=== PATIENT | female | born 1950 | race Caucasian/White ===

== ENCOUNTER → 2016-09-28 | Outpatient (REF) | payer MEDICARE, OTHER ==
[2016-09-28 12:07] LABS: ALBUMIN 3.5 GM/DL (3.2-5.2); ALBUMIN/GLOBULIN RATIO 1.03 (1.00-1.93); BILIRUBIN,TOTAL 0.2 MG/DL (0.2-1.0); CALCIUM LEVEL 9.5 MG/DL (8.8-10.2); CREATININE FOR GFR 1.04 MG/DL (0.55-1.02); GLOMERULAR FILTRATION RATE 56.4 (>45); POTASSIUM SERUM 4.4 MEQ/L (3.5-5.1); TOTAL PROTEIN 6.9 GM/DL (6.4-8.2)
== END ==
LOC: M SFHCPLAZ 08:22
PROVIDERS: ATTEND Nurse Practitioner Family
DX: I10 Essential (primary) hypertension (principal); E13.9 Other specified diabetes mellitus without complications

== ENCOUNTER → 2017-03-28 | Outpatient (REF) | payer MEDICARE, OTHER ==
[2017-03-28 12:29] LABS: ALBUMIN 3.6 GM/DL (3.2-5.2); ALBUMIN/GLOBULIN RATIO 1.09 (1.00-1.93); BILIRUBIN,TOTAL 0.3 MG/DL (0.2-1.0); CALCIUM LEVEL 10.1 MG/DL (8.8-10.2); CREATININE FOR GFR 1.12 MG/DL (0.55-1.02); FREE T4 1.2 NG/DL (0.76-1.46); GLOMERULAR FILTRATION RATE 51.8 (>45); POTASSIUM SERUM 4.3 MEQ/L (3.5-5.1); TOTAL PROTEIN 6.9 GM/DL (6.4-8.2)
== END ==
LOC: M SFHCPLAZ 08:32
PROVIDERS: ATTEND Nurse Practitioner Family
DX: E78.2 Mixed hyperlipidemia (principal); E11.9 Type 2 diabetes mellitus without complications

== ENCOUNTER → 2017-04-01 | Outpatient (CLI) | payer MEDICARE, OTHER ==
--- NOTE | 2017-04-01 10:56 | REPMRS ---
Patient History The patient states she has not had a clinical breast exam in over a year. Patient is postmenopausal and is nulliparous. No known family history of cancer. Benign stereotatic loc for ea lesion of the right breast, May 01, 2012. Taking unspecified hormones for 26 years. Digital Woman Screen Mammo: April 01, 2017 - Exam #: [id number] Bilateral CC and MLO view(s) were taken. Technologist: yJoti Lerma Technologist Prior study comparison: March 31, 2016, digital woman screen mammo performed at [facility]. March 25, 2015, digital woman screen mammo performed at [facility]. March 08, 2014, digital woman screen mammo performed at [facility]. March 14, 2012, right breast digital mammo diagnostic unilateral, performed at [facility]. FINDINGS: The breast tissue is heterogeneously dense. This may lower the sensitivity of mammography. There are stable nodular densities again noted in the right breast unchanged from multiple prior studies. There has been no change in the appearance of the mammogram from the prior studies. There is a mild amount of scattered fibroglandular density which is fairly symmetric. There is no interval development of dominant mass, architectural distortion, or clustered microcalcification suggestive of malignancy. ASSESSMENT: BI-RADS/ACR category 2 mammogram. Benign finding(s). Recommendation Routine screening mammogram in 1 year (for women over age 40). This mammogram was interpreted with the aid of an FDA-approved computer-aided dectection system. Electronically Signed By: Antonio Corbett MD 04/01/17 [id number]
== END ==
LOC: M WHC 09:52
PROVIDERS: ATTEND Nurse Practitioner Family
DX: Z12.31 Encounter for screening mammogram for malignant neoplasm of breast (principal)

== ENCOUNTER → 2017-09-26 | Outpatient (REF) | payer MEDICARE, OTHER ==
[2017-09-26 12:21] LABS: ALBUMIN 3.7 GM/DL (3.2-5.2); ALBUMIN/GLOBULIN RATIO 1.16 (1.00-1.93); ALKALINE PHOSPHATASE 83 U/L (45-117); ALT/SGPT 25 U/L (12-78); ANION GAP 7 MEQ/L (8-16); AST/SGOT 14 U/L (7-37); BILIRUBIN,TOTAL 0.2 MG/DL (0.2-1.0); BLOOD UREA NITROGEN 23 MG/DL (7-18); CALCIUM LEVEL 10.1 MG/DL (8.8-10.2); CARBON DIOXIDE LEVEL 30 MEQ/L (21-32); CHLORIDE LEVEL 100 MEQ/L (98-107); GLOMERULAR FILTRATION RATE 52.7 (>45); GLUCOSE, FASTING 132 MG/DL (80-110); POTASSIUM SERUM 4.6 MEQ/L (3.5-5.1); SODIUM LEVEL 137 MEQ/L (136-145); TOTAL PROTEIN 6.9 GM/DL (6.4-8.2)
[2017-09-26 12:31] LABS: ESTIMATED AVERAGE GLUCOSE 137 MG/DL (60-110); HEMOGLOBIN A1c 6.4 %
[2017-09-26 14:44] LABS: HEP C VIRUS AB SCREEN MEDICARE 0.1 INDEX (<0.8)
== END ==
LOC: M SFHCPLAZ 09:08
DX: E11.9 Type 2 diabetes mellitus without complications (principal); E78.2 Mixed hyperlipidemia; Z11.59 Encounter for screening for other viral diseases
CPT/HCPCS: 80053

== ENCOUNTER → 2018-03-24 | Outpatient (REF) | payer MEDICARE, OTHER ==
[2018-03-24 12:09] LABS: BASO % 0.4 % (0.0-1.0); EOS # 0.4 10^3/uL (0.0-0.50); EOS % 4.4 % (0.0-3.0); HEMATOCRIT 33.9 % (36.0-47.0); HEMOGLOBIN 10.7 g/dl (12.0-15.5); IMMATURE GRANULOCYTE % 0.8 % (0-3.0); LYMPH # 1.8 10^3/uL (1.5-4.5); MEAN CORPUSCULAR HEMOGLOBIN 29.2 pg (27.0-33.0); MEAN CORPUSCULAR HGB CONC 31.6 g/dl (32.0-36.5); MEAN CORPUSCULAR VOLUME 92.4 fl (80.0-96.0); MONO # 0.7 10^3/uL (0.0-0.8); MONO % 7.3 % (0.0-5.0); NEUTROPHILS # 6.6 10^3/uL (1.8-7.7); NEUTROPHILS % 68.1 % (36.0-66.0); PLATELET COUNT, AUTOMATED 397 10^3/uL (150-450); RED BLOOD COUNT 3.67 10^6/uL (4.00-5.40); RED CELL DISTRIBUTION WIDTH 12.9 % (11.5-14.5); WHITE BLOOD COUNT 9.7 10^3/uL (4.0-10.0)
[2018-03-24 12:21] LABS: ALBUMIN 3.2 GM/DL (3.2-5.2); ALBUMIN/GLOBULIN RATIO 0.91 (1.00-1.93); ALKALINE PHOSPHATASE 97 U/L (45-117); ALT/SGPT 24 U/L (12-78); ANION GAP 10 MEQ/L (8-16); AST/SGOT 12 U/L (7-37); BILIRUBIN,TOTAL 0.1 MG/DL (0.2-1.0); BLOOD UREA NITROGEN 24 MG/DL (7-18); CALCIUM LEVEL 9.9 MG/DL (8.8-10.2); CARBON DIOXIDE LEVEL 30 MEQ/L (21-32); CHLORIDE LEVEL 99 MEQ/L (98-107); CHOLESTEROL LEVEL 152 MG/DL (<200); CHOLESTEROL RISK RATIO 3.234 (<5); CREATININE FOR GFR 1.14 MG/DL (0.55-1.30); GLOMERULAR FILTRATION RATE 50.6 (>45); GLUCOSE, FASTING 133 MG/DL (70-100); HDL CHOLESTEROL 47 MG/DL (>40); LDL CHOLESTEROL 55.6 MG/DL (<100); NON-HDL-C 105 MG/DL; POTASSIUM SERUM 4.6 MEQ/L (3.5-5.1); SODIUM LEVEL 139 MEQ/L (136-145); TOTAL PROTEIN 6.7 GM/DL (6.4-8.2); TRIGLYCERIDES LEVEL 247 MG/DL (<150)
[2018-03-24 12:44] LABS: ESTIMATED AVERAGE GLUCOSE 143 MG/DL (60-110); HEMOGLOBIN A1c 6.6 %
[2018-03-24 15:23] LABS: CREATININE, URINE 58.9 MG/DL
== END ==
LOC: M SFHCPLAZ 08:00
DX: N18.3 Chronic kidney disease, stage 3 (moderate) (principal); E11.9 Type 2 diabetes mellitus without complications; E78.2 Mixed hyperlipidemia
CPT/HCPCS: 80053

== ENCOUNTER → 2018-03-24 | Outpatient (CLI) | payer MEDICARE, OTHER | LOC: M WHC 08:44 | DX: Z12.31 Encounter for screening mammogram for malignant neoplasm of breast (principal); E11.9 Type 2 diabetes mellitus without complications; N18.3 Chronic kidney disease, stage 3 (moderate); E78.2 Mixed hyperlipidemia; I10 Essential (primary) hypertension; D63.1 Anemia in chronic kidney disease; Z12.11 Encounter for screening for malignant neoplasm of colon | CPT/HCPCS: 77067; 80053 ==

== ENCOUNTER → 2018-05-19 | Outpatient (REF) | payer MEDICARE, OTHER ==
[2018-05-19 12:33] LABS: ANION GAP 9 MEQ/L (8-16); BLOOD UREA NITROGEN 23 MG/DL (7-18); CALCIUM LEVEL 10.1 MG/DL (8.8-10.2); CARBON DIOXIDE LEVEL 30 MEQ/L (21-32); CHLORIDE LEVEL 100 MEQ/L (98-107); CREATININE FOR GFR 1.29 MG/DL (0.55-1.30); GLOMERULAR FILTRATION RATE 43.8 (>45); GLUCOSE, FASTING 120 MG/DL (70-100); POTASSIUM SERUM 4.5 MEQ/L (3.5-5.1); SODIUM LEVEL 139 MEQ/L (136-145)
== END ==
LOC: M SFHCPLAZ 10:24
DX: N18.3 Chronic kidney disease, stage 3 (moderate) (principal)
CPT/HCPCS: 80048

== ENCOUNTER → 2018-06-26 | Outpatient (REF) | payer MEDICARE, OTHER ==
[2018-06-26 13:14] LABS: HEMATOCRIT 36.1 % (36.0-47.0); HEMOGLOBIN 11.2 g/dl (12.0-15.5); MEAN CORPUSCULAR HEMOGLOBIN 29.3 pg (27.0-33.0); MEAN CORPUSCULAR VOLUME 94.5 fl (80.0-96.0); PLATELET COUNT, AUTOMATED 353 10^3/uL (150-450); RED BLOOD COUNT 3.82 10^6/uL (4.00-5.40); RED CELL DISTRIBUTION WIDTH 13.7 % (11.5-14.5); WHITE BLOOD COUNT 9.9 10^3/uL (4.0-10.0)
[2018-06-26 13:16] LABS: ESTIMATED AVERAGE GLUCOSE 131 MG/DL (60-110); HEMOGLOBIN A1c 6.2 %
[2018-06-26 13:41] LABS: ALBUMIN 3.5 GM/DL (3.2-5.2); ALBUMIN/GLOBULIN RATIO 0.95 (1.00-1.93); ALKALINE PHOSPHATASE 80 U/L (45-117); ALT/SGPT 27 U/L (12-78); ANION GAP 12 MEQ/L (8-16); AST/SGOT 12 U/L (7-37); BILIRUBIN,TOTAL 0.2 MG/DL (0.2-1.0); BLOOD UREA NITROGEN 29 MG/DL (7-18); CALCIUM LEVEL 9.7 MG/DL (8.8-10.2); CARBON DIOXIDE LEVEL 25 MEQ/L (21-32); CHLORIDE LEVEL 102 MEQ/L (98-107); CREATININE FOR GFR 1.47 MG/DL (0.55-1.30); FERRITIN 21 NG/ML (8-252); GLOMERULAR FILTRATION RATE 37.6 (>45); GLUCOSE, FASTING 141 MG/DL (70-100); IRON (FE) 48 UG/DL (50-170); POTASSIUM SERUM 4.6 MEQ/L (3.5-5.1); SODIUM LEVEL 139 MEQ/L (136-145); TOTAL IRON BINDING CAPACITY 438 UG/DL (250-450); TOTAL PROTEIN 7.2 GM/DL (6.4-8.2)
== END ==
LOC: M SFHCPLAZ 08:03
DX: N18.3 Chronic kidney disease, stage 3 (moderate) (principal); D63.1 Anemia in chronic kidney disease; E78.2 Mixed hyperlipidemia; E11.9 Type 2 diabetes mellitus without complications
CPT/HCPCS: 83550

== ENCOUNTER → 2018-07-10 | Outpatient (REF) | payer MEDICARE, OTHER ==
[2018-07-10 18:17] LABS: URINE TOTAL PROTEIN 41.8 MG/DL (0-12)
[2018-07-10 18:37] LABS: COMPLEMENT C3 143 MG/DL (90-180); TOTAL PROTEIN 7.4 GM/DL (6.4-8.2)
[2018-07-11 13:53] LABS: ALBUMIN % 55.4 % (55.8-66.1); ALPHA-1-GLOBULIN % 4.9 % (2.9-4.9); ALPHA-1-GLOBULINS 0.36 GM/DL (0.17-0.41); ALPHA-2-GLOBULINS 0.84 GM/DL (0.42-0.99); ALPHA-2-GLOBULINS % 11.3 % (7.1-11.8); BETA-1-GLOBULINS 0.59 GM/DL (0.28-0.60); BETA-2-GLOBULINS 0.44 GM/DL (0.19-0.55); BETA-2-GLOBULINS % 5.9 % (3.2-6.5); GAMMA GLOBULIN % 14.5 % (11.1-18.8); GAMMA GLOBULINS 1.07 GM/DL (0.65-1.58)
[2018-07-12 10:28] LABS: HEPATITIS B SURFACE ANTIBODY NEGATIVE (POSITIVE)
[2018-07-12 10:39] LABS: HEPATITIS B SURFACE ANTIGEN NEGATIVE (NEGATIVE)
[2018-07-12 11:07] LABS: HEPATITIS B CORE ANTIBODY IGM NEGATIVE (NEGATIVE); HEPATITIS C VIRUS ABY INDEX < 0.0 INDEX (<0.8)
== END ==
LOC: M LAB REF 17:00
DX: R31.9 Hematuria, unspecified (principal); R80.9 Proteinuria, unspecified
CPT/HCPCS: 84165

== ENCOUNTER → 2018-07-12 | Outpatient (REF) | payer MEDICARE, OTHER ==
[2018-07-12 14:04] LABS: CREATININE, URINE 43.9 MG/DL; URINE TOTAL PROTEIN 43.2 MG/DL (0-12)
[2018-07-12 14:23] LABS: CREATININE 24 HOUR, URINE 724.3 MG/24HR (600-1800); TOTAL PROTEIN 24 HOUR URINE 712.8 MG/24HR (50-150); TOTAL VOLUME, URINE 1650 ML
== END ==
LOC: M LAB REF 13:02
DX: R80.9 Proteinuria, unspecified (principal)
CPT/HCPCS: 81050

== ENCOUNTER → 2018-07-17 | Outpatient (CLI) | payer MEDICARE, OTHER | LOC: M RAD 07:30 | DX: N18.3 Chronic kidney disease, stage 3 (moderate) (principal); R31.9 Hematuria, unspecified; R80.9 Proteinuria, unspecified; I12.9 Hypertensive chronic kidney disease with stage 1 through stage 4 chronic kidney disease, or unspecified chronic kidney disease; E11.22 Type 2 diabetes mellitus with diabetic chronic kidney disease | CPT/HCPCS: 76775 ==

== ENCOUNTER 2018-08-18 06:42 | Day surgery (SDC) | payer MEDICARE, OTHER ==
[~2018-08-18] VITALS: Ht 152.4 cm; Wt 70.7 kg
[~2018-08-18 06:42] MED LIST: AMIT100TA PO; ASPI81TA85 PO; CALC600T60 PO; CARV3.12 PO; GLIP5TAB8 PO; HYDR25TAB PO; JANU100T PO; LISI-538 PO; SIMV10TA2 PO; SYST1SOL OU
[2018-08-18] MEDS ORDERED: LIDOCAINE 2% INJ 100 MG/5 ML SDV (FOR ANES.) As Ordered ONE (07:07)
[2018-08-18] MEDS ORDERED: PROPOFOL 200 MG/20 ML VIAL As Ordered ONE (07:07)
[2018-08-18] MEDS ORDERED: NS 1,000 ML IV ONE (07:30)
--- NOTE | 2018-08-18 09:10 | ROOR ---
Patient Name: Joslyn Scott Procedure Date: 08/18/2018 8:33 AM Date of : 1950 Age: 68 Room: [facility] Gender: Female Note Status: Finalized Procedure: Colonoscopy Indications: Screening for colorectal malignant neoplasm Providers: Biju Stock MD Referring MD: Yashira Giron NP Requesting Provider: Medicines: Monitored Anesthesia Care Complications: No immediate complications. Procedure: Pre-Anesthesia Assessment: - Prior to the procedure, a History and Physical was performed, and patient medications and allergies were reviewed. The patient is competent. The risks and benefits of the procedure and the sedation options and risks were discussed with the patient. All questions were answered and informed consent was obtained. Patient identification and proposed procedure were verified by the physician, the nurse and the anesthesiologist in the procedure room. Mental Status Examination: alert and oriented. Airway Examination: normal oropharyngeal airway and neck mobility. Respiratory Examination: clear to auscultation. CV Examination: normal. Prophylactic Antibiotics: The patient does not require prophylactic antibiotics. Prior Anticoagulants: The patient has taken no previous anticoagulant or antiplatelet agents. ASA Grade Assessment: III - A patient with severe systemic disease. After reviewing the risks and benefits, the patient was deemed in satisfactory condition to undergo the procedure. The anesthesia plan was to use monitored anesthesia care (MAC). Immediately prior to administration of medications, the patient was re-assessed for adequacy to receive sedatives. The heart rate, respiratory rate, oxygen saturations, blood pressure, adequacy of pulmonary ventilation, and response to care were monitored throughout the procedure. The physical status of the patient was re-assessed after the procedure. The Colonoscope was introduced through the anus and advanced to the terminal ileum, with identification of the appendiceal orifice and IC valve. The colonoscopy was performed without difficulty. The patient tolerated the procedure well. The quality of the bowel preparation was good. The ileocecal valve, appendiceal orifice, and rectum were photographed. Scope insertion time was 4 minutes. Scope withdrawal time was 8 minutes. The total duration of the procedure was 12 minutes. Findings: The perianal and digital rectal examinations were normal. The terminal ileum appeared normal. A 3 mm polyp was found in the cecum. The polyp was sessile. The polyp was removed with a jumbo cold forceps. Resection and retrieval were complete. Verification of patient identification for the specimen was done by the physician and nurse using the patient's name, date and medical record number. Non-bleeding external and internal hemorrhoids were found during retroflexion. The hemorrhoids were medium-sized. Impression: - The examined portion of the ileum was normal. - One 3 mm polyp in the cecum, removed with a jumbo cold forceps. Resected and retrieved. - Non-bleeding external and internal hemorrhoids. Recommendation: - Patient has a contact number available for emergencies. The signs and symptoms of potential delayed complications were discussed with the patient. Return to normal activities tomorrow. Written discharge instructions were provided to the patient. - Resume previous diet. - Continue present medications. - Await pathology results. - Repeat colonoscopy in 5-10 years for surveillance based on pathology results. - Based on the biopsy results you will receive a phone call from GI clinic in 2-3 weeks to review the pathology results AND/OR your results will be faxed to your Primary care physician. - Return to primary care physician. Biju Stock MD Biju Stock MD 08/18/2018 9:09:36 AM This report has been signed electronically. Number of Addenda: 0 Note Initiated On: 08/18/2018 8:33 AM Estimated Blood Loss: Estimated blood loss was minimal.
[2018-08-18 09:20] VITALS: BP 126/60
== END 2018-08-18 09:23 | disposition home or self-care (01) ==
LOC: M OPP 06:42
PROVIDERS: ATTEND Internal Medicine Gastroenterology
DX: Z12.11 Encounter for screening for malignant neoplasm of colon (principal); K64.8 Other hemorrhoids; D12.2 Benign neoplasm of ascending colon; E11.9 Type 2 diabetes mellitus without complications; E78.00 Pure hypercholesterolemia, unspecified; I10 Essential (primary) hypertension; Z79.82 Long term (current) use of aspirin; Z79.84 Long term (current) use of oral hypoglycemic drugs; Z79.899 Other long term (current) drug therapy; Z87.891 Personal history of nicotine dependence; Z90.710 Acquired absence of both cervix and uterus; Z80.7 Family history of other malignant neoplasms of lymphoid, hematopoietic and related tissues; Z83.3 Family history of diabetes mellitus

== ENCOUNTER → 2018-08-29 | Outpatient (REF) | payer MEDICARE, OTHER ==
[2018-08-29 13:59] LABS: BACTERIA, URINE AUTO 2+ (NEGATIVE); MUCUS, URINE SMALL (NEGATIVE); RBC, URINE AUTO 61 /HPF (0-3); RENAL EPITHELIAL CELLS 4 /HPF; SQUAMOUS EPITHELIAL CELL UR AU 16 /HPF (0-6); WBC, URINE AUTO TNTC /HPF (0-3)
== END ==
LOC: M SMT 12:57
PROVIDERS: ATTEND Specialist
DX: Z01.818 Encounter for other preprocedural examination (principal); N18.3 Chronic kidney disease, stage 3 (moderate); R31.29 Other microscopic hematuria; D49.4 Neoplasm of unspecified behavior of bladder
CPT/HCPCS: 52000; 81015; 87086; G0463

== ENCOUNTER → 2018-08-31 | Outpatient (REF) | payer MEDICARE, OTHER ==
[2018-08-31 17:59] LABS: APPEARANCE, URINE CLOUDY (CLEAR); BACTERIA, URINE AUTO 1+ (NEGATIVE); BILIRUBIN, URINE AUTO NEGATIVE (NEGATIVE); BLOOD, URINE BLOOD 1+ (NEGATIVE); COLOR, URINE YELLOW (YELLOW); GLUCOSE, URINE (UA) AUTO NEGATIVE (NEGATIVE); KETONE, URINE AUTO NEGATIVE (NEGATIVE); LEUKOCYTE ESTERASE, URINE AUTO 3+ (NEGATIVE); NITRITE, URINE AUTO NEGATIVE (NEGATIVE); PROTEIN, URINE AUTO NEGATIVE (NEGATIVE); RBC, URINE AUTO 19 /HPF (0-3); SPECIFIC GRAVITY URINE AUTO 1.014 (1.002-1.035); SQUAMOUS EPITHELIAL CELL UR AU 2 /HPF (0-6); UROBILINOGEN, URINE AUTO 0.2 mg/dL (0.0-2.0); WBC, URINE AUTO TNTC /HPF (0-3)
== END ==
LOC: M SMT 17:20
PROVIDERS: ATTEND Specialist
DX: N39.0 Urinary tract infection, site not specified (principal)

== ENCOUNTER → 2018-09-18 | Outpatient (CLI) | payer MEDICARE, OTHER ==
[~2018-09-18] MED LIST changes: +ISOVUE-370 76% 100ML VIAL (Q9967) As Ordered ONE
--- NOTE | 2018-09-18 11:25 | REP ---
CT UROGRAPHY WITHOUT AND WITH IV CONTRAST: HISTORY: Chronic kidney disease stage III. No comparison CT study. CT CONTRAST DOSE: 100 mL of intravenous Isovue [address] FINDINGS: Digital preliminary home builder radiographs are unremarkable. The lung bases are clear on axial CT images. There is granular calcific material in the dependent portion the gallbladder consistent with gallstones. No focal hepatic lesion is seen on pre- or post-contrast imaging. There is mild fatty infiltration of the liver. No adrenal lesion is seen on either side. Pancreas is unremarkable. There is an accessory splenule. Spleen is normal in size and otherwise homogeneous. The kidneys enhance symmetrically and are morphologically intact. No hydronephrosis is seen. There is heterogeneous enhancement and thickening in the anterior bladder wall particularly along its right anterior border. There is a linear streaky density in the perivesical fat anteriorly to the right of midline. There is some more diffuse perivesical fat edema as well. Infiltrate and bladder neoplastic disease cannot be excluded. No pelvic adenopathy is seen. Uterus is surgically absent. No free fluid is seen. Normal-sized inguinal lymph nodes are present bilaterally. The appendix is not identified but there is no CT evidence to suggest appendiceal disease or periappendiceal inflammation. Vascular calcification is noted in a normal caliber aorta. No abdominal wall defect is seen. No filling defect is seen in the upper tract collecting system on delayed scan images. IMPRESSION: Eccentric bladder wall enhancement thickening and nas-vesicle edema or infiltration suggestive of bladder neoplastic disease. This is most prominent on the right anteriorly. Cholelithiasis. Electronically Signed by Troy Corbett MD 09/18/2018 07:20 P
== END ==
LOC: M RAD 09:52
PROVIDERS: ATTEND Specialist
DX: K80.20 Calculus of gallbladder without cholecystitis without obstruction (principal); N18.3 Chronic kidney disease, stage 3 (moderate)
CPT/HCPCS: 74178; 93005; G0463; Q9967

== ENCOUNTER 2018-09-26 08:13 | Day surgery (SDC) | payer MEDICARE, OTHER ==
[~2018-09-26] VITALS: Ht 149.9 cm; Wt 72.1 kg
[~2018-09-26 08:13] MED LIST changes: -ISOVUE-370 76% 100ML VIAL (Q9967) As Ordered ONE; +LR 1,000 ML IV ONE
[2018-09-26] MEDS ORDERED: PROPOFOL 200 MG/20 ML VIAL As Ordered ONE (09:53)
[2018-09-26] MEDS ORDERED: fentaNYL 100 MCG/2 ML INJECTION (J3010) As Ordered ONE ×2 (09:53→10:35)
[2018-09-26] MEDS ORDERED: LIDOCAINE 2% INJ 100 MG/5 ML SDV (FOR ANES.) As Ordered ONE (09:53)
[2018-09-26] MEDS ORDERED: MIDAZOLAM INJ 2 MG/2 ML VIAL (J2250) As Ordered ONE (09:53)
[2018-09-26] MEDS ORDERED: ROCURONIUM BROMIDE 50 MG/5 ML VIAL As Ordered ONE (09:53)
[2018-09-26] MEDS ORDERED: mitoMYcin 40MG VIAL (J9280 PER 5MG) XX ONE (10:00)
[2018-09-26] MEDS ORDERED: PHENYLephrine HCL 500 MCG/5 ML (100MCG/ML) SYRINGE (J2370) As Ordered ONE (10:28)
[2018-09-26] MEDS ORDERED: LABETALOL HCL 100 MG/20 ML VIAL As Ordered ONE (10:42)
[2018-09-26] MEDS ORDERED: SUGAMMADEX SODIUM 500 MG/5 ML VIAL (BRIDION) As Ordered ONE (11:04)
[2018-09-26] MEDS ORDERED: ONDANSETRON 4MG/2ML VIAL (J2405) As Ordered ONE (11:08)
[2018-09-26] MEDS ORDERED: dexameTHASONE 4 MG/ML 1ML VIAL (J1100) As Ordered ONE (11:08)
--- NOTE | 2018-09-26 11:51 | RO ---
DATE OF PROCEDURE: 09/26/2018 PREOPERATIVE DIAGNOSIS: Bladder tumor. POSTOPERATIVE DIAGNOSIS: Bladder tumor. PROCEDURE PERFORMED: Cystoscopy, transurethral resection of a bladder tumor, random bladder biopsies, deep bladder biopsies of the tumor base, and intravesical mitomycin. SURGEON: Dr. Mena King. MOTION PICTURE PROJECTIONIST: ANESTHESIA: General. MEDICATIONS: Ancef 2 grams preoperatively. SPECIMENS: Bladder tumor, deep bladder biopsies of the tumor base, and random bladder biopsies. FINDINGS: Approximately 2-3 cm papillary tumor on the right side of the bladder but also some erythematous patches, areas of white patches and irritation. INDICATIONS FOR PROCEDURE: The patient is a 68-year-old female who was found to have microscopic hematuria and a bladder mass by renal ultrasound. A cystoscopy was done in the office on 08/29/2018, which showed a papillary bladder mass on the right side of the bladder with significant debris. A urine culture was negative but a urinalysis showed quite a lot of red and white blood cells. A CT scan of the abdomen and pelvis was done which showed the bladder mass, but no other significant abnormalities. After discussing all different options, alternatives, risks, and benefits it was decided to bring the patient to the operating room for more definitive management. We did discuss that if the tumor appears to be deep, the need for second look surgery. DESCRIPTION OF PROCEDURE: The patient was brought into the operating room. Sequential compression devices and thromboembolic deterrent stockings (TEDS) were in place. Preoperative antibiotics were given. General anesthesia was induced. The patient was then placed in the lithotomy position and careful attention was paid that her pressure points were well padded and protected. She was prepped and draped in the usual fashion. Next a 26-[place] continuous flow resectoscope was placed under direct vision. The papillary tumor was seen on the right lateral wall and there were some whitish patches at the base of the bladder and also other erythematous patches and debris throughout the bladder with multiple areas of irritation. Both ureteral orifices were seen. At this point a loop was placed and a resection was done of the papillary tumor. This was sent to pathology separately. Next, random bladder biopsies were done and the biopsies of the tumor base and fulguration was then utilized. The patient's bladder was emptied and there was no bleeding. At this point, a three-way 20-[place] Zee catheter was placed and 40 mg of mitomycin and 40 mL of sterile water was then placed and the patient was returned to the recovery room with this in place to be kept in place for 1 hour with the patient being turn side to side every 15 minutes. We will call her with the pathology results and decide followup from there.
[2018-09-26] MEDS ORDERED: ONDANSETRON 4MG/2ML VIAL (J2405) IV PRN (12:00)
[2018-09-26] MEDS ORDERED: PERCOCET 5MG/325MG TAB PO PRN (12:00)
[2018-09-26] MEDS ORDERED: LR 1,000 ML IV SCH (12:00)
[2018-09-26] MEDS ORDERED: HYDROMORPHONE HCL 0.5 MG/ 0.5 ML SYRINGE (J1170 PER 1) IV PRN (12:00)
[2018-09-26] MEDS ORDERED: fentaNYL 100 MCG/2 ML INJECTION (J3010) IV PRN (12:00)
[2018-09-26 15:07] VITALS: BP 138/68
== END 2018-09-26 15:45 | disposition home or self-care (01) ==
LOC: M SDC 08:13
PROVIDERS: ATTEND Specialist
DX: C67.9 Malignant neoplasm of bladder, unspecified (principal); I12.9 Hypertensive chronic kidney disease with stage 1 through stage 4 chronic kidney disease, or unspecified chronic kidney disease; E11.22 Type 2 diabetes mellitus with diabetic chronic kidney disease; E11.40 Type 2 diabetes mellitus with diabetic neuropathy, unspecified; N18.9 Chronic kidney disease, unspecified; E78.00 Pure hypercholesterolemia, unspecified; K21.9 Gastro-esophageal reflux disease without esophagitis; M54.9 Dorsalgia, unspecified; R07.9 Chest pain, unspecified; R06.83 Snoring; Z79.899 Other long term (current) drug therapy; Z87.891 Personal history of nicotine dependence; Z90.710 Acquired absence of both cervix and uterus; Z78.0 Asymptomatic menopausal state
CPT/HCPCS: 52235; 88305; 88307; J0690; J1100; J2250; J2370; J2405; J3010; J9280

== ENCOUNTER → 2018-10-05 | Outpatient (CLI) | payer MEDICARE, OTHER ==
[~2018-10-05] MED LIST changes: -LR 1,000 ML IV ONE
[2018-10-05 14:52] LABS: CALCIUM LEVEL 9.8 MG/DL (8.8-10.2); CREATININE FOR GFR 1.94 MG/DL (0.55-1.30); GLOMERULAR FILTRATION RATE 27.3 (>45); POTASSIUM SERUM 5.2 MEQ/L (3.5-5.1)
[2018-10-05 16:01] LABS: MAU/CREAT RATIO 1168.5 MCG/MG (0.0-30.0)
== END ==
LOC: M SMT 09:35
PROVIDERS: ATTEND Nurse Practitioner Family
DX: N18.3 Chronic kidney disease, stage 3 (moderate) (principal); D63.1 Anemia in chronic kidney disease

== ENCOUNTER → 2018-10-12 | Outpatient (REF) | payer MEDICARE, OTHER ==
[2018-10-12 16:23] LABS: HEMOGLOBIN A1c 8.4 %
[2018-10-12 16:32] LABS: ALBUMIN 3.5 GM/DL (3.2-5.2); BILIRUBIN,TOTAL 0.2 MG/DL (0.2-1.0); CALCIUM LEVEL 9.2 MG/DL (8.8-10.2); CREATININE FOR GFR 1.36 MG/DL (0.55-1.30); GLOMERULAR FILTRATION RATE 41.2 (>45); POTASSIUM SERUM 4.7 MEQ/L (3.5-5.1); TOTAL PROTEIN 7.2 GM/DL (6.4-8.2)
== END ==
LOC: M SFHCPLAZ 14:28
PROVIDERS: ATTEND Nurse Practitioner Family
DX: E11.9 Type 2 diabetes mellitus without complications (principal); N18.3 Chronic kidney disease, stage 3 (moderate); E78.2 Mixed hyperlipidemia
CPT/HCPCS: 36415; 80053; 83036; 90682; G0008; G0463

== ENCOUNTER → 2018-11-07 | Outpatient (CLI) | payer MEDICARE, OTHER ==
[~2018-11-07] MED LIST changes: +CALC1CHW PO
[2018-11-07 18:34] LABS: HEMATOCRIT 39.3 % (36.0-47.0); HEMOGLOBIN 12.6 g/dl (12.0-15.5); MEAN CORPUSCULAR HEMOGLOBIN 29.1 pg (27.0-33.0); MEAN CORPUSCULAR HGB CONC 32.1 g/dl (32.0-36.5); MEAN CORPUSCULAR VOLUME 90.8 fl (80.0-96.0); PLATELET COUNT, AUTOMATED 251 10^3/uL (150-450); RED BLOOD COUNT 4.33 10^6/uL (4.00-5.40); WHITE BLOOD COUNT 7.1 10^3/uL (4.0-10.0)
[2018-11-07 18:35] LABS: CALCIUM LEVEL 9.4 MG/DL (8.8-10.2); CREATININE FOR GFR 1.14 MG/DL (0.55-1.30); GLOMERULAR FILTRATION RATE 50.5 (>45)
[2018-11-07 18:37] LABS: AMORPHOUS SEDIMENT SMALL (NEGATIVE); APPEARANCE, URINE HAZY (CLEAR); BACTERIA, URINE AUTO 1+ (NEGATIVE); BILIRUBIN, URINE AUTO NEGATIVE (NEGATIVE); BLOOD, URINE BLOOD 1+ (NEGATIVE); COLOR, URINE STRAW (YELLOW); GLUCOSE, URINE (UA) AUTO NEGATIVE (NEGATIVE); KETONE, URINE AUTO NEGATIVE (NEGATIVE); LEUKOCYTE ESTERASE, URINE AUTO 3+ (NEGATIVE); NITRITE, URINE AUTO NEGATIVE (NEGATIVE); PROTEIN, URINE AUTO NEGATIVE (NEGATIVE); RBC, URINE AUTO 6 /HPF (0-3); SPECIFIC GRAVITY URINE AUTO 1.004 (1.002-1.035); SQUAMOUS EPITHELIAL CELL UR AU 3 /HPF (0-6); UROBILINOGEN, URINE AUTO 0.2 mg/dL (0.0-2.0); WBC, URINE AUTO 97 /HPF (0-3)
[2018-11-07 18:43] LABS: INR 1.05; PROTHROMBIN TIME 13.8 SECONDS (12.1-14.4)
[2018-11-07 18:44] LABS: PARTIAL THROMBOPLASTIN TIME 36.9 SECONDS (25.4-37.6)
== END ==
LOC: M SMT 13:37
PROVIDERS: ATTEND Nurse Practitioner Family
DX: Z01.818 Encounter for other preprocedural examination (principal); C67.9 Malignant neoplasm of bladder, unspecified

== ENCOUNTER → 2018-11-09 | Outpatient (REF) | payer MEDICARE, OTHER ==
[2018-11-09 19:05] LABS: APPEARANCE, URINE HAZY (CLEAR); BACTERIA, URINE AUTO 1+ (NEGATIVE); BILIRUBIN, URINE AUTO NEGATIVE (NEGATIVE); BLOOD, URINE BLOOD 1+ (NEGATIVE); COLOR, URINE YELLOW (YELLOW); GLUCOSE, URINE (UA) AUTO NEGATIVE (NEGATIVE); KETONE, URINE AUTO NEGATIVE (NEGATIVE); LEUKOCYTE ESTERASE, URINE AUTO 3+ (NEGATIVE); NITRITE, URINE AUTO NEGATIVE (NEGATIVE); PROTEIN, URINE AUTO NEGATIVE (NEGATIVE); RBC, URINE AUTO 12 /HPF (0-3); SPECIFIC GRAVITY URINE AUTO 1.015 (1.002-1.035); SQUAMOUS EPITHELIAL CELL UR AU 1 /HPF (0-6); UROBILINOGEN, URINE AUTO 0.2 mg/dL (0.0-2.0); WBC, URINE AUTO 124 /HPF (0-3)
== END ==
LOC: M SMT 17:15
PROVIDERS: ATTEND Specialist
DX: Z01.818 Encounter for other preprocedural examination (principal); D49.4 Neoplasm of unspecified behavior of bladder

== ENCOUNTER 2018-11-14 07:19 | Day surgery (SDC) | payer MEDICARE, OTHER ==
[~2018-11-14] VITALS: Ht 152.4 cm; Wt 74.3 kg
[~2018-11-14 07:19] MED LIST changes: +LR 1,000 ML IV ONE
[2018-11-14] MEDS ORDERED: ROCURONIUM BROMIDE 50 MG/5 ML VIAL As Ordered ONE (07:20)
[2018-11-14] MEDS ORDERED: ONDANSETRON 4MG/2ML VIAL (J2405) As Ordered ONE (07:20)
[2018-11-14] MEDS ORDERED: LIDOCAINE 2% INJ 100 MG/5 ML SDV (FOR ANES.) As Ordered ONE (07:20)
[2018-11-14] MEDS ORDERED: dexameTHASONE 4 MG/ML 1ML VIAL (J1100) As Ordered ONE (07:20)
[2018-11-14] MEDS ORDERED: PROPOFOL 200 MG/20 ML VIAL As Ordered ONE (07:20)
[2018-11-14] MEDS ORDERED: fentaNYL 100 MCG/2 ML INJECTION (J3010) As Ordered ONE ×2 (07:20→09:51)
[2018-11-14] MEDS ORDERED: MIDAZOLAM INJ 2 MG/2 ML VIAL (J2250) As Ordered ONE (07:20)
[2018-11-14] MEDS ORDERED: LIDOCAINE 2% 5ML JELLY UROJET As Ordered ONE (09:20)
[2018-11-14] MEDS ORDERED: HYDROmorphone HCL 2 MG/ML 1ML VIAL (J1170) As Ordered ONE (10:11)
[2018-11-14] MEDS ORDERED: ONDANSETRON 4MG/2ML VIAL (J2405) IV PRN (11:00)
[2018-11-14] MEDS ORDERED: LR 1,000 ML IV SCH (11:00)
[2018-11-14] MEDS ORDERED: HYDROMORPHONE HCL 0.5 MG/ 0.5 ML SYRINGE (J1170 PER 1) IV PRN (11:00)
[2018-11-14] MEDS ORDERED: PERCOCET 5MG/325MG TAB PO PRN (11:00)
[2018-11-14] MEDS ORDERED: fentaNYL 100 MCG/2 ML INJECTION (J3010) IV PRN (11:00)
[2018-11-14 11:08] VITALS: BP 186/88
[2018-11-14] MEDS ORDERED: LABETALOL HCL 100 MG/20 ML VIAL As Ordered ONE (11:08)
[2018-11-14] MEDS ORDERED: hydrALAZINE INJ 20 MG/ML VIAL IV SCH (11:30)
[2018-11-14] MEDS ORDERED: LABETALOL HCL 100 MG/20 ML VIAL IV SCH (11:30)
[2018-11-14] MEDS ORDERED: PERCOCET 5MG/325MG TAB As Ordered ONE (12:02)
[2018-11-14 13:40] VITALS: BP 160/82
--- NOTE | 2018-11-14 16:19 | RO ---
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 PROCEDURE: Cystoscopy, re-resection of tumor bed and deep bladder biopsies. SURGEON: Dr. Mena King SOLDERING MACHINE OPERATOR AUTOMATIC: ANESTHESIA: General. MEDICATIONS: Ancef 2 grams preoperatively. DRAINS: 20-Swiss Zee catheter. SPECIMEN: Bladder tissue. FINDINGS: Some papillary type tissue and inflammation of the previous resection site. INDICATIONS FOR PROCEDURE: The patient is a 68-year-old female, who underwent a transurethral resection of bladder (TURBT) for a papillary lesion seen on the right side of the bladder, but there was also significant erythema and white patches throughout the bladder. The pathology came back with high-grade transitional cell carcinoma and a CT scan of the bladder did show edema of the bladder wall and there was also some squamous changes in the pathology findings. Because of this it was decided to take a second look. Informed consent was obtained in both verbal and written form. PROCEDURE: The patient was brought into the operating room. Thromboembolic deterrent (JOSSIE) stockings and sequential compression devices were in place and preoperative antibiotics had been given. Anesthesia was induced and the patient was placed in the lithotomy position. At this point, a 26-Swiss continuous flow resectoscope was placed and the urethra was opened without any evidence of lesions or strictures. Upon entering the bladder, the previous resection site was seen with inflammatory tissue over it and there was some papillary looking areas a little bit further towards the right. At this point, using a biopsy forceps some deep tissue biopsies were done and also biopsies of the papillary looking material. Next, a loop was placed and the resection bed was re-resected down to areas of fat until there were no further abnormalities seen. Both ureteral orifices were intact at the end of the procedure and there was no active bleeding. The resection bed measured about 7 x 5 cm in total circumference. A 20-Swiss Zee catheter was placed and was draining clear yellow urine. She will have a followup for a fill and pull this coming week and to discuss the pathology findings.
== END 2018-11-14 13:40 | disposition home or self-care (01) ==
LOC: M SDC 07:19
PROVIDERS: ATTEND Specialist
DX: C67.8 Malignant neoplasm of overlapping sites of bladder (principal); E11.9 Type 2 diabetes mellitus without complications; I10 Essential (primary) hypertension; E78.5 Hyperlipidemia, unspecified; Z87.891 Personal history of nicotine dependence; Z79.82 Long term (current) use of aspirin; Z79.899 Other long term (current) drug therapy
CPT/HCPCS: 52204; 88305; 88309; J0690; J1100; J1170; J2250; J2405; J3010

== ENCOUNTER → 2018-11-17 | Outpatient (REF) | payer MEDICARE, OTHER ==
[~2018-11-17] MED LIST changes: -LR 1,000 ML IV ONE
[2018-11-17 13:11] LABS: HEMATOCRIT 39.1 % (36.0-47.0); HEMOGLOBIN 12.5 g/dl (12.0-15.5); MEAN CORPUSCULAR HEMOGLOBIN 29.2 pg (27.0-33.0); MEAN CORPUSCULAR VOLUME 91.4 fl (80.0-96.0); PLATELET COUNT, AUTOMATED 309 10^3/uL (150-450); RED BLOOD COUNT 4.28 10^6/uL (4.00-5.40); WHITE BLOOD COUNT 9.1 10^3/uL (4.0-10.0)
[2018-11-17 14:25] LABS: ALBUMIN 3.5 GM/DL (3.2-5.2); BILIRUBIN,TOTAL 0.3 MG/DL (0.2-1.0); CALCIUM LEVEL 9.3 MG/DL (8.8-10.2); CREATININE FOR GFR 1.39 MG/DL (0.55-1.30); GLOMERULAR FILTRATION RATE 40.1 (>45); POTASSIUM SERUM 4.2 MEQ/L (3.5-5.1); TOTAL PROTEIN 7.2 GM/DL (6.4-8.2)
== END ==
LOC: M LABDRAW1 12:12
PROVIDERS: ATTEND Specialist
DX: N18.3 Chronic kidney disease, stage 3 (moderate) (principal)
CPT/HCPCS: 36415; 80053; 85027; G0463

== ENCOUNTER → 2018-11-20 | Outpatient (REF) | payer MEDICARE, OTHER ==
[2018-11-20 14:15] LABS: AMORPHOUS SEDIMENT SMALL (NEGATIVE); APPEARANCE, URINE HAZY (CLEAR); BACTERIA, URINE AUTO NEGATIVE (NEGATIVE); BILIRUBIN, URINE AUTO NEGATIVE (NEGATIVE); BLOOD, URINE BLOOD 3+ (NEGATIVE); COLOR, URINE YELLOW (YELLOW); GLUCOSE, URINE (UA) AUTO 3+ mg/dL (NEGATIVE); KETONE, URINE AUTO NEGATIVE (NEGATIVE); LEUKOCYTE ESTERASE, URINE AUTO 3+ (NEGATIVE); MUCUS, URINE SMALL (NEGATIVE); NITRITE, URINE AUTO NEGATIVE (NEGATIVE); PROTEIN, URINE AUTO NEGATIVE (NEGATIVE); RBC, URINE AUTO TNTC /HPF (0-3); SPECIFIC GRAVITY URINE AUTO 1.009 (1.002-1.035); SQUAMOUS EPITHELIAL CELL UR AU 1 /HPF (0-6); UROBILINOGEN, URINE AUTO 0.2 mg/dL (0.0-2.0); WBC, URINE AUTO 81 /HPF (0-3)
== END ==
LOC: M SMT 12:56
PROVIDERS: ATTEND Specialist
DX: N18.3 Chronic kidney disease, stage 3 (moderate) (principal); C67.9 Malignant neoplasm of bladder, unspecified; Z79.899 Other long term (current) drug therapy

== ENCOUNTER → 2018-11-27 | Outpatient (REF) | payer MEDICARE, OTHER ==
[2018-11-27 14:09] LABS: APPEARANCE, URINE CLOUDY (CLEAR); BACTERIA, URINE AUTO 2+ (NEGATIVE); BILIRUBIN, URINE AUTO NEGATIVE (NEGATIVE); BLOOD, URINE BLOOD 2+ (NEGATIVE); COLOR, URINE YELLOW (YELLOW); GLUCOSE, URINE (UA) AUTO 3+ mg/dL (NEGATIVE); KETONE, URINE AUTO NEGATIVE (NEGATIVE); LEUKOCYTE ESTERASE, URINE AUTO 3+ (NEGATIVE); NITRITE, URINE AUTO NEGATIVE (NEGATIVE); PROTEIN, URINE AUTO 1+ mg/dL (NEGATIVE); RBC, URINE AUTO 90 /HPF (0-3); RENAL EPITHELIAL CELLS 1 /HPF; SPECIFIC GRAVITY URINE AUTO 1.021 (1.002-1.035); SQUAMOUS EPITHELIAL CELL UR AU 17 /HPF (0-6); TRANSITIONAL EPITHELIAL AUTO 1 /HPF; UROBILINOGEN, URINE AUTO 0.2 mg/dL (0.0-2.0); WBC, URINE AUTO TNTC /HPF (0-3)
== END ==
LOC: M SMT 13:43
PROVIDERS: ATTEND Nurse Practitioner Family
DX: C67.9 Malignant neoplasm of bladder, unspecified (principal)

== ENCOUNTER → 2018-12-05 | Outpatient (REF) | payer MEDICARE, OTHER ==
[2018-12-05 15:25] LABS: APPEARANCE, URINE TURBID (CLEAR); BACTERIA, URINE AUTO 2+ (NEGATIVE); BILIRUBIN, URINE AUTO NEGATIVE (NEGATIVE); BLOOD, URINE BLOOD 2+ (NEGATIVE); COLOR, URINE YELLOW (YELLOW); GLUCOSE, URINE (UA) AUTO NEGATIVE (NEGATIVE); KETONE, URINE AUTO NEGATIVE (NEGATIVE); LEUKOCYTE ESTERASE, URINE AUTO 3+ (NEGATIVE); NITRITE, URINE AUTO NEGATIVE (NEGATIVE); PROTEIN, URINE AUTO 2+ mg/dL (NEGATIVE); RBC, URINE AUTO 12 /HPF (0-3); SPECIFIC GRAVITY URINE AUTO 1.016 (1.002-1.035); SQUAMOUS EPITHELIAL CELL UR AU 12 /HPF (0-6); UROBILINOGEN, URINE AUTO 0.2 mg/dL (0.0-2.0); WBC, URINE AUTO TNTC /HPF (0-3)
== END ==
LOC: M SMT 13:25
PROVIDERS: ATTEND Nurse Practitioner Family
DX: C67.9 Malignant neoplasm of bladder, unspecified (principal)

== ENCOUNTER → 2018-12-11 | Outpatient (REF) | payer MEDICARE, OTHER ==
[2018-12-11 11:31] LABS: CALCIUM LEVEL 8.8 MG/DL (8.8-10.2); CREATININE FOR GFR 1.17 MG/DL (0.55-1.30)
[2018-12-11 12:06] LABS: HEMOGLOBIN A1c 8.1 %
== END ==
LOC: M SFHCPLAZ 08:23
PROVIDERS: ATTEND Nurse Practitioner Family
DX: E11.9 Type 2 diabetes mellitus without complications (principal)

== ENCOUNTER → 2019-01-25 | Outpatient (CLI) | payer MEDICARE, OTHER ==
--- NOTE | 2019-01-25 12:15 | REP ---
PARTIAL LUMBAR SPINE, THREE VIEWS: HISTORY: Lumbago. There is no acute fracture. The lumbar intervertebral discs are decreased in height consistent with disc degeneration. Osteophytes are present on L1 through L5. There are 3 mm of grade 1 spondylolisthesis of L4 on L5. IMPRESSION: Degenerative change as described above. Electronically Signed by Raffi Jones MD 01/25/2019 12:32 P
--- NOTE | 2019-01-25 12:16 | REP ---
RIGHT HIP, TWO VIEWS: HISTORY: Lumbago. There is no acute fracture or dislocation. There is minimal narrowing of the joint space with associated sclerosis. IMPRESSION: Degenerative change as described above. Electronically Signed by Raffi Jones MD 01/25/2019 12:32 P
--- NOTE | 2019-01-25 12:27 | REP ---
BILATERAL HANDS, EIGHT VIEWS: HISTORY: Lumbago. RIGHT HAND: There is no acute fracture or dislocation. The joint spaces are normal in appearance. Osteophytes are present at the interphalangeal joint of the first digit and distal interphalangeal joints of the second and fourth digits. IMPRESSION: Degenerative change as described above. LEFT HAND There is no acute fracture or dislocation. There is narrowing of the first carpometacarpal joint space with associated osteophyte formation. Osteophytes are present at the distal interphalangeal joints at the second through fourth digits. A cyst is present in the greater multangular. IMPRESSION: Degenerative change as described above. Electronically Signed by Raffi Jones MD 01/25/2019 12:33 P
--- NOTE | 2019-01-25 13:50 | REP ---
SI joint series: Four views. History: Low back pain. Findings: Four views of the SI joints demonstrate no evidence of ankylosis, erosive change or significant spurring. There is vascular calcification noted. Mild facet hypertrophy is noted in the lumbar spine at L4-5 and L5-S1. Impression: Negative SI joint series. Mild degenerative changes in the lower lumbar spine. Electronically Signed by Troy Corbett MD 01/25/2019 02:04 P
[2019-01-25 16:05] LABS: C REACTIVE PROTEIN QUANTITATIV 0.95 MG/DL (0.00-0.30); URIC ACID 5.5 MG/DL (2.6-6.0)
[2019-01-25 16:07] LABS: APPEARANCE, URINE CLOUDY (CLEAR); BACTERIA, URINE AUTO 2+ (NEGATIVE); BILIRUBIN, URINE AUTO NEGATIVE (NEGATIVE); BLOOD, URINE BLOOD NEGATIVE (NEGATIVE); COLOR, URINE YELLOW (YELLOW); GLUCOSE, URINE (UA) AUTO 3+ mg/dL (NEGATIVE); KETONE, URINE AUTO NEGATIVE (NEGATIVE); LEUKOCYTE ESTERASE, URINE AUTO 3+ (NEGATIVE); MUCUS, URINE SMALL (NEGATIVE); NITRITE, URINE AUTO NEGATIVE (NEGATIVE); PROTEIN, URINE AUTO NEGATIVE (NEGATIVE); RBC, URINE AUTO 5 /HPF (0-3); SQUAMOUS EPITHELIAL CELL UR AU 8 /HPF (0-6); UROBILINOGEN, URINE AUTO 0.2 mg/dL (0.0-2.0); WBC, URINE AUTO 116 /HPF (0-3)
[2019-01-25 16:25] LABS: CREATININE,RANDOM URINE 43.6 MG/DL; TOTAL PROTEIN,RANDOM URINE 15.4 MG/DL (0.0-12.0)
[2019-02-01 00:06] LABS: ANA (HEP2) Positive (.); ANTI-SINGLE STRAND DNA Ab IgG 37 EU (0-19); CYCLIC CITRULLINATED PEPTIDE 6 units (0-19); HLA-B27 Negative (.); RNP ANTIBODY 0.5 AI (0.0-0.9); SMITHS ANTIBODY < 0.2 AI (0.0-0.9); SSA SJOGRENS A <0.2 AI (0.0-0.9); SSB SJOGRENS B <0.2 AI (0.0-0.9)
== END ==
LOC: M WUC 11:19
PROVIDERS: ATTEND Internal Medicine Rheumatology
DX: M19.041 Primary osteoarthritis, right hand (principal); M19.042 Primary osteoarthritis, left hand; M25.741 Osteophyte, right hand; M25.742 Osteophyte, left hand; M16.11 Unilateral primary osteoarthritis, right hip; M51.36 Other intervertebral disc degeneration, lumbar region; M25.78 Osteophyte, vertebrae; M43.16 Spondylolisthesis, lumbar region; M54.41 Lumbago with sciatica, right side; M79.644 Pain in right finger(s); M79.645 Pain in left finger(s); M25.551 Pain in right hip; M54.42 Lumbago with sciatica, left side; R76.8 Other specified abnormal immunological findings in serum
CPT/HCPCS: 36415; 72100; 72202; 73130; 73502; 81001; 81374; 82570; 84156; 84550; 85652; 86038; 86140; 86160; 86200; 86226; 86235; 86255; 86431; G0463

== ENCOUNTER → 2019-03-12 | Outpatient (REF) | payer MEDICARE, OTHER ==
[2019-03-12 10:24] LABS: CALCIUM LEVEL 9.3 MG/DL (8.8-10.2); CHOLESTEROL RISK RATIO 3.631 (<5); CREATININE FOR GFR 1.17 MG/DL (0.55-1.30); POTASSIUM SERUM 3.9 MEQ/L (3.5-5.1)
[2019-03-12 11:40] LABS: HEMOGLOBIN A1c 8.9 %
== END ==
LOC: M SFHCPLAZ 08:10
PROVIDERS: ATTEND Nurse Practitioner Family
DX: E11.9 Type 2 diabetes mellitus without complications (principal); N18.3 Chronic kidney disease, stage 3 (moderate)

== ENCOUNTER → 2019-03-29 | Outpatient (CLI) | payer MEDICARE, OTHER ==
[~2019-03-29] MED LIST changes: +ISOVUE-370 76% 100ML VIAL (Q9967) As Ordered ONE
--- NOTE | 2019-03-29 17:44 | REP ---
CT urography: CT abdomen and pelvis without and with IV contrast: History: Chronic kidney disease. The patient gives a history of bladder carcinoma. Comparison study: September 18, 2018. CT contrast dose: 100 ml of intravenous Isovue [address] findings: Digital preliminary aircraft general repair mechanic radiograph is unremarkable. The lung bases are clear on axial CT images. The liver shows mild diffuse fatty infiltration. Spleen is normal in size and homogeneous in texture. There is a small accessory splenule. No pancreatic abnormality is seen. There are gravel like calculi in the dependent portion of the gallbladder. No pancreatic abnormality is appreciated. No adrenal lesion is seen. There is no evidence of hydronephrosis on either side. No intrarenal calculus is observed. The kidneys enhance symmetrically. No renal mass lesion is seen. Delayed scan images show no filling defect in the upper tract collecting systems. The ureters describe a normal course to the urinary bladder. There is asymmetric thickening of the right side of the urinary bladder wall with some perivesical fibrosis or edema again noted. This is improved compared to the September 18, 2018 prior study. No filling defect is seen within the bladder on delayed scan images. No pelvic mass or adenopathy is seen. No abdominal wall defect is noted. Bone window settings show no bony destructive lesion. No retroperitoneal mass or adenopathy is seen. Impression: Some asymmetric right-sided urinary bladder wall thickening and perivesical stranding persists, improved somewhat from the September 18, 2018 study. No hydronephrosis seen. No other significant urinary tract abnormality noted. Fatty infiltration of the liver and gravel like gallstones are noted. Electronically Signed by Troy Corbett MD 03/29/2019 07:27 P
== END ==
LOC: M RAD 13:08
PROVIDERS: ATTEND Specialist
DX: K76.0 Fatty (change of) liver, not elsewhere classified (principal); N18.3 Chronic kidney disease, stage 3 (moderate); Z85.51 Personal history of malignant neoplasm of bladder
CPT/HCPCS: 74178; Q9967

== ENCOUNTER → 2019-05-01 | Outpatient (CLI) | payer MEDICARE, OTHER ==
[~2019-05-01] MED LIST changes: -ISOVUE-370 76% 100ML VIAL (Q9967) As Ordered ONE
[2019-05-01 13:20] LABS: BASO % 0.4 % (0.0-1.0); EOS # 0.4 10^3/uL (0.0-0.50); EOS % 5.1 % (0.0-3.0); HEMATOCRIT 38.7 % (36.0-47.0); HEMOGLOBIN 12.6 g/dl (12.0-15.5); LYMPH # 1.5 10^3/uL (1.5-4.5); LYMPH % 20.8 % (24.0-44.0); MEAN CORPUSCULAR HEMOGLOBIN 30.3 pg (27.0-33.0); MEAN CORPUSCULAR HGB CONC 32.6 g/dl (32.0-36.5); MONO # 0.6 10^3/uL (0.0-0.8); MONO % 8.4 % (0.0-5.0); NEUTROPHILS # 4.6 10^3/uL (1.8-7.7); NEUTROPHILS % 64.9 % (36.0-66.0); PLATELET COUNT, AUTOMATED 289 10^3/uL (150-450); RED BLOOD COUNT 4.16 10^6/uL (4.00-5.40); WHITE BLOOD COUNT 7.1 10^3/uL (4.0-10.0)
[2019-05-01 13:28] LABS: ALBUMIN 3.8 GM/DL (3.2-5.2); BILIRUBIN,TOTAL 0.2 MG/DL (0.2-1.0); CALCIUM LEVEL 9.8 MG/DL (8.8-10.2); CREATININE FOR GFR 1.21 MG/DL (0.55-1.30); POTASSIUM SERUM 4.1 MEQ/L (3.5-5.1); RHEUMATOID FACTOR QUANT 69.8 IU/ML (<15.0); TOTAL PROTEIN 7.7 GM/DL (6.4-8.2)
[2019-05-01 13:48] LABS: CREATININE,RANDOM URINE 43.9 MG/DL; TOTAL PROTEIN,RANDOM URINE 13.2 MG/DL (0.0-12.0)
== END ==
LOC: M SMT 09:05
PROVIDERS: ATTEND Internal Medicine Rheumatology
DX: R76.8 Other specified abnormal immunological findings in serum (principal)

== ENCOUNTER → 2019-05-07 | Outpatient (REF) | payer MEDICARE, OTHER | LOC: M SMT 12:31 | PROVIDERS: ATTEND Urology | DX: C67.9 Malignant neoplasm of bladder, unspecified (principal) ==

== ENCOUNTER → 2019-05-31 | Outpatient (CLI) | payer MEDICARE, OTHER ==
[2019-05-31 09:54] LABS: HEMATOCRIT 36.6 % (36.0-47.0); MEAN CORPUSCULAR HEMOGLOBIN 29.6 pg (27.0-33.0); MEAN CORPUSCULAR HGB CONC 32.8 g/dl (32.0-36.5); MEAN CORPUSCULAR VOLUME 90.4 fl (80.0-96.0); PLATELET COUNT, AUTOMATED 240 10^3/uL (150-450); RED BLOOD COUNT 4.05 10^6/uL (4.00-5.40); WHITE BLOOD COUNT 6.1 10^3/uL (4.0-10.0)
[2019-05-31 09:56] LABS: AMORPHOUS SEDIMENT LARGE (NEGATIVE); APPEARANCE, URINE HAZY (CLEAR); BACTERIA, URINE AUTO 2+ (NEGATIVE); BILIRUBIN, URINE AUTO NEGATIVE (NEGATIVE); BLOOD, URINE BLOOD NEGATIVE (NEGATIVE); COLOR, URINE YELLOW (YELLOW); GLUCOSE, URINE (UA) AUTO 1+ mg/dL (NEGATIVE); KETONE, URINE AUTO NEGATIVE (NEGATIVE); LEUKOCYTE ESTERASE, URINE AUTO 2+ (NEGATIVE); MUCUS, URINE SMALL (NEGATIVE); NITRITE, URINE AUTO NEGATIVE (NEGATIVE); PROTEIN, URINE AUTO NEGATIVE (NEGATIVE); RBC, URINE AUTO 3 /HPF (0-3); SPECIFIC GRAVITY URINE AUTO 1.012 (1.002-1.035); SQUAMOUS EPITHELIAL CELL UR AU 9 /HPF (0-6); UROBILINOGEN, URINE AUTO 0.2 mg/dL (0.0-2.0); WBC, URINE AUTO 44 /HPF (0-3)
[2019-05-31 10:00] LABS: ALBUMIN 3.7 GM/DL (3.2-5.2); BILIRUBIN,TOTAL 0.3 MG/DL (0.2-1.0); CALCIUM LEVEL 9.3 MG/DL (8.8-10.2); CREATININE FOR GFR 1.3 MG/DL (0.55-1.30); GLOMERULAR FILTRATION RATE 43.2 (>45); POTASSIUM SERUM 4.2 MEQ/L (3.5-5.1)
== END ==
LOC: M SMT 08:43
PROVIDERS: ATTEND Urology
DX: C67.9 Malignant neoplasm of bladder, unspecified (principal); Z79.899 Other long term (current) drug therapy

== ENCOUNTER → 2019-06-13 | Outpatient (REF) | payer MEDICARE, OTHER ==
[2019-06-13 12:22] LABS: HEMOGLOBIN A1c 7.5 %
[2019-06-13 13:23] LABS: ALBUMIN 3.7 GM/DL (3.2-5.2); BILIRUBIN,TOTAL 0.4 MG/DL (0.2-1.0); CALCIUM LEVEL 9.2 MG/DL (8.8-10.2); CREATININE FOR GFR 1.25 MG/DL (0.55-1.30); GLOMERULAR FILTRATION RATE 45.2 (>45); POTASSIUM SERUM 4.4 MEQ/L (3.5-5.1); TOTAL PROTEIN 7.3 GM/DL (6.4-8.2)
== END ==
LOC: M SFHCPLAZ 09:04
PROVIDERS: ATTEND Nurse Practitioner Family
DX: E11.9 Type 2 diabetes mellitus without complications (principal); E78.2 Mixed hyperlipidemia

== ENCOUNTER → 2019-06-18 | Outpatient (REF) | payer MEDICARE, OTHER ==
[~2019-06-18] MED LIST changes: -SIMV10TA2 PO; +SIMV10TA21 PO
[2019-06-18 13:13] LABS: APPEARANCE, URINE CLOUDY (CLEAR); BACTERIA, URINE AUTO 3+ (NEGATIVE); BILIRUBIN, URINE AUTO NEGATIVE (NEGATIVE); BLOOD, URINE BLOOD NEGATIVE (NEGATIVE); COLOR, URINE YELLOW (YELLOW); GLUCOSE, URINE (UA) AUTO NEGATIVE (NEGATIVE); KETONE, URINE AUTO NEGATIVE (NEGATIVE); LEUKOCYTE ESTERASE, URINE AUTO 3+ (NEGATIVE); MUCUS, URINE SMALL (NEGATIVE); NITRITE, URINE AUTO NEGATIVE (NEGATIVE); PROTEIN, URINE AUTO NEGATIVE (NEGATIVE); RBC, URINE AUTO 9 /HPF (0-3); SPECIFIC GRAVITY URINE AUTO 1.014 (1.002-1.035); SQUAMOUS EPITHELIAL CELL UR AU 15 /HPF (0-6); UROBILINOGEN, URINE AUTO 0.2 mg/dL (0.0-2.0); WBC, URINE AUTO 103 /HPF (0-3)
== END ==
LOC: M SMT 12:36
PROVIDERS: ATTEND Nurse Practitioner Family
DX: N39.0 Urinary tract infection, site not specified (principal)

== ENCOUNTER → 2019-06-21 | Outpatient (REF) | payer MEDICARE, OTHER ==
[~2019-06-21] MED LIST changes: +SIMV10TA2 PO; -SIMV10TA21 PO
[2019-06-21 13:37] LABS: APPEARANCE, URINE CLOUDY (CLEAR); BACTERIA, URINE AUTO 2+ (NEGATIVE); BILIRUBIN, URINE AUTO NEGATIVE (NEGATIVE); BLOOD, URINE BLOOD NEGATIVE (NEGATIVE); COLOR, URINE YELLOW (YELLOW); GLUCOSE, URINE (UA) AUTO 1+ mg/dL (NEGATIVE); KETONE, URINE AUTO NEGATIVE (NEGATIVE); LEUKOCYTE ESTERASE, URINE AUTO 1+ (NEGATIVE); MUCUS, URINE SMALL (NEGATIVE); NITRITE, URINE AUTO NEGATIVE (NEGATIVE); PROTEIN, URINE AUTO NEGATIVE (NEGATIVE); RBC, URINE AUTO 3 /HPF (0-3); SPECIFIC GRAVITY URINE AUTO 1.018 (1.002-1.035); SQUAMOUS EPITHELIAL CELL UR AU 1 /HPF (0-6); UROBILINOGEN, URINE AUTO 0.2 mg/dL (0.0-2.0); WBC, URINE AUTO 42 /HPF (0-3)
== END ==
LOC: M SMT 13:12
PROVIDERS: ATTEND Urology
DX: N39.0 Urinary tract infection, site not specified (principal)

== ENCOUNTER → 2019-07-10 | Outpatient (REF) | payer MEDICARE, OTHER ==
[~2019-07-10] MED LIST changes: -SIMV10TA2 PO; +SIMV10TA21 PO
== END ==
LOC: M SMT 17:03
PROVIDERS: ATTEND Nurse Practitioner Family
DX: N39.0 Urinary tract infection, site not specified (principal)

== ENCOUNTER → 2019-07-13 | Outpatient (REF) | payer MEDICARE, OTHER ==
[~2019-07-13] MED LIST changes: +SIMV10TA2 PO; -SIMV10TA21 PO
[2019-07-13 13:35] LABS: AMORPHOUS SEDIMENT SMALL (NEGATIVE); APPEARANCE, URINE HAZY (CLEAR); BACTERIA, URINE AUTO 1+ (NEGATIVE); BILIRUBIN, URINE AUTO NEGATIVE (NEGATIVE); BLOOD, URINE BLOOD NEGATIVE (NEGATIVE); COLOR, URINE YELLOW (YELLOW); GLUCOSE, URINE (UA) AUTO 1+ mg/dL (NEGATIVE); KETONE, URINE AUTO NEGATIVE (NEGATIVE); LEUKOCYTE ESTERASE, URINE AUTO 3+ (NEGATIVE); MUCUS, URINE SMALL (NEGATIVE); NITRITE, URINE AUTO NEGATIVE (NEGATIVE); PROTEIN, URINE AUTO NEGATIVE (NEGATIVE); RBC, URINE AUTO 6 /HPF (0-3); SPECIFIC GRAVITY URINE AUTO 1.006 (1.002-1.035); SQUAMOUS EPITHELIAL CELL UR AU 5 /HPF (0-6); UROBILINOGEN, URINE AUTO 0.2 mg/dL (0.0-2.0); WBC, URINE AUTO 58 /HPF (0-3)
== END ==
LOC: M SMT 13:09
PROVIDERS: ATTEND Nurse Practitioner Family
DX: N39.0 Urinary tract infection, site not specified (principal)

== ENCOUNTER → 2019-07-16 | Outpatient (REF) | payer MEDICARE, OTHER ==
[2019-07-16 14:07] LABS: APPEARANCE, URINE CLEAR (CLEAR); BACTERIA, URINE AUTO NEGATIVE (NEGATIVE); BILIRUBIN, URINE AUTO NEGATIVE (NEGATIVE); BLOOD, URINE BLOOD NEGATIVE (NEGATIVE); COLOR, URINE YELLOW (YELLOW); GLUCOSE, URINE (UA) AUTO 1+ mg/dL (NEGATIVE); KETONE, URINE AUTO NEGATIVE (NEGATIVE); LEUKOCYTE ESTERASE, URINE AUTO 1+ (NEGATIVE); NITRITE, URINE AUTO NEGATIVE (NEGATIVE); PROTEIN, URINE AUTO NEGATIVE (NEGATIVE); RBC, URINE AUTO 1 /HPF (0-3); SPECIFIC GRAVITY URINE AUTO 1.016 (1.002-1.035); SQUAMOUS EPITHELIAL CELL UR AU 1 /HPF (0-6); UROBILINOGEN, URINE AUTO 0.2 mg/dL (0.0-2.0); WBC, URINE AUTO 19 /HPF (0-3)
== END ==
LOC: M SMT 13:19
PROVIDERS: ATTEND Nurse Practitioner Family
DX: C67.9 Malignant neoplasm of bladder, unspecified (principal)

== ENCOUNTER → 2019-07-26 | Outpatient (REF) | payer MEDICARE, OTHER ==
[~2019-07-26] MED LIST changes: -SIMV10TA2 PO; +SIMV10TA21 PO
[2019-07-26 19:19] LABS: APPEARANCE, URINE HAZY (CLEAR); BACTERIA, URINE AUTO NEGATIVE (NEGATIVE); BILIRUBIN, URINE AUTO NEGATIVE (NEGATIVE); BLOOD, URINE BLOOD NEGATIVE (NEGATIVE); COLOR, URINE YELLOW (YELLOW); GLUCOSE, URINE (UA) AUTO NEGATIVE (NEGATIVE); KETONE, URINE AUTO NEGATIVE (NEGATIVE); LEUKOCYTE ESTERASE, URINE AUTO 3+ (NEGATIVE); NITRITE, URINE AUTO NEGATIVE (NEGATIVE); PROTEIN, URINE AUTO NEGATIVE (NEGATIVE); RBC, URINE AUTO 1 /HPF (0-3); SPECIFIC GRAVITY URINE AUTO 1.009 (1.002-1.035); SQUAMOUS EPITHELIAL CELL UR AU 1 /HPF (0-6); UROBILINOGEN, URINE AUTO 0.2 mg/dL (0.0-2.0); WBC, URINE AUTO 57 /HPF (0-3)
== END ==
LOC: M SMT 17:12
PROVIDERS: ATTEND Nurse Practitioner Family
DX: C67.9 Malignant neoplasm of bladder, unspecified (principal)

== ENCOUNTER → 2019-08-13 | Outpatient (REF) | payer MEDICARE, OTHER ==
[2019-08-13 13:59] LABS: APPEARANCE, URINE HAZY (CLEAR); BACTERIA, URINE AUTO 1+ (NEGATIVE); BILIRUBIN, URINE AUTO NEGATIVE (NEGATIVE); BLOOD, URINE BLOOD NEGATIVE (NEGATIVE); COLOR, URINE YELLOW (YELLOW); GLUCOSE, URINE (UA) AUTO 3+ mg/dL (NEGATIVE); KETONE, URINE AUTO NEGATIVE (NEGATIVE); LEUKOCYTE ESTERASE, URINE AUTO NEGATIVE (NEGATIVE); MUCUS, URINE SMALL (NEGATIVE); NITRITE, URINE AUTO NEGATIVE (NEGATIVE); PROTEIN, URINE AUTO NEGATIVE (NEGATIVE); RBC, URINE AUTO 1 /HPF (0-3); SPECIFIC GRAVITY URINE AUTO 1.021 (1.002-1.035); SQUAMOUS EPITHELIAL CELL UR AU 3 /HPF (0-6); UROBILINOGEN, URINE AUTO 0.2 mg/dL (0.0-2.0); WBC, URINE AUTO 6 /HPF (0-3)
== END ==
LOC: M SMT 13:39
PROVIDERS: ATTEND Nurse Practitioner Family
DX: N39.0 Urinary tract infection, site not specified (principal)

== ENCOUNTER → 2019-08-31 | Outpatient (REF) | payer MEDICARE, OTHER ==
[2019-08-31 14:24] LABS: APPEARANCE, URINE CLOUDY (CLEAR); BACTERIA, URINE AUTO 3+ (NEGATIVE); BILIRUBIN, URINE AUTO NEGATIVE (NEGATIVE); BLOOD, URINE BLOOD NEGATIVE (NEGATIVE); COLOR, URINE YELLOW (YELLOW); GLUCOSE, URINE (UA) AUTO 2+ mg/dL (NEGATIVE); KETONE, URINE AUTO NEGATIVE (NEGATIVE); LEUKOCYTE ESTERASE, URINE AUTO 2+ (NEGATIVE); MUCUS, URINE MODERATE (NEGATIVE); NITRITE, URINE AUTO POSITIVE (NEGATIVE); PROTEIN, URINE AUTO NEGATIVE (NEGATIVE); RBC, URINE AUTO 6 /HPF (0-3); SPECIFIC GRAVITY URINE AUTO 1.026 (1.002-1.035); SQUAMOUS EPITHELIAL CELL UR AU 12 /HPF (0-6); UROBILINOGEN, URINE AUTO 0.2 mg/dL (0.0-2.0); WBC, URINE AUTO 48 /HPF (0-3)
== END ==
LOC: M SMT 13:31
PROVIDERS: ATTEND Nurse Practitioner Family
DX: C67.9 Malignant neoplasm of bladder, unspecified (principal); Z79.899 Other long term (current) drug therapy

== ENCOUNTER → 2019-09-10 | Outpatient (CLI) | payer MEDICARE, OTHER ==
--- NOTE | 2019-09-10 17:32 | REP ---
Clinical: Recurrent urinary tract infection. Comparison: 03/29/2019. Technique: Axial noncontrast images from the lung bases to the pubic symphysis with coronal and sagittal re-formations. Findings: Liver, spleen, pancreas, bilateral adrenal glands and kidneys are normal for noncontrast evaluation. No perinephric stranding, hydroureteronephrosis, intrarenal or obstructing ureteral calculi are identified. Cholelithiasis noted without acute cholecystitis. The enteric system is without obstruction or acute inflammatory process. Pelvis demonstrates normal bladder and evidence for prior partial hysterectomy. No ascites. No free air. No adenopathy. Abdominal aorta without aneurysm. Skeletal structures demonstrate age-related changes without focal abnormality. Lung bases are clear. Impression: 1. Cholelithiasis. 2. Normal noncontrast evaluation of the urinary tract system. 3. No acute abdominopelvic pathology appreciated. Electronically Signed by Efraín Samuel MD 09/10/2019 05:24 P
== END ==
LOC: M RAD 16:25
PROVIDERS: ATTEND Nurse Practitioner Family
DX: K80.20 Calculus of gallbladder without cholecystitis without obstruction (principal)

== ENCOUNTER → 2019-09-27 | Outpatient (REF) | payer MEDICARE, OTHER | LOC: M SMT 13:24 | PROVIDERS: ATTEND Specialist | DX: C67.9 Malignant neoplasm of bladder, unspecified (principal) | CPT/HCPCS: 52000; 88108; G0463 ==

== ENCOUNTER → 2019-10-03 | Outpatient (CLI) | payer MEDICARE, OTHER ==
[2019-10-03 13:58] LABS: ALBUMIN 3.9 GM/DL (3.2-5.2); BILIRUBIN,TOTAL 0.4 MG/DL (0.2-1.0); CHOLESTEROL RISK RATIO 4.178 (<5); CREATININE FOR GFR 1.09 MG/DL (0.55-1.30); POTASSIUM SERUM 4.5 MEQ/L (3.5-5.1); TOTAL PROTEIN 7.5 GM/DL (6.4-8.2)
[2019-10-03 14:31] LABS: CREATININE, URINE 74.7 MG/DL; MALB URINE SIEMENS 15.9 MG/L; MAU/CREAT RATIO 21.2 MCG/MG (0.0-30.0)
[2019-10-03 15:18] LABS: HEMOGLOBIN A1c 8.5 %
== END ==
LOC: M PLALAB 09:04
PROVIDERS: ATTEND Nurse Practitioner Family
DX: E11.9 Type 2 diabetes mellitus without complications (principal); E78.2 Mixed hyperlipidemia

== ENCOUNTER → 2019-10-31 | Outpatient (CLI) | payer MEDICARE, OTHER ==
[~2019-10-31] MED LIST changes: +CARV12.5 PO; +GLIP10TA6 PO; +LOSA25TA14 PO; +METF500T13 PO; +METH-855 PO; +SIMV20TA22 PO
[2019-10-31 12:03] LABS: ALBUMIN 4.2 GM/DL (3.2-5.2); CALCIUM LEVEL 9.8 MG/DL (8.8-10.2); CREATININE FOR GFR 1.15 MG/DL (0.55-1.30); GLOMERULAR FILTRATION RATE 49.8 (>45); PHOSPHORUS LEVEL 3.3 MG/DL (2.5-4.9); POTASSIUM SERUM 4.3 MEQ/L (3.5-5.1)
== END ==
LOC: M PLALAB 08:52
PROVIDERS: ATTEND Nurse Practitioner Family
DX: E11.9 Type 2 diabetes mellitus without complications (principal)

== ENCOUNTER → 2019-11-07 | Outpatient (REF) | payer MEDICARE, OTHER | LOC: M SMT 13:01 | PROVIDERS: ATTEND Urology | DX: Z85.51 Personal history of malignant neoplasm of bladder (principal); Z79.899 Other long term (current) drug therapy | CPT/HCPCS: 81002; 87086; G0463 ==

== ENCOUNTER → 2019-12-07 | Outpatient (CLI) | payer MEDICARE, OTHER ==
--- NOTE | 2019-12-07 13:43 | REP ---
BONE SURVEY: Bone survey is performed for this patient with a history of bladder cancer. AP and lateral views of the skull demonstrate no fracture or bone lesion. AP and lateral views of the cervical spine demonstrate no fracture or bone lesion. There is diffuse narrowing, sclerosis, and spurring at the posterior facet joints. There is mild spurring of the cervical vertebral bodies. AP and lateral views of thoracic spine demonstrate no fracture or bone lesion. There is diffuse spurring of a mild degree with mild diffuse disc space narrowing and subchondral sclerosis. There is a more moderate degree of disc space narrowing and subchondral sclerosis at T11-12. The posterior elements are intact. AP and lateral views of the lumbar spine demonstrate no fracture or bone lesion. There is mild diffuse spurring. There is mild disc space narrowing at virtually all levels. There is sclerosis and spurring at the posterior facets of L4-5 and L5-S1. There is slight anterior listhesis of L4. Posterior elements are intact. AP view of the pelvis demonstrates no fracture or bone lesion. AP views of the bilateral femurs demonstrate no fracture or bone lesion. There are degenerative changes at both knees. AP views of both humeri demonstrate no fracture or bone lesion. Small calcification above the left humeral head suggests tendinous calcification and possible calcific tendinitis. IMPRESSION: Whole body bone survey demonstrates no radiographic evidence of bone lesions. Electronically Signed by Spencer Mercado MD 12/07/2019 03:56 P
== END ==
LOC: M RAD 10:23
PROVIDERS: ATTEND Internal Medicine Hematology & Oncology
DX: C67.9 Malignant neoplasm of bladder, unspecified (principal)

== ENCOUNTER 2020-03-12 01:45 | Inpatient (IN) | payer MEDICARE, OTHER ==
[2020-03-12] VITALS (18 sets, daily range): BP systolic 90–118; BP diastolic 51–59
[~2020-03-12] VITALS: Ht 149.9 cm; Wt 74.8 kg
[~2020-03-12 01:45] MED LIST changes: +VITA200028 PO
[2020-03-12] MEDS ORDERED: ACETAMINOPHEN *IV* 1,000 MG in IV 1 EA IV ONE (02:15)
[2020-03-12] MEDS ORDERED: NS 1,000 ML IV ONE (02:15)
[2020-03-12 02:25] LABS: BASO % 0.1 % (0.0-1.0); HEMATOCRIT 35.5 % (36.0-47.0); HEMOGLOBIN 11.5 g/dl (12.0-15.5); LYMPH # 0.2 10^3/uL (1.5-5.0); LYMPH % 1.2 % (24.0-44.0); MEAN CORPUSCULAR HEMOGLOBIN 27.9 pg (27.0-33.0); MEAN CORPUSCULAR HGB CONC 32.4 g/dl (32.0-36.5); MEAN CORPUSCULAR VOLUME 86.2 fl (80.0-96.0); MONO # 0.9 10^3/uL (0.0-0.8); MONO % 4.9 % (0.0-5.0); PLATELET COUNT, AUTOMATED 218 10^3/uL (150-450); RED BLOOD COUNT 4.12 10^6/uL (4.00-5.40); WHITE BLOOD COUNT 18.2 10^3/uL (4.0-10.0)
[2020-03-12 02:30] LABS: APPEARANCE, URINE CLOUDY (CLEAR); BACTERIA, URINE AUTO NEGATIVE (NEGATIVE); BILIRUBIN, URINE AUTO NEGATIVE (NEGATIVE); BLOOD, URINE BLOOD 2+ (NEGATIVE); COLOR, URINE RED (YELLOW); GLUCOSE, URINE (UA) AUTO 2+ mg/dL (NEGATIVE); KETONE, URINE AUTO TRACE mg/dL (NEGATIVE); LEUKOCYTE ESTERASE, URINE AUTO TRACE (NEGATIVE); NITRITE, URINE AUTO NEGATIVE (NEGATIVE); PROTEIN, URINE AUTO 3+ mg/dL (NEGATIVE); RBC, URINE AUTO TNTC /HPF (0-3); SPECIFIC GRAVITY URINE AUTO 1.023 (1.002-1.035); SQUAMOUS EPITHELIAL CELL UR AU 0 /HPF (0-6); UROBILINOGEN, URINE AUTO 0.2 mg/dL (0.0-2.0); WBC, URINE AUTO 14 /HPF (0-3)
[2020-03-12] MEDS ORDERED: PIPERACILLIN/TAZOBACTAM SOD 3.375 GM in D5W MINI-BAG PLUS 50 ML IV ONE (02:45)
[2020-03-12 03:02] LABS: ALBUMIN 3.3 GM/DL (3.2-5.2); BILIRUBIN,DIRECT 0.5 MG/DL (0.0-0.2); BILIRUBIN,TOTAL 0.8 MG/DL (0.2-1.0); CALCIUM LEVEL 8.8 MG/DL (8.8-10.2); CREATININE FOR GFR 2.01 MG/DL (0.55-1.30); FREE THYROXINE INDEX 3.5 % (1.3-4.8); GLOMERULAR FILTRATION RATE 26.1 (>45); THYROID STIMULATING HORMONE 0.676 uIU/ML (0.358-3.740); THYROXINE (T4) 9.4 UG/DL (4.5-12.0); TOTAL PROTEIN 7.1 GM/DL (6.4-8.2)
[2020-03-12] MEDS ORDERED: SIMV20TA22 PO (03:37)
[2020-03-12] MEDS ORDERED: LOSA50TA88 PO (03:37)
[2020-03-12] MEDS ORDERED: PATIENT COMMENT (03:39)
--- NOTE | 2020-03-12 04:30 | REPVR ---
PROCEDURE INFORMATION: Exam: CT Abdomen And Pelvis Without Contrast Exam date and time: 03/12/2020 3:42 AM Age: 69 years old Clinical indication: Fever and other: Hematuria; Additional info: Hematuria/fever/sepsis TECHNIQUE: Imaging protocol: Computed tomography of the abdomen and pelvis without contrast. Radiation optimization: All CT scans at this facility use at least one of these dose optimization techniques: automated exposure control; mA and/or kV adjustment per patient size (includes targeted exams where dose is matched to clinical indication); or iterative reconstruction. COMPARISON: CT ABD PELVIS W/O CONTRAST 09/10/2019 4:42 PM FINDINGS: Limitations: There is artifact related to the positioning of the patients arms. Lungs: There is minimal bibasilar atelectasis. Liver: The unenhanced liver appears unremarkable, but assessment is somewhat limited related to beam hardening artifact. Gallbladder and bile ducts: Gallstones are present. The gallbladder appears partially contracted. No gross gallbladder wall thickening is seen. There is no biliary ductal dilation. Pancreas: The pancreas appears unremarkable. No pancreatic ductal dilation identified. Spleen: The unenhanced spleen appears unremarkable. Adrenals: The adrenal glands are normal. Kidneys and ureters: There is moderate right hydronephrosis. There is an obstructing stone in the distal right ureter which measures 5 x 4 x 4 mm, but there is also hyperdensity beyond the stone which may be small stone fragments or blood products. There is right sided perinephric stranding. The left kidney appears unremarkable.The left ureter appears normal with no stones or hydronephrosis. Stomach and bowel: The small bowel appears unremarkable. The rectum is distended with stool to 7.3 cm in transverse diameter. There is no dilation elsewhere or thickening of the colon. Appendix: The appendix is not specifically identified. Intraperitoneal space: There is no evidence of free intraperitoneal or pelvic fluid. There is no free intraperitoneal air. Vasculature: Atherosclerotic changes are present in the abdominal aorta and the iliac arteries. No aortic aneurysm. Lymph nodes: No lymphadenopathy is seen. Bladder: The bladder is decompressed by a Zee catheter. There is a small amount of intraluminal air consistent with instrumentation. There seems to be some hyperdensity in the lumen of the bladder as well, which may be blood products or residual contrast if there was previous contrast administration. The bladder wall appears irregular, with an indistinct outer margin and mild perivesicular stranding. Reproductive: The uterus is absent. Bones/joints: Degenerative endplate changes are seen at multiple levels in the visualized spine. Soft tissues: The soft tissues appear unremarkable. IMPRESSION: 1. Obstructing 5 x 4 x 4 mm stone in the distal right ureter with associated moderate right-sided hydronephrosis and right perinephric stranding. Hyperdensity beyond the obstructing stone may be stone fragments or blood products. 2. The bladder is collapsed around the Zee catheter, but there appears to be small hyperdensity in the lumen of the bladder which is probably blood unless there was a recent contrast administration. The wall of the bladder appears irregular with an indistinct outer margin and perivesicular stranding, probably due to cystitis. 3. Cholelithiasis. No signs of acute cholecystitis. Electronically signed by: Radha Miles On 03/12/2020 04:30:06 AM
[2020-03-12] MEDS ORDERED: SODIUM CHLORIDE 0.9% 1000ML IV STA (04:40)
[2020-03-12] MEDS ORDERED: MOM 30ML SUSPENSION UDC PO PRN (04:45)
--- NOTE | 2020-03-12 04:45 | HPEPDOC ---
[facility] Medical History & Physical Date of Admission Mar 12, 2020 Date of Service: Mar 12, 2020 Attending Physician: SANTI WELLS MD History and Physical TIME OF SERVICE: 5:30 PM CHIEF COMPLAINT: Fever HISTORY OF PRESENT ILLNESS: This is a 69-year-old female who was brought to the ER by EMS. Apparently her family called EMS to evaluate the patient because they noted that she had been feeling unwell and complaining of feeling cold. She managed to eat breakfast and lunch but vomited after eating lunch. She went to bed early and when EMS found her, she was shaking and confused. Her temperature was 105.6 and her heart rate was 120. At the time of my evaluation, the patient was more lucid and had no acute complaints. She had no idea how she had arrived at the hospital. REVIEW OF SYSTEMS: . 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 HOME MEDICATIONS: Please see below. PHYSICAL EXAMINATION: Vital Signs Date Time Temp Pulse Resp B/P (MAP) Pulse Ox O2 Delivery O2 Flow Rate FiO2 03/12/20 02:00 113 91 03/12/20 02:16 105.6 20 163/88 Room Air GEN: well-nourished / well developed/ NAD INTEGUMENT: not flushed/ not diaphoretic HEENT: NCAT /mucus membranes moist and pink CVS: RRR/NMRG LUNGS: no coughing / lungs are clear to auscultation bilaterally on room air ABDOMEN: Contour ( obese) / the right lower abdomen is soft & but not tender with palpation MSK/EXTREMITIES: range of motion intact in all 4 extremities / no CVA tenderness NEURO: CN 2-12 are grossly intact / speech is not dysarthric PSYCH: alert and oriented to person place and date/ able to understand and follow all commands LABORATORY DATA: Laboratory Tests 03/12/20 02:08 Immature Granulocyte % (Auto) 0.8, Neutrophils (%) (Auto) 93.0H, Lymphocytes (%) (Auto) 1.2L, Monocytes (%) (Auto) 4.9, Eosinophils (%) (Auto) 0.0, Basophils (%) (Auto) 0.1, Neutrophils # (Auto) 17.0H, Lymphocytes # (Auto) 0.2L, Monocytes # (Auto) 0.9H, Eosinophils # (Auto) 0.0, Basophils # (Auto) 0.0, Nucleated Red Blood Cells % (auto) 0.0, Anion Gap 9, Glomerular Filtration Rate 26.1L, Calcium Level 8.8, Total Bilirubin 0.8, Direct Bilirubin 0.5H, Aspartate Amino Transf (AST/SGOT) 27, Alanine Aminotransferase (ALT/SGPT) 52, Alkaline Phosphatase 112, Total Creatine Kinase 33, Total Protein 7.1, Albumin 3.3, Albumin/Globulin Ratio 0.9L, Thyroid Stimulating Hormone (TSH) 0.676, Free Thyroxine Index 3.5, Thyroxine (T4) 9.4, Triiodothyronine (T3) Uptake 37 03/12/20 02:09: Urine Color REDH, Urine Appearance CLOUDYH, Urine pH 9.0, Urine Specific [place] 1.023, Urine Protein 3+H, Urine Glucose (Auto)(UA) 2+H, Urine Ketones (Auto) TRACEH, Urine Blood 2+H, Urine Nitrite NEGATIVE, Urine Bilirubin NEGATIVE, Urine Urobilinogen 0.2, Urine Leukocyte Esterase (Auto) TRACEH, Urine WBC (Auto) 14H, Urine RBC (Auto) TNTCH, Urine Hyaline Casts (Auto) 0, Urine Bacteria (Auto) NEGATIVE, Urine Squamous Epithelial Cells 0, Urine Sperm (Auto) , Lactic Acid Level 2.5*H 03/12/20 02:17: [facility]ING: CT abdomen and pelvis " IMPRESSION: 1. Obstructing 5 x 4 x 4 mm stone in the distal right ureter with associated moderate right-sided hydronephrosis and right perinephric stranding. Hyperdensity beyond the obstructing stone may be stone fragments or blood products. 2. The bladder is collapsed around the Hein catheter, but there appears to be small hyperdensity in the lumen of the bladder which is probably blood unless there was a recent contrast administration. The wall of the bladder appears irregular with an indistinct outer margin and perivesicular stranding, probably due to cystitis. 3. Cholelithiasis. No signs of acute cholecystitis. " MICROBIOLOGY: 03/12/20 Urine Culture, Received Pending 03/12/20 Respiratory Virus Panel (PCR) (AVA) - Final, Complete 03/12/20 Blood Culture, Received Pending ASSESSMENT: Ms. Scott is a 69-year-old with a history of urothelial carcinoma of the bladder, NIDDM, dyslipidemia, HTN, CKD 3, obesity, COPD, and peripheral neuropathy who is admitted for management of sepsis 2/2 pyelonephritis associated with obstructive uropathy, hydronephrosis and JULIAN. PLAN: 1. Sepsis 2/2 Pyelonephritis SIRS criterial include Temp >101 / HR >90 / WBC >12 / RR >20 Lactic acid >2 qSOFA score = 2 = high risk CT scan findings and UA as above Plan: admit to ICU / telemetry / Sepsis protocol w repeat lactic acid /based on previous urine sensitivities will continue with Zosyn / IVF/f/u blood cx, UA w Cx / Acetaminophen PRN for fever / target MAP at least 65 / f/u Is and Os with target UOP of at least 0.5 ml/kg/H / target serum glucose 140-180 while acutely ill / f/u VBG w target SVO2of 70% or greater 2. Obstructive Uropathy with Hydronephrosis 5mm obstructive stone on in right ureter associated w right sided hydronephrosis, pyelonephritis and JULIAN Plan: NPO / IVF / Urology consult / Acetaminophen for pain 3. Acute Renal Failure on CKD 3 Likely prerenal Plan: f/u Is/Os, daily weights / IVF / f/u ulytes for FENa or FEUrea / hold m etformin and losartan 4. Metabolic Encephalopathy Likely 2/2 sepsis has resolved Plan: treat infection 5. NN Anemia Plan: f/u Hg & Iron studies 6. Hyponatremia Possibly pseudohyponatremia due to hyperproteinemia which she has seen Hem for in in the past vs SIADH 2/2 Amitryptilline vs other cause TBD Plan: f/u Uosmol, serum osmol, Cholo to determine cause Plan: frequent neurochecks / hein / f/u Is/ Os, Uosmol, Cholo and serum Osmol 7. NIDDM w Peripheral neuropathy Plan: f/u accuchecks & A1C / hypoglycemia protocol / sliding scale insulin / hold , glipizide, Januvia, and metformin 8. Dyslipidemia Plan : Simvastatin 9. Chronic HTN Plan: Hold hydrochlorothiazide, losartan, carvedilol because of low BP 2/2 sepsis 10. High-grade urothelial carcinoma of the bladder Plan: f/u w Hem/Onc as scheduled 11. Obesity BMI 30.1 with coexisting diabetes complicates care Plan: f/u A1C / the pt can f/u w his or her PCP for STOP BANG questionnaire, seed cleaner operator consult DVT PROPHYLAXIS: SCDs DISPOSITION: will need at least 2 midnight's stay Home Medications Scheduled Aspirin (Aspirin EC) 81 Mg Tablet.dr, 81 MG PO DAILY Carvedilol (Carvedilol) 12.5 Mg Tablet, 12.5 MG PO BID Cholecalciferol (Vitamin D3) (Vitamin D3) 50 Mcg (2000 Unit) Tab.chew, 100 MCG PO DAILY Glipizide (Glipizide) 10 Mg Tablet, 10 MG PO BID Hydrochlorothiazide (Hydrochlorothiazide) 25 Mg Tab, 12.5 MG PO DAILY Ketorolac Tromethamine (Acular) 0.5% 5ML Drops, 1 DROP OU QID D/C RIGHT EYE ON 03/21/20 AND D/C LEFT EYE ON 03/28/20 Linezolid (Linezolid) 600 Mg Tablet, 600 MG PO BID Losartan Potassium (Losartan Potassium) 50 Mg Tablet, 50 MG PO DAILY Metformin HCl (Metformin HCl) 500 Mg Tablet, 500 MG PO BID Oxybutynin Chloride (Ditropan Xl) 5 Mg Tab.er.24, 5 MG PO DAILY Prednisolone Acetate (Pred Forte 1% Opth Susp) 5 Ml Drops.susp, 1 DROP OU TID D/C RIGHT EYE ON 03/21/20 AND D/C LEFT EYE ON 03/28/20 Propylene Glycol/Peg 400 (Systane 0.3-0.4% Eye Drops) 15 Ml Octavia, 2 DROP OU BID Simvastatin (Simvastatin) 20 Mg Tablet, 20 MG PO QHS Sitagliptin Phosphate (Januvia) 100 Mg Tab, 100 MG PO DAILY TAKES AT NOON Sodium Chloride (Yohan-128) 5% Oint...g., 1 DOSE OS QHS Scheduled PRN Sodium Chloride (Yohan-128) 2% Drops, 1 DROP OU QID PRN for BLURRY VISION Allergies Coded Allergies: No Known Allergies (Unverified , 09/26/18) A-FIB/CHADSVASC A-FIB History Current/History of A-Fib/PAF?: No Current PO Anticoag Therapy: No SANTI WELLS MD Mar 12, 2020 04:45
[2020-03-12] MEDS ORDERED: MURO5OIN OS (05:00)
[2020-03-12] MEDS ORDERED: ASPI-161 PO (05:00)
[2020-03-12] MEDS ORDERED: VITA1CHW7 PO (05:00)
[2020-03-12] MEDS ORDERED: PRED1SUS2 OU (05:00)
[2020-03-12 05:13] LABS: VENOUS BASE EXCESS -0.9 (-2.0-2.0); VENOUS HCO3 25.6 MEQ/L (23.0-27.0); VENOUS PARTIAL PRESSURE CO2 50.4 mmHg (38.0-50.0); VENOUS PARTIAL PRESSURE O2 30.9 mmHg (30.0-50.0); VENOUS PH 7.323 UNITS (7.330-7.430); VENOUS STANDARD HCO3 23.1 MEQ/L; VENOUS TOTAL CO2 27.1 MEQ/L (24.0-28.0)
[2020-03-12] MEDS ORDERED: GLUCAGON INJ 1MG VIAL SC PRN (06:00)
[2020-03-12] MEDS ORDERED: DEXTROSE 50% 50 ML SYRINGE IV PRN (06:00)
[2020-03-12] MEDS ORDERED: GLUCOSE 4GM CHEW TABLET PO PRN (06:00)
[2020-03-12] MEDS ORDERED: HumaLOG INSULIN (NovoLOG) PER UNIT SC SCH ×3 (06:00→21:00)
[2020-03-12 06:07] LABS: FERRITIN 136 NG/ML (8-252); IRON (FE) < 5 UG/DL (50-170); PERCENT SATURATION 2.1 % (13.2-45.0); TOTAL IRON BINDING CAPACITY 241 UG/DL (250-450)
[2020-03-12 06:10] LABS: HEMOGLOBIN A1c 6.6 %
[2020-03-12] MEDS ORDERED: NS 1,000 ML IV SCH (06:30)
[2020-03-12] MEDS ORDERED: ONDANSETRON 4MG/2ML VIAL As Ordered ONE (07:20)
[2020-03-12] MEDS ORDERED: LIDOCAINE 2% 100MG/5ML SDV (FOR ANES.) As Ordered ONE (07:20)
[2020-03-12] MEDS ORDERED: dexameTHASONE 4 MG/ML 1ML VIAL (J1100 PER 1MG) As Ordered ONE (07:20)
[2020-03-12] MEDS ORDERED: propofoL 200 MG/20 ML VIAL As Ordered ONE (07:20)
[2020-03-12] MEDS ORDERED: fentaNYL 100 MCG/2 ML INJECTION (J3010) As Ordered ONE (07:21)
[2020-03-12] MEDS ORDERED: MIDAZOLAM INJ 2MG/2ML VIAL (J2250 PER 1MG) As Ordered ONE (07:21)
[2020-03-12] MEDS ORDERED: ISOVUE-300 61% 50ML VIAL As Ordered ONE (07:27)
[2020-03-12] MEDS ORDERED: ceFAZolin SOD 2 GM in IV 1 EA IV ONE (07:30)
[2020-03-12] MEDS ORDERED: LIDOCAINE 2% 5ML JELLY UROJET As Ordered ONE (07:45)
[2020-03-12] MEDS ORDERED: ceFAZolin 2 GM/D5W 50 ML IV BAG (J0690 PER 500MG) As Ordered ONE (07:45)
--- NOTE | 2020-03-12 07:48 | SMCUROLCON ---
Urology Consultation General Date of Consultation 03/12/20 Reason For Consultation This patient is seen for Sepsis and an obstructing distal right ureteral calculus History of Present Illness The patient is a 69-year-old white female with a past medical history for bladder cancer, recurrent UTIs, diabetes. She states that she had been doing well until a few days ago when she started feeling not quite herself. She presented to the emergency room last night via EMS after the family called for an evaluation because she was confused and complaining of pain and vomiting. In the emergency room, a CT scan showed a 5 mm distal right ureteral calculus with hydroureteronephrosis. She also had a high white cell count of 18 and possible UTI with elevated red and white cells in the urine. She is also diabetic. Because of this, urology consult was called. The patient was diagnosed with bladder cancer about a year ago and had several treatments of BCG in the office. She states that she does not think she had any follow-up since then. Because of recurrent infections that she had been having. Past Medical History Medical History High-grade urothelial carcinoma of the bladder. NIDDM with peripheral neuropathy Dyslipidemia Chronic HTN Chronic kidney disease stage III Morbid obesity, COPD, status post partial hysterectomy TURBT Surgical Hstory TURBT September 2018 with subsequent BCG treatment Family History Significant Family History: Diabetes, Heart disease, Other Family History CVA Social History * Smoker: former Smoker Alcohol: Denies Medications Current Medications Current Medications Medications (Trade) Dose Ordered Sig/Roberto Route PRN Reason Start Time Stop Time Status Last Admin Dose Admin Acetaminophen (Tylenol Tab) 650 mg Q4H PRN PO PAIN OR FEVER 03/12/20 04:45 Amitriptyline HCl (Elavil) 100 mg QHS PO 03/12/20 21:00 Artificial Tears (Akwa Tears) 2 drop BID OU 03/12/20 09:00 Aspirin (Ecotrin) 81 mg DAILY PO 03/12/20 09:00 Carvedilol (COReg) 12.5 mg BID PO 03/12/20 09:00 Dextrose (Dextrose 50%) 25 ml ASDIRECTED PRN IV SEE LABEL COMMENTS 03/12/20 06:00 Glucagon (Glucagon) 1 mg ASDIRECTED PRN SC SEE LABEL COMMENTS 03/12/20 06:00 Glucose (Glucose) 16 GM ASDIRECTED PRN PO SEE LABEL COMMENTS 03/12/20 06:00 Hydrochlorothiazide (Hydrodiuril) 12.5 mg DAILY PO 03/12/20 09:00 Insulin Human Lispro (HumaLOG INSULIN) See Protocol Table AC SC 03/12/20 07:30 03/12/20 06:30 DC Insulin Human Lispro (HumaLOG INSULIN) See Protocol Table Q6H SC 03/12/20 06:00 03/12/20 06:43 Insulin Human Lispro (HumaLOG INSULIN) See Protocol Table QHS SC 03/12/20 21:00 03/12/20 06:30 DC Magnesium Hydroxide (Milk Of Magnesia) 30 ml DAILY PRN PO CONSTIPATION 03/12/20 04:45 Piperacillin Sod/ Tazobactam Sod 2.25 gm/Dextrose 50 ml @ 50 mls/hr Q6H IV 03/12/20 10:00 Prednisolone Acetate (Predforte 1% Ophth Susp) 1 drop TID OU 03/12/20 09:00 Simvastatin (Zocor) 20 mg QHS PO 03/12/20 21:00 Sodium Chloride 1,000 ml @ 70 mls/hr [id number] IV 03/12/20 06:30 03/12/20 05:57 Sodium Chloride (Yohan 128 5% Ophth Oint) 1 dose QHS OS 03/12/20 21:00 Sodium Chloride (Nacl 0.9%) 2,100 ml BOLUS STAT IV 03/12/20 04:40 03/12/20 04:46 DC 03/12/20 04:50 Allergies Allergies: Coded Allergies: No Known Allergies (Unverified , 09/26/18) Review of Systems General: Reports: ROS Unobtainable Constitutional: Reports: Fever, Chills, Sweats, Weakness Eyes: Denies: Pain, Vision change ENT: Denies: Head Aches, Sore Throat, Epistaxis Skin: Denies: Rash, Lesions, Breakdown, Nail Changes Pulmonary: Denies: Dyspnea, Cough Cardiovascular: Denies Chest Pain, Denies Palpitations Gastrointestinal: Denies: Nausea, Vomiting, Abdominal Pain Genitourinary: Reports: Dysuria Hematologic: Denies: Bruising, Bleeding Excessively Endocrine: Denies: Polydipsia, Polyphagia, Polyuria Musculoskeletal: Reports: Muscle Pain Neurological: Denies: Weakness, Numbness, Incoordination, Change in Speech Psych: Reports: Mood Normal; Denies: Anxiety, Depression Physical Examination General Exam: Alert, No Acute Distress EYE EXAM: PERRLA, Conjunctiva & lids normal, EOMI; No: Sclera icteric ENT EXAM: Atraumatic, Mucous membr. moist/pink, Pharynx Normal Neck Exam: Supple; No: JVD, thyromegaly Chest Exam: Clear to auscultation, Normal air movement Heart Exam: Rate Normal, Regular Rhythm, Normal S1, Normal S2; No: Murmurs, Rubs Abdomen Exam: Normal Bowel Sounds, Soft, Other (Obese); No: Tenderness, Hepatospenomegaly Extremity Exam: Normal Pulses; No: Clubbing, Cyanosis, Edema Skin Exam: Nl turgor and temperature; No: Rash, Breakdown Neuro Exam: Normal Gait, Normal Speech, Cranial Nerves 3-12 NL, Reflexes 2+ Vital Signs/I&O Vital Signs Date Time Temp Pulse Resp B/P (MAP) Pulse Ox O2 Delivery O2 Flow Rate FiO2 03/12/20 06:00 83 109/55 (73) 97 Room Air 03/12/20 05:48 98.0 18 I&O- Last 24 Hours up to 6 AM 03/12/20 06:00 Intake Total 1100 ml Output Total 250 ml Balance 850 ml Laboratory Data 24H Labs Laboratory Tests 2 03/12/20 02:08: Immature Granulocyte % (Auto) 0.8, Neutrophils (%) (Auto) 93.0H, Lymphocytes (%) (Auto) 1.2L, Monocytes (%) (Auto) 4.9, Eosinophils (%) (Auto) 0.0, Basophils (%) (Auto) 0.1, Neutrophils # (Auto) 17.0H, Lymphocytes # (Auto) 0.2L, Monocytes # (Auto) 0.9H, Eosinophils # (Auto) 0.0, Basophils # (Auto) 0.0, Nucleated Red Blood Cells % (auto) 0.0, Anion Gap 9, Glomerular Filtration Rate 26.1L, Calcium Level 8.8, Total Bilirubin 0.8, Direct Bilirubin 0.5H, Aspartate Amino Transf (AST/SGOT) 27, Alanine Aminotransferase (ALT/SGPT) 52, Alkaline Phosphatase 112, Total Creatine Kinase 33, Total Protein 7.1, Albumin 3.3, Albumin/Globulin Ratio 0.9L, Thyroid Stimulating Hormone (TSH) 0.676, Free Thyroxine Index 3.5, Thyroxine (T4) 9.4, Triiodothyronine (T3) Uptake 37 03/12/20 02:09: Urine Color REDH, Urine Appearance CLOUDYH, Urine pH 9.0, Urine Specific [place] 1.023, Urine Protein 3+H, Urine Glucose (Auto)(UA) 2+H, Urine Ketones (Auto) TRACEH, Urine Blood 2+H, Urine Nitrite NEGATIVE, Urine Bilirubin NEGATIVE, Urine Urobilinogen 0.2, Urine Leukocyte Esterase (Auto) TRACEH, Urine WBC (Auto) 14H, Urine RBC (Auto) TNTCH, Urine Hyaline Casts (Auto) 0, Urine Bacteria (Auto) NEGATIVE, Urine Squamous Epithelial Cells 0, Urine Sperm (Auto) , Lactic Acid Level 2.5*H 03/12/20 02:17: Bedside Glucose (Misc Panel) 283H 03/12/20 04:53: Estimated Mean Plasma Glucose 143H, Hemoglobin A1c 6.6, Iron Level < 5L, Total Iron Binding Capacity 241L, Transferrin % Saturation 2.1L, Ferritin 136 03/12/20 04:54: Blood Gas Bicarbonate Standard 23.1, Venous Blood pH 7.323L, Venous Blood Partial Pressure CO2 50.4H, Venous Blood Partial Pressure O2 30.9, Venous Blood Total Carbon Dioxide 27.1, Venous Blood HCO3 25.6, Venous Blood Oxygen Saturation 59.0L, Venous Blood Base Excess -0.9, Lactic Acid Level 2.0 03/12/20 05:03: Bedside Glucose (Misc Panel) 239H 03/12/20 06:39: Bedside Glucose (Misc Panel) 257H 03/12/20 07:04: CBC/BMP Laboratory Tests 03/12/20 02:08 Microbiology Microbiology 03/12/20 Urine Culture, Received Pending 03/12/20 Respiratory Virus Panel (PCR) (AVA) - Final, Complete 03/12/20 Blood Culture, Received Pending Assessment Sepsis with 5 mm calculus distal right with obstruction and possible pyelonephrosis or ureteritis. Plan Because of her history of elevated white cell count, elevated temperature, possible UTI, obstructing right ureteral calculus and diabetes, feel it is emergent that she has at least a ureteral stent inserted in the right ureter. The stone may or may not be addressed at the same time. I discussed options with the patient and the need for emergent surgery to relieve the obstruction to the right kidney. Possible complications were also discussed including infection, pain, perforation, stricture, bleeding and ureteral or renal damage. She was accepted. The& wishes to proceed with the procedure, which will be performed by Dr. Wharton. Time Spent on Consult: Time Spent / Consult (Minutes): 65 GABBIE GILL MD Mar 12, 2020 07:48
--- NOTE | 2020-03-12 08:17 | REP ---
Clinical: Fever. Comparison: None. Findings: Mediastinum and cardiac silhouette are normal. Subtle scattered atelectasis and small early streaky infiltrates (left greater than right) cannot be excluded. No obvious effusion. No pneumothorax. Skeletal structures intact. Impression: Cannot exclude subtle early atelectasis/infiltrate. Electronically Signed by Efraín Samuel MD 03/12/2020 08:09 A
[2020-03-12] MEDS ORDERED: ePHEDrine SULFATE 25 MG/5 ML(5MG/ML) SYRINGE As Ordered ONE ×2 (08:28→08:44)
[2020-03-12] MEDS ORDERED: PHENYLephrine HCL 500 MCG/5 ML (100MCG/ML) SYRINGE (J2370) As Ordered ONE (08:28)
[2020-03-12] MEDS: hydroCHLOROthiazide 12.5 MG CAPSULE PO SCH (09:00)
[2020-03-12] MEDS: CARVedilol 12.5 MG TAB PO SCH ×2 (09:00→21:27)
[2020-03-12] MEDS ORDERED: SODI2OPD OU (09:22)
[2020-03-12] MEDS ORDERED: ACUL0.5S OU (09:22)
--- NOTE | 2020-03-12 09:43 | REP ---
RETROGRADE PYELOGRAM: Two views. HISTORY: Right stent placement. 20 seconds of fluoroscopy time is reported. FINDINGS: A sequence of two last image hold fluoroscopically obtained spot radiographs of the abdomen document right ureteral cannulation, contrast injection, hydronephrosis, and stent placement. Electronically Signed by Troy Corbett MD 03/12/2020 10:54 A
[2020-03-12] MEDS: prednisoLONE ACET 1% OPHTH SUSP 5ML OU SCH ×3 (10:09→21:28)
[2020-03-12] MEDS: POLYVINYL ALCOHOL OPHTH SOLN 15 ML(LIQUITEARS) OU SCH ×2 (10:09→21:28)
[2020-03-12] MEDS: PIPERACILLIN/TAZOBACTAM SOD 2.25 GM in D5W MINI-BAG PLUS 50 ML IV SCH ×3 (10:09→21:28)
[2020-03-12] MEDS: ASPIRIN 81 MG ENTERIC TAB PO SCH (10:10)
[2020-03-12] MEDS ORDERED: ONDANSETRON 4MG/2ML VIAL IV PRN (10:15)
[2020-03-12] MEDS ORDERED: HumaLOG INSULIN (NovoLOG) PER UNIT SC ONE (10:15)
[2020-03-12] MEDS ORDERED: LR 1,000 ML IV SCH (10:15)
[2020-03-12] MEDS: HumaLOG INSULIN (NovoLOG) PER UNIT SC SCH ×3 (12:10→21:00)
[2020-03-12] MEDS: ACETAMINOPHEN TAB 650MG DOSE (2X325MG) PO PRN ×2 (14:13→20:04)
[2020-03-12] MEDS: SODIUM CHLORIDE 5% OPHTH OINT 3.5 GM OS SCH (21:00)
[2020-03-12] MEDS: SIMVASTATIN 20 MG TAB PO SCH (21:27)
[2020-03-12] MEDS: AMITRIPTYLINE 50 MG TAB PO SCH (21:27)
[2020-03-13] MEDS: ACETAMINOPHEN TAB 650MG DOSE (2X325MG) PO PRN ×2 (00:09→05:27)
[2020-03-13] MEDS: PIPERACILLIN/TAZOBACTAM SOD 2.25 GM in D5W MINI-BAG PLUS 50 ML IV SCH ×4 (04:31→21:19)
[2020-03-13 06:00] VITALS: BP 121/67
[2020-03-13 06:28] LABS: HEMATOCRIT 30.2 % (36.0-47.0); HEMOGLOBIN 9.6 g/dl (12.0-15.5); MEAN CORPUSCULAR HEMOGLOBIN 28.5 pg (27.0-33.0); MEAN CORPUSCULAR HGB CONC 31.8 g/dl (32.0-36.5); MEAN CORPUSCULAR VOLUME 89.6 fl (80.0-96.0); PLATELET COUNT, AUTOMATED 171 10^3/uL (150-450); RED BLOOD COUNT 3.37 10^6/uL (4.00-5.40); WHITE BLOOD COUNT 14.2 10^3/uL (4.0-10.0)
[2020-03-13 06:58] LABS: CALCIUM LEVEL 8.1 MG/DL (8.8-10.2); CREATININE FOR GFR 1.42 MG/DL (0.55-1.30); POTASSIUM SERUM 4.2 MEQ/L (3.5-5.1)
--- NOTE | 2020-03-13 07:47 | IPNPDOC ---
Subjective Review oF Systems Chief Complaint The patient is a 69-year-old female admitted with a reason for visit of Sepsis. Events since Last Encounter No acute events o/n. Notes having some leakage around the catheter along w/ b ladder spasms. Denies flank pain. No n/v. No f/c/ns. Objective Physical Examination General Exam: Alert, Cooperative, No Acute Distress ABDOMEN EXAM: Soft; No: Tenderness Skin Exam: Nl turgor and temperature Neuro Exam: Normal Speech Psych Exam: Mental status NL, Mood NL Other physical findings catheter draining light pink urine Vital Signs/I&O Vital Signs Date Time Temp Pulse Resp B/P (MAP) Pulse Ox O2 Delivery O2 Flow Rate FiO2 03/13/20 06:00 98.0 82 18 121/67 (85) 96 Room Air 03/12/20 09:30 3 I&O- Last 24 Hours up to 6 AM 03/13/20 06:00 Intake Total 2915 ml Output Total 2590 ml Balance 325 ml Laboratory Data Labs 24H Laboratory Tests 2 03/12/20 12:01: Bedside Glucose (Misc Panel) 167H 03/12/20 17:33: Bedside Glucose (Misc Panel) 213H 03/12/20 20:09: Bedside Glucose (Misc Panel) 206H 03/13/20 05:52: Nucleated Red Blood Cells % (auto) 0.0, Anion Gap 5L, Glomerular Filtration Rate 39.0L, Calcium Level 8.1L CBC/BMP Laboratory Tests 03/13/20 05:52 FSBS Laboratory Tests Test 03/12/20 12:01 03/12/20 17:33 03/12/20 20:09 Range/Units Bedside Glucose (Misc Panel) 167 213 206 80-115 MG/DL Microbiology Microbiology 03/12/20 Urine Culture, Received Pending 03/12/20 Urine Culture, Received Pending 03/12/20 Respiratory Virus Panel (PCR) (AVA) - Final, Complete 03/12/20 Blood Culture - Preliminary, Resulted No growth after 24 hours . All specim... Assessment/Plan Date Seen The patient was seen on 03/13/20. Patient Summary This is a 69 y/o F admitted for an obstructing distal R ureteral stone and concern for urosepsis, POD1 s/p cysto w/ R ureteral stent placement. WBC trending down, now 14.2. Cr improving, now 1.4. Good UOP. Plan/VTE VTE Prophylaxis Ordered?: Yes VTE Exclusion Mechanical Proph: N/A:VTE Prophy Ordered Plan/Urinary Catheter Urinary Catheter: D/C Zee Plan - d/c Zee - start oxybutynin ER 5mg daily for bladder spasms - f/u culture results and adjust abx accordingly - my office will arrange f/u for the patient - she will need to be brought back to the OR in a few wks once her infection is cleared for R ureteroscopy w/ laser lithotripsy AKASH QUAN MD Mar 13, 2020 07:46
[2020-03-13] MEDS: CARVedilol 12.5 MG TAB PO SCH ×2 (08:07→21:17)
[2020-03-13] MEDS: ASPIRIN 81 MG ENTERIC TAB PO SCH (08:07)
[2020-03-13] MEDS: hydroCHLOROthiazide 12.5 MG CAPSULE PO SCH (08:07)
[2020-03-13] MEDS: oxyBUTYnin *DITROPAN XL* 5 MG TABCR PO SCH (08:07)
[2020-03-13] MEDS: HumaLOG INSULIN (NovoLOG) PER UNIT SC SCH ×4 (08:14→20:50)
[2020-03-13] MEDS: prednisoLONE ACET 1% OPHTH SUSP 5ML OU SCH ×3 (08:14→21:18)
[2020-03-13] MEDS: POLYVINYL ALCOHOL OPHTH SOLN 15 ML(LIQUITEARS) OU SCH ×2 (08:15→21:18)
[2020-03-13 10:00] VITALS: BP 121/65
[2020-03-13 14:00] VITALS: BP 120/65
--- NOTE | 2020-03-13 14:05 | IPNPDOC ---
Date Seen The patient was seen on 03/13/20. Progress Note SUBJECTIVE: Patient was seen and examined this morning, sitting up comfortably in a chair. She states she is feeling much better than when she was admitted to the hospital. She was able to void twice this morning. She has been able to eat and denies nausea or vomiting. No fevers, chills, back pain, dysuria, urinary frequency, urinary urgency, abdominal pain. OBJECTIVE PHYSICAL EXAMINATION: VITAL SIGNS: Please see below. GENERAL: Alert, comfortable, in no acute distress HEENT: Normocephalic, atraumatic, moist mucous membranes CARDIOVASCULAR: Regular rate and rhythm, normal S1 and S2. No murmurs, rubs, or gallops RESPIRATORY: Clear to auscultation bilaterally with equal air entry bilaterally. No wheezing, rhonchi, or rales. ABDOMEN: Soft, nontender, nondistended, bowel sounds present. EXTREMITIES: No cyanosis or edema. Pulses 2+/4 in bilateral upper and lower extremities NEUROLOGIC: Alert and oriented 3 to person, place and time. No focal deficits appreciated PSYCHIATRIC: Mood and affect appropriate LABORATORY DATA, IMAGING STUDIES, MICROBIOLOGY: Please see below. ASSESSMENT/PLAN: 69-year-old female with a history of urothelial carcinoma of the bladder with obstructive uropathy secondary to nephrolithiasis with subsequent hydronephrosis, pyelonephritis, and JULIAN, status post ureteral stent # Obstructive uropathy with hydronephrosis secondary to nephrolithiasis, improved Urology consulted, appreciate their input and recommendations. Ureteral stent placed by Dr. Wharton. Creatinine downtrending, continue to monitor daily. Zee discontinued this morning, patient started on oxybutynin ER for bladder spasms. Plan for outpatient follow-up with urologist for right uterus copy with laser lithotripsy once pyelonephritis has resolved. # Sepsis secondary to pyelonephritis, improved Lactic acid improved to 2.0, normotensive, regular heart rate. Urine culture positive for corynebacterium. Antibiotic coverage with Zosyn, day #2 #Bacteremia with gram-positive rods. Full culture and sensitivities pending, antibiotics coverage as noted above with Zosyn Contamination possible considering only one set of cultures were drawn, follow- up blood cultures 2 ordered # Metabolic encephalopathy, resolved. Resolved, likely secondary to sepsis, treatment as noted above # Hyponatremia, resolved. Likely pseudohyponatremia due to hypoproteinemia, follows with hematology. SIADH secondary to amitriptyline use also on the differential # Normocytic anemia, stable. H/H down trended, suspect this is related to IV fluid hydration Iron studies suggest anemia of chronic disease # Diabetes mellitus with peripheral neuropathy Hold home medications including glipizide, Januvia and metformin. Continue home amitriptyline for peripheral neuropathy Sliding scale insulin while inpatient, may require basal insulin if indicated, depending on SSI usage. Hypoglycemic protocol # Dyslipidemia. Continue home simvastatin and aspirin # Chronic hypertension. Continue home hydrochlorothiazide and carvedilol Hold home losartan in the setting of JULIAN # High-grade urothelial carcinoma of the bladder. Follow-up with heme/onc as scheduled DVT prophylaxis: Teds and SCDs. DISPOSITION: Admitted to inpatient pending clinical improvement VS, I&O, 24H, Fishbone Vital Signs/I&O Vital Signs Date Time Temp Pulse Resp B/P (MAP) Pulse Ox O2 Delivery O2 Flow Rate FiO2 03/13/20 10:00 98.4 76 19 121/65 (83) 97 Room Air 03/12/20 09:30 3 I&O- Last 24 Hours up to 6 AM 03/13/20 06:00 Intake Total 2915 ml Output Total 2590 ml Balance 325 ml Laboratory Data 24H LABS Laboratory Tests 2 03/12/20 17:33: Bedside Glucose (Misc Panel) 213H 03/12/20 20:09: Bedside Glucose (Misc Panel) 206H 03/13/20 05:52: Nucleated Red Blood Cells % (auto) 0.0, Anion Gap 5L, Glomerular Filtration Rate 39.0L, Calcium Level 8.1L 03/13/20 08:09: Bedside Glucose (Misc Panel) 203H 03/13/20 11:30: Bedside Glucose (Misc Panel) 151H CBC/BMP Laboratory Tests 03/13/20 05:52 Microbiology Microbiology 03/12/20 Urine Culture - Final, Complete Corynebacterium Species 03/12/20 Urine Culture - Final, Complete Corynebacterium Species 03/12/20 Respiratory Virus Panel (PCR) (AVA) - Final, Complete 03/12/20 Blood Culture - Preliminary, Resulted GME ATTESTATION GME ATTESTATION My faculty preceptor for this patient encounter was physically present during the encounter and was fully available. All aspects of the patient interview, examination, medical decision making process, and medical care plan development were reviewed and approved by the faculty preceptor. The faculty preceptor is aware and concurs with the plan as stated in the body of this note and will attest to such by his/her cosignature. ATTENDING NOTE Patient was seen and examined by me. Agree with the above assessment and plan AGUSTIN HALL D.O. Mar 13, 2020 14:05 CAROL YA MD Mar 13, 2020 14:41
[2020-03-13 18:00] VITALS: BP 125/66
[2020-03-13] MEDS: SODIUM CHLORIDE 5% OPHTH OINT 3.5 GM OS SCH (21:00)
[2020-03-13] MEDS: AMITRIPTYLINE 50 MG TAB PO SCH (21:17)
[2020-03-13] MEDS: EYE OS SCH (21:17)
[2020-03-13] MEDS: MURO OS SCH (21:17)
[2020-03-13] MEDS: SIMVASTATIN 20 MG TAB PO SCH (21:17)
[2020-03-13 22:00] VITALS: BP 126/64
[2020-03-14] MEDS: PIPERACILLIN/TAZOBACTAM SOD 2.25 GM in D5W MINI-BAG PLUS 50 ML IV SCH ×4 (04:47→21:17)
[2020-03-14] MEDS: ACETAMINOPHEN TAB 650MG DOSE (2X325MG) PO PRN (04:55)
[2020-03-14 06:00] VITALS: BP 133/69
[2020-03-14 06:42] LABS: HEMATOCRIT 29.4 % (36.0-47.0); HEMOGLOBIN 9.2 g/dl (12.0-15.5); MEAN CORPUSCULAR HGB CONC 31.3 g/dl (32.0-36.5); MEAN CORPUSCULAR VOLUME 89.4 fl (80.0-96.0); PLATELET COUNT, AUTOMATED 190 10^3/uL (150-450); RED BLOOD COUNT 3.29 10^6/uL (4.00-5.40); WHITE BLOOD COUNT 8.9 10^3/uL (4.0-10.0)
[2020-03-14 07:13] LABS: CALCIUM LEVEL 8.3 MG/DL (8.8-10.2); CREATININE FOR GFR 1.25 MG/DL (0.55-1.30); GLOMERULAR FILTRATION RATE 45.2 (>45); POTASSIUM SERUM 3.9 MEQ/L (3.5-5.1)
[2020-03-14] MEDS: ASPIRIN 81 MG ENTERIC TAB PO SCH (08:31)
[2020-03-14] MEDS: hydroCHLOROthiazide 12.5 MG CAPSULE PO SCH (08:32)
[2020-03-14] MEDS: HumaLOG INSULIN (NovoLOG) PER UNIT SC SCH ×4 (08:32→20:14)
[2020-03-14] MEDS: oxyBUTYnin *DITROPAN XL* 5 MG TABCR PO SCH (08:33)
[2020-03-14] MEDS: CARVedilol 12.5 MG TAB PO SCH ×2 (08:33→21:17)
[2020-03-14] MEDS: prednisoLONE ACET 1% OPHTH SUSP 5ML OU SCH ×3 (08:34→21:16)
[2020-03-14] MEDS: POLYVINYL ALCOHOL OPHTH SOLN 15 ML(LIQUITEARS) OU SCH ×2 (08:34→21:15)
[2020-03-14 10:00] VITALS: BP 116/66
--- NOTE | 2020-03-14 13:46 | IPNPDOC ---
Text Note Date of Service The patient was seen on 03/14/20. NOTE SUBJECTIVE: Patient was seen and examined this morning, sitting up comfortably in a chair. . She states she is feeling well. She took oxybutynin yesterday and reports improvement of her bladder spasms. She denies any fevers, chills, back pain, dysuria, urinary frequency or urinary urgency. OBJECTIVE PHYSICAL EXAMINATION: VITAL SIGNS: Please see below. GENERAL: Alert, comfortable, in no acute distress HEENT: Normocephalic, atraumatic, moist mucous membranes CARDIOVASCULAR: Regular rate and rhythm, normal S1 and S2. No murmurs, rubs, or gallops RESPIRATORY: Clear to auscultation bilaterally with equal air entry bilaterally. No wheezing, rhonchi, or rales. ABDOMEN: Soft, nontender, nondistended, bowel sounds present. EXTREMITIES: No cyanosis or edema. Pulses 2+/4 in bilateral upper and lower extremities NEUROLOGIC: Alert and oriented 3 to person, place and time. No focal deficits appreciated PSYCHIATRIC: Mood and affect appropriate LABORATORY DATA, IMAGING STUDIES, MICROBIOLOGY: Please see below. ASSESSMENT/PLAN: 69-year-old female with a history of urothelial carcinoma of the bladder with obstructive uropathy secondary to nephrolithiasis with subsequent hydronephrosis, pyelonephritis, and JULIAN, status post ureteral stent # Obstructive uropathy with hydronephrosis secondary to nephrolithiasis, improved Urology consulted, appreciate their input and recommendations. Ureteral stent placed by Dr. Wharton. Creatinine downtrending, continue to monitor daily. Zee discontinued this morning, patient started on oxybutynin ER for bladder spasms. Plan for outpatient follow-up with urologist for right uteroscopy with laser lithotripsy once pyelonephritis has resolved. # Sepsis secondary to pyelonephritis, improved Lactic acid improved to 2.0, normotensive, regular heart rate. Urine culture positive for corynebacterium. Antibiotic coverage with Zosyn, day #3 #Bacteremia with gram-positive rods. Full culture and sensitivities pending, antibiotics coverage as noted above with Zosyn Contamination possible considering only one set of cultures were drawn, follow- up blood cultures 2 ordered # Metabolic encephalopathy, resolved. Resolved, likely secondary to sepsis, treatment as noted above # Hyponatremia, resolved. Likely pseudohyponatremia due to hypoproteinemia, has resolved # Normocytic anemia, stable. H/H down trended, suspect this is related to IV fluid hydration, now stable Iron studies suggest anemia of chronic disease # Diabetes mellitus with peripheral neuropathy Hold home medications including glipizide, Januvia and metformin. Continue home amitriptyline for peripheral neuropathy Sliding scale insulin while inpatient, may require basal insulin if indicated, depending on SSI usage. Hypoglycemic protocol # Dyslipidemia. Continue home simvastatin and aspirin # Chronic hypertension. Continue home hydrochlorothiazide and carvedilol Hold home losartan in the setting of JULIAN, may consider restarting now that JULIAN resolved if BP is elevated # High-grade urothelial carcinoma of the bladder. Follow-up with heme/onc as scheduled DVT prophylaxis: Teds and SCDs. DISPOSITION: Admitted to inpatient pending blood culture results and treatment plan VS,Gracee, I+O VS, Stewbone, I+O Laboratory Tests 03/14/20 06:19 Vital Signs Date Time Temp Pulse Resp B/P (MAP) Pulse Ox O2 Delivery O2 Flow Rate FiO2 03/14/20 10:00 98.9 73 18 116/66 (83) 99 Room Air 03/12/20 09:30 3 I&O- Last 24 Hours up to 6 AM 03/14/20 06:00 Intake Total 1650 ml Output Total 1325 ml Balance 325 ml GME ATTESTATION GME ATTESTATION My faculty preceptor for this patient encounter was physically present during the encounter and was fully available. All aspects of the patient interview, examination, medical decision making process, and medical care plan development were reviewed and approved by the faculty preceptor. The faculty preceptor is aware and concurs with the plan as stated in the body of this note and will attest to such by his/her cosignature. ATTENDING NOTE Patient was seen and examined by me. With the above assessment and plan AGUSTIN HALL D.O. Mar 14, 2020 13:46 CAROL YA MD Mar 14, 2020 16:01
[2020-03-14 14:00] VITALS: BP 126/57
[2020-03-14 18:00] VITALS: BP 129/64
[2020-03-14] MEDS: SODIUM CHLORIDE 5% OPHTH OINT 3.5 GM OS SCH (21:00)
[2020-03-14] MEDS: EYE OS SCH (21:16)
[2020-03-14] MEDS: AMITRIPTYLINE 50 MG TAB PO SCH (21:16)
[2020-03-14] MEDS: MURO OS SCH (21:16)
[2020-03-14] MEDS: SIMVASTATIN 20 MG TAB PO SCH (21:17)
[2020-03-14 22:00] VITALS: BP 144/64
[2020-03-15 02:00] VITALS: BP 131/66
[2020-03-15] MEDS: PIPERACILLIN/TAZOBACTAM SOD 2.25 GM in D5W MINI-BAG PLUS 50 ML IV SCH ×4 (04:23→21:44)
[2020-03-15 05:51] LABS: HEMATOCRIT 29.7 % (36.0-47.0); HEMOGLOBIN 9.3 g/dl (12.0-15.5); MEAN CORPUSCULAR HEMOGLOBIN 27.7 pg (27.0-33.0); MEAN CORPUSCULAR HGB CONC 31.3 g/dl (32.0-36.5); MEAN CORPUSCULAR VOLUME 88.4 fl (80.0-96.0); PLATELET COUNT, AUTOMATED 202 10^3/uL (150-450); RED BLOOD COUNT 3.36 10^6/uL (4.00-5.40); WHITE BLOOD COUNT 6.8 10^3/uL (4.0-10.0)
[2020-03-15 06:00] VITALS: BP 139/69
[2020-03-15 06:13] LABS: CALCIUM LEVEL 8.5 MG/DL (8.8-10.2); CREATININE FOR GFR 0.99 MG/DL (0.55-1.30); GLOMERULAR FILTRATION RATE 59.2 (>45); POTASSIUM SERUM 3.7 MEQ/L (3.5-5.1)
[2020-03-15] MEDS: HumaLOG INSULIN (NovoLOG) PER UNIT SC SCH ×4 (07:47→20:26)
--- NOTE | 2020-03-15 09:21 | RO ---
DATE OF PROCEDURE: 03/12/2020 PREPROCEDURE DIAGNOSES: Obstructing right ureteral stone, urinary tract infection, history of bladder cancer. POSTPROCEDURE DIAGNOSES: Obstructing right ureteral stone, urinary tract infection, history of bladder cancer. PROCEDURE: Cystoscopy, right retrograde pyelogram with intraoperative interpretation of images, right ureteral stent placement. SURGEON: Severo Wharton MD TRAFFIC ROUTING ENGINEER: None. ANESTHESIA: Monitored anesthesia care (MAC). OPERATIVE INDICATIONS: This is a 69-year-old female with a history of bladder cancer who received bacille Calmette-Titus (BCG) a year or so ago who presented to the hospital with fevers up to 105 degrees and was found to have an obstructing 5-6-mm distal right ureteral stone. She is brought to the operating room today for stent placement. DESCRIPTION OF PROCEDURE: The patient was brought to the operating room, and monitored anesthesia care (MAC) anesthesia was administered. Prophylactic antibiotics were infused. She was placed in the dorsal lithotomy position and prepped and draped in the usual sterile fashion. A rigid cystoscope was inserted into the urethral meatus and advanced into the bladder. The bladder was thoroughly examined. Of note, there were a lot of tiny calcifications scattered throughout the bladder. The trigone appeared to be scarred and was covered with a lot of fibrous tissue from previous bladder tumor resection. Of note, it was not easy to identify either ureteral orifice because of this. It took approximately 20-30 minutes ultimately to identify the right ureteral orifice. At this point, a guidewire was advanced up the right ureteral orifice, and then a 5-B[place]wanan open-ended ureteral catheter was advanced up the right collecting system. The wire was then removed, and approximately 40-50 mL of urine as aspirated from the right renal pelvis to be sent for culture. Once that was done, a retrograde pyelogram was performed, and was notable for moderate to severe right hydronephrosis with no extravasation. The wire was then advanced back up the right collecting system. The ureteral catheter was removed. I then utilized the wire to advance a 7-B[place]wanan x 22-32 cm double J ureteral stent into the right collecting system. The wire was removed, and there were adequate curls of the stent in the right renal pelvis and in the bladder. Of note, also on cystoscopy, no bladder tumors were seen. Once the stent was placed, the cystoscope was removed, and a 16-B[place]wanan Zee catheter was inserted into the bladder. The balloon was filled with 10 mL of sterile water, and then the catheter was connected to gravity drainage. This marked the conclusion of the procedure. The patient was then taken out of the dorsal lithotomy position, awakened from anesthesia, and transported to the recovery room in stable condition. ESTIMATED BLOOD LOSS: 5 mL. COMPLICATIONS: None. SPECIMENS: Urine from right renal pelvis for culture. PLAN: The patient will be treated for her infection and ultimately will need to come back to the operating room in a few weeks for a ureteroscopy to remove her stone. CORRIE
[2020-03-15] MEDS: hydroCHLOROthiazide 12.5 MG CAPSULE PO SCH (09:25)
[2020-03-15] MEDS: oxyBUTYnin *DITROPAN XL* 5 MG TABCR PO SCH (09:25)
[2020-03-15] MEDS: prednisoLONE ACET 1% OPHTH SUSP 5ML OU SCH ×3 (09:25→21:42)
[2020-03-15] MEDS: ASPIRIN 81 MG ENTERIC TAB PO SCH (09:25)
[2020-03-15] MEDS: POLYVINYL ALCOHOL OPHTH SOLN 15 ML(LIQUITEARS) OU SCH ×2 (09:25→21:42)
[2020-03-15] MEDS: LEVEMIR (INSULIN DETEMIR) 1 UNITS/0.01ML SC SCH (09:25)
[2020-03-15] MEDS: CARVedilol 12.5 MG TAB PO SCH ×2 (09:28→21:43)
[2020-03-15 10:00] VITALS: BP 158/72
--- NOTE | 2020-03-15 13:32 | IPNPDOC ---
Text Note Date of Service The patient was seen on 03/15/20. NOTE SUBJECTIVE: Patient was seen and examined this morning, sitting up comfortably in a chair. She states she is feeling well and would like to go home when she can. The oxybutynin continues to help with the bladder spasms. She denies any fevers, chills, back pain, dysuria, urinary frequency or urinary urgency. OBJECTIVE PHYSICAL EXAMINATION: VITAL SIGNS: Please see below. GENERAL: Alert, comfortable, in no acute distress HEENT: Normocephalic, atraumatic, moist mucous membranes CARDIOVASCULAR: Regular rate and rhythm, normal S1 and S2. No murmurs, rubs, or gallops RESPIRATORY: Clear to auscultation bilaterally with equal air entry bilaterally. No wheezing, rhonchi, or rales. ABDOMEN: Soft, nontender, nondistended, bowel sounds present. EXTREMITIES: No cyanosis or edema. Pulses 2+/4 in bilateral upper and lower extremities NEUROLOGIC: Alert and oriented 3 to person, place and time. No focal deficits appreciated PSYCHIATRIC: Mood and affect appropriate LABORATORY DATA, IMAGING STUDIES, MICROBIOLOGY: Please see below. ASSESSMENT/PLAN: 69-year-old female with a history of urothelial carcinoma of the bladder with obstructive uropathy secondary to nephrolithiasis with subsequent hydronephrosis, pyelonephritis, and JULIAN, status post ureteral stent # Obstructive uropathy with hydronephrosis secondary to nephrolithiasis, improved Urology consulted, appreciate their input and recommendations. Ureteral stent placed by Dr. Wharton. Creatinine downtrending, continue to monitor daily. Zee discontinued, patient started on oxybutynin ER for bladder spasms. Plan for outpatient follow-up with urologist for right uteroscopy with laser lithotripsy once pyelonephritis has resolved. # Sepsis secondary to pyelonephritis, improved Lactic acid improved to 2.0, normotensive, regular heart rate. Urine cultures (clean catch and renal pelvis during cystoscopy) positive for corynebacterium. Antibiotic coverage with Zosyn, day #4 #Bacteremia with gram-positive rods. Full culture and sensitivities pending, antibiotics coverage as noted above with Zosyn Contamination possible considering only one set of cultures were drawn, follow- up blood cultures 2 ordered # Metabolic encephalopathy, resolved. Resolved, likely secondary to sepsis, treatment as noted above # Hyponatremia, resolved. Likely pseudohyponatremia due to hypoproteinemia, has resolved # Normocytic anemia, stable. H/H down trended, suspect this is related to IV fluid hydration, now stable Iron studies suggest anemia of chronic disease # Diabetes mellitus with peripheral neuropathy Hold home medications including glipizide, Januvia and metformin. Continue home amitriptyline for peripheral neuropathy Sliding scale insulin while inpatient, added levemir insulin today based on SSI usage Hypoglycemic protocol # Dyslipidemia. Continue home simvastatin and aspirin # Chronic hypertension. Continue home hydrochlorothiazide and carvedilol Hold home losartan in the setting of JULIAN, may consider restarting now that JULIAN resolved if BP is elevated # High-grade urothelial carcinoma of the bladder. Follow-up with heme/onc as scheduled DVT prophylaxis: Teds and SCDs. DISPOSITION: Admitted to inpatient pending blood culture results and treatment plan VS,Gracee, I+O VS, Fishbone, I+O Laboratory Tests 03/15/20 05:24 Vital Signs Date Time Temp Pulse Resp B/P (MAP) Pulse Ox O2 Delivery O2 Flow Rate FiO2 03/15/20 10:00 99.3 82 17 158/72 (100) 96 Room Air 03/12/20 09:30 3 I&O- Last 24 Hours up to 6 AM 03/15/20 06:00 Intake Total 1280 ml Output Total 2205 ml Balance -925 ml AGUSTIN HALL D.O. Mar 15, 2020 13:32
[2020-03-15 14:00] VITALS: BP 148/60
[2020-03-15] MEDS: ACETAMINOPHEN TAB 650MG DOSE (2X325MG) PO PRN (14:36)
[2020-03-15 18:00] VITALS: BP 129/57
[2020-03-15] MEDS: SODIUM CHLORIDE 5% OPHTH OINT 3.5 GM OS SCH (21:00)
[2020-03-15] MEDS: EYE OS SCH (21:41)
[2020-03-15] MEDS: MURO OS SCH (21:41)
[2020-03-15] MEDS: SIMVASTATIN 20 MG TAB PO SCH (21:43)
[2020-03-15] MEDS: AMITRIPTYLINE 50 MG TAB PO SCH (21:43)
[2020-03-15 22:00] VITALS: BP 145/64
[2020-03-16 02:00] VITALS: BP 122/61
[2020-03-16] MEDS: PIPERACILLIN/TAZOBACTAM SOD 2.25 GM in D5W MINI-BAG PLUS 50 ML IV SCH ×4 (04:17→22:20)
[2020-03-16 05:57] LABS: HEMATOCRIT 30.7 % (36.0-47.0); HEMOGLOBIN 9.8 g/dl (12.0-15.5); MEAN CORPUSCULAR HEMOGLOBIN 28.1 pg (27.0-33.0); MEAN CORPUSCULAR HGB CONC 31.9 g/dl (32.0-36.5); PLATELET COUNT, AUTOMATED 221 10^3/uL (150-450); RED BLOOD COUNT 3.49 10^6/uL (4.00-5.40); WHITE BLOOD COUNT 7.3 10^3/uL (4.0-10.0)
[2020-03-16 06:00] VITALS: BP 142/77
[2020-03-16 06:12] LABS: CALCIUM LEVEL 8.8 MG/DL (8.8-10.2); CREATININE FOR GFR 1.13 MG/DL (0.55-1.30); GLOMERULAR FILTRATION RATE 50.8 (>45)
[2020-03-16] MEDS: LEVEMIR (INSULIN DETEMIR) 1 UNITS/0.01ML SC SCH (08:19)
[2020-03-16] MEDS: HumaLOG INSULIN (NovoLOG) PER UNIT SC SCH ×4 (08:19→22:22)
[2020-03-16] MEDS: POLYVINYL ALCOHOL OPHTH SOLN 15 ML(LIQUITEARS) OU SCH ×2 (08:19→22:19)
[2020-03-16] MEDS: oxyBUTYnin *DITROPAN XL* 5 MG TABCR PO SCH (08:20)
[2020-03-16] MEDS: ASPIRIN 81 MG ENTERIC TAB PO SCH (08:20)
[2020-03-16] MEDS: CARVedilol 12.5 MG TAB PO SCH ×2 (08:20→22:21)
[2020-03-16] MEDS: prednisoLONE ACET 1% OPHTH SUSP 5ML OU SCH ×3 (08:20→22:20)
[2020-03-16] MEDS: hydroCHLOROthiazide 12.5 MG CAPSULE PO SCH (08:21)
[2020-03-16 10:00] VITALS: BP 141/71
[2020-03-16 14:00] VITALS: BP 141/70
--- NOTE | 2020-03-16 16:18 | IPNPDOC ---
Subjective Date Seen The patient was seen on 03/16/20. Subjective Chief Complaint/HPI Ms. Scott reports that she is feeling much better than she had in the past and she is very grateful for this. She has no acute complaints, but wants to emphasize that she stay for as long as it takes in order for us to figure out what is going wrong with her. She is concerned and a little shaken up by the events that brought her to this admission. General: Reports: Normal Appetite Constitutional: Denies: Chills, Fever Pulmonary: Denies: Dyspnea, Cough Cardiovascular: Denies: Chest Pain, Palpitations Genitourinary: Reports: Hematuria Psych: Reports: Mood Normal Objective Physical Examination General Exam: Positive: Alert (sitting in her chair watching a Convers[employer] race when I entered the room), Cooperative, No Acute Distress Eye Exam: Positive: Conjunctiva & lids normal; Negative: Sclera icteric ENT Exam: Positive: Mucous membr. moist/pink, Tongue Midline Neck Exam: Positive: Supple; Negative: Lymphadenopathy Chest Exam: Positive: Clear to auscultation, Normal air movement Heart Exam: Positive: Rate Normal, Normal S1, Normal S2; Negative: Murmurs Abdomen Exam: Positive: Normal bowel sounds, Soft; Negative: Tenderness Extremity Exam: Negative: Edema Psych Exam: Positive: Mood NL, Oriented x 3 Assessment /Plan Problems (1) Obstructive uropathy Status: Acute Response to Treatment: Improving Problem Text: Her creatinine has basically stabilized now. The Zee is out and she is on oxybutynin. Plan is for out patient follow-up with urologist for right uteroscopy and laser lithotripsy once the pyelonephritis has resolved. (2) Urolithiasis Status: Resolved Problem Specific Plan: Monitor Clinically Problem Text: Was treated by Dr. Wharton and seems to have resolved on the left side. Plan is for out patient follow-up with urologist for right uteroscopy and laser lithotripsy once the pyelonephritis has resolved. (3) UTI (urinary tract infection) Status: Acute Response to Treatment: Improving Problem Specific Plan: Monitor Clinically Problem Text: Her UTI/pyelonephritis seems to be improving on Zosyn. The catch is that this medication may not be all that she needs (see below). (4) Bacteremia due to Gram-positive bacteria Problem Specific Plan: Consult Specialist Problem Text: Her first blood culture resulted with corynebacteria today. Both of her previous urine cultures have shown the same genus. There are two more blood cultures that are not yet finalized. I'm very interested in seeing if they show corynebacteria. Typically these would be a contaminant however in patients with significant anatomic abnormalities and/or immunocompromise he can become a pathogen. One species in particular, corynebacteria urealyticum, can something called encrusted cystitis. Interestingly Dr. Wharton noted significant calcification inside the bladder. In reading his procedure note, I got the impression he thought this might be related to the previous history of BCG treatment. However, it also could also be related to a chronic C. urealyticum infection. If this is the case a beta-lactam drug like Zosyn my not be the right choice. Additionally, she would likely need a long duration of therapy because of the poor penetrants of the antibiotic into avascular areas like calcific cr usts. I plan on consulting infectious disease tomorrow to take a closer look at this issue. (5) Normocytic anemia Status: Chronic Response to Treatment: Stable Problem Specific Plan: Monitor Clinically, Repeat Labs Problem Text: Her hemoglobin is relatively stable. Continue to monitor. (6) Type 2 diabetes mellitus with peripheral neuropathy Status: Chronic Response to Treatment: Stable Problem Text: Her blood glucose levels are relatively stable on her current regimen. Continue, monitor. (7) Dyslipidemia Status: Chronic Problem Text: Continue current regimen including simvastatin and aspirin. (8) Hypertension Status: Chronic Problem Text: Her blood pressures are creeping back up again. Her losartan was held because of an JULIAN, however, I think it may be reasonable to restart this tomorrow morning. 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 She continues to follow with oncology outpatient basis. This is probably all that is needed at this time. Plan/VTE VTE Prophylaxis Ordered?: Yes (SCD/TEDs) VTE Exclusion Mechanical Proph: N/A:VTE Prophy Ordered VTE Exclusion Pharmacological: Active Bleeding (persistent hematuria after urologic procedure) Plan/Urinary Catheter Urinary Catheter: D/C Zee VS, I&O, 24H, Fishbone Vital Signs/I&O Vital Signs Date Time Temp Pulse Resp B/P (MAP) Pulse Ox O2 Delivery O2 Flow Rate FiO2 03/16/20 14:00 98.4 75 17 141/70 (93) 100 Room Air 03/12/20 09:30 3 I&O- Last 24 Hours up to 6 AM 03/16/20 06:00 Intake Total 1730 ml Output Total 2225 ml Balance -495 ml Laboratory Data 24H LABS Laboratory Tests 2 03/15/20 16:52: Bedside Glucose (Misc Panel) 176H 03/15/20 19:56: Bedside Glucose (Misc Panel) 174H 03/16/20 05:42: Nucleated Red Blood Cells % (auto) 0.0, Anion Gap 6L, Glomerular Filtration Rate 50.8, Calcium Level 8.8 03/16/20 11:41: Bedside Glucose (Misc Panel) 198H CBC/BMP Laboratory Tests 03/16/20 05:42 Microbiology Microbiology 03/13/20 Blood Culture - Preliminary, Resulted No Growth after 72 hours. All specime... 03/13/20 Blood Culture - Preliminary, Resulted No Growth after 72 hours. All specime... 03/12/20 Urine Culture - Final, Complete Corynebacterium Species 03/12/20 Urine Culture - Final, Complete Corynebacterium Species 03/12/20 Respiratory Virus Panel (PCR) ([facility]) - Final, Complete 03/12/20 Blood Culture - Final, Complete Corynebacterium Species Adán Gutierrez MD Mar 16, 2020 16:18
[2020-03-16 18:00] VITALS: BP 138/68
[2020-03-16] MEDS: SODIUM CHLORIDE 5% OPHTH OINT 3.5 GM OS SCH (21:00)
[2020-03-16 22:00] VITALS: BP 141/68
[2020-03-16] MEDS: AMITRIPTYLINE 50 MG TAB PO SCH (22:20)
[2020-03-16] MEDS: MURO OS SCH (22:20)
[2020-03-16] MEDS: SIMVASTATIN 20 MG TAB PO SCH (22:20)
[2020-03-16] MEDS: EYE OS SCH (22:20)
[2020-03-16] MEDS: ACETAMINOPHEN TAB 650MG DOSE (2X325MG) PO PRN (23:46)
[2020-03-17 02:00] VITALS: BP 138/71
[2020-03-17] MEDS: PIPERACILLIN/TAZOBACTAM SOD 2.25 GM in D5W MINI-BAG PLUS 50 ML IV SCH ×4 (04:33→21:03)
[2020-03-17 06:00] VITALS: BP 157/75
[2020-03-17 06:10] LABS: HEMOGLOBIN 10.1 g/dl (12.0-15.5); MEAN CORPUSCULAR HEMOGLOBIN 28.1 pg (27.0-33.0); MEAN CORPUSCULAR HGB CONC 31.6 g/dl (32.0-36.5); MEAN CORPUSCULAR VOLUME 89.1 fl (80.0-96.0); PLATELET COUNT, AUTOMATED 243 10^3/uL (150-450); RED BLOOD COUNT 3.59 10^6/uL (4.00-5.40); WHITE BLOOD COUNT 6.9 10^3/uL (4.0-10.0)
[2020-03-17 06:30] LABS: CALCIUM LEVEL 8.8 MG/DL (8.8-10.2); CREATININE FOR GFR 1.12 MG/DL (0.55-1.30); GLOMERULAR FILTRATION RATE 51.3 (>45); POTASSIUM SERUM 4.2 MEQ/L (3.5-5.1)
[2020-03-17] MEDS: ASPIRIN 81 MG ENTERIC TAB PO SCH (08:56)
[2020-03-17] MEDS: hydroCHLOROthiazide 12.5 MG CAPSULE PO SCH (08:56)
[2020-03-17] MEDS: LOSARTAN 50MG TABLET PO SCH (08:57)
[2020-03-17] MEDS: CARVedilol 12.5 MG TAB PO SCH ×2 (08:57→21:03)
[2020-03-17] MEDS: oxyBUTYnin *DITROPAN XL* 5 MG TABCR PO SCH (08:57)
[2020-03-17] MEDS: LEVEMIR (INSULIN DETEMIR) 1 UNITS/0.01ML SC SCH (08:58)
[2020-03-17] MEDS: HumaLOG INSULIN (NovoLOG) PER UNIT SC SCH ×4 (08:58→21:00)
[2020-03-17] MEDS: prednisoLONE ACET 1% OPHTH SUSP 5ML OU SCH ×3 (08:59→21:05)
[2020-03-17] MEDS: POLYVINYL ALCOHOL OPHTH SOLN 15 ML(LIQUITEARS) OU SCH ×2 (08:59→21:04)
[2020-03-17 14:00] VITALS: BP 149/67
[2020-03-17 18:00] VITALS: BP 146/66
--- NOTE | 2020-03-17 18:42 | IPNPDOC ---
Text Note Date of Service The patient was seen on 03/17/20. NOTE SUBJECTIVE: Patient was seen and examined this morning, lying comfortably in bed. She states she is little bit nervous as she wants to make sure everything gets worked out prior to going home. She denies any new symptoms or concerns today, stating she continues to feel better each day. OBJECTIVE PHYSICAL EXAMINATION: VITAL SIGNS: Please see below. GENERAL: Alert, comfortable, in no acute distress HEENT: Normocephalic, atraumatic, moist mucous membranes CARDIOVASCULAR: Regular rate and rhythm, normal S1 and S2. No murmurs, rubs, or gallops RESPIRATORY: Clear to auscultation bilaterally with equal air entry bilaterally. No wheezing, rhonchi, or rales. ABDOMEN: Soft, nontender, nondistended, bowel sounds present. EXTREMITIES: No cyanosis or edema. Pulses 2+/4 in bilateral upper and lower extremities NEUROLOGIC: Alert and oriented 3 to person, place and time. No focal deficits appreciated PSYCHIATRIC: Mood and affect appropriate LABORATORY DATA, IMAGING STUDIES, MICROBIOLOGY: Please see below. ASSESSMENT/PLAN: 69-year-old female with a history of urothelial carcinoma of the bladder with obstructive uropathy secondary to nephrolithiasis with subsequent hydronephrosis, pyelonephritis, and JULIAN, status post ureteral stent # Obstructive uropathy with hydronephrosis secondary to nephrolithiasis, improved Urology consulted, appreciate their input and recommendations. Ureteral stent placed by Dr. Wharton. Creatinine improved and stable, continue to monitor daily. Zee discontinued, patient started on oxybutynin ER for bladder spasms. Plan for outpatient follow-up with urologist for right uteroscopy with laser lithotripsy once pyelonephritis has resolved. # Sepsis secondary to pyelonephritis, improved Lactic acid improved to 2.0, normotensive, regular heart rate. Urine cultures (clean catch and renal pelvis during cystoscopy) positive for corynebacterium. Antibiotic coverage with Zosyn, day #5 #Bacteremia with corynebacterium ID consulted for recommendations on outpatient antibiotics, appreciate their input and recommendations. Follow-up blood cultures 2 are negative at 72 hours # Metabolic encephalopathy, resolved. Resolved, likely secondary to sepsis, treatment as noted above # Hyponatremia, resolved. Likely pseudohyponatremia due to hypoproteinemia, has resolved # Normocytic anemia, stable. H/H stable, continue to monitor daily Iron studies suggest anemia of chronic disease # Diabetes mellitus with peripheral neuropathy Hold home medications including glipizide, Januvia and metformin. Continue home amitriptyline for peripheral neuropathy Sliding scale insulin while inpatient, with levemir insulin for basal coverage Hypoglycemic protocol # Dyslipidemia. Continue home simvastatin and aspirin # Chronic hypertension. Continue home hydrochlorothiazide and carvedilol Restarted home losartan as her JULIAN has now resolved. # High-grade urothelial carcinoma of the bladder. Follow-up with heme/onc as scheduled DVT prophylaxis: Teds and SCDs. DISPOSITION: Admitted to inpatient med/surg, possible d/c tomorrow with abx per ID recommendations VS,Fishbone, I+O VS, Fishbone, I+O Laboratory Tests 03/17/20 05:43 Vital Signs Date Time Temp Pulse Resp B/P (MAP) Pulse Ox O2 Delivery O2 Flow Rate FiO2 03/17/20 18:00 98.0 89 18 146/66 (92) 99 Room Air 03/12/20 09:30 3 I&O- Last 24 Hours up to 6 AM 03/17/20 06:00 Intake Total 1120 ml Output Total 1600 ml Balance -480 ml GME ATTESTATION ATTENDING NOTE Family Medicine Attending Note: I was present on site to supervise Jen Hall D.O. (PGY-2). We discussed the history and exam. I confirmed the tamez elements during my [id number] encounter with the patient. We conferred on the assessment and plan; I agree with the note as documented. I do believe corynebacteria is actually a pathogen at this point. We appreciate infectious disease's input into his situation. (pocket maker) JEN HALL D.O. Mar 17, 2020 18:42 Adán Gutierrez MD Mar 17, 2020 23:16
[2020-03-17] MEDS: MURO OS SCH (21:00)
[2020-03-17] MEDS: EYE OS SCH (21:00)
[2020-03-17] MEDS: SODIUM CHLORIDE 5% OPHTH OINT 3.5 GM OS SCH (21:00)
[2020-03-17] MEDS: SIMVASTATIN 20 MG TAB PO SCH (21:03)
[2020-03-17] MEDS: AMITRIPTYLINE 50 MG TAB PO SCH (21:03)
[2020-03-17 22:00] VITALS: BP 143/71
[2020-03-17] MEDS: LINEZOLID 600MG TABLET (ZYVOX) PO SCH (22:35)
[2020-03-18 02:00] VITALS: BP 142/80
[2020-03-18 06:00] VITALS: BP 156/82
[2020-03-18 06:06] LABS: HEMATOCRIT 33.2 % (36.0-47.0); HEMOGLOBIN 10.5 g/dl (12.0-15.5); MEAN CORPUSCULAR HEMOGLOBIN 28.2 pg (27.0-33.0); MEAN CORPUSCULAR HGB CONC 31.6 g/dl (32.0-36.5); MEAN CORPUSCULAR VOLUME 89.2 fl (80.0-96.0); PLATELET COUNT, AUTOMATED 289 10^3/uL (150-450); RED BLOOD COUNT 3.72 10^6/uL (4.00-5.40); WHITE BLOOD COUNT 8.5 10^3/uL (4.0-10.0)
[2020-03-18 06:36] LABS: CALCIUM LEVEL 9.5 MG/DL (8.8-10.2); CREATININE FOR GFR 1.11 MG/DL (0.55-1.30); GLOMERULAR FILTRATION RATE 51.9 (>45); POTASSIUM SERUM 4.6 MEQ/L (3.5-5.1)
[2020-03-18] MEDS ORDERED: DITR5TAB PO (09:03)
[2020-03-18] MEDS ORDERED: LINE1TAB6 PO ×2 (09:03→11:50)
[2020-03-18] MEDS: oxyBUTYnin *DITROPAN XL* 5 MG TABCR PO SCH (09:28)
[2020-03-18] MEDS: ASPIRIN 81 MG ENTERIC TAB PO SCH (09:28)
[2020-03-18] MEDS: LINEZOLID 600MG TABLET (ZYVOX) PO SCH (09:28)
[2020-03-18 09:29] VITALS: BP 158/82
[2020-03-18] MEDS: LOSARTAN 50MG TABLET PO SCH (09:29)
[2020-03-18] MEDS: hydroCHLOROthiazide 12.5 MG CAPSULE PO SCH (09:29)
[2020-03-18] MEDS: LEVEMIR (INSULIN DETEMIR) 1 UNITS/0.01ML SC SCH (09:30)
[2020-03-18] MEDS: CARVedilol 12.5 MG TAB PO SCH (09:30)
[2020-03-18] MEDS: HumaLOG INSULIN (NovoLOG) PER UNIT SC SCH ×2 (09:30→13:09)
[2020-03-18] MEDS: prednisoLONE ACET 1% OPHTH SUSP 5ML OU SCH (09:31)
[2020-03-18] MEDS: POLYVINYL ALCOHOL OPHTH SOLN 15 ML(LIQUITEARS) OU SCH (09:31)
--- NOTE | 2020-03-18 09:48 | CR ---
DATE OF CONSULTATION: 03/17/2020 REASON FOR CONSULTATION: I was asked consult by hospitalist for evaluation of pyelonephritis with bacteremia from Corynebacterium species. HISTORY OF PRESENT ILLNESS: Mrs. Scott is a 69-year-old female with a history of bladder cancer diagnosed in 2018 who presented with acute onset of rigors, confusion and a fever of 105.6. The patient came to the emergency room after she had vomited and was not feeling well. In the emergency room (ER), she had a temperature of 105.6 and a heart rate of 120. She was started on broad-spectrum antibiotics with IV Zosyn. CT of the abdomen showed right ureteral stone with moderate to severe right-sided hydronephrosis. Her creatinine was elevated at 2.01 and white count was 18,000. Blood culture was positive for Corynebacterium species. Urine culture was also positive for the same species and then urine from the kidney after stent placement was also positive for the same species. The patient was seen in consultation by Dr. Wharton who took her to the OR for moderate to severe right-sided hydronephrosis. She had a double-J stent placed and was continued on antibiotic. Today, the patient feels great. She is anxious to go home. She has had no fever since the day of admission. No nausea, vomiting or diarrhea recurrence. No urinary symptoms. She has a mild fullness in her right lower quadrant intermittently, but not been bothering her major. PAST MEDICAL HISTORY: Significant for high-grade urothelial carcinoma of the bladder diagnosed in September 2018 status post six BCG, non insulin-dependent diabetes with peripheral neuropathy, dyslipidemia, hypertension, chronic kidney disease, morbid obesity, and chronic obstructive pulmonary disease (COPD). PAST SURGICAL HISTORY: Status post partial hysterectomy, TURB and stent placement this admission. SOCIAL HISTORY: She quit smoking. She was , but never had children. Her in 1985. She lives with her niece, who helps take care of her. Her niece is [id number]. FAMILY HISTORY: Diabetes, heart disease and strokes. ALLERGIES: NO KNOWN DRUG ALLERGIES. MEDICATIONS: - Losartan 50 mg by mouth daily - Levemir 8 units subcu daily - oxybutynin 5 mg daily - amitriptyline 100 mg by mouth at bedtime - Zocor 20 mg by mouth at bedtime - insulin sliding scale - Zosyn 2.25 grams IV every 6 hours - aspirin 81 mg by mouth daily - Coreg 12.5 mg by mouth twice a day - hydrochlorothiazide 12.5 mg by mouth daily - Pred Forte one drop both eyes three times a day - artificial tears 2 drops both eyes twice a day LABORATORY DATA: White count on admission was 18,000, the next day with 14.2 and today is 6.9, hemoglobin 10.1, hematocrit 32, and platelets 243. Sodium 139, potassium 4.2, chloride 103, bicarb 33, BUN 18, creatinine 1.12 down from 2.01, glucose 188, calcium 8.8. Urinalysis had many red cells and 14 white cells. Urine culture, kidney culture and blood culture all had Corynebacterium species. Blood cultures from 03/13/2020, two sets were negative. PHYSICAL EXAMINATION: She is a healthy looking female in no acute distress. Temperature is 98, pulse 89, respirations 18, blood pressure 146/66, and O2 sat 99% on room air. Heart: Normal, S1, S2. Lungs are clear. No wheezes, rales or rhonchi. Abdomen: Soft, mildly obese, mildly tender in the right lower quadrant. Back: No costovertebral angle or lumbosacral tenderness. Extremities: No calf tenderness. No clubbing, cyanosis or edema. No rashes. Oropharynx is clear with no thrush. She has upper dentures, but her teeth on the bottom. Pupils equal and reactive, anicteric. IMPRESSION: This is a 69-year-old female admitted with obstructing kidney stone on the right side with moderate hydronephrosis, sepsis of urinary origin, with fever of 105. The patient has been on IV Zosyn for the past 6 days with improvement of her symptoms. She had a stent placed by Dr. Wharton and is doing very well. Since Corynebacterium does not have speciation or susceptibility at this point, she has improved on IV Zosyn, but 100% of Corynebacterium species are susceptible to linezolid and vancomycin; therefore, I have opted to switch her to linezolid since susceptibility would not be able to be obtained in the next 48 hours. She has no allergies. There may be a contraindication with amitriptyline as far as serotonin syndrome. The patient needs to be alerted about that. PLAN: Discontinue IV Zosyn and switch to linezolid 600 mg by mouth twice a day for 1 week. The patient to monitor for serotonin syndrome, confusion, fever, headache. The patient will need to finish antibiotic course before the stones are removed. She will need to follow up with urology. She does not need to follow up with infectious disease.
[2020-03-18 10:00] VITALS: BP 152/81
--- NOTE | 2020-03-18 15:28 | DS.PDOC ---
Discharge Summary General Date of Admission Mar 12, 2020 at 04:40 Date of Discharge 03/18/2020 Primary Care Physician: FRANSICO ACOSTA Attending Physician: EVA FALLON MD Discharge Summary PROCEDURES PERFORMED DURING STAY: Ureteral stent placement ADMITTING DIAGNOSES: 1. Sepsis secondary to pyelonephritis. 2. Obstructive uropathy with hydronephrosis. 3. Acute renal failure on CKD stage III 4. Metabolic encephalopathy. 5. Normocytic normochromic anemia. 6. Hyponatremia. 7. Diabetes mellitus with peripheral neuropathy. 8. Dyslipidemia. 9. Hypertension. 10. History of high-grade urothelial carcinoma of the bladder. 11. Obesity DISCHARGE DIAGNOSES: 1. Sepsis secondary to corynebacterium pyelonephritis 2. Obstructive uropathy with hydronephrosis secondary to nephrolithiasis. 3. Acute renal failure on CKD stage III 4. Corynebacterium bacteremia 5. Normocytic normochromic anemia. 6. Diabetes mellitus with peripheral neuropathy. 7. Dyslipidemia. 8. Hypertension. 9. History of high-grade urothelial carcinoma of the bladder. 10. Obesity COMPLICATIONS/CHIEF COMPLAINT: Sepsis. HISTORY OF PRESENT ILLNESS: 69-year-old female who was brought into the emergency department by EMS after she had been feeling unwell at home and complaining of feeling cold to her family. That morning she had eaten breakfast and lunch but started vomiting after lunch. She had gone to bed early 1 family called EMS, and she was found shaking and confused in bed. At that time her temperature was up to 105.6 and her heart rate was 120. On workup in the emergency department, the patient was found to have pyelonephritis secondary to obstructive uropathy from a nephrolithiasis with associated hydronephrosis and acute renal failure. HOSPITAL COURSE: The patient was admitted to the hospital and started on IV antibiotics with Zosyn for broad-spectrum coverage. Dr. Wharton was consulted and a ureteral stent was placed, relieving the obstruction. During the course of the patient's admission, her acute renal failure resolved and her creatinine returned to baseline. The nephrolithiasis remains in place and Dr. Wharton will follow-up after the resolution of the pyelonephritis in order to perform lithotripsy. Blood cultures drawn on admission returned positive for corynebacterium, the patient's urine culture taken as a clean catch, as well as a urine culture taken from the renal pelvis. During ureteral stent placement were also positive for corynebacterium. No species or sensitivity data was available on these cultures. Dr. Salazar was consulted for antibiotic management. The patient was started on oral linezolid and will complete a one week course of this. Repeat blood cultures 2 were negative after 5 days. The patient also takes amitriptyline at home for trouble sleeping. Due to the risk of serotonin syndrome in combination with linezolid, the dose of this was decreased and then the medication was stopped prior to discharge. This was discussed with the pharmacist who agrees with the plan to discontinue amitriptyline while on linezolid. The patient will follow-up with her primary care physician office in order to discuss an alternative medication to take for sleep if needed on the linezolid. DISCHARGE MEDICATIONS: Please see below. ALLERGIES: Please see below. PHYSICAL EXAMINATION ON DISCHARGE: VITAL SIGNS: Please see below. GENERAL: Alert, comfortable, in no acute distress HEENT: Normocephalic, atraumatic, moist mucous membranes CARDIOVASCULAR: Regular rate and rhythm, normal S1 and S2. No murmurs, rubs, or gallops RESPIRATORY: Clear to auscultation bilaterally with equal air entry bilaterally. No wheezing, rhonchi, or rales. ABDOMEN: Soft, nontender, nondistended, bowel sounds present. EXTREMITIES: No cyanosis or edema. Pulses 2+/4 in bilateral upper and lower extremities NEUROLOGIC: Alert and oriented 3 to person, place and time. No focal deficits appreciated PSYCHIATRIC: Mood and affect appropriate LABORATORY DATA: Please see below. IMAGING: - CXR: Cannot exclude subtle early atelectasis/infiltrate. - CT abdomen/pelvis: 1. Obstructing 5 x 4 x 4 mm stone in the distal right ureter with associated moderate right-sided hydronephrosis and right perinephric stranding. Hyperdensity beyond the obstructing stone may be stone fragments or blood products. 2. The bladder is collapsed around the Zee catheter, but there appears to be small hyperdensity in the lumen of the bladder which is probably blood unless there was a recent contrast administration. The wall of the bladder appears irregular with an indistinct outer margin and perivesicular stranding, probably due to cystitis. 3. Cholelithiasis. No signs of acute cholecystitis. - Retrograde pyelogram: A sequence of two last image hold fluoroscopically obtained spot radiographs of the abdomen document right ureteral cannulation, contrast injection, hydronephrosis, and stent placement. PROGNOSIS: Fair ACTIVITY: As tolerated. DIET: As tolerated. DISCHARGE PLAN: Discharge home on oral linezolid to follow up with Dr. Wharton for lithotripsy after completing the course of antibiotics. DISPOSITION: 01 Home, Self-Care. DISCHARGE INSTRUCTIONS: 1. Please complete the full course of antibiotics 2. Follow up with your PCP within 7-10 days 3. Follow up with Dr. Wharton in 1-2 weeks ITEMS TO FOLLOWUP ON ON OUTPATIENT: 1. Pyelonephritis and bacteremia secondary to corynebacterium, treatment with 1 week linezolid 2. Nephrolithiasis DISCHARGE CONDITION: Stable. TIME SPENT ON DISCHARGE: 35 minutes. Attending attestation: Patient independently evaluated, agree with resident's plan. Vital Signs/I&Os Vital Signs Date Time Temp Pulse Resp B/P (MAP) Pulse Ox O2 Delivery O2 Flow Rate FiO2 03/18/20 11:51 99.0 03/18/20 10:00 76 18 152/81 (104) 98 Room Air 03/12/20 09:30 3 I&O- Last 24 Hours up to 6 AM 03/18/20 06:00 Intake Total 1770 ml Output Total 2400 ml Balance -630 ml Laboratory Data Labs 24H Laboratory Tests 2 03/17/20 16:44: Bedside Glucose (Misc Panel) 137H 03/17/20 20:07: Bedside Glucose (Misc Panel) 207H 03/18/20 05:19: Nucleated Red Blood Cells % (auto) 0.0, Anion Gap 7L, Glomerular Filtration Rate 51.9, Calcium Level 9.5 03/18/20 11:59: Bedside Glucose (Misc Panel) 198H CBC/BMP Laboratory Tests 03/18/20 05:19 FSBS Laboratory Tests Test 03/17/20 16:44 03/17/20 20:07 03/18/20 11:59 Range/Units Bedside Glucose (Misc Panel) 137 207 198 80-115 MG/DL Microbiology Microbiology 03/13/20 Blood Culture - Final, Complete NO GROWTH AFTER 5 DAYS 03/13/20 Blood Culture - Final, Complete NO GROWTH AFTER 5 DAYS 03/12/20 Urine Culture - Final, Complete Corynebacterium Species 03/12/20 Urine Culture - Final, Complete Corynebacterium Species 03/12/20 Respiratory Virus Panel (PCR) (AVA) - Final, Complete 03/12/20 Blood Culture - Final, Complete Corynebacterium Species Discharge Medications Scheduled Aspirin (Aspirin EC) 81 Mg Tablet.dr, 81 MG PO DAILY, (Reported) Carvedilol (Carvedilol) 12.5 Mg Tablet, 12.5 MG PO BID, (Reported) Cholecalciferol (Vitamin D3) (Vitamin D3) 50 Mcg (2000 Unit) Tab.chew, 100 MCG PO DAILY, (Reported) Glipizide (Glipizide) 10 Mg Tablet, 10 MG PO BID, (Reported) Hydrochlorothiazide (Hydrochlorothiazide) 25 Mg Tab, 12.5 MG PO DAILY, (Reported) Ketorolac Tromethamine (Acular) 0.5% 5ML Drops, 1 DROP OU QID, (Reported) D/C RIGHT EYE ON 03/21/20 AND D/C LEFT EYE ON 03/28/20 Linezolid (Linezolid) 600 Mg Tablet, 600 MG PO BID Losartan Potassium (Losartan Potassium) 50 Mg Tablet, 50 MG PO DAILY, (Reported) Metformin HCl (Metformin HCl) 500 Mg Tablet, 500 MG PO BID, (Reported) Oxybutynin Chloride (Ditropan Xl) 5 Mg Tab.er.24, 5 MG PO DAILY Prednisolone Acetate (Pred Forte 1% Opth Susp) 5 Ml Drops.susp, 1 DROP OU TID, (Reported) D/C RIGHT EYE ON 03/21/20 AND D/C LEFT EYE ON 03/28/20 Propylene Glycol/Peg 400 (Systane 0.3-0.4% Eye Drops) 15 Ml Octavia, 2 DROP OU BID, (Reported) Simvastatin (Simvastatin) 20 Mg Tablet, 20 MG PO QHS, (Reported) Sitagliptin Phosphate (Januvia) 100 Mg Tab, 100 MG PO DAILY, (Reported) TAKES AT NOON Sodium Chloride (Yohan-128) 5% Oint...g., 1 DOSE OS QHS, (Reported) Scheduled PRN Sodium Chloride (Yohan-128) 2% Drops, 1 DROP OU QID PRN for BLURRY VISION, (Reported) Allergies Coded Allergies: No Known Allergies (Unverified , 09/26/18) AGUSTIN HALL D.O. Mar 18, 2020 15:28 EVA FALLON MD Mar 22, 2020 10:32
[2020-03-18] MEDS ORDERED: AMITRIPTYLINE 50 MG TAB PO SCH (21:00)
== END 2020-03-18 13:44 | disposition home or self-care (01) | DRG 853 ==
LOC: M ED 01:45 → M ED INP 04:40 → ENRESERV 04:53 → M ICU 05:40 → M MSPAV 16:42
PROVIDERS: ADMIT Internal Medicine; ATTEND Internal Medicine
PROC: 0T768DZ Dilation of Right Ureter with Intraluminal Device, Via Natural or Artificial Opening Endoscopic (ICD-10-PCS; principal; 2020-03-12 07:23)
DX: A41.9 Sepsis, unspecified organism (principal); G93.41 Metabolic encephalopathy; N17.9 Acute kidney failure, unspecified; N13.6 Pyonephrosis; E87.1 Hypo-osmolality and hyponatremia; E11.42 Type 2 diabetes mellitus with diabetic polyneuropathy; Z68.30 Body mass index [BMI] 30.0-30.9, adult; D64.9 Anemia, unspecified; C67.9 Malignant neoplasm of bladder, unspecified; E78.5 Hyperlipidemia, unspecified; I12.9 Hypertensive chronic kidney disease with stage 1 through stage 4 chronic kidney disease, or unspecified chronic kidney disease; N18.3 Chronic kidney disease, stage 3 (moderate); E66.9 Obesity, unspecified; J44.9 Chronic obstructive pulmonary disease, unspecified; Z87.891 Personal history of nicotine dependence; Z79.82 Long term (current) use of aspirin; Z79.84 Long term (current) use of oral hypoglycemic drugs; Z79.52 Long term (current) use of systemic steroids; Z79.899 Other long term (current) drug therapy; Z11.59 Encounter for screening for other viral diseases

== ENCOUNTER → 2020-03-25 | Outpatient (REF) | payer MEDICARE, OTHER ==
[~2020-03-25] MED LIST changes: +ACUL0.5S OU; +ASPI-161 PO; -ASPI81TA85 PO; +ASPI81TA86 PO; +DITR5TAB PO; +LINE1TAB6 PO; +LOSA50TA88 PO; +MURO5OIN OS; +PATIENT COMMENT; +PRED1SUS2 OU; +SODI2OPD OU; +VITA1CHW7 PO
[2020-03-25 13:26] LABS: HEMOGLOBIN 12.5 g/dl (12.0-15.5); MEAN CORPUSCULAR HEMOGLOBIN 27.8 pg (27.0-33.0); MEAN CORPUSCULAR HGB CONC 31.3 g/dl (32.0-36.5); MEAN CORPUSCULAR VOLUME 89.1 fl (80.0-96.0); PLATELET COUNT, AUTOMATED 322 10^3/uL (150-450); RED BLOOD COUNT 4.49 10^6/uL (4.00-5.40)
[2020-03-25 13:46] LABS: CALCIUM LEVEL 10.1 MG/DL (8.8-10.2); CREATININE FOR GFR 1.1 MG/DL (0.55-1.30); GLOMERULAR FILTRATION RATE 52.4 (>45); POTASSIUM SERUM 4.2 MEQ/L (3.5-5.1)
[2020-03-25 15:04] LABS: HEMOGLOBIN A1c 6.4 %
== END ==
LOC: M SFHCPLAZ 11:50
PROVIDERS: ATTEND Family Medicine
DX: E11.9 Type 2 diabetes mellitus without complications (principal); D63.1 Anemia in chronic kidney disease; N18.3 Chronic kidney disease, stage 3 (moderate)
CPT/HCPCS: 36415; 80048; 83036; 85027; 99495; G0463

== ENCOUNTER → 2020-04-15 | Outpatient (REF) | payer MEDICARE, OTHER ==
[2020-05-12 13:25] LABS: PROTHROMBIN TIME 14.2 SECONDS (11.8-14.0)
[2020-05-12 13:26] LABS: INR 1.08; PARTIAL THROMBOPLASTIN TIME 36.1 SECONDS (25.0-38.4)
[2020-05-12 14:53] LABS: HEMATOCRIT 39.3 % (36.0-47.0); MEAN CORPUSCULAR HEMOGLOBIN 28.3 pg (27.0-33.0); MEAN CORPUSCULAR HGB CONC 30.5 g/dl (32.0-36.5); MEAN CORPUSCULAR VOLUME 92.7 fl (80.0-96.0); PLATELET COUNT, AUTOMATED 300 10^3/uL (150-450); RED BLOOD COUNT 4.24 10^6/uL (4.00-5.40); WHITE BLOOD COUNT 9.1 10^3/uL (4.0-10.0)
[2020-05-21 07:36] LABS: APPEARANCE, URINE CLOUDY (CLEAR); BACTERIA, URINE AUTO 1+ (NEGATIVE); BILIRUBIN, URINE AUTO NEGATIVE (NEGATIVE); BLOOD, URINE BLOOD 2+ (NEGATIVE); COLOR, URINE YELLOW (YELLOW); GLUCOSE, URINE (UA) AUTO NEGATIVE (NEGATIVE); KETONE, URINE AUTO NEGATIVE (NEGATIVE); LEUKOCYTE ESTERASE, URINE AUTO 3+ (NEGATIVE); MUCUS, URINE SMALL (NEGATIVE); NITRITE, URINE AUTO NEGATIVE (NEGATIVE); PROTEIN, URINE AUTO NEGATIVE (NEGATIVE); RBC, URINE AUTO 54 /HPF (0-3); SQUAMOUS EPITHELIAL CELL UR AU 2 /HPF (0-6); UROBILINOGEN, URINE AUTO 0.2 mg/dL (0.0-2.0); WBC, URINE AUTO 156 /HPF (0-3)
[2020-07-01 10:33] LABS: GLUCOSE, FASTING SEE SEPARATE REPORT
== END ==
LOC: M SFHCPLAZ 13:07
PROVIDERS: ATTEND Family Medicine
DX: Z01.818 Encounter for other preprocedural examination (principal); N20.0 Calculus of kidney
CPT/HCPCS: 36415; 80048; 81001; 85027; 85610; 85730; 87086; G0463

== ENCOUNTER → 2020-04-22 | Outpatient (REF) | payer MEDICARE, OTHER ==
[2020-05-25 11:31] LABS: APPEARANCE, URINE CLEAR (CLEAR); BACTERIA, URINE AUTO NEGATIVE (NEGATIVE); BILIRUBIN, URINE AUTO NEGATIVE (NEGATIVE); BLOOD, URINE BLOOD 1+ (NEGATIVE); COLOR, URINE YELLOW (YELLOW); GLUCOSE, URINE (UA) AUTO NEGATIVE (NEGATIVE); KETONE, URINE AUTO NEGATIVE (NEGATIVE); LEUKOCYTE ESTERASE, URINE AUTO NEGATIVE (NEGATIVE); NITRITE, URINE AUTO NEGATIVE (NEGATIVE); PROTEIN, URINE AUTO NEGATIVE (NEGATIVE); RBC, URINE AUTO 13 /HPF (0-3); SPECIFIC GRAVITY URINE AUTO 1.006 (1.002-1.035); SQUAMOUS EPITHELIAL CELL UR AU 1 /HPF (0-6); UROBILINOGEN, URINE AUTO 0.2 mg/dL (0.0-2.0); WBC, URINE AUTO 2 /HPF (0-3)
== END ==
LOC: M SMT 16:27
PROVIDERS: ATTEND Nurse Practitioner Family
DX: Z01.818 Encounter for other preprocedural examination (principal); N20.0 Calculus of kidney

== ENCOUNTER 2020-04-25 06:35 | Day surgery (SDC) | payer MEDICARE, OTHER ==
[~2020-04-25 06:35] MED LIST changes: +ceFAZolin 2 GM/D5W 50 ML IV BAG (J0690 PER 500MG) ONE
[2020-04-25] MEDS ORDERED: CONRAY-60 60% 50ML VIAL (Q9961) ONE (07:14)
[2020-04-25] MEDS ORDERED: fentaNYL 100 MCG/2 ML INJECTION (J3010) ONE (07:16)
[2020-04-25] MEDS ORDERED: ONDANSETRON 4MG/2ML VIAL ONE (07:16)
[2020-04-25] MEDS ORDERED: PHENYLephrine HCL 500 MCG/5 ML (100MCG/ML) SYRINGE (J2370) ONE (07:16)
[2020-04-25] MEDS ORDERED: propofoL 200 MG/20 ML VIAL ONE (07:16)
[2020-04-25] MEDS ORDERED: dexameTHASONE 4 MG/ML 1ML VIAL (J1100 PER 1MG) ONE (07:16)
[2020-04-25] MEDS ORDERED: MIDAZOLAM INJ 2MG/2ML VIAL (J2250 PER 1MG) ONE (07:16)
[2020-04-25] MEDS ORDERED: LIDOCAINE 2% 100MG/5ML SDV (FOR ANES.) ONE (07:16)
--- NOTE | 2020-06-05 16:09 | REP ---
C-ARM VIEWS ABDOMEN AND PELVIS DURING RIGHT URETERAL STENT PLACEMENT TECHNIQUE: Two views of the abdomen and pelvis performed. FINDINGS: Contrast partially opacifies dilated right pelvicalyceal system. Right ureteral stent is placed. Proximal end is coiled in the right renal pelvis and the distal end in the urinary bladder. 8 seconds of fluoroscopy time utilized MTDD
--- NOTE | 2020-06-20 11:49 | RO ---
DATE OF OPERATION: April 25, 2020 PRE-PROCEDURE DIAGNOSIS: Right ureteral stones. POST-PROCEDURE DIAGNOSIS: Right ureteral stones. PROCEDURES: Cystoscopy. Right ureteroscopy. Right retrograde pyelogram with intraoperative interpretive images. Right ureteral stent exchange. SURGEON: Severo Wharton MD. ENGINEHOUSE BRAKEMAN: None. ANESTHESIA: General. OPERATIVE INDICATIONS: This is a 70-year-old female who was brought to the operating room a few weeks ago for a right ureteral stent placement for an obstructing distal right ureteral stone and a possible urinary tract infection. She was brought to the operating room today to remove her stones. DESCRIPTION OF PROCEDURE: The patient was brought to the operating room and general anesthesia was induced. Prophylactic antibiotics were infused. She was placed in the dorsal lithotomy position, prepped, and draped in the usual sterile fashion. A rigid cystoscope was inserted into the urethral meatus and advanced to the bladder. A previously placed right ureteral stent was seen. It was grasped and withdrawn and the distal end was protruding from the urethral meatus. A guidewire was then advanced up the stent into the right collecting system. The stent was then removed leaving the wire in place. I then went up the right collecting system with a short semi-rigid ureteroscope. No stones were seen inside the distal ureter. The ureter did appear a little bit stenotic. I advanced the scope all the way up to the level of the kidney and no stones were seen there as well. This indicated that the stones had passed. A retrograde pyelogram was performed and noted for mild hydronephrosis with no extravasation. I withdrew the ureteroscope and then utilized the wire to advance a 6-Wolof x 22-32 cm JJ ureteral stent into the right collecting system. The wire was removed and there were adequate curls of the stent in the right renal pelvis and in the bladder. The bladder was emptied of all fluids. This marked the conclusion of the procedure. The patient was taken out of the dorsal lithotomy position, awakened from anesthesia, and transferred to the recovery room in stable condition. ESTIMATED BLOOD LOSS: 5 mL. COMPLICATIONS: None. SPECIMEN: None. PLAN: The patient will follow up in the Urology Clinic in approximately one to two weeks for stent removal. CORRIE
== END 2020-04-25 10:45 | disposition home or self-care (01) ==
LOC: M OPP 06:35
PROVIDERS: ATTEND Internal Medicine Gastroenterology
DX: N20.1 Calculus of ureter (principal); I10 Essential (primary) hypertension; E78.5 Hyperlipidemia, unspecified; E11.9 Type 2 diabetes mellitus without complications; K21.9 Gastro-esophageal reflux disease without esophagitis; Z87.891 Personal history of nicotine dependence; Z79.82 Long term (current) use of aspirin; Z79.899 Other long term (current) drug therapy
CPT/HCPCS: 52332; 74420; C1769; C2617; J0690; J1100; J2250; J2370; J2405; J3010; Q9961

== ENCOUNTER → 2020-06-24 | Outpatient (CLI) | payer MEDICARE, OTHER ==
[~2020-06-24] MED LIST changes: -ceFAZolin 2 GM/D5W 50 ML IV BAG (J0690 PER 500MG) ONE
--- NOTE | 2020-06-24 13:52 | REPMRS ---
Patient History The patient states she has not had a clinical breast exam in over a year. No known family history of cancer. Benign stereotatic loc for ea lesion of the right breast, May 01, 2012. Took unspecified hormones for 27 years. Digital Woman Screen Mammo: June 24, 2020 - Exam #: [id number] Bilateral CC and MLO view(s) were taken. Technologist: Padmini Simon, Technologist Prior study comparison: April 04, 2019, bilateral digital woman screen mammo performed at [facility]. March 24, 2018, bilateral digital woman screen mammo performed at [facility]. April 01, 2017, digital woman screen mammo performed at [facility]. FINDINGS: The breast tissue is heterogeneously dense. This may lower the sensitivity of mammography. The Volpara volumetric breast density category is: C. There are two stable assymmetric densities in the right breast unchanged. There is a needle biopsy marker clip in the right breast. There is a moderate amount of heterogeneously dense fibroglandular tissue which is fairly symmetric. There is no interval development of dominant mass, architectural distortion, or grouped microcalcification typical of malignancy. There has been no change in the appearance of the mammogram from the prior studies. 3-D tomosynthesis shows no additional findings. Assessment: BI-RADS/ACR category 2 mammogram. Benign Findings. Recommendation Routine screening mammogram of both breasts in 1 year (for women over age 40). This patient's Lifetime Breast Cancer RIsk is estimated at 4.6 %. This mammogram was interpreted with the aid of an FDA-approved computer-aided dectection system. Electronically Signed By: Antonio Corbett MD 06/24/20 [id number]
== END ==
LOC: M WHC 11:29
PROVIDERS: ATTEND Family Medicine
DX: Z12.31 Encounter for screening mammogram for malignant neoplasm of breast (principal); N63.10 Unspecified lump in the right breast, unspecified quadrant

== ENCOUNTER → 2020-09-25 | Outpatient (REF) | payer MEDICARE, OTHER ==
[2020-09-25 10:36] LABS: BASO % 0.5 % (0.0-1.0); EOS # 0.1 10^3/uL (0.0-0.5); EOS % 2.1 % (0.0-3.0); HEMATOCRIT 39.6 % (36.0-47.0); HEMOGLOBIN 12.2 g/dl (12.0-15.5); LYMPH # 1.4 10^3/uL (1.5-5.0); LYMPH % 23.2 % (24.0-44.0); MEAN CORPUSCULAR HEMOGLOBIN 28.2 pg (27.0-33.0); MEAN CORPUSCULAR HGB CONC 30.8 g/dl (32.0-36.5); MEAN CORPUSCULAR VOLUME 91.7 fl (80.0-96.0); MONO # 0.5 10^3/uL (0.0-0.8); MONO % 7.4 % (0.0-5.0); NEUTROPHILS # 4.1 10^3/uL (1.5-8.5); NEUTROPHILS % 66.5 % (36.0-66.0); PLATELET COUNT, AUTOMATED 230 10^3/uL (150-450); RED BLOOD COUNT 4.32 10^6/uL (4.00-5.40); WHITE BLOOD COUNT 6.2 10^3/uL (4.0-10.0)
[2020-09-25 10:54] LABS: HEMOGLOBIN A1c 6.5 %
[2020-09-25 11:10] LABS: ALBUMIN 3.5 GM/DL (3.2-5.2); BILIRUBIN,TOTAL 0.3 MG/DL (0.2-1.0); CALCIUM LEVEL 9.4 MG/DL (8.8-10.2); CHOLESTEROL RISK RATIO 2.796 (<5); CREATININE FOR GFR 1.18 MG/DL (0.55-1.30); FREE T4 1.19 NG/DL (0.76-1.46); GLOMERULAR FILTRATION RATE 48.2 (>39); POTASSIUM SERUM 4.3 MEQ/L (3.5-5.1); THYROID STIMULATING HORMONE 2.25 uIU/ML (0.358-3.740); TOTAL PROTEIN 7.2 GM/DL (6.4-8.2)
== END ==
LOC: M PLALAB 08:29
PROVIDERS: ATTEND Nurse Practitioner Family
DX: I10 Essential (primary) hypertension (principal); N18.30 Chronic kidney disease, stage 3 unspecified; E78.2 Mixed hyperlipidemia; E11.9 Type 2 diabetes mellitus without complications

== ENCOUNTER → 2020-09-25 | Outpatient (CLI) | payer MEDICARE, OTHER, SELFPAY | LOC: M LABSMTC 10:10 | PROVIDERS: ATTEND Pediatrics | DX: Z20.822 Contact with and (suspected) exposure to COVID-19 (principal) ==

== ENCOUNTER → 2020-10-24 | Outpatient (REF) | payer MEDICARE, OTHER ==
[~2020-10-24] MED LIST changes: +HYDR-3490 PO; -HYDR25TAB PO; -LISI-538 PO; +LISI20TA33 PO
[2020-10-24 21:27] LABS: APPEARANCE, URINE CLOUDY (CLEAR); BACTERIA, URINE AUTO 1+ (NEGATIVE); BILIRUBIN, URINE AUTO NEGATIVE (NEGATIVE); BLOOD, URINE BLOOD 1+ (NEGATIVE); COLOR, URINE YELLOW (YELLOW); GLUCOSE, URINE (UA) AUTO NEGATIVE (NEGATIVE); KETONE, URINE AUTO NEGATIVE (NEGATIVE); LEUKOCYTE ESTERASE, URINE AUTO 3+ (NEGATIVE); MUCUS, URINE SMALL (NEGATIVE); NITRITE, URINE AUTO POSITIVE (NEGATIVE); PROTEIN, URINE AUTO 1+ mg/dL (NEGATIVE); RBC, URINE AUTO 8 /HPF (0-3); SPECIFIC GRAVITY URINE AUTO 1.016 (1.002-1.035); SQUAMOUS EPITHELIAL CELL UR AU 8 /HPF (0-6); TRANSITIONAL EPITHELIAL AUTO 1 /HPF; UROBILINOGEN, URINE AUTO 0.2 mg/dL (0.0-2.0); WBC, URINE AUTO 94 /HPF (0-3)
== END ==
LOC: M LAB REF 18:40
PROVIDERS: ATTEND Physician Assistant
DX: R30.0 Dysuria (principal)

== ENCOUNTER → 2020-12-22 | Outpatient (REF) | payer MEDICARE, OTHER ==
[~2020-12-22] MED LIST changes: +IRON27TA2 PO
== END ==
LOC: M SMT 17:26
PROVIDERS: ATTEND Urology
DX: C67.9 Malignant neoplasm of bladder, unspecified (principal)

== ENCOUNTER → 2020-12-29 | Outpatient (CLI) | payer MEDICARE, OTHER ==
--- NOTE | 2020-12-29 12:09 | DEXAMM ---
INDICATION: Z13.820 [facility]. COMPARISON: The most recent comparison DEXA study is dated 25 March 2015. The most remote is dated 06 June 2003.. TECHNIQUE: Bone density was measured using dual-energy x-ray absorptionmetry (DEXA). FINDINGS: AP SPINE L1-L4 BMD 1.743 g/cm2 Young Adult T-Score 4.4 Age Matched Z-Score 6.1. LT FEMUR, TOTAL BMD 1.393 g/cm2 Young Adult T-Score 3.1 Age Matched Z-Score 4.5. LT NECK BMD 1.260 g/cm2 Young Adult T-Score 1.6 Age Matched Z-Score 3.3. RT FEMUR, TOTAL BMD 1.344 g/cm2 Young Adult T-Score 2.7 Age Matched Z-Score 4.2. RT NECK BMD 1.272 g/cm2 Young Adult T-Score 1.7 Age Matched Z-Score 3.4. IMPRESSION: There is normal bone density of the spine. There is normal bone density of the left hip. There is normal bone density of the right hip. The density of the spine has increased 22.7% since the initial exam on June 06, 2003. The density of the spine increased 7.6% since most recent exam on March 25, 2015. The density of the left hip has increased 9.3% since initial exam on June 06, 2003. The density of the left hip has increased 2.1% since most recent exam on March 25, 2015. The density of the right hip has increased 6.5% since the initial exam on June 06, 2003. The density of the right hip has decreased 0.5% since the most recent exam on March 25, 2015. FOLLOW-UP: Recommendation for the next bone density exam: 5-10 years. <Electronically signed by Antonio Corbett > 12/29/20 [id number]
== END ==
LOC: M WHC 10:24
PROVIDERS: ATTEND Nurse Practitioner Family
DX: Z13.820 Encounter for screening for osteoporosis (principal)

== ENCOUNTER → 2021-03-24 | Outpatient (CLI) | payer MEDICARE, OTHER ==
[~2021-03-24] MED LIST changes: +COVI100V IM; +LOSA25TA13 PO; -LOSA25TA14 PO; +LOSA50TA28 PO; -LOSA50TA88 PO
[2021-03-24 11:22] LABS: HEMOGLOBIN A1c 6.7 %
[2021-03-24 11:29] LABS: ALBUMIN 3.6 GM/DL (3.2-5.2); BILIRUBIN,TOTAL 0.3 MG/DL (0.2-1.0); CALCIUM LEVEL 9.4 MG/DL (8.8-10.2); CHOLESTEROL RISK RATIO 3.377 (<5); CREATININE FOR GFR 1.03 MG/DL (0.55-1.30); FREE T4 1.04 NG/DL (0.76-1.46); GLOMERULAR FILTRATION RATE 56.4 (>39); MAGNESIUM LEVEL 1.9 MG/DL (1.8-2.4); POTASSIUM SERUM 4.4 MEQ/L (3.5-5.1); THYROID STIMULATING HORMONE 2.5 uIU/ML (0.358-3.740); TOTAL PROTEIN 7.4 GM/DL (6.4-8.2)
[2021-03-24 11:30] LABS: CREATININE, URINE 61.3 MG/DL; MALB URINE SIEMENS 25.4 MG/L; MAU/CREAT RATIO 41.4 MCG/MG (0.0-30.0)
== END ==
LOC: M PLALAB 08:49
PROVIDERS: ATTEND Nurse Practitioner Family
DX: E11.9 Type 2 diabetes mellitus without complications (principal)

== ENCOUNTER → 2021-04-13 | Outpatient (REF) | payer MEDICARE, OTHER ==
[~2021-04-13] MED LIST changes: -LOSA25TA13 PO; +LOSA25TA14 PO; -LOSA50TA28 PO; +LOSA50TA88 PO
== END ==
LOC: M SMT 17:43
PROVIDERS: ATTEND Urology
DX: C67.9 Malignant neoplasm of bladder, unspecified (principal)

== ENCOUNTER → 2021-07-06 | Outpatient (CLI) | payer MEDICARE, OTHER ==
--- NOTE | 2021-07-06 12:45 | REPMRS ---
Patient History The patient states she has not had a clinical breast exam in over a year. No known family history of cancer. Benign stereotatic loc for ea lesion of the right breast, May 01, 2012. Took unspecified hormones for 27 years. Patient states no breast complaints today. Patient has signed MRS History Sheet. Digital Woman Screen Mammo: July 06, 2021 - Exam #: [id number] Bilateral CC and MLO view(s) were taken. Technologist: Kaci Newberry, Technologist Prior study comparison: June 24, 2020, bilateral digital woman screen mammo performed at [facility]. April 04, 2019, bilateral digital woman screen mammo performed at [facility]. FINDINGS: There are scattered fibroglandular densities. Screening. Digital screening (2D) mammography was performed bilaterally in the CC and MLO projections. Additionally, breast tomosynthesis (3D mammography) was performed bilaterally in the CC and MLO projections. Todays exam was compared to the prior exam/exams. By history, the patient has no complaints of a palpable breast abnormality or other significant breast complaints. The Volpara volumetric breast density category is B, there are scattered areas of fibroglandular densities. There is a biopsy clip in the right breast There is a radio-opaque disk marking the location of a mole on the right breast. The breasts are unchanged in size and shape. There are no katia-soft tissue densities or spiculated masses. There is no internal architectural distortion. Calcifications are again seen in the breast/breasts. Some of these are in groups but no one group appears more suspicious than any other. There are no suspicious katia-calcific clusters. Skin thickening or nipple retraction is not present. IMPRESSION: BI-RADS Category 2- Benign Findings. There is no evidence of malignant alteration of the breasts. Followup examination recommended in one year. The lifetime Tyrer-Cuzick score is 4.4% This mammogram was read with the assistance of [employer],an FDA approved computer aided detection system for mammography. Negative x-ray reports should not delay surgical consultation if a dominant or clinically suspicious mass is present. Not all breast cancers can be identified by mammography. Therefore, we recommend that you continue to perform regular breast self-examination and physical examination and then promptly contact your physician of any concerns or changes. Adenosis and dense breasts may obscure an underlying neoplasm. No significant changes when compared with prior studies. Assessment: BI-RADS/ACR category 2 mammogram. Benign Findings. Recommendation Routine screening mammogram of both breasts in 1 year. Electronically Signed By: Ken Petit MD 07/06/21 [id number]
== END ==
LOC: M WHC 08:24
PROVIDERS: ATTEND Nurse Practitioner Family
DX: Z12.31 Encounter for screening mammogram for malignant neoplasm of breast (principal)

== ENCOUNTER → 2021-07-14 | Outpatient (REF) | payer MEDICARE, OTHER ==
[2021-07-14 18:29] LABS: APPEARANCE, URINE HAZY (CLEAR); BACTERIA, URINE AUTO 1+ (NEGATIVE); BILIRUBIN, URINE AUTO NEGATIVE (NEGATIVE); BLOOD, URINE BLOOD 1+ (NEGATIVE); COLOR, URINE YELLOW (YELLOW); GLUCOSE, URINE (UA) AUTO NEGATIVE (NEGATIVE); KETONE, URINE AUTO NEGATIVE (NEGATIVE); LEUKOCYTE ESTERASE, URINE AUTO TRACE (NEGATIVE); NITRITE, URINE AUTO POSITIVE (NEGATIVE); PROTEIN, URINE AUTO 2+ mg/dL (NEGATIVE); RBC, URINE AUTO 91 /HPF (0-3); SQUAMOUS EPITHELIAL CELL UR AU 0 /HPF (0-6); TRIPLE PHOSPHATE CRYSTALS SMALL; UROBILINOGEN, URINE AUTO 0.2 mg/dL (0.0-2.0); WBC, URINE AUTO 2 /HPF (0-3)
== END ==
LOC: M SMT 13:47
PROVIDERS: ATTEND Urology
DX: N39.0 Urinary tract infection, site not specified (principal); C67.9 Malignant neoplasm of bladder, unspecified
CPT/HCPCS: 52000; 81001; 87088; 88108; G0463

== ENCOUNTER → 2021-07-16 | Outpatient (CLI) | payer MEDICARE, OTHER ==
[2021-07-16 11:39] LABS: CALCIUM LEVEL 9.8 MG/DL (8.8-10.2); CREATININE FOR GFR 1.29 MG/DL (0.55-1.30); GLOMERULAR FILTRATION RATE 43.4 (>39); POTASSIUM SERUM 4.6 MEQ/L (3.5-5.1)
== END ==
LOC: M PLALAB 09:15
PROVIDERS: ATTEND Urology
DX: C67.9 Malignant neoplasm of bladder, unspecified (principal)

== ENCOUNTER → 2021-07-21 | Outpatient (CLI) | payer MEDICARE, OTHER ==
[~2021-07-21] MED LIST changes: +ISOVUE-370 76% 100ML VIAL As Ordered ONE
--- NOTE | 2021-07-21 14:23 | REP ---
INDICATION: BLADDER CA. COMPARISON: CT without 03/12/2020 TECHNIQUE: CT abdomen and pelvis performed without IV contrast. CT abdomen pelvis performed with IV contrast as well, following intravenous administration of 100 cc of Isovue 370. Delayed images obtained through the abdomen. Sagittal and coronal reconstruction images are provided. FINDINGS: Lung bases: There is a 4.5 mm nodule posteriorly in the subpleural right lower lobe which is a unchanged the previous study where was obscured by the subsegmental atelectasis in this area. Remainder of the lower lung zones are unremarkable there is some cylindrical bronchiectasis. Liver: Normal. No abdominal ascites. Gallbladder: There are small layering calcified stones as before. No mass. No intrahepatic biliary dilatation. Spleen: Normal. Adrenals: Normal. Pancreas: Normal. Kidneys: Previous right hydronephrosis is largely resolved with an extrarenal pelvis only. Small extrarenal pelvis on the left. No renal stone disease, cyst or solid mass. Ureters are seen segmentally to describe a normal course to the bladder. There are not dilated. Aorta: Atherosclerotic calcifications throughout with no aneurysm or dissection. There is no pathologic sized periaortic, other retroperitoneal or mesenteric lymphadenopathy. Small and large bowel: Small bowel loops unremarkable. No abnormal wall thickening, mesenteric edema or mass. Colon shows scattered stool and gas throughout without acute finding. Free fluid: None. Adenopathy: None. Appendix: Not visualized. No cecal inflammatory changes. Osseous structures: Diffuse disc space narrowing and marginal osteophyte endplate changes unchanged. No destructive lesion or fracture in the spine, lower ribs or posterior elements. Facet arthropathy noted. The sacrum, SI joints pelvis and hips show degenerative change but no fracture or destructive lesion. Pelvis: There is a prominent irregular mass in the bladder anteriorly and towards the left with contrast seen outlining it. Is at least 5.2 cm transverse by 4 cm AP by 4.1 cm high. Atherosclerotic calcification of the aorta and branches in the pelvis without aneurysm. The small bowel loops and colon in the pelvis show no acute finding. No ventral or inguinal hernia, pathologic sized inguinal adenopathy or pelvic lymphadenopathy of pathologic size on this study. IMPRESSION: 1. Contrast in the bladder outlines a 5.2 x 4 x 4.1 cm irregular mass arising from its anterior low and prominently left-side. However no hydronephrosis or hydroureter noted. 2. No abdominal or pelvic pathologic sized lymphadenopathy or other signs of local/distant metastatic disease. <Electronically signed by Christopher Agarwal > 07/21/21 [id number]
== END ==
LOC: M RAD 10:36
PROVIDERS: ATTEND Urology
DX: C67.9 Malignant neoplasm of bladder, unspecified (principal)
CPT/HCPCS: 74178; Q9967

== ENCOUNTER → 2021-08-03 | Outpatient (CLI) | payer MEDICARE, OTHER ==
[~2021-08-03] MED LIST changes: -ISOVUE-370 76% 100ML VIAL As Ordered ONE
--- NOTE | 2021-08-03 10:06 | REP ---
INDICATION: PRE SURGERY COMPARISON: 03/12/2020 TECHNIQUE: PA and lateral. FINDINGS: The mediastinum and cardiac silhouette are normal. The lung arshad are clear and without acute consolidation, effusion, or pneumothorax. The skeletal structures are intact and normal. IMPRESSION: No acute cardiopulmonary process. <Electronically signed by Efraín Samuel > 08/03/21 1002
[2021-08-03 10:53] LABS: HEMATOCRIT 37.9 % (36.0-47.0); HEMOGLOBIN 12.1 g/dl (12.0-15.5); MEAN CORPUSCULAR HEMOGLOBIN 28.6 pg (27.0-33.0); MEAN CORPUSCULAR HGB CONC 31.9 g/dl (32.0-36.5); MEAN CORPUSCULAR VOLUME 89.6 fl (80.0-96.0); PLATELET COUNT, AUTOMATED 274 10^3/uL (150-450); RED BLOOD COUNT 4.23 10^6/uL (4.00-5.40); WHITE BLOOD COUNT 9.8 10^3/uL (4.0-10.0)
[2021-08-03 11:22] LABS: CALCIUM LEVEL 9.8 MG/DL (8.8-10.2); CREATININE FOR GFR 1.17 MG/DL (0.55-1.30); GLOMERULAR FILTRATION RATE 48.5 (>39); POTASSIUM SERUM 4.5 MEQ/L (3.5-5.1)
== END ==
LOC: M PLAIMG 08:59
PROVIDERS: ATTEND Urology
DX: Z11.52 Encounter for screening for COVID-19 (principal)

== ENCOUNTER → 2021-08-10 | Outpatient (CLI) | payer MEDICARE, OTHER ==
[~2021-08-10] MED LIST changes: +LOSA25TA13 PO; -LOSA25TA14 PO; +LOSA50TA28 PO; -LOSA50TA88 PO
== END ==
LOC: M PLALAB 09:52
PROVIDERS: ATTEND Urology
DX: Z01.818 Encounter for other preprocedural examination (principal); C67.9 Malignant neoplasm of bladder, unspecified

== ENCOUNTER → 2021-08-10 | Outpatient (CLI) | payer MEDICARE, OTHER | LOC: M LABSMTC 09:26 | PROVIDERS: ATTEND Anesthesiology | DX: Z01.818 Encounter for other preprocedural examination (principal); C67.9 Malignant neoplasm of bladder, unspecified; Z11.52 Encounter for screening for COVID-19 | CPT/HCPCS: 36415; 87086; U0003 ==

== ENCOUNTER → 2021-08-12 | Outpatient (REF) | payer MEDICARE, OTHER ==
[2021-08-12 10:34] LABS: APPEARANCE, URINE HAZY (CLEAR); BACTERIA, URINE AUTO NEGATIVE (NEGATIVE); BILIRUBIN, URINE AUTO NEGATIVE (NEGATIVE); BLOOD, URINE BLOOD NEGATIVE (NEGATIVE); CALCIUM OXALATE CRYSTALS LARGE; COLOR, URINE YELLOW (YELLOW); GLUCOSE, URINE (UA) AUTO NEGATIVE (NEGATIVE); KETONE, URINE AUTO NEGATIVE (NEGATIVE); LEUKOCYTE ESTERASE, URINE AUTO NEGATIVE (NEGATIVE); NITRITE, URINE AUTO POSITIVE (NEGATIVE); PROTEIN, URINE AUTO 1+ mg/dL (NEGATIVE); RBC, URINE AUTO 1 /HPF (0-3); SPECIFIC GRAVITY URINE AUTO 1.011 (1.002-1.035); SQUAMOUS EPITHELIAL CELL UR AU 2 /HPF (0-6); UROBILINOGEN, URINE AUTO 0.2 mg/dL (0.0-2.0); WBC, URINE AUTO 6 /HPF (0-3)
== END ==
LOC: M SMT 09:52
PROVIDERS: ATTEND Urology
DX: Z01.818 Encounter for other preprocedural examination (principal); C67.9 Malignant neoplasm of bladder, unspecified; N39.0 Urinary tract infection, site not specified

== ENCOUNTER 2021-08-14 09:37 | Day surgery (SDC) | payer MEDICARE, OTHER ==
[~2021-08-14] VITALS: Ht 152.4 cm; Wt 73.0 kg
[~2021-08-14 09:37] MED LIST changes: -LOSA25TA13 PO; +LOSA25TA14 PO; -LOSA50TA28 PO; +LOSA50TA88 PO; +LR 1,000 ML IV ONE; +ceFAZolin SOD 2 GM in IV 1 EA IV ONE
--- OUTSIDE RECORDS SUMMARY | 2021-08-14 09:41 | CCD ---
Author Author [facility] [employer] [facility] [employer] Organization [facility] [employer] Address Unknown Phone Unavailable Care Team Providers Care Wax Pourer Name Role Phone DioSevero egan Unavailable PROBLEMS ALLERGIES No Known Allergies ENCOUNTERS from 1950 to 2021-07-27 IMMUNIZATIONS SOCIAL HISTORY REASON FOR REFERRAL No Information VITAL SIGNS MEDICATIONS PROCEDURES No Information RESULTS No Results REASON FOR VISIT MEDICAL (GENERAL) HISTORY Goals Section Health Concerns MEDICAL EQUIPMENT No Information MENTAL STATUS FUNCTIONAL STATUS ASSESSMENTS PLAN OF TREATMENT Insurance Providers
--- OUTSIDE RECORDS SUMMARY | 2021-08-14 09:41 | CCD ---
Author Author [facility] Address Unknown Phone Unavailable Support Name Relationship Address Phone NO, ONE Next Of Kin Unknown RE Next Of Kin Unknown WENDY CHAUDHARI Next Of Kin [address] [place] [address] NOREEN CHAUDHARI Next Of Kin [address] [place] [address] wendy chaudhari ECON [address] [place] [id number] Unavailable Re-disclosure Warning The records that you are about to access may contain information from federally-assisted alcohol or drug abuse programs. If such information is present, then the following federally mandated warning applies: This information has been disclosed to you from records protected by federal confidentiality rules (42 CFR part 2). The federal rules prohibit you from making any further disclosure of this information unless further disclosure is expressly permitted by the written consent of the person to whom it pertains or as otherwise permitted by 42 CFR part 2. A general authorization for the release of medical or other information is NOT sufficient for this purpose. The Federal rules restrict any use of the information to criminally investigate or prosecute any alcohol or drug abuse patient.The records that you are about to access may contain highly sensitive health information, the redisclosure of which is protected by Article 27-F of the [facility] Public Health law. If you continue you may have access to information: Regarding HIV / AIDS; Provided by facilities licensed or operated by the [facility] Office of Mental Health; or Provided by the [facility] Office for People With Developmental Disabilities. If such information is present, then the following [facility] mandated warning applies: This information has been disclosed to you from confidential records which are protected by state law. State law prohibits you from making any further disclosure of this information without the specific written consent of the person to whom it pertains, or as otherwise permitted by law. Any unauthorized further disclosure in violation of state law may result in a fine or fdc sentence or both. A general authorization for the release of medical or other information is NOT sufficient authorization for further disc losure. Family History Family Member Name Family Member Gender Family Member Status Date o f Status Description Data Source(s) Unknown Unknown Problem MEDENT ([facility], ) Encounters Encounter Providers Location Date Indications Data Source(s ) Outpatient [address] [facility] [id number] 08/12/2021 12:00:00 AM EST eCW1 ([facility]) Outpatient [address] [facility] [id number] 08/04/2021 12:00:00 AM EST eCW1 ([facility]) Unknown [address] [facility] [id number] 07/23/2021 12:00:00 AM EST eCW1 ([facility]) (CystoA) Cysto 30 Min [address] [place] [address] 07/14/2021 12:00:00 AM EDT eCW1 ([facility]) Unknown [address] [facility] [id number] 06/01/2021 12:00:00 AM EDT eCW1 ([facility]) Unknown [address] [facility] [address] 04/14/2021 12:00:00 AM EDT eCW1 ([facility]) (Cysto1) Urology [address] [place] [address] 04/13/2021 12:00:00 AM EDT eCW1 ([facility]) Unknown [address] [facility] [address] 04/07/2021 12:00:00 AM EDT eCW1 ([facility]) Outpatient [address] [facility] [id number] 03/30/2021 12:00:00 AM EDT eCW1 ([facility]) Unknown [address] [place], [place] [address] [address] 01/26/2021 12:00:00 AM EDT eCW1 ([facility]) (Cysto1) Urology [address] [place] [address] 12/22/2020 12:00:00 AM EDT eCW1 ([facility]) Unknown [address] [facility] [address] 10/24/2020 12:00:00 AM EST eCW1 ([facility]) Outpatient [address] [facility] [address] 09/29/2020 12:00:00 AM EST eCW1 ([facility]) Unknown [address] [facility] [address] 09/15/2020 12:00:00 AM EST eCW1 ([facility]) Unknown [address] [facility] [address] 09/10/2020 12:00:00 AM EST eCW1 ([facility]) Unknown [address] [facility] [address] 07/23/2020 12:00:00 AM EST eCW1 ([facility]) Unknown [address] [facility] [address] 07/08/2020 12:00:00 AM EDT eCW1 ([facility]) Immunizations Vaccine Date Status Description Data Source(s) IIV3. This is one of two codes replacing CVX 15, which is being retired. 07/14/2021 06:34:00 AM EDT completed eCW1 ([facility]) IIV3. This is one of two codes replacing CVX 15, which is being retired. 07/14/2021 06:34:00 AM EDT completed eCW1 ([facility]) Moderna #2 dose COVID-19 SARSCOV2 VAC 100MCG/0.5ML IM 12/15/2020 06:35:00 AM EDT completed eCW1 ([facility]) Moderna #2 dose COVID-19 SARSCOV2 VAC 100MCG/0.5ML IM 12/15/2020 06:35:00 AM EDT completed eCW1 ([facility]) COVID-19 VACCINE Moderna 12/15/2020 12:00:00 AM EDT completed [facility] Vaccine Series Complete: YESThis Data wa s Submitted to [facility] Via [employer]. Moderna #1 dose COVID-19 SARSCOV2 VAC 100MCG/0.5ML IM 11/15/2020 06:35:00 AM EST completed eCW1 ([facility]) Moderna #1 dose COVID-19 SARSCOV2 VAC 100MCG/0.5ML IM 11/15/2020 06:35:00 AM EST completed eCW1 ([facility]) COVID-19 VACCINE Moderna 11/15/2020 12:00:00 AM EST completed [facility] Vaccine Series Complete: NOThis Data was Submitted to [facility] Via [employer]. INFLUENZA VACCINE QUADRIVALENT 2019- (65 YR UP)/MF59 C.1/PF 07/15/2020 12:00:00 AM EST completed [email or web address] Medications Medication Brand Name Start Date Product Form Dose Route Admi nistrative Instructions Pharmacy Instructions Status Indications Reaction Description Data Source(s) Cephalexin 500 MG Oral Capsule CEPHALEXIN 07/16/2021 12:00:00 AM EDT capsule 14 TAKE ONE CAPSULE BY MOUTH TWICE A DAY FOR 7 DAYS TAKE ONE CAPSULE BY MOUTH TWICE A DAY FOR 7 DAYS SOLD: 07/17/2021 [facility] Cephalexin 500 MG Oral Capsule Cephalexin 500 MG 07/16/2021 12:00:0 0 AM EDT 1.0 {capsule} active eCW1 ([facility]) Cephalexin 500 MG Oral Capsule Cephalexin 500 MG 07/16/2021 12:00:0 0 AM EDT 1.0 {capsule} active Cephalexin 500 MG eCW1 ([facility]) 240 mcg/0.7 mL 07/14/2021 12:00:00 AM EDT syringe 0 DIRECTED IN THE LEFT ARM DIRECTED IN THE LEFT ARM SOLD: 07/14/2021 [email or web address] Contour Monitor 1 UNK 03/30/2021 12:00:00 AM EDT active Contour Monitor 1 eCW1 ([facility]) Contour Monitor 1 K 03/30/2021 12:00:00 AM EDT active Contour Monitor 1 eCW1 ([facility]) Contour Monitor 1 K 03/30/2021 12:00:00 AM EDT active Contour Monitor 1 eCW1 ([facility]) Contour Monitor 1 K 03/30/2021 12:00:00 AM EDT active Contour Monitor 1 eCW1 ([facility]) Contour Monitor 1 [facility] 03/30/2021 12:00:00 AM EDT active eCW1 ([facility]) Contour Monitor 1 [facility] 03/30/2021 12:00:00 AM EDT active Contour Monitor 1 eCW1 ([facility]) Contour Monitor 1 [facility] 03/30/2021 12:00:00 AM EDT active eCW1 ([facility]) Contour Monitor 1 K 03/30/2021 12:00:00 AM EDT active Contour Monitor 1 eCW1 ([facility]) Contour Monitor 1 [facility] 03/30/2021 12:00:00 AM EDT active Contour Monitor 1 eCW1 ([facility]) 1 % 12/09/2020 12:00:00 AM EDT drops,suspension 5 INSTILL 1 DROP INTO LEFT EYE FOUR TIMES A DAY INSTILL 1 DROP INTO LEFT EYE FOUR TIMES A DAY SOLD: 12/09/2020 [facility] 200 mg 10/24/2020 12:00:00 AM EST tablet 6 TAKE ONE TABLET BY MOUTH THREE TIMES A DAY FOR 2 DAYS TAKE ONE TABLET BY MOUTH THREE TIMES A DAY FOR 2 DAYS SOLD: 10/24/2020 [facility] Cephalexin 500 MG Oral Capsule CEPHALEXIN 10/24/2020 12:00:00 AM EST capsule 21 TAKE ONE CAPSULE BY MOUTH THREE TIMES A DAY FOR 7 DAYS TAKE ONE CAPSULE BY MOUTH THREE TIMES A DAY FOR 7 DAYS SOLD: 10/24/2020 [facility] Glucometer 1 UNK 09/29/2020 12:00:00 AM EST activ e Glucometer 1 eCW1 ([facility]) Blood Glucose Test - Blood Glucose Test - 09/29/2020 12:00:00 AM EST active Blood Glucose Test - eCW1 ([facility]) Blood Glucose Test - Blood Glucose Test - 09/29/2020 12:00:00 AM EST active Blood Glucose Test - eCW1 ([facility]) BL Lancets UNK 09/29/2020 12:00:00 AM EST active BL Lancets eCW1 ([facility]) Glucometer 1 UNK 09/29/2020 12:00:00 AM EST activ e Glucometer 1 eCW1 ([facility]) Glucometer 1 UNK 09/29/2020 12:00:00 AM EST activ e Glucometer 1 eCW1 ([facility]) Glucometer 1 UNK 09/29/2020 12:00:00 AM EST activ e Glucometer 1 eCW1 ([facility]) Glucometer 1 UNK 09/29/2020 12:00:00 AM EST activ e Glucometer 1 eCW1 ([facility]) BL Lancets UNK 09/29/2020 12:00:00 AM EST active BL Lancets eCW1 ([facility]) Glucometer 1 UNK 09/29/2020 12:00:00 AM EST activ e Glucometer 1 eCW1 ([facility]) BL Lancets UNK 09/29/2020 12:00:00 AM EST active BL Lancets eCW1 ([facility]) Blood Glucose Test - Blood Glucose Test - 09/29/2020 12:00:00 AM EST active Blood Glucose Test - eCW1 ([facility]) Glucometer 1 UNK 09/29/2020 12:00:00 AM EST activ e eCW1 ([facility]) Glucometer 1 UNK 09/29/2020 12:00:00 AM EST activ e eCW1 ([facility]) Glucometer 1 UNK 09/29/2020 12:00:00 AM EST activ e Glucometer 1 eCW1 ([facility]) Glucometer 1 UNK 09/29/2020 12:00:00 AM EST activ e Glucometer 1 eCW1 ([facility]) Glucometer 1 UNK 09/29/2020 12:00:00 AM EST activ e Glucometer 1 eCW1 ([facility]) Blood Glucose Test - Blood Glucose Test - 09/29/2020 12:00:00 AM EST active Blood Glucose Test - eCW1 ([facility]) BL Lancets UNK 09/29/2020 12:00:00 AM EST active BL Lancets eCW1 ([facility]) Insurance Providers Payer name Policy type / Coverage type Policy ID Covered libertarian ID Covered libertarian's relationship to rubio Policy Rubio Plan Information [id number] MEDICARE [id number] SP [id number] [facility] Commercial [id number] Self [id number] [facility] [id number] SP [id number] MEDICARE C [id number] S [id number] MEDICARE PART A -O/P [id number] 18 [id number] ANSI-Commercial [id number] ANSI-Commercial [id number] ANSI-Medicare Part B [id number] ANSI-Commercial [id number]-ajd1-6dab-422v-[id number] [id number]-plz1-2qzg-093h-[id number] ANSI-Medicare Part B [id number] ANSI-Commercial [id number]-80s7-76q2-052t-[id number] 8p225w7a-93q3-06k7-260w-f061qv643hq1 ANSI-Medicare Part B [id number] ANSI-Commercial d74mm676-561h-2g9q-d113-32928d2q68zc r92do359-124f-9w6w-s680-82568u8m52xr ANSI-Commercial 7xvy622c-1224-4991-v4o5-dn06v60m7613 2msq959i-3602-2482-b3i9-nm20m37i0570 ANSI-Commercial s6961055-w294-5w7t-35eb-72876k1t6126 l5279309-u104-4w8i-27vw-94470d1d7301 ANSI-Medicare Part B [id number] lmy7n9h1-d6m4-05ke-8dct-[id number] ANSI-Commercial 5eq92ql0-rz9n-8105-2606-cs559e7xcz36 7mz43ge1-vn2l-1537-7629-fd348r1jjv07 ANSI-Commercial wsn02sez-6pm7-36y7-b3jl-ud8eh49eb32n oax00rst-3kd9-39r7-t5vd-yi1ag86kk88u ANSI-Commercial 59i12m67-43j6-1020-75us-k304407k7oi6 47v17a79-50u4-9964-52va-s103955b4lw7 ANSI-Medicare Part B [id number]-0n02-[id number] ANSI-Commercial w23h1w19-rbi9-9j3e-f30o-glyv73rq0v01 o15f1t17-wxt2-6f0t-j21z-zhna70ve8n40 ANSI-Medicare Part B [id number]-ar73-8056-6455-76oa235n13f9 ANSI-Commercial 11971o67-822y-81vr-295t-wzql2d874380 81124s16-959e-03yr-871e-vfnr3v064276 ANSI-Medicare Part B [id number]-j6s9-2188-u92t-t03zm5z94669 ANSI-Commercial h3876q0n-47zk-1823-a259-4cg80853hr0b v4567n0e-54jm-5543-r033-8bq12763fn5k ANSI-Commercial 43u5w5hj-7534-4c9g-t112-00jej955zx56 49o4e4hq-7618-3t1z-w242-20toa165sk25 ANSI-Commercial z0405962-g2jy-9787-0366-921nk66ajy60 l1473653-k5ua-2693-3827-885dq97xxx34 ANSI-Commercial 1367z44d-7032-327k-7452-8r3v3168be48 0476k60n-1577-710a-6027-7q8v2117xi91 ANSI-Medicare Part B [id number]-[id number]-204v-38g2-zh4y-5529y94k60vx ANSI-Commercial 95y6rva9-47n4-7363-40u9-5i6987l6n181 51w5oxj2-54v3-0492-97r1-2k3928i8y414 ANSI-Commercial 7455047p-fo76-67y0-9l4l-5fy8835u514i 3686063i-qh77-40z8-6i7q-1gr6922g830f ANSI-Medicare Part B [id number]-99z5-c42905f8u70p [id number]-o486-38tg-77y7-i14440d8x40x ANSI-Commercial 3k2u1zh1-803x-5410-82s8-s651m8122343 5l8k0zz9-819y-6258-15k5-b189z4480402 ANSI-Commercial 7q2h6dv8-8j1p-6t9d-2872-7o24jg4mqdu2 6y1y0an5-4d8h-8l8y-0645-1b52xh3xnpq2 ANSI-Medicare Part B [id number]-bqv4m0pv9i69 j0770586-wz27-1to7-3brh-hcj1h9ez6j14 ANSI-Medicare Part B [id number] [id number]4cj52837eq2 ANSI-Commercial p66d3d1y-37i3-37o7-0n10-f426fqq3lh50 n03g9c5l-31m9-98a2-6s15-m940cew6fl62 ANSI-Commercial 5282w34l-6668-5051-qn77-13h445zvze46 9569j23k-7742-1153-uk55-02i308ofef73 ANSI-Commercial x8214529-j506-100o-184a-23c1367nza9c z6825997-r637-792r-080w-38s2595ccg9h ANSI-Medicare Part B [id number]-10g4-02a7-23u8-w51a0mvhs53o a7yi0j7u-48o4-30z1-92w9-h00l2rdww06r ANSI-Commercial f446515m-8547-09z3-6238-14y5lm37f35d l052215k-3895-83f4-0539-76e2uw98b84d ANSI-Medicare Part B [id number]-g6hn-3241-5182-c6pt56893g50 86qd75vb-y4ry-5446-2041-q6im77438b62 ANSI-Commercial ffgr337o-6qt0-7f59-2v15-90ze31441856 jzbh760b-7cy9-3k65-6c98-41nw05039798 ANSI-Commercial 22sl3l14-9e57-15t4-tag4-300na49820t4 94xy4j06-5k53-42r2-tnz6-949zc02257n0 ANSI-Commercial 71it46d1-4p45-64l9-lnf8-d283jli12b3i 25wp01p4-3j49-79m6-opy6-y548fhw93i0j ANSI-Commercial 56j1r194-h40a-056u-6m57-0ee53r8v68c7 84e4x853-c00p-417m-9h87-6pu19c2h85h3 ANSI-Medicare Part B [id number]-jun7-208q-27d5-m78eg8i12kd7 32649zr1-boe7-273y-61m1-m54ir0g07rm6 ANSI-Commercial a6e994r3-62pu-09nl-ru1b-843ye15q2s19 n1k727j2-71va-61vs-xl0d-668ko74z9t05 ANSI-Commercial p23376hn-0h2g-585z-9488-6z239947329g e89824hz-8j2o-818k-2440-9m358890301y ANSI-Medicare Part B [id number]-987v-2e30-s93536i79z3z n4w5213s-841v-182b-1r82-b82567t64v7j [facility] [id number] SP [id number] ANSI-Commercial 576a0s05-5321-0267-k0ee-77q2d528f35j 898n7i13-7210-1664-p0wn-04l6c552w52z ANSI-Medicare Part B [id number]-u219-9t11c645b7s1 96j5882l-35w3-3b7q-t977-6e82p042c6h0 ANSI-Commercial 72o9x78n-2915-872t-e296-p3009e548j06 41y9u26u-2264-541o-u829-q7044l167q06 ANSI-Commercial vnudnv71-w7rx-76xm-1tj4-7sxm493id068 tivmrs84-w1uo-35jn-8ze2-2mxz572xc738 ANSI-Medicare Part B [id number]-r31x-[id number] 3374b280-y478-784n-u23x-074x87404q84 ANSI-Commercial 40401274-j59d-64zt-p6f2-q773wz3o539e 34528199-l38s-33si-b0u7-c148jt6l045y ANSI-Commercial 28i23763-0g0t-45q6-k167-08xl842865h9 95t16407-4q1z-82y7-y783-30xm832599s4 ANSI-Medicare Part B [id number]-tz07-qo7lpi7g8748 g55hl433-4er3-2qs0-cl37-iz1yza3c9491 ANSI-Commercial ci71w199-v5kd-2c19-i1o9-6u0w0u7147ib sh61d066-b2xd-1d05-u9l9-8l6h0k1979wp ANSI-Commercial 910q32o5-0cq1-7z3y-fsdc-84f34c705s5m 278l37h0-8af6-7x1f-denp-45c20s621a2q ANSI-Medicare Part B [id number] 194401lb-kj38-3933-0533-19645t669xa6 ANSI-Commercial 7821859g-8wcm-663o-7622-9bb09662465g 2629928k-2iai-707i-8208-9gj90964580g ANSI-Commercial csrv39u8-r2z1-2j32-j5sw-o3cttjtj22v3 tvss31x0-v1q1-8i90-p9pl-m5omgqdh48g8 ANSI-Commercial 63208mdn-0203-04d5-76w2-35v95tpc7dbn 96634mes-5534-32p7-22h6-02z45hei6mpu [facility] [id number]-[id number]-s519-328c3ka267q1 ANSI-Commercial 9335f93j-wj4a-5520-0418-cgy6b4o47527 4895m97b-ns7x-1163-6454-tes3w4y75863 ANSI-Medicare Part B 768lue2p-10e6-2v74-60l6-8xf3n5e3x840 317mcg2d-67z4-9q91-85z7-0fq9q8v2t608 ANSI-Commercial u0ivpt22-4969-2b9h-zf15-9cv6i99gww3t e9vyzb25-1218-1g8e-bp34-2ae9p16bxj5x ANSI-Commercial h08655w8-2hun-2534-y7i0-8840pqo5ajs6 r35704p3-3yzw-9712-a2l7-4963nog5nrx7 ANSI-Commercial j1866839-1n27-3z0r-j158-1u7x405jl540 s9929072-7e20-5b0g-b318-4v1r942rs031 ANSI-Medicare Part B [id number]-4v80-97tw-l3e6-5p223v583h89 998pq2wh-8o90-55ir-h1m3-4a768s734p10 ANSI-Commercial o241ld16-q4zt-3o6a-i487-4h3r44z65kk1 f526co47-d9ak-5a0y-m758-0v7i70l85vn4 ANSI-Commercial 78925154-2062-994f-0713-khqli173fmf0 69766693-3654-742m-2601-xsdhb406cmr3 ANSI-Medicare Part B [id number]-c16l-[id number] mhi6tj66-3b2b-298x-c39p-z113311btj71 ANSI-Commercial 569xi43z-ux43-5x73-11k0-o5323zv55h44 633ga52f-gn98-6g13-06j0-h2132zm71g40 ANSI-Medicare Part B [id number]-4581-6eap25335587 ANSI-Commercial sq8lfet6-uf53-7352-9361-94s243v423ro th3qmhg9-mj88-0305-3136-97g390k883cy ANSI-Medicare Part B [id number]-[id number] aa607005-c87o-01d0-2k6p-j9hwm1744kf1 ANSI-Commercial 8z4bf4g5-17nn-360b-v837-x6g14fl0g6k1 9b3se8t3-33kq-636e-s861-s5h23lx5q7g3 ANSI-Commercial 2g251630-6819-48i9-3hp7-n41pk6j33l34 1b093894-4186-67r2-3ws2-l27hu4h09q74 ANSI-Commercial t65647te-492u-4rb3-6743-p7t1829it213 t77296tp-468x-7xr7-3535-k5l6029mm803 ANSI-Medicare Part B [id number]-[id number] s266u58c-5qw3-264x-85y8-908t3958w005 ANSI-Commercial 6648aym6-6249-576d-ogv2-k97mq2k2o402 3930qkc5-5773-677c-dgb0-l09oh2p1y659 ANSI-Commercial 0mx7m158-c184-307t-2993-70048id1c21y 5no8z535-h493-381x-3013-87095lx5n25x ANSI-Commercial uus1yw0h-5n00-93nx-3596-w3b8838581lm qus2li5s-4d85-97nc-2353-y7w3054072wg ANSI-Medicare Part B [id number]-046y-6g2u83i7923m Medicare [facility] Medicare Primary [id number] Self [id number] ANSI-Commercial 92x5141i-54b8-3luu-0aha-sj9c82b97g64 36j4400b-58g6-2ppb-2ojz-ew4q18w42f91 ANSI-Medicare Part B z91dt847-nx44-38zh-2937-y4vcj18cx83w p32mn717-cf17-08hi-5404-w6soc29jf74u ANSI-Commercial 15x5se84-a67j-1yiv-rxb0-312008651132 24o4cx80-d22g-2afb-kat9-904703520516 ANSI-Medicare Part B ceo4m8ce-t61n-4k42-ihr7-41wx113107n1 qcq3i2xa-n92u-8r96-qyr3-44dz132959s7 ANSI-Commercial y57005ar-966d-04v6-4mwq-e92k5b69r042 l99090hk-039v-06w7-4kjv-y93e4q85h103 ANSI-Commercial 4roi816m-452v-9lxu-e861-1sr14z69251z 6sbh512x-858q-8prl-f172-5ww17v57698e ANSI-Commercial 7n7la4bw-i098-4i01-1ze8-77977874me8j 0m5qt4kh-w452-5y45-3kb2-59740210je1o ANSI-Medicare Part B k0eo0938-u5c4-3924-fc03-1il8219cjcb6 y2vr8848-j5j2-6746-yd61-1lc7400gbcf9 ANSI-Commercial d86i2382-4907-7w80-35f6-92nm9r54066a s16k6541-0894-5t36-20b7-42po4u81621o ANSI-Commercial 2t3105ig-i096-0o36-424k-6p6v8315pl4z 8x6206pw-b004-9a68-728o-9p4b0118ac2u ANSI-Medicare Part B 2x775315-oh08-1425-p002-6b565t2gn2lx 4y366294-pr94-9980-l721-0p508i5vh5vz ANSI-Commercial q1is45y0-1q50-5i57-n5cn-156ztfp47324 g9nm06p4-2l67-2q45-q4zp-931zyhb50545 ANSI-Commercial 07eg7916-l419-2l03-g1w9-762yye2fg2j4 94xv4948-e234-7o42-h5p8-585qtn9wh0f3 ANSI-Medicare Part B 423j3566-065p-76g1-86f3-26916v5mo740 076p2037-059f-37h8-70q3-38379k1ct119 ANSI-Commercial 6n7bag2u-q416-957k-7vi4-11u89bq652d0 0q1pfk6z-g039-705m-8dx6-14p93qf345v5 ANSI-Medicare Part B 16bb8767-ci68-21l0-10e7-ayias20f2u4d 20hj2729-cn02-29c1-47s2-uwdhk65z7n8k ANSI-Commercial 337y5v1l-ym3k-5x42-w935-s2jx76825ca4 832i9e6w-lg4c-3t26-k867-y7hl76872dt5 ANSI-Commercial 8c8l280m-n511-8oxe-f73w-03cfeyjafm98 4n1b982j-s141-1poc-p91b-73qgyrzvco19 ANSI-Medicare Part B fy5l0524-888a-6444-zr11-h72n5h2p4u6l kb8j9001-873k-7627-fc57-i53c3f6h2d5e ANSI-Commercial u1nt8r90-o9h1-17ff-dl8h-04f09e3f87c5 q6hj2f29-z9w2-90os-aq0j-82r29p1f64h3 ANSI-Commercial 429l79a6-j43q-350z-746u-353w276ta433 325m10u4-s55b-232h-715h-762r234mh378 ANSI-Commercial 74o30ybv-0368-0395-i8w4-17ra21pf141l 22n69bgs-4889-0440-n7c5-28va52xh539t ANSI-Commercial 46j567p7-1u84-0728-215r-8859a84825h5 17f717y9-3b27-2294-462j-8539f97393e8 ANSI-Medicare Part B xt8d517m-k17g-5l48-s1a6-n1p711uc8u99 xn2x324r-a36p-6a19-e0m1-n2m291fm8m01 ANSI-Medicare Part B 59461e33-gwi5-1y95-61k8-039h9j11u297 42693a89-dhl0-7y05-22r4-949y7w40c125 ANSI-Commercial mlcm50i6-u999-368u-3y4k-7uf94q51z0e0 bzme88v8-q690-563p-9j5j-5qr37r67g7m9 ANSI-Commercial 1pr63808-h46v-57f9-bn8u-630258a90fxw 1cx82588-h05l-66t6-hn9c-950665b18seq ANSI-Commercial 86zf4241-r856-3151-u5bk-v89402p3492h 08ch6477-o629-5043-g4qv-s54152l3670u ANSI-Medicare Part B 9zxg6283-8616-1163-56lc-0264sd353a40 7pro7014-6135-9571-34kj-3395px131o09 ANSI-Commercial r7tjr060-36s2-2rt2-fq7p-657509q6h3cs v8xhb662-04x4-4hg0-xm3c-495575u9o5mb ANSI-Commercial ll1p85p6-ww13-6f66-0x57-6245u3gpitds hf1k64t5-my04-2t28-2r42-8309k9rkxzmc ANSI-Medicare Part B a0d7w70m-46g1-335u-q5pd-3a981x18ih01 k5s1c42y-27i2-037v-t0ya-1s058p34hh08 ANSI-Commercial fkyk19g1-4ps0-1qhl-r9m5-42x34w2057ys fnwm89b2-6rl1-0obm-j7l3-42y59n9051mn ANSI-Commercial 61027j19-o8uk-8y43-50s7-764296ypypw2 99872n10-j4bf-2g25-89j2-998355dusuw1 ANSI-Commercial 238qgv03-d1z4-37s5-sp5x-v9554h94713c 664uuw38-t7j3-55t2-bb2m-i9537w89912m ANSI-Medicare Part B od6s976u-35x3-07rf-6t63-22d6868nwo9p jz4v982z-32q3-87du-7c90-07l9236znz7c ANSI-Commercial 8ym660pb-0326-0lib-2i86-1nt755z6kyt1 9rc660wf-8611-8uqn-7s87-6ta650v1guh9 ANSI-Medicare Part B 10f8221a-26n1-7917-d88b-496ojri74017 66d1024n-48c3-8783-u56n-700pzxz17374 ANSI-Commercial 9he44q94-7177-3b5a-d99p-64v72797ajby 1ag33c37-5282-3y6k-d75o-30h80789zovt ANSI-Medicare Part B rp15pj6l-q792-33mu-7434-78u7c7593qj5 cf46iz6o-h819-42hf-0361-11e8w4996fp3 ANSI-Commercial 225hqi52-16l3-44g8-lo00-g1350s96q486 231pwf30-73g0-00l1-sz22-q8641z08r657 ANSI-Commercial 6531xo28-3f32-04s6-w6v4-7a38ex4j3840 0730nl84-0z41-54y6-p3z5-6z36qj8t4748 ANSI-Medicare Part B 403qes92-33dm-8h3c-1401-yo3re63z69tg 626xij53-59id-8l3d-4018-qa4tc93w67bd ANSI-Commercial 70c5ycp8-sb3j-3035-3240-c005395h6362 73q3isj4-og2v-9993-9833-v190590r5597 ANSI-Commercial 8h2nj517-7101-2848-qbdh-sg977035u9u3 6j4bu744-4664-5169-rhun-tr970336l8o7 Medicare [facility] Medicare Primary [id number] Self [id number] ANSI-Commercial 929g83q8-f400-4a49-b78q-o6sz26126895 409k44a9-n281-1b11-w48y-o5pa92430867 ANSI-Medicare Part B [id number]-536s-g1r3skr9fh90 6j657896-6a60-3w4r-316h-t0k3wqw2fr81 ANSI-Commercial t6642117-r6sz-5s6n-66jn-01012u9jk047 r1434459-q8wz-8j7l-85ty-47431o0fd914 ANSI-Medicare Part B 5p1ou396-e6w0-4478-fg37-7s1bp826c525 7k1kj052-j5i2-6022-cc27-0e5ht558p024 ANSI-Commercial 4305t9rb-80q0-58x6-rr68-fk6a5321sr38 7246v4uy-18v2-65y8-wl62-kn6f6740gh58 MEDICARE [id number] SP 0XV1OF9C F02 ANSI-Commercial 26749gs5-hw6w-689v-9u7j-5ilq19749al5 20749xc7-cv8n-021y-2x6p-6hqw73846is9 ANSI-Medicare Part B 761648l9-h285-9non-c5jx-h47344l10e8v 552956u1-y907-6els-d5qr-l73520r60n0s ANSI-Commercial qeh243l9-ahz9-8n04-hc8z-98025g8e4i51 [id number] ANSI-Commercial [id number] ANSI-Medicare Part B [id number] ANSI-Commercial [id number] ANSI-Medicare Part B [id number] ANSI-Commercial [id number] ANSI-Commercial [id number] [facility] [id number] ANSI-Commercial [id number] ANSI-Commercial [id number] ANSI-Commercial [id number] ANSI-Commercial [id number] [facility] [id number] MEDICARE [id number] SP [id number] [employer] [id number] SP [id number] [employer] [id number] SP [id number] ANSI-Commercial [id number] R [facility] [id number] SP [id number] SELF PAY ONLY [id number] SP [id number] UMR O [id number] S [id number] Problems, Conditions, and Diagnoses Code Display Name Description Problem Type Effective Dates Data Source(s) D47.2 [id number] Monoclonal gammopathy of unknown signific ance Problem 08/04/2021 12:00:00 AM EST eCW1 ([facility]) N18.31 [id number] Chronic kidney disease, stage 3a Problem 08/04/2021 12:00:00 AM EST eCW1 ([facility]) Z01.818 Pre-procedure evaluation check Preop testing Problem 07/23/2021 12:00:00 AM EST eCW1 ([facility]) N39.0 Urinary tract infectious disease UTI (urinary tract in fection) Problem 07/14/2021 12:00:00 AM EDT eCW1 ([facility]) Surgeries/Procedures Procedure Description Date Indications Data Source(s) INSJ NON-NDWELLG BLADDER CATHETER 08/12/2021 12:00:00 AM EST eCW1 ([facility]) ECG ROUTINE ECG W/LEAST 12 LDS W/I&R 08/04/2021 12:00: 00 AM EST eCW1 ([facility]) TOBACCO USE ASSESSED 07/14/2021 12:00:00 AM EDT eCW1 ([facility]) Med: Lidocaine Jelly 2% 6ml Intravesically (Glydo) 07/14/2021 12:00:00 AM EDT eCW1 ([facility]) Med: Lidocaine Jelly 2% 6ml Intravesically (Glydo) 04/13/2021 12:00:00 AM EDT eCW1 ([facility]) Medication: Lidocaine HCl 2% Jelly 5mL Intravesically 12/22/2020 12:00:00 AM EDT eCW1 ([facility]) TOBACCO USE ASSESSED 12/22/2020 12:00:00 AM EDT eCW1 ([facility]) Results ID Date Data Source [id number] 08/10/2021 09:40:00 AM EST [facility] Name Value Range Interpretation Code Description Data Dai rce(s) Supporting Document(s) SARS-CoV-2 (COVID-19) RNA [Presence] in Respiratory specimen by LORENA with probe detection Not Detected [facility] This lab was ordered by [facility] and reported by Assignment Editor. ID Date Data Source Basic Metabolic Profile (BMP) 07/16/2021 12:00:00 AM EDT eCW 1 ([facility]) Name Value Range Interpretation Code Description Data Dai rce(s) Supporting Document(s) 195 70-100 GLUCOSE, FASTING eCW1 ([facility]) 1.29 0.55-1.30 CREATININE FOR GFR eCW1 ([facility]) 43.4 >39 GLOMERULAR FILTRATION RATE eCW 1 ([facility]) 28 7-18 BLOOD UREA NITROGEN eCW1 ([facility]) 100 98-107 CHLORIDE LEVEL eCW1 ([facility]) 32 21-32 CARBON DIOXIDE LEVEL eCW1 ([facility]) 137 136-145 SODIUM LEVEL eCW1 ([facility] hospital) 4.6 3.5-5.1 POTASSIUM SERUM eCW1 ([facility]) 9.8 8.8-10.2 CALCIUM LEVEL eCW1 ([facility]) ID Date Data Source URINE CULTURE 07/14/2021 12:00:00 AM EDT eCW1 ([facility]) Name Value Range Interpretation Code Description Data Dai rce(s) Supporting Document(s) URINE CULTURE eCW1 ([facility]) Laboratory studies (set) URINE CULTU RE eCW1 ([facility]) ID Date Data Source UA URINALYSIS 07/14/2021 12:00:00 AM EDT eCW1 ([facility]) Name Value Range Interpretation Code Description Data Dai rce(s) Supporting Document(s) Laboratory studies (set) UA URINALYS IS eCW1 ([facility]) ID Date Data Source NON MANAGER CHEMICAL CYTOLOGY REQ FOR SERVI 07/14/2021 12:00:00 AM EDT eC W1 ([facility]) Name Value Range Interpretation Code Description Data Dai rce(s) Supporting Document(s) URINE eCW1 ([facility]) ID Date Data Source [id number] 09/25/2020 12:00:00 AM EST [facility] Name Value Range Interpretation Code Description Data Dai rce(s) Supporting Document(s) SARS-CoV-2 (COVID-19) RNA [Presence] in Respiratory specimen by LORENA with probe detection Not Detected [facility] This lab was ordered by [facility] and reported by Assignment Editor. Procedure Social History Code Duration Value Status Description Data Source(s ) Smoking 08/12/2021 12:00:00 AM EST Former Smoker completed Former Smoker eCW1 ([facility]) Smoking 08/04/2021 12:00:00 AM EST Former Smoker completed Former Smoker eCW1 ([facility]) Smoking 07/14/2021 12:00:00 AM EDT Former Smoker completed Former Smoker eCW1 ([facility]) Smoking 07/14/2021 12:00:00 AM EDT Former Smoker completed Former Smoker eCW1 ([facility]) Smoking 04/13/2021 12:00:00 AM EDT Former Smoker completed Former Smoker eCW1 ([facility]) Smoking 04/13/2021 12:00:00 AM EDT Former Smoker completed Former Smoker eCW1 ([facility]) Smoking 04/13/2021 12:00:00 AM EDT Former Smoker completed Former Smoker eCW1 ([facility]) Smoking 03/30/2021 12:00:00 AM EDT Former Smoker completed Former Smoker eCW1 ([facility]) Smoking 03/30/2021 12:00:00 AM EDT Former Smoker completed Former Smoker eCW1 ([facility]) Smoking 12/22/2020 12:00:00 AM EDT Former Smoker completed Former Smoker eCW1 ([facility]) Smoking 12/22/2020 12:00:00 AM EDT Former Smoker completed Former Smoker eCW1 ([facility]) Smoking 09/29/2020 12:00:00 AM EST Former Smoker completed Former Smoker eCW1 ([facility]) Smoking 09/29/2020 12:00:00 AM EST Former Smoker completed Former Smoker eCW1 ([facility]) Vital Signs ID Date Data Source UNK Name Value Range Interpretation Code Description Data Source(s) Body weight 162 [lb_av] 162 [lb_av] eCW1 ([facility]) Body weight 73.48 kg 73.48 kg eCW1 ([facility]) Body height 61 [in_i] 61 [in_i] eCW1 ([facility]) Body mass index (BMI) [Ratio] 30.61 kg/m2 30.61 kg/m2 eCW1 ([facility]) Heart rate 100 /min 100 /min eCW1 ([facility]) Respiratory rate 20 /min 20 /min eCW1 ([facility]) Body temperature 96.8 [degF] 96.8 [degF] eCW1 ( [facility]) Systolic blood pressure 153 mm[Hg] 153 mm[Hg] e CW1 ([facility]) Diastolic blood pressure 85 mm[Hg] 85 mm[Hg] eCW1 ([facility]) Body weight 162.8 [lb_av] 162.8 [lb_av] eCW1 ([facility]) Body height 61 [in_i] 61 [in_i] eCW1 ([facility]) Body mass index (BMI) [Ratio] 30.76 kg/m2 30.76 kg/m2 eCW1 ([facility]) Heart rate 87 /min 87 /min eCW1 ([facility]) Respiratory rate 18 /min 18 /min eCW1 ([facility]) Body temperature 97.7 [degF] 97.7 [degF] eCW1 ( [facility]) Systolic blood pressure 138 mm[Hg] 138 mm[Hg] e CW1 ([facility]) Diastolic blood pressure 82 mm[Hg] 82 mm[Hg] eCW1 ([facility]) Body weight 162 [lb_av] 162 [lb_av] eCW1 ([facility]) Body weight 73.48 kg 73.48 kg eCW1 ([facility]) Body height 61 [in_i] 61 [in_i] eCW1 ([facility]) Body mass index (BMI) [Ratio] 30.61 kg/m2 30.61 kg/m2 eCW1 ([facility]) Heart rate 82 /min 82 /min eCW1 ([facility]) Respiratory rate 18 /min 18 /min eCW1 ([facility]) Body temperature 96.3 [degF] 96.3 [degF] eCW1 ( [facility]) Systolic blood pressure 122 mm[Hg] 122 mm[Hg] e CW1 ([facility]) Diastolic blood pressure 68 mm[Hg] 68 mm[Hg] eCW1 ([facility]) Body weight 161 [lb_av] 161 [lb_av] eCW1 ([facility]) Body weight 73.03 kg 73.03 kg eCW1 ([facility]) Body height 61 [in_i] 61 [in_i] eCW1 ([facility]) Body mass index (BMI) [Ratio] 30.42 kg/m2 30.42 kg/m2 eCW1 ([facility]) Heart rate 89 /min 89 /min eCW1 ([facility]) Respiratory rate 18 /min 18 /min eCW1 ([facility]) Body temperature 98.1 [degF] 98.1 [degF] eCW1 ( [facility]) Systolic blood pressure 162 mm[Hg] 162 mm[Hg] e CW1 ([facility]) Diastolic blood pressure 81 mm[Hg] 81 mm[Hg] eCW1 ([facility]) Body weight 160 [lb_av] 160 [lb_av] eCW1 ([facility]) Body height 61 [in_i] 61 [in_i] eCW1 ([facility]) Body mass index (BMI) [Ratio] 30.23 kg/m2 30.23 kg/m2 eCW1 ([facility]) Heart rate 89 /min 89 /min eCW1 ([facility]) Respiratory rate 18 /min 18 /min eCW1 ([facility]) Body temperature 97.3 [degF] 97.3 [degF] eCW1 ( [facility]) Systolic blood pressure 136 mm[Hg] 136 mm[Hg] e CW1 ([facility]) Diastolic blood pressure 74 mm[Hg] 74 mm[Hg] eCW1 ([facility]) Body weight 155 [lb_av] 155 [lb_av] eCW1 ([facility]) Body height 61 [in_i] 61 [in_i] eCW1 ([facility]) Body mass index (BMI) [Ratio] 29.28 kg/m2 29.28 kg/m2 eCW1 ([facility]) Heart rate 86 /min 86 /min eCW1 ([facility]) Respiratory rate 18 /min 18 /min eCW1 ([facility]) Systolic blood pressure 164 mm[Hg] 164 mm[Hg] e CW1 ([facility]) Diastolic blood pressure 84 mm[Hg] 84 mm[Hg] eCW1 ([facility]) Body weight 156.2 [lb_av] 156.2 [lb_av] eCW1 ([facility]) Body height 61 [in_i] 61 [in_i] eCW1 ([facility]) Body mass index (BMI) [Ratio] 29.51 kg/m2 29.51 kg/m2 eCW1 ([facility]) Heart rate 91 /min 91 /min eCW1 ([facility]) Respiratory rate 18 /min 18 /min eCW1 ([facility]) Body temperature 98.0 [degF] 98.0 [degF] eCW1 ( [facility]) Systolic blood pressure 142 mm[Hg] 142 mm[Hg] e CW1 ([facility]) Diastolic blood pressure 70 mm[Hg] 70 mm[Hg] eCW1 ([facility]) Patient Treatment Plan of Care Planned Activity Planned Date Details Description Data Source (s) Cephalexin 500 MG Oral Capsule 07/16/2021 12:00:00 AM EDT eCW1 ([facility]) Cephalexin 500 MG Oral Capsule 07/16/2021 12:00:00 AM EDT eCW1 ([facility]) Contour Monitor 1 03/30/2021 12:00:00 AM EDT eCW1 ([facility]) Contour Monitor 1 03/30/2021 12:00:00 AM EDT eCW1 ([facility]) Blood Glucose Test - 09/29/2020 12:00:00 AM EST eCW1 ([facility]) Glucometer 1 09/29/2020 12:00:00 AM EST e CW1 ([facility]) BL Lancets 09/29/2020 12:00:00 AM EST e CW1 ([facility]) Blood Glucose Test - 09/29/2020 12:00:00 AM EST eCW1 ([facility]) Glucometer 1 09/29/2020 12:00:00 AM EST e CW1 ([facility]) BL Lancets 09/29/2020 12:00:00 AM EST e CW1 ([facility])
--- OUTSIDE RECORDS SUMMARY | 2021-08-14 09:41 | CCD ---
Author Author [facility] [employer] [facility] Organization [facility] Address Unknown Phone Unavailable Care Team Providers Care Java Security Engineer Name Role Phone Severo Wharton Unavailable PROBLEMS Type Condition ICD9-CM Code [id number] Code Onset Dates Condition S tatus W/U Status Risk SNOMED Code Notes Problem Chronic kidney disease, stage 3 (moderate) N18.3 Active confirmed 533040326 Problem Proteinuria, unspecified R80.9 Active confirmed 66473445 Problem Insomnia, unspecified G47.00 Active confirmed 492451536 Problem Essential (primary) hypertension I10 Active conf irmed 13658706 Her blood pressure is reasonably controlled on losartan, hydrochlorothiazide, carvedilol. Problem Anemia associated with chronic renal failure D63.1 Active confirmed 663324841 Problem Mixed hyperlipidemia E78.2 Active confirmed 497043331 She is on simvastatin 20 mg daily. Her last lipid profile in March 2021 did not meet goal and she is working on that further with diet, exercise and lifestyle changes. She may need intensification of her statin in the future. Problem Bladder cancer C67.9 Active confirmed 43446 6009 She has history of high-grade urothelial bladder cancer dating back to 2019, with extension into the lamina propria. She has had a TURBT with mitomycin instillation in September 2018, and has had an abnormal cystoscopy most recently in early July 2021. She is scheduled to undergo TURBT in early August 2021. Problem Mass of bladder N32.89 Active confirmed 4280 41344 Problem Recurrent UTI N39.0 Active confirmed 177446 001 Problem History of bladder cancer Z85.51 Active confirmed 494761625 Problem Kidney stone N20.0 Active confirmed 8815799 7 Problem Chronic kidney disease, stage 3a N18.31 Active confirmed 501397709 She has a stable creatinine per recent l ab work in July 2021. Problem Diabetes mellitus, type 2 E11.9 Active confirmed 66640651 She is a type 2 diabetic on Januvia, Metformin, and glipizide. Her last hemoglobin A1c from March 2021 is at goal. She has no obvious endorgan complications. Problem Monoclonal gammopathy of unknown significance D47. 2 Active confirmed 495954899 For this she follows with oncology. Problem Depression, unspecified depression type F32.9 Active confirmed 60445680 Problem Sequela of Corynebacterium infection B94.8 Act hernan confirmed 821756847 Problem Pyelonephritis N12 Active confirmed 37024 000 Problem UTI (urinary tract infection) N39.0 Active confirm ed 51625065 Problem Preop testing Z01.818 Active confirmed 54490 9001 ALLERGIES No Known Allergies ENCOUNTERS from 1950 to 2021-08-12 Encounter Location Date Provider Diagnosis [facility] [address] [phone] [place] [address] Aug, Severo Wharton Preop testing Z01.818 and History of silvano dder cancer Z85.51 IMMUNIZATIONS Vaccine Route Administration Date Status Influenza 18 yrs & older Flublok IM Intramuscular Oct 02, 2019 Administered Moderna #2 dose COVID-19 SARSCOV2 VAC 100MCG/0.5ML IM Unknown December 15, 2020 Administered Moderna #1 dose COVID-19 SARSCOV2 VAC 100MCG/0.5ML IM Unknown November 15, 2020 Administered Influenza 18 yrs & older Flublok IM Intramuscular Oct 12, 2018 Administered Influenza 6mo & up Fluzone IM Intramuscular Sep 19, 2012 Admi nistered Influenza Pharmacy Given Unknown Jul 14, 2021 Adminis tered Influenza (High Dose 65 & up) IM Intramuscular Oct 03, 2017 A dministered Influenza (High Dose 65 & up) IM Intramuscular Oct 04, 2016 A dministered Influenza (High Dose 65 & up) IM Intramuscular Oct 06, 2015 A dministered TDAP 0.5mL (Boostrix) IM Intramuscular March 13, 2013 Administe red Pneumococcal 0.5mL Prevnar 13 IM Intramuscular Oct 20, 2012 A dministered Influenza 6mo & up Fluzone IM Intramuscular Oct 01, 2014 Admi nistered Influenza 6mo & up Fluzone IM Intramuscular Sep 25, 2013 Admi nistered SOCIAL HISTORY Tobacco Use: Social History Observation Description Date Details (start date - stop date) Former Smoker Sex Assigned At : Social History Observation Description Sex Assigned At Unknown Education: Question Answer Notes Level of Education: College Audit Question Answer Notes Total Score: 0 Interpretation: Alcohol Education L[employer] Day: Question Answer Notes [employer] 13 [employer] Sexual Hx: Question Answer Notes Had sex in the last 12 months (vaginal, oral, or anal)? No LMP: 09/1988, partial hyster Have you ever had an STD? No Drug and Alcohol Question Answer Notes Total Score: 0 Interpretation: No problems reported Alcohol Screening: Question Answer Notes Did you have a drink containing alcohol in the past year? No Points 0 Interpretation Negative BMI Care Goal Follow-Up Question Answer Notes Above Normal BMI Follow-Up Giving encouragement to exercise Tobacco Use: Question Answer Notes Are you a: former smoker quit 2000, former sm oker How long has it been since you last smoked? > 10 years REASON FOR REFERRAL No Information VITAL SIGNS Weight 162 lbs Aug, Weight-kg 73.48 kg Aug, Height 61 in Aug, BMI 30.61 kg/m2 Aug, Heart Rate 100 /min Aug, Respiratory Rate 20 /min Aug, Temperature 96.8 degrees Fahrenheit Aug, Oximetry 100% Aug, Blood pressure systolic 153 mm Hg Aug, Blood pressure diastolic 85 mm Hg Aug, MEDICATIONS Medication SIG (Take, Route, Frequency, Duration) Notes Start Da te End Date Status Zocor 20 MG 1 tab(s) Orally Once a day for 90 day(s) Active Blood Glucose Test - as directed E11.9 bid for 90 day(s) Active Vitamin D 50 MCG (1999) 1 capsule Orally Once a day for 30 day(s) Active Aspirin 81 MG 1 tablet Orally Once a day Active metFORMIN HCl 500 MG TAKE ONE TABLET BY MOUTH TWICE DAILY WITH A MEAL for 90 Active Carvedilol 12.5 MG TAKE ONE TABLET BY MOUTH TWICE A DAY for 90 Active Systane 0.4-0.3 % Ophthalmic Active Januvia 100 MG 1 tablet Orally Once a day for 90 day(s) Active glipiZIDE 10 MG TAKE ONE TABLET BY MOUTH TWO TIMES A DAY for 90 Active Contour Monitor 1 as directed E11.9 twice daily for 90 day(s) Mar, Active Losartan Potassium 25 MG TAKE ONE TABLET BY MOUTH TWO TIMES A DAY for 90 Active hydroCHLOROthiazide 12.5 MG 1 tablet in the morning Or ally Once a day for 90 day(s) Active Vitamin D 1000 UNIT 1 tablet Orally Once a day for 30 day(s) Active BL Lancets - as directed DX: E11.9 to test BGs daily for 90 Active Amitriptyline HCl 100 MG take one tablet by mouth at bedtime Orally Once a day for 90 day(s) Active PROCEDURES from 1950 to 2021-08-12 Procedure Date Ordered Result Body Site uro INSERT NON-INDWELLING BLADDER CATHETER 2021-08-12 N/A RESULTS No Results REASON FOR VISIT cath spec for surgery per Dr. Wharton MEDICAL (GENERAL) HISTORY Type Description Date Medical History DM type 2 Medical History Hyperlipidemia Medical History HTN Medical History Chronic Kidney Disease 3 Medical History Former smoker Medical History peripheral neuropathy Medical History proteinuria - 02/21 - Humberto/Scr 177.0 Medical History DEXA scan repeat 2019 Medical History Colonoscopy 08/2018 Medical History Mammogram: 03/2018 Medical History Hx Bladder cancer - Transiti onal cell carcinoma T1 of bladded Dxd 09/2018 - urology -cystoscopy -09/27/2019 Medical History kidney stones Surgical History Hysterectomy 1988 Surgical History CYSTOSCOPY [id number] Surgical History Colonoscopy 08/2018 Surgical History TURBT with Mitomycin instillation Surgical History 2nd bladder scraping 11/14/18 Surgical History CYSTOSCOPY 02/07/2019 Surgical History CYSTOSCOPY 05/07/2019 Surgical History cystoscopy 09/27/2019 Surgical History cystoscopy 11/07/19 Surgical History stent placed Surgical History kidney stone removal 04/2020 Surgical History Cystoscopy 05/23/20 Surgical History Cataract 03/2020 Surgical History cysto 12/2020 Surgical History CYSTO 04/2021 Surgical History Cysto TURB-Dr. Wharton 08/14/2021 Hospitalization History hysterectomy x 7 days 1988 Hospitalization History sepsis 03/2020 Goals Section No Information Health Concerns No Information MEDICAL EQUIPMENT No Information MENTAL STATUS No Information FUNCTIONAL STATUS No Information ASSESSMENTS Encounter Date Diagnosis Assessment Notes Treatment Notes Treatm ent Clinical Notes Aug, Preop testing (ICD-10 - Z01.818) Aug, History of bladder cancer (ICD-10 - Z85.51) PLAN OF TREATMENT Next Appt Details Provider Name:Mayela Flores, 2021-08-12 4 08:00:00 AM, [address], , [place], [address], Provider Name:Amanda Begum, - 11:30:00 AM, [address] [facility], , [place], [address], Insurance Providers Payer Name Payer Address Payer Phone Insured Name Patient Relati onship to Insured Coverage Start Date Coverage End Date MEDICARE Part A and B [address] [facility] [id number] JOSE JOHNSON [facility] [address] [id number] [facility] [id number] JOSE JOHNSON self
--- OUTSIDE RECORDS SUMMARY | 2021-08-14 09:41 | CCD ---
Author Author [facility] Organization [facility] Address Unknown Phone Unavailable Care Team Providers Care Special Events Planner Name Role Phone Dimitrios Lewis Unavailable PROBLEMS Type Condition ICD9-CM Code [id number] Code Onset Dates Condition S tatus W/U Status Risk SNOMED Code Notes Problem Chronic kidney disease, stage 3 (moderate) N18.3 Active confirmed 641195601 Problem Proteinuria, unspecified R80.9 Active confirmed 46954086 Problem Insomnia, unspecified G47.00 Active confirmed 439851478 Problem Essential (primary) hypertension I10 Active conf irmed 80058104 Her blood pressure is reasonably controlled on losartan, hydrochlorothiazide, carvedilol. Problem Anemia associated with chronic renal failure D63.1 Active confirmed 962601706 Problem Mixed hyperlipidemia E78.2 Active confirmed 197514907 She is on simvastatin 20 mg daily. Her last lipid profile in March 2021 did not meet goal and she is working on that further with diet, exercise and lifestyle changes. She may need intensification of her statin in the future. Problem Bladder cancer C67.9 Active confirmed 49526 6009 She has history of high-grade urothelial bladder cancer dating back to 2019, with extension into the lamina propria. She has had a TURBT with mitomycin instillation in September 2018, and has had an abnormal cystoscopy most recently in early July 2021. She is scheduled to undergo TURBT in early August 2021. Problem Mass of bladder N32.89 Active confirmed 4280 90281 Problem Recurrent UTI N39.0 Active confirmed 947023 001 Problem History of bladder cancer Z85.51 Active confirmed 653968713 Problem Kidney stone N20.0 Active confirmed 3338557 7 Problem Chronic kidney disease, stage 3a N18.31 Active confirmed 630857137 She has a stable creatinine per recent l ab work in July 2021. Problem Diabetes mellitus, type 2 E11.9 Active confirmed 80528449 She is a type 2 diabetic on Januvia, Metformin, and glipizide. Her last hemoglobin A1c from March 2021 is at goal. She has no obvious endorgan complications. Problem Monoclonal gammopathy of unknown significance D47. 2 Active confirmed 893572058 For this she follows with oncology. Problem Depression, unspecified depression type F32.9 Active confirmed 31465390 Problem Sequela of Corynebacterium infection B94.8 Act hernan confirmed 231165639 Problem Pyelonephritis N12 Active confirmed 58576 000 Problem UTI (urinary tract infection) N39.0 Active confirm ed 53739876 Problem Preop testing Z01.818 Active confirmed 28170 9001 ALLERGIES No Known Allergies ENCOUNTERS from 1950 to 2021-08-05 Encounter Location Date Provider Diagnosis [address] [phone] [place] [address] 23 Jul, 2021 Dimitrios [facility] Preop examination Z01.818 ; Bladder cancer C67.9 ; Diabetes mellitus, type 2 E11.9 ; Essential (primary) hypertension I10 ; Mixed hyperlipidemia E78.2 ; Monoclonal gammopathy of unknown significance D47.2 and Chronic kidney disease, stage 3a N18.31 IMMUNIZATIONS Vaccine Route Administration Date Status Moderna #1 dose COVID-19 SARSCOV2 VAC 100MCG/0.5ML IM Unknown November 15, 2020 Administered Influenza 18 yrs & older Flublok IM Intramuscular Oct 02, 2019 Administered Influenza Pharmacy Given Unknown Jul 14, 2021 Adminis tered Moderna #2 dose COVID-19 SARSCOV2 VAC 100MCG/0.5ML IM Unknown December 15, 2020 Administered Influenza 6mo & up Fluzone IM Intramuscular Sep 19, 2012 Admi nistered Influenza 18 yrs & older Flublok IM Intramuscular Oct 12, 2018 Administered Influenza (High Dose 65 & up) IM [...] Notes Total Score: 0 Interpretation: Alcohol Education Congregational: Question Answer Notes [employer] Sexual Hx: Question Answer Notes Had sex [...] FOR REFERRAL No Information VITAL SIGNS Weight 162.8 lbs Jul, Height 61 in Jul, BMI 30.76 kg/m2 Jul, Heart Rate 87 /min Jul, Respiratory Rate 18 /min Jul, Temperature 97.7 degrees Fahrenheit Jul, Oximetry 98% Jul, Blood pressure systolic 138 mm Hg Jul, Blood pressure diastolic 82 mm Hg Jul, MEDICATIONS Medication SIG (Take, Route, Frequency, Duration) Notes Start Da te End Date Status Blood Glucose Test - as directed E11.9 bid for 90 day(s) Active Carvedilol 12.5 MG TAKE ONE TABLET BY MOUTH TWICE A DAY for 90 Active Zocor 20 MG 1 tab(s) Orally Once a day for 90 day(s) Active BL Lancets - as directed DX: E11.9 to test BGs daily for 90 Active metFORMIN HCl 500 MG TAKE ONE TABLET BY MOUTH TWICE DAILY WITH A MEAL for 90 Active glipiZIDE 10 MG TAKE ONE TABLET BY MOUTH TWO TIMES A DAY for 90 Active Systane 0.4-0.3 % Ophthalmic Active hydroCHLOROthiazide 12.5 MG 1 tablet in the morning Or ally Once a day for 90 day(s) Active Vitamin D 1000 UNIT 1 tablet Orally Once a day for 30 day(s) Active Amitriptyline HCl 100 MG take one tablet by mouth at bedtime Orally Once a day for 90 day(s) Active Aspirin 81 MG 1 tablet Orally Once a day Active Januvia 100 MG 1 tablet Orally Once a day for 90 day(s) Active Vitamin D 50 MCG (2000 UT) 1 capsule Orally Once a day for 30 day(s) Active Losartan Potassium 25 MG TAKE ONE TABLET BY MOUTH TWO TIMES A DAY for 90 Active Contour Monitor 1 as directed E11.9 twice daily for 90 day(s) Mar, Active PROCEDURES from 1950 to 2021-08-05 Procedure Date Ordered Result Body Site ELECTROCARDIOGRAM, COMPLETE EKG 2021-08-04 N/A RESULTS No Results REASON FOR VISIT Pre-operative clearance for Cysto TURB preformed by Dr. Wharton at [facility] on Decem 2020 under anesthesia. DX: C67.9 MEDICAL (GENERAL) HISTORY Type Description Date Medical [...] Surgical History Hysterectomy 1988 Surgical History CYSTOSCOPY [id number] Surgical History Colonoscopy 08/2018 Surgical History TURBT [...] Notes Treatment Notes Treatm ent Clinical Notes Jul, Preop examination (ICD-10 - Z01.818) She is a woman with multiple medical problems who is scheduled for a fairly low risk procedure in the near future. As such, she represents a stable surgical risk since her medical problems are fairly stable. She does not require any further preoperative testing. Her EKG is stable. Recent lab work is not remarkable for any evident reversible conditions which, if corrected, would improve her surgical risk. She has been advised to hold her aspirin for 5 days before surgery, take her losartan and carvedilol on the morning of surgery but hold her other medications on the morning of surgery. Jul, Bladder cancer (ICD-10 - C67.9) She has history of high-grade urothelial bladder cancer dating back to 2018, with extension into the lamina propria. She has had a TURBT with mitomycin instillation in September 2018, and has had an abnormal cystoscopy most recently in early July 2021. She is scheduled to undergo TURBT in early August 2021. Jul, Diabetes mellitus, type 2 (ICD-10 - E11. 9) She is a type 2 diabetic on Januvia, Metformin, and glipizide. Her last hemoglobin A1c from March 2021 is at goal. She has no obvious endorgan complications. Jul, Essential (primary) hypertension (ICD-10 - I10) Her blood pressure is reasonably controlled on losartan, hydrochlorothiazide, carvedilol. Jul, Mixed hyperlipidemia (ICD-10 - E78.2) Justin sterling is on simvastatin 20 mg daily. Her last lipid profile in March 2021 did not meet goal and she is working on that further with diet, exercise and lifestyle changes. She may need intensification of her statin in the future. Jul, Monoclonal gammopathy of unknown signifi cance (ICD-10 - D47.2) For this she follows with oncology. Jul, Chronic kidney disease, stage 3a (ICD-10 - N18.31) She has a stable creatinine per recent lab work in July 2021. PLAN OF TREATMENT Next Appt Details September appointment Reason: Provider Name:Mayela Flores, 2020--1 4 08:00:00 AM, [address], , [place], [address], Provider Name:Amanda Begum, 2021-09-28 11:30:00 AM, [address] [facility], , [place], [address], Insurance Providers Payer Name Payer Address Payer Phone Insured Name Patient Relati onship to Insured Coverage Start Date Coverage End Date [facility] [address] [id number] [facility] [phone] JOSE JOHNSON MEDICARE Part A and B [address] [facility] [phone] JOSE JOHNSON
--- OUTSIDE RECORDS SUMMARY | 2021-08-14 09:41 | CCD ---
Author Author [facility] Organization [facility] Address Unknown Phone Unavailable Care Team Providers Care Cds Sales Advisor Name Role Phone Newtonjackelyn Amanda Unavailable PROBLEMS Type Condition ICD9-CM Code [id number] Code Onset Dates Condition S tatus W/U Status Risk SNOMED Code Notes Problem Chronic kidney disease, stage 3 (moderate) N18.3 Active confirmed 718123335 Problem Proteinuria, unspecified R80.9 Active confirmed 48238737 Problem Insomnia, unspecified G47.00 Active confirmed 797271463 Problem Essential (primary) hypertension I10 Active conf irmed 87911843 Problem Mass of bladder N32.89 Active confirmed 4280 54217 Problem Bladder cancer C67.9 Active confirmed 96717 6009 Problem Depression, unspecified depression type F32.9 Active confirmed 36178540 Problem Sequela of Corynebacterium infection B94.8 Act hernan confirmed 045834859 Problem Anemia associated with chronic renal failure D63.1 Active confirmed 858897097 Problem Pyelonephritis N12 Active confirmed 53583 000 Problem Mixed hyperlipidemia E78.2 Active confirmed 724691618 Problem Diabetes mellitus, type 2 E11.9 Active confirmed 82658781 Problem Recurrent UTI N39.0 Active confirmed 579910 001 Problem History of bladder cancer Z85.51 Active confirmed 969992556 Problem Kidney stone N20.0 Active confirmed 1014628 7 ALLERGIES No Known Allergies ENCOUNTERS from 1950 to 2021-06-01 Encounter Location Date Provider Diagnosis [facility] [address] [facility] [phone] [place] [address] May, Amanda Begum Breast cancer screening Z12. 39 IMMUNIZATIONS Vaccine Route Administration Date Status Influenza [...] Intramuscular Oct 20, 2012 A dministered Influenza 18 yrs & older Flublok IM Intramuscular Oct 02, 2019 Administered Influenza 6mo & up Fluzone IM Intramuscular Oct 01, 2014 Admi nistered Influenza 6mo & up Fluzone IM Intramuscular Sep 25, 2013 Admi nistered Influenza 6mo & up Fluzone IM Intramuscular Sep 19, 2012 Admi nistered SOCIAL HISTORY Tobacco Use: Social History Observation Description Date Details (start date - stop date) Former Smoker Sex Assigned At : Social History Observation Description Sex Assigned At Unknown Education: Question Answer Notes Level of Education: College Audit Question Answer Notes Total Score: 0 Interpretation: Alcohol Education Confucianism: Question Answer Notes Confucianism 13 [employer] Sexual Hx: Question Answer Notes Had sex [...] REASON FOR REFERRAL No Information VITAL SIGNS No information MEDICATIONS Medication SIG (Take, Route, Frequency, Duration) Notes Start Da te End Date Status Ferrous Sulfate 325 (65 Fe) MG 1 tablet Orally Once a day for 30 day( s) Active Januvia 100 MG TAKE ONE TABLET BY MOUTH ONC E A DAY Orally Once a day for 90 days Active Blood Glucose Test - as directed E11.9 bid for 90 day(s) Active Contour Monitor 1 as directed E11.9 twice daily for 90 day(s) Mar, Active metFORMIN HCl 500 MG TAKE ONE TABLET BY MOUTH TWICE DAILY WITH A MEAL for 90 Active Coreg 12.5 MG 1 tab(s) Orally Twice a day for 90 day(s) Active BL Lancets 1 lancet E11.9 Daily for 90 day(s) Active Losartan Potassium 50 MG TAKE ONE TABLET BY MOUTH ONCE A DAY for 90 Active Systane 0.4-0.3 % Ophthalmic Active Losartan Potassium 25 MG TAKE ONE TABLET BY MOUTH TWO TIMES A DAY for 90 Active Vitamin D 50 MCG (2000 UT) 1 capsule Orally Once a day for 30 day(s) Active BL Lancets - as directed DX: E11.9 to test BGs daily for 90 Active Amitriptyline HCl 100 MG take one tablet by mouth at bedtime Orally Once a day for 90 day(s) Active Aspirin 81 MG 1 tablet Orally Once a day Active Zocor 20 MG 1 tab(s) Orally Once a day for 90 day(s) Active Oxybutynin Chloride 5 MG 1 tablet Orally Twice a day Active Carvedilol 12.5 MG TAKE ONE TABLET BY MOUTH TWICE A DAY for 90 Active Methenamine Hippurate 1 GM 1 tablet Orally Twice a day urology Sep, Active glipiZIDE 10 MG TAKE ONE TABLET BY MOUTH TWO TIMES A DAY for 90 Active Simvastatin 20 MG TAKE ONE TABLET BY MOUTH EVERY NIGHT ora lly Daily for 90 days Active Vitamin D 1000 UNIT 1 tablet Orally Once a day for 30 day(s) Active Januvia 100 MG 1 tablet Orally Once a day for 90 day(s) Active hydroCHLOROthiazide 12.5 MG 1 tablet in the morning Or ally Once a day for 90 day(s) Active Glucometer 1 as directed E11.9 Daily for 90 day(s) Sep, Active PROCEDURES No Information RESULTS No Results REASON FOR VISIT order, script MEDICAL (GENERAL) HISTORY Type Description Date Medical [...] Surgical History Hysterectomy 1988 Surgical History CYSTOSCOPY [id number] Surgical History Colonoscopy 08/2018 Surgical History TURBT with Mitomycin instillation Surgical History 2nd bladder scraping 11/14/18 Surgical History CYSTOSCOPY 02/07/2019 Surgical History CYSTOSCOPY 05/07/2019 Surgical History cystoscopy 09/27/2019 Surgical History cystoscopy 11/07/19 Surgical History stent placed Surgical History kidney stone removal 04/2020 Surgical History Cystoscopy 05/23/20 Surgical History Cataract 03/2020 Surgical History cysto 12/2020 Surgical History CYSTO 04/2021 Hospitalization History hysterectomy x 7 days 1988 Hospitalization History sepsis 03/2020 Goals Section No Information Health Concerns No Information MEDICAL EQUIPMENT No Information MENTAL STATUS No Information FUNCTIONAL STATUS No Information ASSESSMENTS Encounter Date Diagnosis Assessment Notes Treatment Notes Treatm ent Clinical Notes May, Breast cancer screening (ICD-10 - Z12.39) PLAN OF TREATMENT Medication Medication Name Sig Start Date Stop Date glipiZIDE 10 MG TAKE ONE TABLET BY MOUTH TWO TIMES A DAY for 90 Losartan Potassium 25 MG TAKE ONE TABLET BY MOUTH TWO TIMES A DA Y for 90 Carvedilol 12.5 MG TAKE ONE TABLET BY MOUTH TWICE A DAY for 90 metFORMIN HCl 500 MG TAKE ONE TABLET BY MOUTH TWICE DAILY WITH A MEAL for 90 Januvia 100 MG TAKE ONE TABLET BY MOUTH ONC E A DAY Orally Once a day for 90 days Treatment Notes Test Name Order Date [facility] Isak Screening Bilateral (Ultrasound if Indicated ) (3D Mammo) 2021-06-01 Next Appt Details Provider Name:Severo Wharton, 11:30:00 AM, [address], , [place], [address], Provider Name:Amanda Begum, 09-28 11:30:00 AM, [address] [facility], , [place], [address], Insurance Providers Payer Name Payer Address Payer Phone Insured Name Patient Relati onship to Insured Coverage Start Date Coverage End Date MEDICARE Part A and B [address] [facility] [phone] MALLORYAR,JOSE A self [facility] [address] [id number] [facility] [phone] [phone] DEYEAR,JOSE A self
[2021-08-14] MEDS ORDERED: ROCURONIUM BROMIDE 50 MG/5 ML VIAL As Ordered ONE (13:40)
[2021-08-14] MEDS ORDERED: propofoL 200 MG/20 ML VIAL As Ordered ONE (13:40)
[2021-08-14] MEDS ORDERED: PHENYLephrine 500MCG 5ML (100MCG/ML) SYRINGE As Ordered ONE (13:40)
[2021-08-14] MEDS ORDERED: dexameTHASONE 4 MG/ML 1ML VIAL (J1100 PER 1MG) As Ordered ONE (13:40)
[2021-08-14] MEDS ORDERED: MIDAZOLAM INJ 2MG/2ML VIAL (J2250 PER 1MG) As Ordered ONE (13:40)
[2021-08-14] MEDS ORDERED: SUGAMMADEX SODIUM 500 MG/5 ML VIAL (BRIDION) As Ordered ONE (13:40)
[2021-08-14] MEDS ORDERED: ONDANSETRON 4MG/2ML VIAL As Ordered ONE (13:40)
[2021-08-14] MEDS ORDERED: fentaNYL 100 MCG/2 ML INJECTION (J3010) As Ordered ONE ×2 (13:40→13:53)
[2021-08-14] MEDS ORDERED: LIDOCAINE 2% 100MG/5ML SDV (FOR ANES.) As Ordered ONE (13:40)
[2021-08-14] MEDS ORDERED: ACETAMINOPHEN 1000MG 100ML IV BTL (OFIRMEV) (J0131 PER 10MG) As Ordered ONE (13:41)
[2021-08-14] MEDS ORDERED: ACETAMINOPHEN TAB 650MG DOSE (2X325MG) PO PRN (14:55)
[2021-08-14] MEDS ORDERED: ONDANSETRON 4MG/2ML VIAL IV PRN (15:00)
[2021-08-14] MEDS ORDERED: fentaNYL 100 MCG/2 ML INJECTION (J3010) IV PRN (15:00)
[2021-08-14] MEDS ORDERED: PERCOCET 5MG/325MG TAB PO PRN (15:00)
[2021-08-14] MEDS ORDERED: LR 1,000 ML IV SCH (15:00)
--- NOTE | 2021-08-14 15:21 | RO ---
OPERATIVE NOTE DATE OF OPERATION: 08/14/2021 PREOPERATIVE DIAGNOSIS: Bladder cancer. POSTOPERATIVE DIAGNOSIS: Bladder cancer. PROCEDURE: Cystoscopy, transurethral resection of bladder tumors (between 2 and 5 cm). SURGEON: Severo Wharton MD DYNAMITER: None. ANESTHESIA: General. OPERATIVE INDICATIONS: This is a 71-year-old female with history of bladder cancer, underwent resection several months ago. On recent surveillance cystoscopy she was noted to have persistent friable tissue on her left lateral bladder wall. It was hard to determine whether or not this was scar tissue or viable tumor. She is brought to the operating room today to remove this tissue. DESCRIPTION OF PROCEDURE: The patient was brought to the operating room and general anesthesia was induced. Prophylactic antibiotics were infused. She was placed in dorsal lithotomy position and prepped and draped in usual sterile fashion. Resectoscope was inserted in urethral meatus and advanced into the bladder. The bladder was thoroughly examined. The friable tissue was still seen on the left lateral wall. The majority of this tissue was removed using bipolar loop. Any other areas that looked concerning for possible tumor were removed as well using loop. Once done the area of resection was cauterized using coagulation current. Once satisfied with hemostasis I removed specimen from the bladder using Urovac evacuator. Once that was done the resectoscope was removed and an 18-Yemeni Zee catheter was inserted into the bladder. The balloon was filled with 10 mL of sterile water and the catheter was connected to gravity drainage. This marked the conclusion of the procedure. The patient was taken out of the dorsal lithotomy position, awakened from anesthesia and transferred to the recovery room in stable condition. ESTIMATED BLOOD LOSS: 5 mL. COMPLICATIONS: None. SPECIMENS: Bladder tumors. PLAN: The patient will follow up in urology clinic in approximately one week for catheter removal and to discuss pathology results.
[2021-08-14 16:26] VITALS: BP 142/67
== END 2021-08-14 16:30 | disposition home or self-care (01) ==
LOC: M SDC 09:37
PROVIDERS: ATTEND Urology
DX: C67.2 Malignant neoplasm of lateral wall of bladder (principal); E11.40 Type 2 diabetes mellitus with diabetic neuropathy, unspecified; I12.9 Hypertensive chronic kidney disease with stage 1 through stage 4 chronic kidney disease, or unspecified chronic kidney disease; E78.2 Mixed hyperlipidemia; D47.2 Monoclonal gammopathy; N18.31 Chronic kidney disease, stage 3a; G62.9 Polyneuropathy, unspecified; R12 Heartburn; R06.83 Snoring; Z87.891 Personal history of nicotine dependence; Z79.899 Other long term (current) drug therapy; Z79.82 Long term (current) use of aspirin; Z79.84 Long term (current) use of oral hypoglycemic drugs
CPT/HCPCS: 52235; 88305; J0131; J0690; J1100; J2250; J2370; J2405; J3010

== ENCOUNTER → 2021-09-10 | Outpatient (REF) | payer MEDICARE, OTHER ==
[~2021-09-10] MED LIST changes: -LR 1,000 ML IV ONE; -ceFAZolin SOD 2 GM in IV 1 EA IV ONE
[2021-09-10 14:15] LABS: MAGNESIUM LEVEL 1.9 MG/DL (1.8-2.4); PERCENT SATURATION 13.1 % (13.2-45.0)
== END ==
LOC: M LAB REF 13:02
PROVIDERS: ATTEND Nurse Practitioner Family
DX: D50.9 Iron deficiency anemia, unspecified (principal); N18.32 Chronic kidney disease, stage 3b

== ENCOUNTER → 2021-09-23 | Outpatient (CLI) | payer MEDICARE, OTHER ==
[~2021-09-23] MED LIST changes: +LOSA25TA13 PO; -LOSA25TA14 PO; +LOSA50TA28 PO; -LOSA50TA88 PO
[2021-09-23 10:41] LABS: BASO # 0.1 10^3/uL (0.0-0.2); BASO % 0.7 % (0.0-1.0); EOS # 0.2 10^3/uL (0.0-0.5); EOS % 2.2 % (0.0-3.0); HEMATOCRIT 38.9 % (36.0-47.0); HEMOGLOBIN 12.5 g/dl (12.0-15.5); LYMPH # 1.5 10^3/uL (1.5-5.0); LYMPH % 16.7 % (24.0-44.0); MEAN CORPUSCULAR HEMOGLOBIN 28.9 pg (27.0-33.0); MEAN CORPUSCULAR HGB CONC 32.1 g/dl (32.0-36.5); MEAN CORPUSCULAR VOLUME 89.8 fl (80.0-96.0); MONO # 0.5 10^3/uL (0.0-0.8); MONO % 5.5 % (2.0-8.0); NEUTROPHILS # 6.7 10^3/uL (1.5-8.5); NEUTROPHILS % 74.6 % (36.0-66.0); PLATELET COUNT, AUTOMATED 272 10^3/uL (150-450); RED BLOOD COUNT 4.33 10^6/uL (4.00-5.40)
[2021-09-23 11:48] LABS: ALBUMIN 3.7 GM/DL (3.2-5.2); BILIRUBIN,TOTAL 0.3 MG/DL (0.2-1.0); CALCIUM LEVEL 9.6 MG/DL (8.8-10.2); CHOLESTEROL RISK RATIO 3.344 (<5); CREATININE FOR GFR 1.23 MG/DL (0.55-1.30); FREE T4 1.12 NG/DL (0.76-1.46); GLOMERULAR FILTRATION RATE 45.8 (>39); POTASSIUM SERUM 4.5 MEQ/L (3.5-5.1); THYROID STIMULATING HORMONE 2.03 uIU/ML (0.358-3.740); TOTAL PROTEIN 7.4 GM/DL (6.4-8.2)
== END ==
LOC: M PLALAB 09:17
PROVIDERS: ATTEND Nurse Practitioner Family
DX: E78.2 Mixed hyperlipidemia (principal); E11.9 Type 2 diabetes mellitus without complications; I10 Essential (primary) hypertension

== ENCOUNTER → 2021-09-23 | Outpatient (CLI) | payer MEDICARE, OTHER ==
[2021-09-23 10:44] LABS: HEMATOCRIT 38.7 % (36.0-47.0); HEMOGLOBIN 12.5 g/dl (12.0-15.5); MEAN CORPUSCULAR HGB CONC 32.3 g/dl (32.0-36.5); MEAN CORPUSCULAR VOLUME 89.8 fl (80.0-96.0); PLATELET COUNT, AUTOMATED 272 10^3/uL (150-450); RED BLOOD COUNT 4.31 10^6/uL (4.00-5.40); WHITE BLOOD COUNT 9.1 10^3/uL (4.0-10.0)
[2021-09-23 11:24] LABS: ALBUMIN 3.7 GM/DL (3.2-5.2); BILIRUBIN,TOTAL 0.2 MG/DL (0.2-1.0); CALCIUM LEVEL 9.4 MG/DL (8.8-10.2); CREATININE FOR GFR 1.2 MG/DL (0.55-1.30); GLOMERULAR FILTRATION RATE 47.1 (>39); POTASSIUM SERUM 4.5 MEQ/L (3.5-5.1); TOTAL PROTEIN 7.4 GM/DL (6.4-8.2)
[2021-09-23 13:48] LABS: APPEARANCE, URINE HAZY (CLEAR); BACTERIA, URINE AUTO NEGATIVE (NEGATIVE); BILIRUBIN, URINE AUTO NEGATIVE (NEGATIVE); BLOOD, URINE BLOOD NEGATIVE (NEGATIVE); COLOR, URINE YELLOW (YELLOW); GLUCOSE, URINE (UA) AUTO NEGATIVE (NEGATIVE); KETONE, URINE AUTO NEGATIVE (NEGATIVE); LEUKOCYTE ESTERASE, URINE AUTO 2+ (NEGATIVE); MUCUS, URINE SMALL (NEGATIVE); NITRITE, URINE AUTO NEGATIVE (NEGATIVE); PROTEIN, URINE AUTO 2+ mg/dL (NEGATIVE); RBC, URINE AUTO 2 /HPF (0-3); SPECIFIC GRAVITY URINE AUTO 1.014 (1.002-1.035); SQUAMOUS EPITHELIAL CELL UR AU 0 /HPF (0-6); TRIPLE PHOSPHATE CRYSTALS SMALL; UROBILINOGEN, URINE AUTO 0.2 mg/dL (0.0-2.0); WBC, URINE AUTO 4 /HPF (0-3)
== END ==
LOC: M PLALAB 09:19
PROVIDERS: ATTEND Urology
DX: C67.9 Malignant neoplasm of bladder, unspecified (principal); Z79.899 Other long term (current) drug therapy

== ENCOUNTER → 2021-10-15 | Outpatient (REF) | payer MEDICARE, OTHER ==
[2021-10-15 13:22] LABS: APPEARANCE, URINE CLOUDY (CLEAR); BACTERIA, URINE AUTO NEGATIVE (NEGATIVE); BILIRUBIN, URINE AUTO NEGATIVE (NEGATIVE); BLOOD, URINE BLOOD NEGATIVE (NEGATIVE); CALCIUM OXALATE CRYSTALS SMALL; COLOR, URINE YELLOW (YELLOW); GLUCOSE, URINE (UA) AUTO NEGATIVE (NEGATIVE); KETONE, URINE AUTO NEGATIVE (NEGATIVE); LEUKOCYTE ESTERASE, URINE AUTO 2+ (NEGATIVE); MUCUS, URINE SMALL (NEGATIVE); NITRITE, URINE AUTO NEGATIVE (NEGATIVE); PROTEIN, URINE AUTO 2+ mg/dL (NEGATIVE); RBC, URINE AUTO 6 /HPF (0-3); SPECIFIC GRAVITY URINE AUTO 1.016 (1.002-1.035); SQUAMOUS EPITHELIAL CELL UR AU 3 /HPF (0-6); UROBILINOGEN, URINE AUTO 0.2 mg/dL (0.0-2.0); WBC, URINE AUTO 2 /HPF (0-3)
== END ==
LOC: M SMT 12:43
PROVIDERS: ATTEND Urology
DX: N39.0 Urinary tract infection, site not specified (principal)

== ENCOUNTER → 2021-11-05 | Outpatient (REF) | payer MEDICARE, OTHER ==
[2021-11-05 14:02] LABS: APPEARANCE, URINE CLEAR (CLEAR); BACTERIA, URINE AUTO 1+ (NEGATIVE); BILIRUBIN, URINE AUTO NEGATIVE (NEGATIVE); BLOOD, URINE BLOOD 1+ (NEGATIVE); COLOR, URINE YELLOW (YELLOW); GLUCOSE, URINE (UA) AUTO NEGATIVE (NEGATIVE); KETONE, URINE AUTO NEGATIVE (NEGATIVE); LEUKOCYTE ESTERASE, URINE AUTO NEGATIVE (NEGATIVE); NITRITE, URINE AUTO NEGATIVE (NEGATIVE); PROTEIN, URINE AUTO NEGATIVE (NEGATIVE); RBC, URINE AUTO 2 /HPF (0-3); SPECIFIC GRAVITY URINE AUTO 1.011 (1.002-1.035); SQUAMOUS EPITHELIAL CELL UR AU 9 /HPF (0-6); UROBILINOGEN, URINE AUTO 0.2 mg/dL (0.0-2.0); WBC, URINE AUTO 4 /HPF (0-3)
== END ==
LOC: M SMT 12:47
PROVIDERS: ATTEND Urology
DX: N39.0 Urinary tract infection, site not specified (principal)

== ENCOUNTER → 2021-11-16 | Outpatient (REF) | payer MEDICARE, OTHER ==
[2021-11-16 13:24] LABS: APPEARANCE, URINE CLEAR (CLEAR); BACTERIA, URINE AUTO NEGATIVE (NEGATIVE); BILIRUBIN, URINE AUTO NEGATIVE (NEGATIVE); BLOOD, URINE BLOOD NEGATIVE (NEGATIVE); COLOR, URINE YELLOW (YELLOW); GLUCOSE, URINE (UA) AUTO 3+ mg/dL (NEGATIVE); KETONE, URINE AUTO NEGATIVE (NEGATIVE); LEUKOCYTE ESTERASE, URINE AUTO NEGATIVE (NEGATIVE); MUCUS, URINE SMALL (NEGATIVE); NITRITE, URINE AUTO NEGATIVE (NEGATIVE); PROTEIN, URINE AUTO NEGATIVE (NEGATIVE); RBC, URINE AUTO 1 /HPF (0-3); SPECIFIC GRAVITY URINE AUTO 1.012 (1.002-1.035); SQUAMOUS EPITHELIAL CELL UR AU 2 /HPF (0-6); TRANSITIONAL EPITHELIAL AUTO <1 /HPF; UROBILINOGEN, URINE AUTO 0.2 mg/dL (0.0-2.0); WBC, URINE AUTO 4 /HPF (0-3)
== END ==
LOC: M SMT 13:06
PROVIDERS: ATTEND Urology
DX: C67.9 Malignant neoplasm of bladder, unspecified (principal)

== ENCOUNTER → 2021-11-23 | Outpatient (REF) | payer MEDICARE, OTHER ==
[2021-11-24 13:11] LABS: APPEARANCE, URINE HAZY (CLEAR); BACTERIA, URINE AUTO NEGATIVE (NEGATIVE); BILIRUBIN, URINE AUTO NEGATIVE (NEGATIVE); BLOOD, URINE BLOOD 1+ (NEGATIVE); COLOR, URINE YELLOW (YELLOW); GLUCOSE, URINE (UA) AUTO NEGATIVE (NEGATIVE); KETONE, URINE AUTO NEGATIVE (NEGATIVE); LEUKOCYTE ESTERASE, URINE AUTO 2+ (NEGATIVE); MUCUS, URINE SMALL (NEGATIVE); NITRITE, URINE AUTO NEGATIVE (NEGATIVE); PROTEIN, URINE AUTO NEGATIVE (NEGATIVE); RBC, URINE AUTO 2 /HPF (0-3); SPECIFIC GRAVITY URINE AUTO 1.014 (1.002-1.035); SQUAMOUS EPITHELIAL CELL UR AU 2 /HPF (0-6); UROBILINOGEN, URINE AUTO 0.2 mg/dL (0.0-2.0); WBC, URINE AUTO 65 /HPF (0-3)
== END ==
LOC: M SMT 12:42
PROVIDERS: ATTEND Urology
DX: C67.9 Malignant neoplasm of bladder, unspecified (principal); Z79.899 Other long term (current) drug therapy

== ENCOUNTER → 2021-11-30 | Outpatient (REF) | payer MEDICARE, OTHER ==
[2021-11-30 13:15] LABS: APPEARANCE, URINE HAZY (CLEAR); BACTERIA, URINE AUTO 1+ (NEGATIVE); BILIRUBIN, URINE AUTO NEGATIVE (NEGATIVE); BLOOD, URINE BLOOD NEGATIVE (NEGATIVE); COLOR, URINE YELLOW (YELLOW); GLUCOSE, URINE (UA) AUTO 3+ mg/dL (NEGATIVE); KETONE, URINE AUTO TRACE mg/dL (NEGATIVE); LEUKOCYTE ESTERASE, URINE AUTO TRACE (NEGATIVE); MUCUS, URINE SMALL (NEGATIVE); NITRITE, URINE AUTO NEGATIVE (NEGATIVE); PROTEIN, URINE AUTO NEGATIVE (NEGATIVE); RBC, URINE AUTO 1 /HPF (0-3); SPECIFIC GRAVITY URINE AUTO 1.013 (1.002-1.035); SQUAMOUS EPITHELIAL CELL UR AU 2 /HPF (0-6); UROBILINOGEN, URINE AUTO 0.2 mg/dL (0.0-2.0); WBC, URINE AUTO 20 /HPF (0-3)
== END ==
LOC: M SMT 12:25
PROVIDERS: ATTEND Urology
DX: C67.9 Malignant neoplasm of bladder, unspecified (principal)

== ENCOUNTER → 2021-12-07 | Outpatient (REF) | payer MEDICARE, OTHER ==
[2021-12-07 13:25] LABS: AMORPHOUS SEDIMENT MODERATE (NEGATIVE); APPEARANCE, URINE CLOUDY (CLEAR); BACTERIA, URINE AUTO NEGATIVE (NEGATIVE); BILIRUBIN, URINE AUTO NEGATIVE (NEGATIVE); BLOOD, URINE BLOOD 1+ (NEGATIVE); COLOR, URINE YELLOW (YELLOW); GLUCOSE, URINE (UA) AUTO 3+ mg/dL (NEGATIVE); KETONE, URINE AUTO NEGATIVE (NEGATIVE); LEUKOCYTE ESTERASE, URINE AUTO 3+ (NEGATIVE); NITRITE, URINE AUTO NEGATIVE (NEGATIVE); PROTEIN, URINE AUTO 1+ mg/dL (NEGATIVE); RBC, URINE AUTO 13 /HPF (0-3); SPECIFIC GRAVITY URINE AUTO 1.015 (1.002-1.035); SQUAMOUS EPITHELIAL CELL UR AU 7 /HPF (0-6); UROBILINOGEN, URINE AUTO 0.2 mg/dL (0.0-2.0); WBC, URINE AUTO TNTC /HPF (0-3)
== END ==
LOC: M SMT 12:50
PROVIDERS: ATTEND Urology
DX: C67.9 Malignant neoplasm of bladder, unspecified (principal)

== ENCOUNTER → 2021-12-14 | Outpatient (REF) | payer MEDICARE, OTHER ==
[2021-12-14 13:39] LABS: AMORPHOUS SEDIMENT SMALL (NEGATIVE); APPEARANCE, URINE CLOUDY (CLEAR); BACTERIA, URINE AUTO NEGATIVE (NEGATIVE); BILIRUBIN, URINE AUTO NEGATIVE (NEGATIVE); BLOOD, URINE BLOOD 1+ (NEGATIVE); COLOR, URINE YELLOW (YELLOW); GLUCOSE, URINE (UA) AUTO 1+ mg/dL (NEGATIVE); KETONE, URINE AUTO TRACE mg/dL (NEGATIVE); LEUKOCYTE ESTERASE, URINE AUTO 3+ (NEGATIVE); NITRITE, URINE AUTO NEGATIVE (NEGATIVE); PROTEIN, URINE AUTO 1+ mg/dL (NEGATIVE); RBC, URINE AUTO 12 /HPF (0-3); SPECIFIC GRAVITY URINE AUTO 1.015 (1.002-1.035); SQUAMOUS EPITHELIAL CELL UR AU 3 /HPF (0-6); UROBILINOGEN, URINE AUTO 0.2 mg/dL (0.0-2.0); WBC, URINE AUTO TNTC /HPF (0-3)
== END ==
LOC: M SMT 12:44
PROVIDERS: ATTEND Urology
DX: C67.9 Malignant neoplasm of bladder, unspecified (principal)

== ENCOUNTER → 2022-02-15 | Outpatient (REF) | payer MEDICARE, OTHER | LOC: M SMT 17:04 | PROVIDERS: ATTEND Urology | DX: C67.9 Malignant neoplasm of bladder, unspecified (principal) ==

== ENCOUNTER → 2022-03-24 | Outpatient (REF) | payer MEDICARE, OTHER ==
[2022-03-24 19:43] LABS: ALBUMIN 3.8 GM/DL (3.2-5.2); CALCIUM LEVEL 9.6 MG/DL (8.8-10.2); CREATININE FOR GFR 1.3 MG/DL (0.55-1.30); PHOSPHORUS LEVEL 3.2 MG/DL (2.5-4.9); POTASSIUM SERUM 4.2 MEQ/L (3.5-5.1); URIC ACID 5.4 MG/DL (2.6-6.0)
== END ==
LOC: M LAB REF 17:00
PROVIDERS: ATTEND Nurse Practitioner Family
DX: N18.32 Chronic kidney disease, stage 3b (principal)

== ENCOUNTER → 2022-03-30 | Outpatient (CLI) | payer MEDICARE, OTHER ==
[2022-03-30 14:19] LABS: CHOLESTEROL RISK RATIO 3.065 (<5); FREE T4 0.97 NG/DL (0.76-1.46); THYROID STIMULATING HORMONE 1.93 uIU/ML (0.358-3.740)
== END ==
LOC: M PLALAB 09:10
PROVIDERS: ATTEND Nurse Practitioner Family
DX: E11.9 Type 2 diabetes mellitus without complications (principal); E78.2 Mixed hyperlipidemia

== ENCOUNTER → 2022-05-28 | Outpatient (REF) | payer MEDICARE, OTHER | LOC: M SMT 17:20 | PROVIDERS: ATTEND Urology | DX: C67.9 Malignant neoplasm of bladder, unspecified (principal) ==

== ENCOUNTER → 2022-07-13 | Outpatient (CLI) | payer MEDICARE, OTHER | LOC: M WHC 08:56 | PROVIDERS: ATTEND Nurse Practitioner Family | DX: Z12.31 Encounter for screening mammogram for malignant neoplasm of breast (principal) ==

== ENCOUNTER → 2022-08-23 | Outpatient (REF) | payer MEDICARE, OTHER ==
[~2022-08-23] MED LIST changes: +NITR100C2; +SITA50TAB
== END ==
LOC: M SMT 15:02
PROVIDERS: ATTEND Urology
DX: C67.9 Malignant neoplasm of bladder, unspecified (principal); N39.0 Urinary tract infection, site not specified

== ENCOUNTER → 2022-09-07 | Outpatient (CLI) | payer MEDICARE, OTHER ==
[2022-09-07 15:29] LABS: HEMATOCRIT 41.4 % (36.0-47.0); HEMOGLOBIN 13.2 g/dl (12.0-15.5); MEAN CORPUSCULAR HEMOGLOBIN 28.5 pg (27.0-33.0); MEAN CORPUSCULAR HGB CONC 31.9 g/dl (32.0-36.5); MEAN CORPUSCULAR VOLUME 89.4 fl (80.0-96.0); PLATELET COUNT, AUTOMATED 307 10^3/uL (150-450); RED BLOOD COUNT 4.63 10^6/uL (4.00-5.40); WHITE BLOOD COUNT 8.5 10^3/uL (4.0-10.0)
[2022-09-07 15:49] LABS: CALCIUM LEVEL 9.8 MG/DL (8.3-10.6); CREATININE FOR GFR 1.07 MG/DL (0.55-1.30); GLOMERULAR FILTRATION RATE 53.7 (>39); POTASSIUM SERUM 4.1 MMOL/L (3.5-5.1)
== END ==
LOC: M PLALAB 13:18
PROVIDERS: ATTEND Urology
DX: Z01.818 Encounter for other preprocedural examination (principal); C67.9 Malignant neoplasm of bladder, unspecified; N39.0 Urinary tract infection, site not specified

== ENCOUNTER → 2022-09-10 | Outpatient (CLI) | payer MEDICARE, OTHER | LOC: M PLAIMG 08:22 | PROVIDERS: ATTEND Family Medicine | DX: Z01.810 Encounter for preprocedural cardiovascular examination (principal) ==

== ENCOUNTER → 2022-09-13 | Outpatient (CLI) | payer MEDICARE, OTHER | LOC: M LABSMTC 10:17 | PROVIDERS: ATTEND Anesthesiology | DX: Z01.818 Encounter for other preprocedural examination (principal) ==

== ENCOUNTER → 2022-09-14 | Outpatient (REF) | payer MEDICARE, OTHER ==
[~2022-09-14] MED LIST changes: +BACT800T5 PO; +OXYC1TAB23 PO
[2022-09-14 18:45] LABS: CREATININE, URINE 55.6 MG/DL
== END ==
LOC: M LAB REF 16:56
PROVIDERS: ATTEND Nurse Practitioner Family
DX: E11.22 Type 2 diabetes mellitus with diabetic chronic kidney disease (principal)

== ENCOUNTER 2022-09-15 08:02 | Day surgery (SDC) | payer MEDICARE, OTHER ==
[~2022-09-15] VITALS: Ht 149.9 cm; Wt 65.8 kg
[~2022-09-15 08:02] MED LIST changes: -BACT800T5 PO; -OXYC1TAB23 PO; +ceFAZolin SOD 2 GM in IV 1 EA IV ONE
[2022-09-15] MEDS ORDERED: LR 1,000 ML IV SCH ×2 (08:45→12:40)
[2022-09-15] MEDS ORDERED: INSULIN LISPRO (NovoLOG) PER UNIT SC ONE (09:05)
[2022-09-15] MEDS ORDERED: LIDOCAINE 2% 100MG/5ML SDV (FOR ANES.) As Ordered ONE (10:29)
[2022-09-15] MEDS ORDERED: ROCURONIUM BROMIDE 50MG/5ML VIAL As Ordered ONE (10:29)
[2022-09-15] MEDS ORDERED: KETOROLAC 60MG 2ML VIAL As Ordered ONE (10:29)
[2022-09-15] MEDS ORDERED: ONDANSETRON 4MG 2ML VIAL As Ordered ONE (10:29)
[2022-09-15] MEDS ORDERED: propofoL 200 MG/20 ML VIAL As Ordered ONE (10:29)
[2022-09-15] MEDS ORDERED: SUGAMMADEX SODIUM 500 MG/5 ML VIAL (BRIDION) As Ordered ONE (10:29)
[2022-09-15] MEDS ORDERED: MIDAZOLAM INJ 2MG/2ML VIAL As Ordered ONE (10:30)
[2022-09-15] MEDS ORDERED: fentaNYL 100 MCG/2 ML INJECTION As Ordered ONE ×2 (10:30→12:14)
[2022-09-15] MEDS ORDERED: ONDANSETRON 4MG 2ML VIAL IV PRN (12:40)
[2022-09-15] MEDS ORDERED: fentaNYL 100 MCG/2 ML INJECTION IV PRN (12:40)
[2022-09-15] MEDS ORDERED: HYDROMORPHONE HCL 0.5 MG/ 0.5 ML SYRINGE IV PRN (12:40)
[2022-09-15] MEDS ORDERED: oxyCODONE 5MG TAB PO PRN (12:40)
[2022-09-15] MEDS ORDERED: BACT800T5 PO (13:10)
[2022-09-15] MEDS ORDERED: oxyBUTYnin 5 MG TAB PO PRN (13:20)
[2022-09-15] MEDS ORDERED: OXYC1TAB23 PO (14:25)
[2022-09-15 14:45] VITALS: BP 159/69
== END 2022-09-15 14:50 | disposition home or self-care (01) ==
LOC: M SDC 08:02
PROVIDERS: ATTEND Urology
DX: C67.9 Malignant neoplasm of bladder, unspecified (principal); I12.9 Hypertensive chronic kidney disease with stage 1 through stage 4 chronic kidney disease, or unspecified chronic kidney disease; E78.00 Pure hypercholesterolemia, unspecified; E11.9 Type 2 diabetes mellitus without complications; K21.9 Gastro-esophageal reflux disease without esophagitis; N18.9 Chronic kidney disease, unspecified; Z87.891 Personal history of nicotine dependence; Z79.899 Other long term (current) drug therapy; Z79.82 Long term (current) use of aspirin; Z79.84 Long term (current) use of oral hypoglycemic drugs
CPT/HCPCS: 52240; 88307; J1100; J1815; J2405

== ENCOUNTER → 2022-10-04 | Outpatient (CLI) | payer MEDICARE, OTHER ==
[~2022-10-04] MED LIST changes: +BACT800T5 PO; +ISOVUE-370 76% 100ML VIAL As Ordered ONE; +OXYC1TAB23 PO; -ceFAZolin SOD 2 GM in IV 1 EA IV ONE
== END ==
LOC: M RAD 07:33
PROVIDERS: ATTEND Nurse Practitioner Women's Health
DX: C67.9 Malignant neoplasm of bladder, unspecified (principal)
CPT/HCPCS: 74178; Q9967

== ENCOUNTER → 2022-11-18 | Outpatient (CLI) | payer MEDICARE, OTHER | LOC: M RAD 13:04 | PROVIDERS: ATTEND Internal Medicine Hematology & Oncology | DX: C67.9 Malignant neoplasm of bladder, unspecified (principal); R91.8 Other nonspecific abnormal finding of lung field; K80.00 Calculus of gallbladder with acute cholecystitis without obstruction | CPT/HCPCS: 71260; Q9967 ==

== ENCOUNTER → 2022-12-08 | Outpatient (CLI) | payer MEDICARE, OTHER ==
[~2022-12-08] MED LIST changes: -ISOVUE-370 76% 100ML VIAL As Ordered ONE; +ONDA8TAB8 PO; +PROC10TA5 PO
[2022-12-08 14:09] LABS: BASO % 0.1 % (0.0-1.0); EOS # 0.1 10^3/uL (0.0-0.5); EOS % 1.8 % (0.0-3.0); HEMATOCRIT 33.2 % (36.0-47.0); HEMOGLOBIN 10.3 g/dl (12.0-15.5); LYMPH # 1.8 10^3/uL (1.5-5.0); LYMPH % 25.2 % (24.0-44.0); MEAN CORPUSCULAR HEMOGLOBIN 28.6 pg (27.0-33.0); MEAN CORPUSCULAR VOLUME 92.2 fl (80.0-96.0); MONO # 0.1 10^3/uL (0.0-0.8); MONO % 1.9 % (2.0-8.0); NEUTROPHILS # 5.1 10^3/uL (1.5-8.5); NEUTROPHILS % 70.4 % (36.0-66.0); PLATELET COUNT, AUTOMATED 120 10^3/uL (150-450); WHITE BLOOD COUNT 7.3 10^3/uL (4.0-10.0)
[2022-12-08 14:27] LABS: ALBUMIN 3.3 G/DL (3.2-5.2); BILIRUBIN,TOTAL 0.2 MG/DL (0.3-1.2); CALCIUM LEVEL 8.9 MG/DL (8.3-10.6); CHOLESTEROL RISK RATIO 2.74 (<5); CREATININE FOR GFR 1.17 MG/DL (0.55-1.30); GLOMERULAR FILTRATION RATE 48.4 (>39); HDL CHOLESTEROL 61.6 MG/DL (>40); LDL CHOLESTEROL 73.4 MG/DL (<100); NON-HDL-C 107.4 MG/DL; POTASSIUM SERUM 4.2 MMOL/L (3.5-5.1); TOTAL PROTEIN 6.2 G/DL (5.7-8.2)
[2022-12-08 14:39] LABS: CREATININE, URINE 63.6 MG/DL; MAU/CREAT RATIO 116.3 MCG/MG (0.0-30.0)
[2022-12-08 14:43] LABS: HEMOGLOBIN A1c 7.9 % (4.0-6.0)
== END ==
LOC: M PLALAB 09:24
PROVIDERS: ATTEND Nurse Practitioner Family
DX: E11.9 Type 2 diabetes mellitus without complications (principal)

== ENCOUNTER → 2022-12-16 | Outpatient (CLI) | payer MEDICARE, OTHER ==
[~2022-12-16] MED LIST changes: +LIDOCAINE 1% MDV 20ML VIAL As Ordered ONE; +MIDAZOLAM INJ 2MG/2ML VIAL As Ordered ONE; +NS 1,000 ML IV SCH; +ceFAZolin 2 GM/D5W 50 ML IV BAG As Ordered ONE; +ceFAZolin SOD 2 GM in IV 1 EA IV ONE; +diphenhydrAMINE 50MG/ML VIAL As Ordered ONE; +fentaNYL 100 MCG/2 ML INJECTION As Ordered ONE
[2022-12-16 10:58] LABS: INR 0.96
[2022-12-16 14:30] VITALS: BP 140/68
== END ==
LOC: M IRPRO 10:09
PROVIDERS: ATTEND Internal Medicine Hematology & Oncology
DX: C67.9 Malignant neoplasm of bladder, unspecified (principal)
CPT/HCPCS: 36561; 85610; 99152; 99153; C1769; C1788; C1887; C1894; J0690; J1200; J2250; J3010

== ENCOUNTER → 2023-01-04 | Outpatient (POV) | payer MEDICARE, OTHER ==
[~2023-01-04] VITALS: Ht 149.9 cm; Wt 68.1 kg
[~2023-01-04] MED LIST changes: -LIDOCAINE 1% MDV 20ML VIAL As Ordered ONE; -MIDAZOLAM INJ 2MG/2ML VIAL As Ordered ONE; -NS 1,000 ML IV SCH; -ceFAZolin 2 GM/D5W 50 ML IV BAG As Ordered ONE; -ceFAZolin SOD 2 GM in IV 1 EA IV ONE; -diphenhydrAMINE 50MG/ML VIAL As Ordered ONE; -fentaNYL 100 MCG/2 ML INJECTION As Ordered ONE
[2023-01-04 15:40] VITALS: BP 148/84
== END ==
LOC: M IRPOV 15:30
PROVIDERS: ATTEND Radiology Diagnostic Radiology
DX: Z45.2 Encounter for adjustment and management of vascular access device (principal)

== ENCOUNTER → 2023-04-19 | Outpatient (CLI) | payer MEDICARE, OTHER ==
[~2023-04-19] MED LIST changes: +CARV25TA PO; +CHOL100013 PO; +CVS500CA5 PO; +D31000TA PO; +HYDR12.55 PO; +LOSA100T46 PO; +OXYB5TAB10 PO; -SITA50TAB; +SITA50TAB PO; +STOO240C PO
[2023-04-19 15:57] LABS: HEMATOCRIT 35.4 % (36.0-47.0); HEMOGLOBIN 11.7 g/dl (12.0-15.5); MEAN CORPUSCULAR HEMOGLOBIN 30.8 pg (27.0-33.0); MEAN CORPUSCULAR HGB CONC 33.1 g/dl (32.0-36.5); MEAN CORPUSCULAR VOLUME 93.2 fl (80.0-96.0); PLATELET COUNT, AUTOMATED 228 10^3/uL (150-450); WHITE BLOOD COUNT 7.2 10^3/uL (4.0-10.0)
[2023-04-19 16:12] LABS: PROTHROMBIN TIME 13.4 SECONDS (12.5-14.5)
[2023-04-19 16:17] LABS: ALBUMIN 3.7 G/DL (3.2-5.2); ALKALINE PHOSPHATASE 146 U/L (46-116); ALT/SGPT 15 U/L (7.0-40); AST/SGOT < 8 U/L (<34); BILIRUBIN,TOTAL 0.3 MG/DL (0.3-1.2); BLOOD UREA NITROGEN 30 MG/DL (9-23); CALCIUM LEVEL 10.2 MG/DL (8.3-10.6); CARBON DIOXIDE LEVEL 33 MMOL/L (20-31); CHLORIDE LEVEL 98 MMOL/L (98-107); CREATININE FOR GFR 1.09 MG/DL (0.55-1.30); GLOMERULAR FILTRATION RATE 52.5 (>39); GLUCOSE, FASTING 272 MG/DL (74-106); POTASSIUM SERUM 4.5 MMOL/L (3.5-5.1); SODIUM LEVEL 138 MMOL/L (136-145); TOTAL PROTEIN 7.4 G/DL (5.7-8.2)
== END ==
LOC: M PLALAB 13:30
PROVIDERS: ATTEND Urology
DX: C67.9 Malignant neoplasm of bladder, unspecified (principal)

== ENCOUNTER → 2023-04-21 | Outpatient (CLI) | payer MEDICARE, OTHER ==
[~2023-04-21] MED LIST changes: +DOCU100C16 PO
[2023-04-22 11:32] LABS: APPEARANCE, URINE CLOUDY (CLEAR); BACTERIA, URINE AUTO 1+ (NEGATIVE); BILIRUBIN, URINE AUTO NEGATIVE (NEGATIVE); BLOOD, URINE BLOOD 1+ (NEGATIVE); COLOR, URINE YELLOW (YELLOW); GLUCOSE, URINE (UA) AUTO 3+ mg/dL (NEGATIVE); KETONE, URINE AUTO NEGATIVE (NEGATIVE); LEUKOCYTE ESTERASE, URINE AUTO 3+ (NEGATIVE); MUCUS, URINE SMALL (NEGATIVE); NITRITE, URINE AUTO NEGATIVE (NEGATIVE); PROTEIN, URINE AUTO 2+ mg/dL (NEGATIVE); RBC, URINE AUTO 11 /HPF (0-3); SPECIFIC GRAVITY URINE AUTO 1.016 (1.002-1.035); SQUAMOUS EPITHELIAL CELL UR AU 3 /HPF (0-6); TRIPLE PHOSPHATE CRYSTALS SMALL; UROBILINOGEN, URINE AUTO 0.2 mg/dL (0.0-2.0); WBC, URINE AUTO TNTC /HPF (0-3)
== END ==
LOC: M PLAIMG 16:24
PROVIDERS: ATTEND Family Medicine
DX: Z01.818 Encounter for other preprocedural examination (principal); I10 Essential (primary) hypertension; E11.9 Type 2 diabetes mellitus without complications; Z79.899 Other long term (current) drug therapy

== ENCOUNTER 2023-05-02 08:03 | Inpatient (IN) | payer MEDICARE, OTHER ==
[2023-05-02] VITALS (13 sets, daily range): BP systolic 100–143; BP diastolic 55–78; TEMP 96.6–97.7; O2SAT 92–96
[~2023-05-02] VITALS: Ht 149.9 cm; Wt 71.9 kg
[~2023-05-02 08:03] MED LIST changes: -DOCU100C16 PO; +ceFAZolin SOD 2 GM in IV 1 EA IV ONE
[2023-05-02] MEDS ORDERED: LR 1,000 ML IV SCH ×2 (08:45→14:35)
[2023-05-02] MEDS ORDERED: HEPARIN SOD (PORCINE) 5000UNITS/ML 1ML VIAL/SYRINGE SQ ONE (09:30)
[2023-05-02] MEDS ORDERED: fentaNYL 100 MCG/2 ML INJECTION As Ordered ONE (09:30)
[2023-05-02] MEDS ORDERED: INSULIN LISPRO (NovoLOG) PER UNIT SC PRN ×4 (09:35→16:25)
[2023-05-02] MEDS ORDERED: HYDROmorphone HCL 2MG/ML 1ML VIAL As Ordered ONE (11:01)
[2023-05-02] MEDS ORDERED: ONDANSETRON 4MG 2ML VIAL IV PRN (14:35)
[2023-05-02] MEDS ORDERED: ACETAMINOPHEN TAB 650MG DOSE (2X325MG) PO PRN (15:25)
[2023-05-02] MEDS ORDERED: oxyCODONE 5MG TAB PO PRN (15:25)
[2023-05-02] MEDS ORDERED: D5W/0.45% SODIUM CHLORIDE 1,000 ML IV SCH (15:25)
[2023-05-02] MEDS: fentaNYL 100 MCG/2 ML INJECTION IV PRN ×3 (15:26→15:46)
[2023-05-02] MEDS: NS 0.45% 1,000 ML IV SCH (17:16)
[2023-05-02] MEDS ORDERED: GLUCOSE 4GM CHEW TABLET PO PRN (18:00)
[2023-05-02] MEDS ORDERED: DEXTROSE 50% 50ML SYRINGE IV PRN (18:00)
[2023-05-02] MEDS ORDERED: GLUCAGON INJ 1MG VIAL SC PRN (18:00)
[2023-05-02] MEDS ORDERED: LABETALOL 100MG/20ML VIAL IV PRN (18:15)
[2023-05-02] MEDS: ceFAZolin SOD 2 GM in IV 1 EA IV SCH (18:32)
[2023-05-02] MEDS: INSULIN LISPRO (NovoLOG) PER UNIT SC SCH (18:33)
[2023-05-02 18:35] LABS: HEMATOCRIT 35.6 % (36.0-47.0); HEMOGLOBIN 11.6 g/dl (12.0-15.5); MEAN CORPUSCULAR HEMOGLOBIN 29.7 pg (27.0-33.0); MEAN CORPUSCULAR HGB CONC 32.6 g/dl (32.0-36.5); MEAN CORPUSCULAR VOLUME 91.3 fl (80.0-96.0); PLATELET COUNT, AUTOMATED 244 10^3/uL (150-450); WHITE BLOOD COUNT 13.5 10^3/uL (4.0-10.0)
[2023-05-02 18:58] LABS: BILIRUBIN,TOTAL 0.4 MG/DL (0.3-1.2); CALCIUM LEVEL 8.7 MG/DL (8.3-10.6); CREATININE FOR GFR 1.2 MG/DL (0.55-1.30); GLOMERULAR FILTRATION RATE 46.9 (>39); POTASSIUM SERUM 3.9 MMOL/L (3.5-5.1); TOTAL PROTEIN 6.2 G/DL (5.7-8.2)
[2023-05-02 19:15] LABS: BASOPHILS 1 % (0-1); LYMPHOCYTES 6 % (16-44); MONOCYTES 7 % (0-5); NEUTROPHILS 75 % (28-66); PLATELET ESTIMATE NORMAL (NORMAL)
[2023-05-02] MEDS: SIMVASTATIN 20 MG TAB PO SCH (20:59)
[2023-05-02] MEDS ORDERED: INSULIN LISPRO (NovoLOG) PER UNIT SC SCH (21:00)
[2023-05-02] MEDS: MORPHINE 2 MG/ML 1ML VIAL IV PRN (21:43)
[2023-05-03] VITALS (26 sets, daily range): BP systolic 132–156; BP diastolic 64–72; TEMP 97–97.9; O2SAT 92–95
[2023-05-03] MEDS ORDERED: MORPHINE 2 MG/ML 1ML VIAL IV ONE (01:00)
[2023-05-03] MEDS: NS 0.45% 1,000 ML IV SCH (01:15)
[2023-05-03] MEDS: ceFAZolin SOD 2 GM in IV 1 EA IV SCH ×3 (01:20→18:00)
[2023-05-03] MEDS: MORPHINE 2 MG/ML 1ML VIAL IV PRN (02:10)
[2023-05-03 02:31] LABS: HEMATOCRIT 32.3 % (36.0-47.0); HEMOGLOBIN 10.7 g/dl (12.0-15.5)
[2023-05-03] MEDS: HEPARIN SOD (PORCINE) 5000UNITS/ML 1ML VIAL/SYRINGE SQ SCH ×3 (05:22→21:35)
[2023-05-03] MEDS: INSULIN LISPRO (NovoLOG) PER UNIT SC SCH ×3 (07:30→17:59)
[2023-05-03 07:32] LABS: HEMATOCRIT 31.6 % (36.0-47.0); HEMOGLOBIN 10.4 g/dl (12.0-15.5); MEAN CORPUSCULAR HGB CONC 32.9 g/dl (32.0-36.5); MEAN CORPUSCULAR VOLUME 91.1 fl (80.0-96.0); PLATELET COUNT, AUTOMATED 190 10^3/uL (150-450); RED BLOOD COUNT 3.47 10^6/uL (4.00-5.40); WHITE BLOOD COUNT 14.7 10^3/uL (4.0-10.0)
[2023-05-03 07:57] LABS: ALBUMIN 2.5 G/DL (3.2-5.2); BILIRUBIN,TOTAL 0.2 MG/DL (0.3-1.2); CALCIUM LEVEL 7.9 MG/DL (8.3-10.6); CREATININE FOR GFR 1.36 MG/DL (0.55-1.30); GLOMERULAR FILTRATION RATE 40.6 (>39); MAGNESIUM LEVEL 1.2 MG/DL (1.8-2.4); POTASSIUM SERUM 4.4 MMOL/L (3.5-5.1); TOTAL PROTEIN 5.5 G/DL (5.7-8.2)
[2023-05-03 08:27] LABS: ATYPICAL LYMPH 2 % (0-5); LYMPHOCYTES 2 % (16-44); MONOCYTES 4 % (0-5); NEUTROPHILS 91 % (28-66); PLATELET ESTIMATE NORMAL (NORMAL)
[2023-05-03] MEDS: NS 1,000 ML IV SCH ×2 (09:54→16:25)
[2023-05-03] MEDS: MAG SULF 1GM/100ML (MAG RUN) 1 GM in IV 1 EA IV SCH ×5 (09:54→17:59)
[2023-05-03] MEDS: NORCO, ANEXSIA 5/325MG TABLET (HYDROcodone/ACETAMINOPHEN) PO PRN ×2 (09:55→15:14)
[2023-05-03] MEDS ORDERED: MORPHINE 4 MG/ML 1ML VIAL IV PRN (11:25)
[2023-05-03] MEDS ORDERED: MAGNESIUM SULFATE 1GM/100ML D5W BAG (10MG/ML) As Ordered ONE ×2 (16:23→17:53)
[2023-05-03] MEDS: SIMVASTATIN 20 MG TAB PO SCH (21:34)
[2023-05-03] MEDS: LEVEMIR (INSULIN DETEMIR) 1 UNITS/0.01ML SC SCH (21:35)
[2023-05-04] VITALS (9 sets, daily range): BP systolic 140–176; BP diastolic 64–85; TEMP 97.6–98.3; O2SAT 93–99
[2023-05-04] MEDS: NS 1,000 ML IV SCH ×3 (00:50→16:10)
[2023-05-04] MEDS: ceFAZolin SOD 2 GM in IV 1 EA IV SCH (01:07)
[2023-05-04] MEDS: INSULIN LISPRO (NovoLOG) PER UNIT SC SCH ×4 (01:07→18:34)
[2023-05-04 05:14] LABS: HEMATOCRIT 25.9 % (36.0-47.0); HEMOGLOBIN 8.5 g/dl (12.0-15.5); MEAN CORPUSCULAR HEMOGLOBIN 29.5 pg (27.0-33.0); MEAN CORPUSCULAR HGB CONC 32.8 g/dl (32.0-36.5); MEAN CORPUSCULAR VOLUME 89.9 fl (80.0-96.0); PLATELET COUNT, AUTOMATED 207 10^3/uL (150-450); RED BLOOD COUNT 2.88 10^6/uL (4.00-5.40); WHITE BLOOD COUNT 14.7 10^3/uL (4.0-10.0)
[2023-05-04 05:46] LABS: ALBUMIN 2.2 G/DL (3.2-5.2); ALKALINE PHOSPHATASE 93 U/L (46-116); ALT/SGPT < 9 U/L (7.0-40); AST/SGOT < 8 U/L (<34); BILIRUBIN,TOTAL 0.2 MG/DL (0.3-1.2); BLOOD UREA NITROGEN 27 MG/DL (9-23); CALCIUM LEVEL 8.1 MG/DL (8.3-10.6); CARBON DIOXIDE LEVEL 25 MMOL/L (20-31); CHLORIDE LEVEL 102 MMOL/L (98-107); CREATININE FOR GFR 1.11 MG/DL (0.55-1.30); GLOMERULAR FILTRATION RATE 51.3 (>39); GLUCOSE, FASTING 208 MG/DL (74-106); MAGNESIUM LEVEL 2.1 MG/DL (1.8-2.4); POTASSIUM SERUM 3.4 MMOL/L (3.5-5.1); SODIUM LEVEL 137 MMOL/L (136-145); TOTAL PROTEIN 5.3 G/DL (5.7-8.2)
[2023-05-04] MEDS: HEPARIN SOD (PORCINE) 5000UNITS/ML 1ML VIAL/SYRINGE SQ SCH ×3 (06:26→21:24)
[2023-05-04 06:27] LABS: LYMPHOCYTES 8 % (16-44); MONOCYTES 11 % (0-5); NEUTROPHILS 79 % (28-66); PLATELET ESTIMATE NORMAL (NORMAL); POLYCHROMASIA 1+
[2023-05-04 06:28] LABS: ANISOCYTOSIS 1+; MICROCYTOSIS 1+
[2023-05-04] MEDS: KCL 10MEQ/100ML SWI (KRUN) 10 MEQ in IV 1 EA IV SCH ×3 (08:20→10:51)
[2023-05-04] MEDS: LEVEMIR (INSULIN DETEMIR) 1 UNITS/0.01ML SC SCH ×2 (08:21→20:29)
[2023-05-04] MEDS: NORCO, ANEXSIA 5/325MG TABLET (HYDROcodone/ACETAMINOPHEN) PO PRN ×3 (08:21→14:09)
[2023-05-04] MEDS ORDERED: CARV12.5 PO (11:03)
[2023-05-04] MEDS ORDERED: DOCU100C16 PO (11:03)
[2023-05-04] MEDS ORDERED: HOME MED LIST COMPLETE! XX SCH (11:05)
[2023-05-04] MEDS: VITAMIN D 1,000 INTERNATIONAL UNITS TABLET PO SCH (12:36)
[2023-05-04] MEDS: CARVedilol 12.5 MG TAB PO SCH ×2 (12:36→20:29)
[2023-05-04] MEDS: ASPIRIN 81MG ENTERIC TABLET PO SCH (12:43)
[2023-05-04] MEDS ORDERED: MOM 30ML SUSPENSION UDC PO PRN (13:10)
[2023-05-04] MEDS ORDERED: MIRALAX *UNIT DOSE* 17GM PACKET PO PRN (13:10)
[2023-05-04] MEDS: SIMVASTATIN 20 MG TAB PO SCH (20:28)
[2023-05-04] MEDS: AMITRIPTYLINE 25MG TABLET PO SCH (20:28)
[2023-05-04] MEDS ORDERED: SENOKOT S TAB PO SCH (21:00)
[2023-05-05] VITALS (23 sets, daily range): BP systolic 133–188; BP diastolic 62–88; TEMP 97.8–98.3; O2SAT 93–96
[2023-05-05] MEDS: NS 1,000 ML IV SCH ×3 (00:07→16:10)
[2023-05-05 04:14] LABS: HEMATOCRIT 31.8 % (36.0-47.0); LYMPH # 0.7 10^3/uL (1.5-5.0); MEAN CORPUSCULAR HEMOGLOBIN 29.3 pg (27.0-33.0); MEAN CORPUSCULAR VOLUME 88.8 fl (80.0-96.0); MONO # 0.6 10^3/uL (0.0-0.8); MONO % 5.7 % (2.0-8.0); NEUTROPHILS # 9.7 10^3/uL (1.5-8.5); PLATELET COUNT, AUTOMATED 200 10^3/uL (150-450); RED BLOOD COUNT 3.58 10^6/uL (4.00-5.40)
[2023-05-05 04:25] LABS: HEMOGLOBIN 10.5 g/dl (12.0-15.5)
[2023-05-05 04:37] LABS: ALKALINE PHOSPHATASE 98 U/L (46-116); ALT/SGPT < 9 U/L (7.0-40); AST/SGOT 12 U/L (<34); BILIRUBIN,TOTAL 0.3 MG/DL (0.3-1.2); BLOOD UREA NITROGEN 33 MG/DL (9-23); CALCIUM LEVEL 8.4 MG/DL (8.3-10.6); CARBON DIOXIDE LEVEL 22 MMOL/L (20-31); CHLORIDE LEVEL 105 MMOL/L (98-107); CREATININE FOR GFR 1.02 MG/DL (0.55-1.30); GLOMERULAR FILTRATION RATE 56.6 (>39); GLUCOSE, FASTING 131 MG/DL (74-106); MAGNESIUM LEVEL 1.7 MG/DL (1.8-2.4); POTASSIUM SERUM 3.7 MMOL/L (3.5-5.1); SODIUM LEVEL 137 MMOL/L (136-145); TOTAL PROTEIN 5.4 G/DL (5.7-8.2)
[2023-05-05] MEDS: INSULIN LISPRO (NovoLOG) PER UNIT SC SCH ×4 (06:00→17:42)
[2023-05-05] MEDS: HEPARIN SOD (PORCINE) 5000UNITS/ML 1ML VIAL/SYRINGE SQ SCH ×3 (06:07→20:13)
[2023-05-05] MEDS: hydrALAZINE 20MG/ML 1ML VIAL IV PRN ×2 (06:08→16:48)
[2023-05-05] MEDS ORDERED: MAG SULF 1GM/100ML (MAG RUN) 1 GM in IV 1 EA IV ONE (08:00)
[2023-05-05] MEDS: LEVEMIR (INSULIN DETEMIR) 1 UNITS/0.01ML SC SCH ×2 (08:58→20:08)
[2023-05-05] MEDS: CARVedilol 12.5 MG TAB PO SCH ×2 (08:58→20:09)
[2023-05-05] MEDS: VITAMIN D 1,000 INTERNATIONAL UNITS TABLET PO SCH (08:58)
[2023-05-05] MEDS: NORCO, ANEXSIA 5/325MG TABLET (HYDROcodone/ACETAMINOPHEN) PO PRN ×2 (08:59→15:07)
[2023-05-05] MEDS: ASPIRIN 81MG ENTERIC TABLET PO SCH (08:59)
[2023-05-05] MEDS: LOSARTAN 50MG TABLET PO SCH (09:24)
[2023-05-05] MEDS ORDERED: BISACODYL 10MG SUPP PR ONE (09:30)
[2023-05-05] MEDS ORDERED: LIDOCAINE 1% MDV 20ML VIAL As Ordered ONE (14:15)
[2023-05-05] MEDS: SODIUM CHLORIDE 0.9% INJ 10 ML SYR IV SCH (17:43)
[2023-05-05] MEDS: MORPHINE 2 MG/ML 1ML VIAL IV PRN (17:44)
[2023-05-05] MEDS ORDERED: AMINO AC/ELECTROLYTE/DEX/CALC 2,566 ML IV SCH (18:00)
[2023-05-05] MEDS: AMITRIPTYLINE 25MG TABLET PO SCH (20:08)
[2023-05-05] MEDS: SIMVASTATIN 20 MG TAB PO SCH (20:09)
[2023-05-06] VITALS (22 sets, daily range): BP systolic 134–202; BP diastolic 60–92; TEMP 97.3–97.8; O2SAT 94–98
[2023-05-06] MEDS: NORCO, ANEXSIA 5/325MG TABLET (HYDROcodone/ACETAMINOPHEN) PO PRN ×3 (00:09→12:58)
[2023-05-06] MEDS: INSULIN LISPRO (NovoLOG) PER UNIT SC SCH ×4 (00:10→17:57)
[2023-05-06] MEDS: HEPARIN SOD (PORCINE) 5000UNITS/ML 1ML VIAL/SYRINGE SQ SCH ×3 (05:55→22:03)
[2023-05-06] MEDS: SODIUM CHLORIDE 0.9% INJ 10 ML SYR IV SCH ×2 (05:57→17:57)
[2023-05-06 06:27] LABS: BASO % 0.1 % (0.0-1.0); EOS % 0.4 % (0.0-3.0); HEMATOCRIT 30.9 % (36.0-47.0); HEMOGLOBIN 10.3 g/dl (12.0-15.5); LYMPH # 0.6 10^3/uL (1.5-5.0); LYMPH % 7.2 % (24.0-44.0); MEAN CORPUSCULAR HEMOGLOBIN 29.3 pg (27.0-33.0); MEAN CORPUSCULAR HGB CONC 33.3 g/dl (32.0-36.5); MEAN CORPUSCULAR VOLUME 87.8 fl (80.0-96.0); MONO # 0.7 10^3/uL (0.0-0.8); MONO % 8.2 % (2.0-8.0); NEUTROPHILS # 7.5 10^3/uL (1.5-8.5); NEUTROPHILS % 83.8 % (36.0-66.0); PLATELET COUNT, AUTOMATED 244 10^3/uL (150-450); RED BLOOD COUNT 3.52 10^6/uL (4.00-5.40); WHITE BLOOD COUNT 8.9 10^3/uL (4.0-10.0)
[2023-05-06 07:03] LABS: ALBUMIN 1.9 G/DL (3.2-5.2); ALKALINE PHOSPHATASE 92 U/L (46-116); ALT/SGPT < 9 U/L (7.0-40); AST/SGOT 8 U/L (<34); BILIRUBIN,TOTAL 0.2 MG/DL (0.3-1.2); BLOOD UREA NITROGEN 40 MG/DL (9-23); CARBON DIOXIDE LEVEL 24 MMOL/L (20-31); CHLORIDE LEVEL 101 MMOL/L (98-107); CREATININE FOR GFR 0.97 MG/DL (0.55-1.30); GLOMERULAR FILTRATION RATE 59.9 (>39); GLUCOSE, FASTING 284 MG/DL (74-106); MAGNESIUM LEVEL 1.8 MG/DL (1.8-2.4); POTASSIUM SERUM 2.9 MMOL/L (3.5-5.1); SODIUM LEVEL 133 MMOL/L (136-145)
[2023-05-06] MEDS ORDERED: POTASSIUM CHLORIDE 10MEQ SR TABLET PO ONE (07:30)
[2023-05-06] MEDS: KCL 10MEQ/100ML SWI (KRUN) 10 MEQ in IV 1 EA IV SCH ×2 (07:33→09:22)
[2023-05-06] MEDS: LEVEMIR (INSULIN DETEMIR) 1 UNITS/0.01ML SC SCH ×2 (08:16→21:03)
[2023-05-06] MEDS: VITAMIN D 1,000 INTERNATIONAL UNITS TABLET PO SCH (08:16)
[2023-05-06] MEDS: CARVedilol 12.5 MG TAB PO SCH ×2 (08:16→21:02)
[2023-05-06] MEDS: ASPIRIN 81MG ENTERIC TABLET PO SCH (08:16)
[2023-05-06] MEDS: LOSARTAN 50MG TABLET PO SCH (08:17)
[2023-05-06] MEDS: **hydrALAZINE HCL** 25 MG TAB PO SCH ×3 (08:19→16:41)
[2023-05-06] MEDS: SODIUM CHLORIDE 0.9% INJ 10 ML SYR IV PRN ×2 (10:54→16:42)
[2023-05-06 15:02] LABS: CALCIUM LEVEL 8.4 MG/DL (8.3-10.6); GLOMERULAR FILTRATION RATE 57.9 (>39); POTASSIUM SERUM 3.6 MMOL/L (3.5-5.1)
[2023-05-06] MEDS: MORPHINE 2 MG/ML 1ML VIAL IV PRN (16:42)
[2023-05-06] MEDS ORDERED: AMINO AC/ELECTROLYTE/DEX/CALC 2,566 ML IV SCH (18:00)
[2023-05-06] MEDS: AMITRIPTYLINE 25MG TABLET PO SCH (21:02)
[2023-05-06] MEDS: SIMVASTATIN 20 MG TAB PO SCH (21:02)
[2023-05-07] VITALS (25 sets, daily range): BP systolic 136–172; BP diastolic 56–74; TEMP 96.9–97.9; O2SAT 94–97
[2023-05-07] MEDS: NORCO, ANEXSIA 5/325MG TABLET (HYDROcodone/ACETAMINOPHEN) PO PRN ×3 (00:08→11:40)
[2023-05-07] MEDS: INSULIN LISPRO (NovoLOG) PER UNIT SC SCH ×4 (00:09→17:46)
[2023-05-07 04:54] LABS: BASO % 0.1 % (0.0-1.0); EOS # 0.1 10^3/uL (0.0-0.5); HEMATOCRIT 30.8 % (36.0-47.0); HEMOGLOBIN 10.3 g/dl (12.0-15.5); LYMPH # 0.6 10^3/uL (1.5-5.0); LYMPH % 6.9 % (24.0-44.0); MEAN CORPUSCULAR HEMOGLOBIN 29.1 pg (27.0-33.0); MEAN CORPUSCULAR HGB CONC 33.4 g/dl (32.0-36.5); MONO % 11.4 % (2.0-8.0); NEUTROPHILS % 79.5 % (36.0-66.0); PLATELET COUNT, AUTOMATED 243 10^3/uL (150-450); RED BLOOD COUNT 3.54 10^6/uL (4.00-5.40); WHITE BLOOD COUNT 8.8 10^3/uL (4.0-10.0)
[2023-05-07 05:16] LABS: ALBUMIN 1.8 G/DL (3.2-5.2); ALKALINE PHOSPHATASE 88 U/L (46-116); ALT/SGPT < 9 U/L (7.0-40); AST/SGOT < 8 U/L (<34); BILIRUBIN,TOTAL 0.2 MG/DL (0.3-1.2); BLOOD UREA NITROGEN 39 MG/DL (9-23); CALCIUM LEVEL 8.2 MG/DL (8.3-10.6); CARBON DIOXIDE LEVEL 20 MMOL/L (20-31); CHLORIDE LEVEL 102 MMOL/L (98-107); CREATININE FOR GFR 0.91 MG/DL (0.55-1.30); GLOMERULAR FILTRATION RATE > 60.0 (>39); GLUCOSE, FASTING 274 MG/DL (74-106); MAGNESIUM LEVEL 1.6 MG/DL (1.8-2.4); SODIUM LEVEL 133 MMOL/L (136-145); TOTAL PROTEIN 4.9 G/DL (5.7-8.2)
[2023-05-07] MEDS: HEPARIN SOD (PORCINE) 5000UNITS/ML 1ML VIAL/SYRINGE SQ SCH ×3 (06:11→21:47)
[2023-05-07] MEDS: SODIUM CHLORIDE 0.9% INJ 10 ML SYR IV SCH ×2 (06:12→17:47)
[2023-05-07] MEDS: **hydrALAZINE HCL** 25 MG TAB PO SCH ×4 (06:13→17:52)
[2023-05-07] MEDS ORDERED: POTASSIUM CHLORIDE 10MEQ SR TABLET PO ONE (08:15)
[2023-05-07] MEDS: ASPIRIN 81MG ENTERIC TABLET PO SCH (09:01)
[2023-05-07] MEDS: LEVEMIR (INSULIN DETEMIR) 1 UNITS/0.01ML SC SCH ×2 (09:01→21:49)
[2023-05-07] MEDS: LOSARTAN 50MG TABLET PO SCH (09:02)
[2023-05-07] MEDS: VITAMIN D 1,000 INTERNATIONAL UNITS TABLET PO SCH (09:02)
[2023-05-07] MEDS: amLODIPine 5 MG TAB PO SCH ×2 (09:02→21:48)
[2023-05-07] MEDS: CARVedilol 12.5 MG TAB PO SCH ×2 (09:03→21:48)
[2023-05-07] MEDS: MAG SULF 1GM/100ML (MAG RUN) 1 GM in IV 1 EA IV SCH ×2 (09:04→10:13)
[2023-05-07] MEDS ORDERED: ONDANSETRON 4MG 2ML VIAL IV PRN (09:55)
[2023-05-07] MEDS: KCL 10MEQ/100ML SWI (KRUN) 10 MEQ in IV 1 EA IV SCH ×2 (11:29→12:42)
[2023-05-07] MEDS: oxyCODONE 5MG TAB PO PRN (12:41)
[2023-05-07] MEDS ORDERED: KCL 10MEQ/100ML SWI (KRUN) 10 MEQ in IV 1 EA IV ONE ×2 (13:00→14:00)
[2023-05-07] MEDS: SODIUM CHLORIDE 0.9% INJ 10 ML SYR IV PRN (17:48)
[2023-05-07] MEDS: SIMVASTATIN 20 MG TAB PO SCH (21:47)
[2023-05-07] MEDS: AMITRIPTYLINE 25MG TABLET PO SCH (21:48)
[2023-05-08] VITALS (31 sets, daily range): BP systolic 142–172; BP diastolic 60–70; TEMP 96.5–98; O2SAT 94–96
[2023-05-08] MEDS: **hydrALAZINE HCL** 25 MG TAB PO SCH
[2023-05-08] MEDS: oxyCODONE 5MG TAB PO PRN (00:01)
[2023-05-08] MEDS ORDERED: ISOVUE-370 76% 100ML VIAL As Ordered ONE (02:55)
[2023-05-08] MEDS ORDERED: MORPHINE 2 MG/ML 1ML VIAL IV ONE (03:00)
[2023-05-08] MEDS: NS 1,000 ML IV SCH ×2 (04:44→11:22)
[2023-05-08 05:13] LABS: HEMATOCRIT 33.3 % (36.0-47.0); HEMOGLOBIN 11.4 g/dl (12.0-15.5); MEAN CORPUSCULAR HEMOGLOBIN 28.9 pg (27.0-33.0); MEAN CORPUSCULAR HGB CONC 34.2 g/dl (32.0-36.5); MEAN CORPUSCULAR VOLUME 84.3 fl (80.0-96.0); PLATELET COUNT, AUTOMATED 282 10^3/uL (150-450); RED BLOOD COUNT 3.95 10^6/uL (4.00-5.40); WHITE BLOOD COUNT 9.4 10^3/uL (4.0-10.0)
[2023-05-08 05:34] LABS: ALKALINE PHOSPHATASE 122 U/L (46-116); ALT/SGPT < 9 U/L (7.0-40); AST/SGOT 9 U/L (<34); BILIRUBIN,TOTAL 0.5 MG/DL (0.3-1.2); BLOOD UREA NITROGEN 44 MG/DL (9-23); CALCIUM LEVEL 8.6 MG/DL (8.3-10.6); CARBON DIOXIDE LEVEL 19 MMOL/L (20-31); CHLORIDE LEVEL 99 MMOL/L (98-107); CREATININE FOR GFR 0.98 MG/DL (0.55-1.30); GLOMERULAR FILTRATION RATE 59.2 (>39); GLUCOSE, FASTING 145 MG/DL (74-106); MAGNESIUM LEVEL 1.8 MG/DL (1.8-2.4); SODIUM LEVEL 130 MMOL/L (136-145); TOTAL PROTEIN 5.4 G/DL (5.7-8.2)
[2023-05-08] MEDS: INSULIN LISPRO (NovoLOG) PER UNIT SC SCH ×4 (06:00→18:18)
[2023-05-08 06:15] LABS: ATYPICAL LYMPH 1 % (0-5); LYMPHOCYTES 17 % (16-44); MONOCYTES 10 % (0-5); NEUTROPHILS 59 % (28-66); PLATELET ESTIMATE NORMAL (NORMAL); POLYCHROMASIA 1+
[2023-05-08 06:16] LABS: ANISOCYTOSIS 1+; MICROCYTOSIS 1+
[2023-05-08] MEDS: SODIUM CHLORIDE 0.9% INJ 10 ML SYR IV SCH ×2 (06:47→18:20)
[2023-05-08] MEDS: HEPARIN SOD (PORCINE) 5000UNITS/ML 1ML VIAL/SYRINGE SQ SCH ×3 (06:47→22:25)
[2023-05-08] MEDS: KCL 10MEQ/100ML SWI (KRUN) 10 MEQ in IV 1 EA IV SCH ×3 (08:31→09:47)
[2023-05-08] MEDS: LEVEMIR (INSULIN DETEMIR) 1 UNITS/0.01ML SC SCH (08:44)
[2023-05-08] MEDS: HYDROMORPHONE HCL 0.5 MG/ 0.5 ML SYRINGE IV PRN ×3 (10:13→22:30)
[2023-05-08 12:20] LABS: BLOOD UREA NITROGEN 43 MG/DL (9-23); CALCIUM LEVEL 8.1 MG/DL (8.3-10.6); CARBON DIOXIDE LEVEL 17 MMOL/L (20-31); CHLORIDE LEVEL 104 MMOL/L (98-107); CREATININE FOR GFR 0.92 MG/DL (0.55-1.30); GLOMERULAR FILTRATION RATE > 60.0 (>39); GLUCOSE, FASTING 96 MG/DL (74-106); POTASSIUM SERUM 3.7 MMOL/L (3.5-5.1); SODIUM LEVEL 133 MMOL/L (136-145)
[2023-05-08] MEDS: D5W/0.9% SODIUM CHLORIDE 1,000 ML IV SCH (13:30)
[2023-05-08] MEDS: SODIUM CHLORIDE 0.9% INJ 10 ML SYR IV PRN (18:20)
[2023-05-09] VITALS (33 sets, daily range): BP systolic 128–176; BP diastolic 60–78; TEMP 96.6–97.4; O2SAT 90–99
[2023-05-09] MEDS: INSULIN LISPRO (NovoLOG) PER UNIT SC SCH ×4 (00:58→18:24)
[2023-05-09] MEDS: LABETALOL 100MG/20ML VIAL IV PRN (05:21)
[2023-05-09] MEDS: HEPARIN SOD (PORCINE) 5000UNITS/ML 1ML VIAL/SYRINGE SQ SCH ×2 (05:21→14:00)
[2023-05-09] MEDS: SODIUM CHLORIDE 0.9% INJ 10 ML SYR IV SCH ×2 (05:22→18:24)
[2023-05-09] MEDS: D5W/0.9% SODIUM CHLORIDE 1,000 ML IV SCH (06:20)
[2023-05-09 06:28] LABS: HEMATOCRIT 29.2 % (36.0-47.0); HEMOGLOBIN 9.6 g/dl (12.0-15.5); MEAN CORPUSCULAR HEMOGLOBIN 28.8 pg (27.0-33.0); MEAN CORPUSCULAR HGB CONC 32.9 g/dl (32.0-36.5); MEAN CORPUSCULAR VOLUME 87.7 fl (80.0-96.0); PLATELET COUNT, AUTOMATED 303 10^3/uL (150-450); RED BLOOD COUNT 3.33 10^6/uL (4.00-5.40); WHITE BLOOD COUNT 10.4 10^3/uL (4.0-10.0)
[2023-05-09 07:00] LABS: ALBUMIN 1.7 G/DL (3.2-5.2); ALKALINE PHOSPHATASE 111 U/L (46-116); ALT/SGPT 9 U/L (7.0-40); AST/SGOT 9 U/L (<34); BILIRUBIN,TOTAL 0.3 MG/DL (0.3-1.2); BLOOD UREA NITROGEN 40 MG/DL (9-23); CARBON DIOXIDE LEVEL 21 MMOL/L (20-31); CHLORIDE LEVEL 107 MMOL/L (98-107); CREATININE FOR GFR 0.95 MG/DL (0.55-1.30); GLOMERULAR FILTRATION RATE > 60.0 (>39); GLUCOSE, FASTING 183 MG/DL (74-106); MAGNESIUM LEVEL 1.6 MG/DL (1.8-2.4); POTASSIUM SERUM 2.8 MMOL/L (3.5-5.1); SODIUM LEVEL 138 MMOL/L (136-145); TOTAL PROTEIN 4.9 G/DL (5.7-8.2)
[2023-05-09] MEDS ORDERED: KCL 20MEQ IN D5/NS 1000ML 1,000 ML IV SCH (07:10)
[2023-05-09] MEDS: MAG SULF 1GM/100ML (MAG RUN) 1 GM in IV 1 EA IV SCH ×2 (08:08→09:02)
[2023-05-09 08:34] LABS: ATYPICAL LYMPH 1 % (0-5); EOSINOPHILS 1 % (0-3); LYMPHOCYTES 8 % (16-44); METAMYELOCYTES 2 % (0-0); MONOCYTES 6 % (0-5); NEUTROPHILS 78 % (28-66)
[2023-05-09 08:35] LABS: PLATELET ESTIMATE NORMAL (NORMAL)
[2023-05-09] MEDS: KCL 20MEQ IN 100ML SWI (KRUN) 20 MEQ in IV 1 EA IV SCH ×4 (09:02→10:20)
[2023-05-09] MEDS ORDERED: KCL 10MEQ/100ML SWI (KRUN) 10 MEQ in IV 1 EA IV SCH (10:00)
[2023-05-09] MEDS: CARVedilol 12.5 MG TAB PO SCH ×2 (11:58→21:54)
[2023-05-09] MEDS: LOSARTAN 50MG TABLET PO SCH (11:58)
[2023-05-09] MEDS: HYDROMORPHONE HCL 0.5 MG/ 0.5 ML SYRINGE IV PRN ×3 (12:07→23:28)
[2023-05-09] MEDS: ALVIMOPAN 12 MG CAPSULE (ENTEREG) PO SCH ×2 (14:00→21:54)
[2023-05-09 16:54] LABS: BLOOD UREA NITROGEN 38 MG/DL (9-23); CALCIUM LEVEL 8.1 MG/DL (8.3-10.6); CARBON DIOXIDE LEVEL 22 MMOL/L (20-31); CHLORIDE LEVEL 108 MMOL/L (98-107); CREATININE FOR GFR 0.89 MG/DL (0.55-1.30); GLOMERULAR FILTRATION RATE > 60.0 (>39); GLUCOSE, FASTING 210 MG/DL (74-106); POTASSIUM SERUM 3.1 MMOL/L (3.5-5.1); SODIUM LEVEL 137 MMOL/L (136-145)
[2023-05-09] MEDS ORDERED: INSULIN LISPRO (NovoLOG) PER UNIT SC SCH (18:00)
[2023-05-09] MEDS ORDERED: MULTIVITAMIN -ADULT INJECTION 10 ML, ZINC/COPPER/MANGANESE/SELENIUM 1 ML in AMINO AC/EL... IV SCH (18:00)
[2023-05-09 21:28] LABS: HEMATOCRIT 28.3 % (36.0-47.0); HEMOGLOBIN 9.4 g/dl (12.0-15.5)
[2023-05-10] VITALS (33 sets, daily range): BP systolic 137–170; BP diastolic 56–72; TEMP 97–97.9; O2SAT 95–99
[2023-05-10] MEDS: INSULIN LISPRO (NovoLOG) PER UNIT SC SCH ×5 (00:28→23:30)
[2023-05-10] MEDS: HYDROMORPHONE HCL 0.5 MG/ 0.5 ML SYRINGE IV PRN ×5 (03:43→23:45)
[2023-05-10] MEDS: SODIUM CHLORIDE 0.9% INJ 10 ML SYR IV SCH ×2 (06:39→18:12)
[2023-05-10 07:01] LABS: HEMATOCRIT 29.9 % (36.0-47.0); HEMOGLOBIN 9.7 g/dl (12.0-15.5); MEAN CORPUSCULAR HGB CONC 32.4 g/dl (32.0-36.5); MEAN CORPUSCULAR VOLUME 89.5 fl (80.0-96.0); PLATELET COUNT, AUTOMATED 284 10^3/uL (150-450); RED BLOOD COUNT 3.34 10^6/uL (4.00-5.40); WHITE BLOOD COUNT 11.8 10^3/uL (4.0-10.0)
[2023-05-10 07:13] LABS: ALBUMIN 1.8 G/DL (3.2-5.2); ALKALINE PHOSPHATASE 108 U/L (46-116); ALT/SGPT < 9 U/L (7.0-40); AST/SGOT < 8 U/L (<34); BILIRUBIN,TOTAL 0.2 MG/DL (0.3-1.2); BLOOD UREA NITROGEN 37 MG/DL (9-23); CALCIUM LEVEL 8.2 MG/DL (8.3-10.6); CARBON DIOXIDE LEVEL 21 MMOL/L (20-31); CHLORIDE LEVEL 110 MMOL/L (98-107); CREATININE FOR GFR 0.83 MG/DL (0.55-1.30); GLOMERULAR FILTRATION RATE > 60.0 (>39); GLUCOSE, FASTING 313 MG/DL (74-106); POTASSIUM SERUM 3.1 MMOL/L (3.5-5.1); SODIUM LEVEL 139 MMOL/L (136-145); TOTAL PROTEIN 5.1 G/DL (5.7-8.2)
[2023-05-10 07:35] LABS: ATYPICAL LYMPH 1 % (0-5); EOSINOPHILS 1 % (0-3); LYMPHOCYTES 12 % (16-44); MONOCYTES 12 % (0-5); NEUTROPHILS 74 % (28-66); PLATELET ESTIMATE NORMAL (NORMAL)
[2023-05-10] MEDS: ALVIMOPAN 12 MG CAPSULE (ENTEREG) PO SCH ×2 (09:01→20:06)
[2023-05-10] MEDS: CARVedilol 12.5 MG TAB PO SCH ×2 (09:03→20:07)
[2023-05-10] MEDS: LOSARTAN 50MG TABLET PO SCH (09:03)
[2023-05-10] MEDS: LABETALOL 100MG/20ML VIAL IV PRN (11:10)
[2023-05-10] MEDS ORDERED: hydrALAZINE 20MG/ML 1ML VIAL IV PRN (12:15)
[2023-05-10] MEDS: KCL 10MEQ/100ML SWI (KRUN) 10 MEQ in IV 1 EA IV SCH ×4 (12:42→16:48)
[2023-05-10] MEDS: LEVEMIR (INSULIN DETEMIR) 1 UNITS/0.01ML SC SCH (12:48)
[2023-05-10] MEDS ORDERED: INSULIN LISPRO (NovoLOG) PER UNIT SC SCH (18:00)
[2023-05-10] MEDS ORDERED: AMINO AC/ELECTROLYTE/DEX/CALC 2,566 ML IV SCH ×2 (18:00)
[2023-05-11] VITALS (29 sets, daily range): BP systolic 101–164; BP diastolic 56–69; TEMP 97.4–97.8; O2SAT 93–100
[2023-05-11 06:03] LABS: HEMATOCRIT 27.8 % (36.0-47.0); HEMOGLOBIN 8.9 g/dl (12.0-15.5); MEAN CORPUSCULAR HEMOGLOBIN 28.3 pg (27.0-33.0); MEAN CORPUSCULAR VOLUME 88.5 fl (80.0-96.0); PLATELET COUNT, AUTOMATED 274 10^3/uL (150-450); RED BLOOD COUNT 3.14 10^6/uL (4.00-5.40); WHITE BLOOD COUNT 17.1 10^3/uL (4.0-10.0)
[2023-05-11] MEDS: INSULIN LISPRO (NovoLOG) PER UNIT SC SCH ×4 (06:06→23:35)
[2023-05-11] MEDS: SODIUM CHLORIDE 0.9% INJ 10 ML SYR IV SCH ×2 (06:06→18:39)
[2023-05-11 06:28] LABS: BLOOD UREA NITROGEN 32 MG/DL (9-23); CALCIUM LEVEL 7.7 MG/DL (8.3-10.6); CARBON DIOXIDE LEVEL 20 MMOL/L (20-31); CHLORIDE LEVEL 107 MMOL/L (98-107); CREATININE FOR GFR 0.79 MG/DL (0.55-1.30); GLOMERULAR FILTRATION RATE > 60.0 (>39); GLUCOSE, FASTING 252 MG/DL (74-106); MAGNESIUM LEVEL 1.8 MG/DL (1.8-2.4); POTASSIUM SERUM 3.4 MMOL/L (3.5-5.1); SODIUM LEVEL 137 MMOL/L (136-145)
[2023-05-11 07:43] LABS: ATYPICAL LYMPH 2 % (0-5); BASOPHILS 1 % (0-1); LYMPHOCYTES 8 % (16-44); MONOCYTES 8 % (0-5); NEUTROPHILS 79 % (28-66); PLATELET ESTIMATE NORMAL (NORMAL)
[2023-05-11 07:44] LABS: POLYCHROMASIA 2+
[2023-05-11 07:56] LABS: PROCALCITONIN 0.43 ng/ml
[2023-05-11] MEDS ORDERED: KCL 10MEQ/100ML SWI (KRUN) 10 MEQ in IV 1 EA IV SCH (08:00)
[2023-05-11] MEDS: ALVIMOPAN 12 MG CAPSULE (ENTEREG) PO SCH ×2 (09:11→20:22)
[2023-05-11] MEDS: LEVEMIR (INSULIN DETEMIR) 1 UNITS/0.01ML SC SCH (09:11)
[2023-05-11] MEDS: CARVedilol 12.5 MG TAB PO SCH ×2 (09:11→20:22)
[2023-05-11] MEDS: LOSARTAN 50MG TABLET PO SCH (09:12)
[2023-05-11] MEDS: KCL 10MEQ/100ML SWI (KRUN) 10 MEQ in IV 1 EA IV SCH ×2 (09:13→10:41)
[2023-05-11] MEDS ORDERED: MULTIVITAMIN -ADULT INJECTION 10 ML, ZINC/COPPER/MANGANESE/SELENIUM 1 ML in AMINO AC/EL... IV SCH (18:00)
[2023-05-11] MEDS: HEPARIN SOD (PORCINE) 5000UNITS/ML 1ML VIAL/SYRINGE SQ SCH (20:22)
[2023-05-11] MEDS: PERCOCET 5MG/325MG TAB PO PRN (23:34)
[2023-05-12] VITALS (24 sets, daily range): BP systolic 129–150; BP diastolic 60–67; TEMP 97–97.7; O2SAT 96–100
[2023-05-12] MEDS: INSULIN LISPRO (NovoLOG) PER UNIT SC SCH ×3 (05:38→18:42)
[2023-05-12] MEDS: SODIUM CHLORIDE 0.9% INJ 10 ML SYR IV SCH ×2 (05:39→18:41)
[2023-05-12 06:23] LABS: BASO # 0.1 10^3/uL (0.0-0.2); BASO % 0.3 % (0.0-1.0); EOS # 0.1 10^3/uL (0.0-0.5); EOS % 0.6 % (0.0-3.0); HEMATOCRIT 26.9 % (36.0-47.0); HEMOGLOBIN 9.1 g/dl (12.0-15.5); LYMPH # 1.5 10^3/uL (1.5-5.0); MEAN CORPUSCULAR HEMOGLOBIN 29.2 pg (27.0-33.0); MEAN CORPUSCULAR HGB CONC 33.8 g/dl (32.0-36.5); MEAN CORPUSCULAR VOLUME 86.2 fl (80.0-96.0); MONO # 1.2 10^3/uL (0.0-0.8); MONO % 6.7 % (2.0-8.0); NEUTROPHILS # 14.5 10^3/uL (1.5-8.5); NEUTROPHILS % 80.3 % (36.0-66.0); PLATELET COUNT, AUTOMATED 291 10^3/uL (150-450); RED BLOOD COUNT 3.12 10^6/uL (4.00-5.40); WHITE BLOOD COUNT 18.1 10^3/uL (4.0-10.0)
[2023-05-12 06:56] LABS: BLOOD UREA NITROGEN 21 MG/DL (9-23); CALCIUM LEVEL 7.7 MG/DL (8.3-10.6); CARBON DIOXIDE LEVEL 25 MMOL/L (20-31); CHLORIDE LEVEL 101 MMOL/L (98-107); CREATININE FOR GFR 0.76 MG/DL (0.55-1.30); GLOMERULAR FILTRATION RATE > 60.0 (>39); GLUCOSE, FASTING 247 MG/DL (74-106); MAGNESIUM LEVEL 1.6 MG/DL (1.8-2.4); POTASSIUM SERUM 2.7 MMOL/L (3.5-5.1); SODIUM LEVEL 133 MMOL/L (136-145)
[2023-05-12] MEDS: KCL 10MEQ/100ML SWI (KRUN) 10 MEQ in IV 1 EA IV SCH ×8 (07:10→23:25)
[2023-05-12] MEDS ORDERED: POTASSIUM CHLORIDE 10% LIQ 20MEQ/15ML UDC PO ONE (08:00)
[2023-05-12] MEDS: MAG SULF 1GM/100ML (MAG RUN) 1 GM in IV 1 EA IV SCH ×3 (09:15→11:46)
[2023-05-12] MEDS: HEPARIN SOD (PORCINE) 5000UNITS/ML 1ML VIAL/SYRINGE SQ SCH ×2 (09:17→20:47)
[2023-05-12] MEDS: LEVEMIR (INSULIN DETEMIR) 1 UNITS/0.01ML SC SCH ×2 (09:18→20:51)
[2023-05-12] MEDS: LOSARTAN 50MG TABLET PO SCH (09:18)
[2023-05-12] MEDS: ALVIMOPAN 12 MG CAPSULE (ENTEREG) PO SCH (09:18)
[2023-05-12] MEDS: CARVedilol 12.5 MG TAB PO SCH ×2 (09:19→20:48)
[2023-05-12] MEDS: GASTROGRAFIN SOLUTION 30ML PO SCH ×2 (13:24→14:01)
[2023-05-12] MEDS: PERCOCET 5MG/325MG TAB PO PRN (13:25)
[2023-05-12] MEDS ORDERED: ISOVUE-370 76% 100ML VIAL As Ordered ONE (15:01)
[2023-05-12 17:35] LABS: HEMOGLOBIN A1c 9.4 % (4.0-6.0)
[2023-05-12 17:44] LABS: BLOOD UREA NITROGEN 16 MG/DL (9-23); CALCIUM LEVEL 7.4 MG/DL (8.3-10.6); CARBON DIOXIDE LEVEL 21 MMOL/L (20-31); CHLORIDE LEVEL 99 MMOL/L (98-107); CREATININE FOR GFR 0.68 MG/DL (0.55-1.30); GLOMERULAR FILTRATION RATE > 60.0 (>39); GLUCOSE, FASTING 228 MG/DL (74-106); SODIUM LEVEL 129 MMOL/L (136-145)
[2023-05-12] MEDS ORDERED: INSULIN LISPRO (NovoLOG) PER UNIT SC SCH (18:00)
[2023-05-12] MEDS ORDERED: AMINO AC/ELECTROLYTE/DEX/CALC 2,566 ML IV SCH (18:00)
[2023-05-12] MEDS: LACTOBACILLUS ACIDOPHILUS CAP (BACID) PO SCH (18:41)
[2023-05-12] MEDS: LR 1,000 ML IV SCH (18:43)
[2023-05-12] MEDS: AMITRIPTYLINE 25MG TABLET PO SCH (20:47)
[2023-05-12] MEDS: SIMVASTATIN 20 MG TAB PO SCH (20:48)
[2023-05-13] VITALS (13 sets, daily range): BP systolic 107–138; BP diastolic 53–83; TEMP 97.1–98; O2SAT 95–99
[2023-05-13] MEDS: INSULIN LISPRO (NovoLOG) PER UNIT SC SCH ×5 (00:06→21:46)
[2023-05-13] MEDS: SODIUM CHLORIDE 0.9% INJ 10 ML SYR IV SCH ×2 (05:22→17:42)
[2023-05-13 05:54] LABS: BASO % 0.2 % (0.0-1.0); EOS # 0.1 10^3/uL (0.0-0.5); EOS % 0.7 % (0.0-3.0); HEMATOCRIT 26.3 % (36.0-47.0); HEMOGLOBIN 8.8 g/dl (12.0-15.5); LYMPH # 1.5 10^3/uL (1.5-5.0); MEAN CORPUSCULAR HEMOGLOBIN 28.7 pg (27.0-33.0); MEAN CORPUSCULAR HGB CONC 33.5 g/dl (32.0-36.5); MEAN CORPUSCULAR VOLUME 85.7 fl (80.0-96.0); MONO # 1.3 10^3/uL (0.0-0.8); MONO % 7.9 % (2.0-8.0); NEUTROPHILS # 12.8 10^3/uL (1.5-8.5); NEUTROPHILS % 77.8 % (36.0-66.0); PLATELET COUNT, AUTOMATED 294 10^3/uL (150-450); RED BLOOD COUNT 3.07 10^6/uL (4.00-5.40); WHITE BLOOD COUNT 16.5 10^3/uL (4.0-10.0)
[2023-05-13 06:18] LABS: BLOOD UREA NITROGEN 17 MG/DL (9-23); CALCIUM LEVEL 7.4 MG/DL (8.3-10.6); CARBON DIOXIDE LEVEL 23 MMOL/L (20-31); CHLORIDE LEVEL 102 MMOL/L (98-107); GLOMERULAR FILTRATION RATE > 60.0 (>39); GLUCOSE, FASTING 86 MG/DL (74-106); POTASSIUM SERUM 3.1 MMOL/L (3.5-5.1); SODIUM LEVEL 133 MMOL/L (136-145)
[2023-05-13] MEDS ORDERED: POTASSIUM CHLORIDE 10% LIQ 20MEQ/15ML UDC PO ONE (07:15)
[2023-05-13] MEDS: LEVEMIR (INSULIN DETEMIR) 1 UNITS/0.01ML SC SCH ×2 (07:50→21:45)
[2023-05-13] MEDS ORDERED: KCL 10MEQ/100ML SWI (KRUN) 10 MEQ in IV 1 EA IV SCH (08:00)
[2023-05-13 08:03] LABS: MAGNESIUM LEVEL 1.8 MG/DL (1.8-2.4)
[2023-05-13] MEDS: CARVedilol 12.5 MG TAB PO SCH ×2 (08:17→21:46)
[2023-05-13] MEDS: LOSARTAN 50MG TABLET PO SCH (08:17)
[2023-05-13] MEDS: HEPARIN SOD (PORCINE) 5000UNITS/ML 1ML VIAL/SYRINGE SQ SCH ×2 (08:17→21:45)
[2023-05-13] MEDS: LACTOBACILLUS ACIDOPHILUS CAP (BACID) PO SCH ×2 (08:17→17:41)
[2023-05-13] MEDS: PERCOCET 5MG/325MG TAB PO PRN ×2 (08:51→22:57)
[2023-05-13] MEDS: KCL 20MEQ IN 100ML SWI (KRUN) 20 MEQ in IV 1 EA IV SCH ×4 (08:51→10:05)
[2023-05-13] MEDS: LR 1,000 ML IV SCH (10:45)
[2023-05-13] MEDS: MAGNESIUM OXIDE 400MG TAB (MAG-OX) PO SCH (12:44)
[2023-05-13] MEDS ORDERED: PERCOCET PO (17:47)
[2023-05-13] MEDS: SIMVASTATIN 20 MG TAB PO SCH (21:46)
[2023-05-13] MEDS: AMITRIPTYLINE 25MG TABLET PO SCH (21:46)
[2023-05-14 01:42] VITALS: BP 114/45; TEMP 98.1; O2SAT 94
[2023-05-14] MEDS: SODIUM CHLORIDE 0.9% INJ 10 ML SYR IV SCH ×2 (05:23→17:41)
[2023-05-14] MEDS: SODIUM CHLORIDE 0.9% INJ 10 ML SYR IV PRN ×2 (05:23→20:34)
[2023-05-14 05:34] VITALS: BP 124/51; TEMP 97.9; O2SAT 98
[2023-05-14 06:14] LABS: HEMATOCRIT 26.4 % (36.0-47.0); HEMOGLOBIN 8.5 g/dl (12.0-15.5); MEAN CORPUSCULAR HEMOGLOBIN 28.4 pg (27.0-33.0); MEAN CORPUSCULAR HGB CONC 32.2 g/dl (32.0-36.5); MEAN CORPUSCULAR VOLUME 88.3 fl (80.0-96.0); PLATELET COUNT, AUTOMATED 240 10^3/uL (150-450); RED BLOOD COUNT 2.99 10^6/uL (4.00-5.40); WHITE BLOOD COUNT 14.9 10^3/uL (4.0-10.0)
[2023-05-14 06:41] LABS: BLOOD UREA NITROGEN 24 MG/DL (9-23); CALCIUM LEVEL 7.1 MG/DL (8.3-10.6); CARBON DIOXIDE LEVEL 23 MMOL/L (20-31); CHLORIDE LEVEL 98 MMOL/L (98-107); CREATININE FOR GFR 0.96 MG/DL (0.55-1.30); GLOMERULAR FILTRATION RATE > 60.0 (>39); GLUCOSE, FASTING 172 MG/DL (74-106); POTASSIUM SERUM 3.8 MMOL/L (3.5-5.1); SODIUM LEVEL 127 MMOL/L (136-145)
[2023-05-14 06:57] LABS: ATYPICAL LYMPH 1 % (0-5); LYMPHOCYTES 9 % (16-44); MONOCYTES 14 % (0-5); NEUTROPHILS 76 % (28-66); PLATELET ESTIMATE NORMAL (NORMAL)
[2023-05-14 06:58] LABS: POLYCHROMASIA 1+
[2023-05-14] MEDS: LACTOBACILLUS ACIDOPHILUS CAP (BACID) PO SCH ×2 (08:55→17:41)
[2023-05-14] MEDS: INSULIN LISPRO (NovoLOG) PER UNIT SC SCH ×4 (08:55→20:33)
[2023-05-14] MEDS: LEVEMIR (INSULIN DETEMIR) 1 UNITS/0.01ML SC SCH ×2 (08:55→20:34)
[2023-05-14] MEDS: MAGNESIUM OXIDE 400MG TAB (MAG-OX) PO SCH (08:55)
[2023-05-14] MEDS: HEPARIN SOD (PORCINE) 5000UNITS/ML 1ML VIAL/SYRINGE SQ SCH ×2 (08:55→20:33)
[2023-05-14] MEDS: CARVedilol 12.5 MG TAB PO SCH ×2 (08:56→20:35)
[2023-05-14] MEDS: LOSARTAN 50MG TABLET PO SCH (08:56)
[2023-05-14 10:00] VITALS: BP 124/49; TEMP 98.2; O2SAT 96
[2023-05-14] MEDS: AUGMENTIN 875 MG TAB PO SCH ×2 (10:44→20:32)
[2023-05-14] MEDS: DOXYCYCLINE HYCLATE 100MG TABLET PO SCH ×2 (10:44→20:32)
[2023-05-14] MEDS: PERCOCET 5MG/325MG TAB PO PRN ×2 (10:45→18:57)
[2023-05-14] MEDS: HYDROMORPHONE HCL 0.5 MG/ 0.5 ML SYRINGE IV PRN ×2 (12:32→20:34)
[2023-05-14 14:00] VITALS: BP 102/47; TEMP 98.4; O2SAT 94
[2023-05-14 18:00] VITALS: BP 123/53; TEMP 98.2; O2SAT 98
[2023-05-14 20:02] VITALS: BP 105/44; TEMP 99.4; O2SAT 95
[2023-05-14] MEDS: SIMVASTATIN 20 MG TAB PO SCH (20:32)
[2023-05-14] MEDS: AMITRIPTYLINE 25MG TABLET PO SCH (20:32)
[2023-05-15] VITALS (8 sets, daily range): BP systolic 90–121; BP diastolic 40–63; TEMP 97.2–98.2; O2SAT 94–97
[2023-05-15] MEDS: SODIUM CHLORIDE 0.9% INJ 10 ML SYR IV SCH ×2 (05:18→17:54)
[2023-05-15] MEDS: INSULIN LISPRO (NovoLOG) PER UNIT SC SCH ×4 (08:09→20:08)
[2023-05-15] MEDS: AUGMENTIN 875 MG TAB PO SCH (08:10)
[2023-05-15] MEDS: LEVEMIR (INSULIN DETEMIR) 1 UNITS/0.01ML SC SCH ×2 (08:10→20:06)
[2023-05-15] MEDS: LACTOBACILLUS ACIDOPHILUS CAP (BACID) PO SCH ×2 (08:10→17:51)
[2023-05-15] MEDS: MAGNESIUM OXIDE 400MG TAB (MAG-OX) PO SCH (08:12)
[2023-05-15] MEDS: LOSARTAN 50MG TABLET PO SCH (08:12)
[2023-05-15] MEDS: PERCOCET 5MG/325MG TAB PO PRN ×2 (08:13→22:03)
[2023-05-15] MEDS: CARVedilol 12.5 MG TAB PO SCH (08:14)
[2023-05-15] MEDS: DOXYCYCLINE HYCLATE 100MG TABLET PO SCH (08:15)
[2023-05-15] MEDS: HEPARIN SOD (PORCINE) 5000UNITS/ML 1ML VIAL/SYRINGE SQ SCH ×2 (08:15→20:06)
[2023-05-15 08:23] LABS: BASO % 0.2 % (0.0-1.0); EOS # 0.1 10^3/uL (0.0-0.5); EOS % 0.4 % (0.0-3.0); HEMATOCRIT 25.3 % (36.0-47.0); HEMOGLOBIN 8.3 g/dl (12.0-15.5); LYMPH # 1.5 10^3/uL (1.5-5.0); LYMPH % 8.3 % (24.0-44.0); MEAN CORPUSCULAR HEMOGLOBIN 28.8 pg (27.0-33.0); MEAN CORPUSCULAR HGB CONC 32.8 g/dl (32.0-36.5); MEAN CORPUSCULAR VOLUME 87.8 fl (80.0-96.0); MONO # 1.2 10^3/uL (0.0-0.8); MONO % 6.7 % (2.0-8.0); NEUTROPHILS # 15.1 10^3/uL (1.5-8.5); NEUTROPHILS % 82.5 % (36.0-66.0); PLATELET COUNT, AUTOMATED 301 10^3/uL (150-450); RED BLOOD COUNT 2.88 10^6/uL (4.00-5.40); WHITE BLOOD COUNT 18.2 10^3/uL (4.0-10.0)
[2023-05-15 08:51] LABS: BLOOD UREA NITROGEN 23 MG/DL (9-23); CALCIUM LEVEL 7.6 MG/DL (8.3-10.6); CARBON DIOXIDE LEVEL 24 MMOL/L (20-31); CHLORIDE LEVEL 97 MMOL/L (98-107); CREATININE FOR GFR 0.92 MG/DL (0.55-1.30); GLOMERULAR FILTRATION RATE > 60.0 (>39); GLUCOSE, FASTING 149 MG/DL (74-106); POTASSIUM SERUM 4.1 MMOL/L (3.5-5.1); SODIUM LEVEL 128 MMOL/L (136-145)
[2023-05-15 10:25] LABS: PROCALCITONIN 0.24 ng/ml
[2023-05-15] MEDS: PIPERACILLIN/TAZOBACTAM SOD 3.375 GM in D5W MINI-BAG PLUS 50 ML IV SCH ×3 (11:27→23:33)
[2023-05-15] MEDS ORDERED: LR 500 ML IV ONE ×2 (14:30→14:45)
[2023-05-15] MEDS: AMITRIPTYLINE 25MG TABLET PO SCH (20:08)
[2023-05-15] MEDS: SIMVASTATIN 20 MG TAB PO SCH (20:08)
[2023-05-15] MEDS ORDERED: CARVedilol 6.25 MG TAB PO SCH (21:00)
[2023-05-16 02:00] VITALS: BP 113/46; TEMP 97.7; O2SAT 94
[2023-05-16 05:27] VITALS: BP 114/47; TEMP 97.7; O2SAT 96
[2023-05-16] MEDS: PIPERACILLIN/TAZOBACTAM SOD 3.375 GM in D5W MINI-BAG PLUS 50 ML IV SCH ×4 (05:33→23:32)
[2023-05-16] MEDS: SODIUM CHLORIDE 0.9% INJ 10 ML SYR IV SCH ×2 (05:34→17:53)
[2023-05-16 05:44] LABS: HEMATOCRIT 24.2 % (36.0-47.0); HEMOGLOBIN 7.9 g/dl (12.0-15.5); MEAN CORPUSCULAR HEMOGLOBIN 29.2 pg (27.0-33.0); MEAN CORPUSCULAR HGB CONC 32.6 g/dl (32.0-36.5); MEAN CORPUSCULAR VOLUME 89.3 fl (80.0-96.0); PLATELET COUNT, AUTOMATED 272 10^3/uL (150-450); RED BLOOD COUNT 2.71 10^6/uL (4.00-5.40); WHITE BLOOD COUNT 15.4 10^3/uL (4.0-10.0)
[2023-05-16 06:08] LABS: ATYPICAL LYMPH 1 % (0-5); EOSINOPHILS 1 % (0-3); LYMPHOCYTES 10 % (16-44); MONOCYTES 8 % (0-5); NEUTROPHILS 77 % (28-66); PLATELET ESTIMATE NORMAL (NORMAL)
[2023-05-16 06:09] LABS: ANISOCYTOSIS 1+; HYPOCHROMASIA 1+; MICROCYTOSIS 1+; POLYCHROMASIA 1+
[2023-05-16 06:11] LABS: CALCIUM LEVEL 7.3 MG/DL (8.3-10.6); CREATININE FOR GFR 1.13 MG/DL (0.55-1.30); GLOMERULAR FILTRATION RATE 50.2 (>39); POTASSIUM SERUM 4.2 MMOL/L (3.5-5.1)
[2023-05-16] MEDS: INSULIN LISPRO (NovoLOG) PER UNIT SC SCH ×4 (07:54→22:14)
[2023-05-16 08:55] VITALS: BP 113/47
[2023-05-16] MEDS: MAGNESIUM OXIDE 400MG TAB (MAG-OX) PO SCH (08:56)
[2023-05-16] MEDS: LACTOBACILLUS ACIDOPHILUS CAP (BACID) PO SCH ×2 (08:56→17:55)
[2023-05-16] MEDS: LEVEMIR (INSULIN DETEMIR) 1 UNITS/0.01ML SC SCH ×2 (08:56→22:13)
[2023-05-16] MEDS: HEPARIN SOD (PORCINE) 5000UNITS/ML 1ML VIAL/SYRINGE SQ SCH ×2 (08:57→22:14)
[2023-05-16] MEDS: SENOKOT S TAB PO SCH ×2 (08:57→22:14)
[2023-05-16] MEDS ORDERED: LOSARTAN 25 MG TAB PO SCH (09:00)
[2023-05-16] MEDS: PERCOCET 5MG/325MG TAB PO PRN ×3 (09:00→17:56)
[2023-05-16] MEDS ORDERED: LOSARTAN 50MG TABLET PO SCH (09:00)
[2023-05-16 10:00] VITALS: BP 112/48; TEMP 97.7; O2SAT 95
[2023-05-16] MEDS: NS 1,000 ML IV SCH ×2 (13:09→23:32)
[2023-05-16 18:00] VITALS: BP 107/46; TEMP 97.7; O2SAT 92
[2023-05-16 21:00] VITALS: BP 107/47; TEMP 96.5; O2SAT 94
[2023-05-16] MEDS: SIMVASTATIN 20 MG TAB PO SCH (22:14)
[2023-05-16] MEDS: AMITRIPTYLINE 25MG TABLET PO SCH (22:14)
[2023-05-17 02:00] VITALS: BP 111/48; TEMP 97.1; O2SAT 94
[2023-05-17 02:04] LABS: SODIUM,RANDOM URINE 67 MMOL/L
[2023-05-17 02:29] LABS: OSMOLALITY URINE 324 MOSM/KG (50-1400)
[2023-05-17] MEDS: PIPERACILLIN/TAZOBACTAM SOD 3.375 GM in D5W MINI-BAG PLUS 50 ML IV SCH (05:22)
[2023-05-17] MEDS: SODIUM CHLORIDE 0.9% INJ 10 ML SYR IV SCH ×2 (05:22→17:06)
[2023-05-17 05:49] LABS: BASO % 0.1 % (0.0-1.0); EOS # 0.1 10^3/uL (0.0-0.5); EOS % 0.7 % (0.0-3.0); HEMATOCRIT 24.8 % (36.0-47.0); HEMOGLOBIN 7.7 g/dl (12.0-15.5); LYMPH # 1.2 10^3/uL (1.5-5.0); LYMPH % 9.9 % (24.0-44.0); MEAN CORPUSCULAR HEMOGLOBIN 28.3 pg (27.0-33.0); MEAN CORPUSCULAR VOLUME 91.2 fl (80.0-96.0); MONO # 0.9 10^3/uL (0.0-0.8); MONO % 7.6 % (2.0-8.0); NEUTROPHILS # 9.8 10^3/uL (1.5-8.5); NEUTROPHILS % 80.7 % (36.0-66.0); PLATELET COUNT, AUTOMATED 275 10^3/uL (150-450); RED BLOOD COUNT 2.72 10^6/uL (4.00-5.40); WHITE BLOOD COUNT 12.2 10^3/uL (4.0-10.0)
[2023-05-17 06:00] VITALS: BP 116/53; TEMP 98.4; O2SAT 96
[2023-05-17] MEDS: PERCOCET 5MG/325MG TAB PO PRN ×2 (06:00→17:05)
[2023-05-17 06:14] LABS: CALCIUM LEVEL 7.8 MG/DL (8.3-10.6); CREATININE FOR GFR 1.08 MG/DL (0.55-1.30); GLOMERULAR FILTRATION RATE 52.9 (>39); MAGNESIUM LEVEL 1.5 MG/DL (1.8-2.4); POTASSIUM SERUM 4.6 MMOL/L (3.5-5.1)
[2023-05-17 08:00] VITALS: BP 118/76; TEMP 98.3; O2SAT 96
[2023-05-17] MEDS: LACTOBACILLUS ACIDOPHILUS CAP (BACID) PO SCH ×2 (09:29→17:05)
[2023-05-17] MEDS: SENOKOT S TAB PO SCH ×2 (09:29→21:13)
[2023-05-17] MEDS: MAGNESIUM OXIDE 400MG TAB (MAG-OX) PO SCH ×2 (09:29→21:14)
[2023-05-17] MEDS: LEVEMIR (INSULIN DETEMIR) 1 UNITS/0.01ML SC SCH ×2 (09:30→21:14)
[2023-05-17] MEDS: HEPARIN SOD (PORCINE) 5000UNITS/ML 1ML VIAL/SYRINGE SQ SCH ×2 (09:31→21:14)
[2023-05-17] MEDS: INSULIN LISPRO (NovoLOG) PER UNIT SC SCH ×4 (09:32→21:00)
[2023-05-17 10:00] VITALS: BP 116/53; TEMP 98.1; O2SAT 97
[2023-05-17] MEDS: MAG SULF 1GM/100ML (MAG RUN) 1 GM in IV 1 EA IV SCH ×2 (12:11→15:24)
[2023-05-17] MEDS: LevoFLOXacin 750 MG TABLET PO SCH (12:14)
[2023-05-17 12:34] LABS: FERRITIN 271.8 NG/ML (7.3-270.7); PERCENT SATURATION 11.2 % (13.2-45.0)
[2023-05-17 12:36] LABS: FOLATE 8.14 NG/ML (>5.4)
[2023-05-17 14:00] VITALS: BP 121/53; TEMP 98.4; O2SAT 97
[2023-05-17] MEDS ORDERED: MAG SULF 1GM/100ML (MAG RUN) 1 GM in IV 1 EA IV SCH (16:00)
[2023-05-17] MEDS: NS 1,000 ML IV SCH ×2 (17:05→22:48)
[2023-05-17] MEDS: AMITRIPTYLINE 25MG TABLET PO SCH (21:13)
[2023-05-17] MEDS: SIMVASTATIN 20 MG TAB PO SCH (21:13)
[2023-05-17 21:20] VITALS: BP 121/53; TEMP 97.7; O2SAT 96
[2023-05-18] VITALS (8 sets, daily range): BP systolic 110–141; BP diastolic 51–63; TEMP 97.7–98.6; O2SAT 94–99
[2023-05-18] MEDS: PERCOCET 5MG/325MG TAB PO PRN ×3 (01:28→11:50)
[2023-05-18] MEDS: SODIUM CHLORIDE 0.9% INJ 10 ML SYR IV SCH ×2 (05:57→17:36)
[2023-05-18 06:13] LABS: BASO % 0.2 % (0.0-1.0); EOS # 0.1 10^3/uL (0.0-0.5); EOS % 1.1 % (0.0-3.0); HEMATOCRIT 23.5 % (36.0-47.0); HEMOGLOBIN 7.4 g/dl (12.0-15.5); LYMPH # 1.2 10^3/uL (1.5-5.0); LYMPH % 13.5 % (24.0-44.0); MEAN CORPUSCULAR HEMOGLOBIN 28.6 pg (27.0-33.0); MEAN CORPUSCULAR HGB CONC 31.5 g/dl (32.0-36.5); MEAN CORPUSCULAR VOLUME 90.7 fl (80.0-96.0); MONO # 0.8 10^3/uL (0.0-0.8); NEUTROPHILS # 6.8 10^3/uL (1.5-8.5); NEUTROPHILS % 75.2 % (36.0-66.0); PLATELET COUNT, AUTOMATED 292 10^3/uL (150-450); RED BLOOD COUNT 2.59 10^6/uL (4.00-5.40)
[2023-05-18 06:42] LABS: CALCIUM LEVEL 8.1 MG/DL (8.3-10.6); GLOMERULAR FILTRATION RATE 57.9 (>39); POTASSIUM SERUM 4.7 MMOL/L (3.5-5.1)
[2023-05-18] MEDS: INSULIN LISPRO (NovoLOG) PER UNIT SC SCH ×4 (07:30→20:33)
[2023-05-18] MEDS: LACTOBACILLUS ACIDOPHILUS CAP (BACID) PO SCH ×2 (08:23→17:35)
[2023-05-18] MEDS: SENOKOT S TAB PO SCH ×2 (08:23→20:48)
[2023-05-18] MEDS: MAGNESIUM OXIDE 400MG TAB (MAG-OX) PO SCH ×2 (08:23→20:48)
[2023-05-18] MEDS: HEPARIN SOD (PORCINE) 5000UNITS/ML 1ML VIAL/SYRINGE SQ SCH ×2 (08:24→20:49)
[2023-05-18] MEDS: LEVEMIR (INSULIN DETEMIR) 1 UNITS/0.01ML SC SCH ×2 (08:24→20:49)
[2023-05-18] MEDS: NS 1,000 ML IV SCH (17:39)
[2023-05-18] MEDS: SIMVASTATIN 20 MG TAB PO SCH (20:48)
[2023-05-18] MEDS: AMITRIPTYLINE 25MG TABLET PO SCH (20:49)
[2023-05-19] VITALS (12 sets, daily range): BP systolic 120–160; BP diastolic 54–77; TEMP 96–98.6; O2SAT 94–98
[2023-05-19 06:07] LABS: BASO % 0.4 % (0.0-1.0); EOS # 0.1 10^3/uL (0.0-0.5); EOS % 1.2 % (0.0-3.0); HEMATOCRIT 26.8 % (36.0-47.0); HEMOGLOBIN 8.8 g/dl (12.0-15.5); LYMPH # 1.1 10^3/uL (1.5-5.0); MEAN CORPUSCULAR HEMOGLOBIN 29.5 pg (27.0-33.0); MEAN CORPUSCULAR HGB CONC 32.8 g/dl (32.0-36.5); MEAN CORPUSCULAR VOLUME 89.9 fl (80.0-96.0); MONO # 0.7 10^3/uL (0.0-0.8); NEUTROPHILS # 5.5 10^3/uL (1.5-8.5); NEUTROPHILS % 73.6 % (36.0-66.0); PLATELET COUNT, AUTOMATED 275 10^3/uL (150-450); RED BLOOD COUNT 2.98 10^6/uL (4.00-5.40); WHITE BLOOD COUNT 7.5 10^3/uL (4.0-10.0)
[2023-05-19] MEDS: LevoFLOXacin 750 MG TABLET PO SCH (06:39)
[2023-05-19] MEDS: SODIUM CHLORIDE 0.9% INJ 10 ML SYR IV SCH ×2 (06:40→17:34)
[2023-05-19 06:47] LABS: BLOOD UREA NITROGEN 21 MG/DL (9-23); CALCIUM LEVEL 8.1 MG/DL (8.3-10.6); CARBON DIOXIDE LEVEL 24 MMOL/L (20-31); CHLORIDE LEVEL 105 MMOL/L (98-107); CREATININE FOR GFR 0.95 MG/DL (0.55-1.30); GLOMERULAR FILTRATION RATE > 60.0 (>39); GLUCOSE, FASTING 176 MG/DL (74-106); MAGNESIUM LEVEL 1.5 MG/DL (1.8-2.4); POTASSIUM SERUM 4.9 MMOL/L (3.5-5.1); SODIUM LEVEL 135 MMOL/L (136-145)
[2023-05-19] MEDS: HEPARIN SOD (PORCINE) 5000UNITS/ML 1ML VIAL/SYRINGE SQ SCH ×2 (08:12→22:02)
[2023-05-19] MEDS: CARVedilol 6.25 MG TAB PO SCH ×2 (08:12→22:03)
[2023-05-19] MEDS: MAG SULF 1GM/100ML (MAG RUN) 1 GM in IV 1 EA IV SCH ×2 (08:13→11:39)
[2023-05-19] MEDS: NS 1,000 ML IV SCH (08:27)
[2023-05-19] MEDS: LEVEMIR (INSULIN DETEMIR) 1 UNITS/0.01ML SC SCH ×2 (09:00→22:01)
[2023-05-19] MEDS ORDERED: LIDOCAINE 1% SDV 30ML VIAL As Ordered ONE (09:17)
[2023-05-19] MEDS ORDERED: MIDAZOLAM INJ 2MG/2ML VIAL As Ordered ONE (09:55)
[2023-05-19] MEDS ORDERED: propofoL 200 MG/20 ML VIAL As Ordered ONE (09:55)
[2023-05-19] MEDS ORDERED: LIDOCAINE 2% 100MG/5ML SDV (FOR ANES.) As Ordered ONE (09:55)
[2023-05-19] MEDS ORDERED: fentaNYL 100 MCG/2 ML INJECTION As Ordered ONE (09:55)
[2023-05-19] MEDS ORDERED: ONDANSETRON 4MG 2ML VIAL As Ordered ONE (09:55)
[2023-05-19] MEDS: INSULIN LISPRO (NovoLOG) PER UNIT SC SCH ×4 (10:00→22:01)
[2023-05-19] MEDS: LACTOBACILLUS ACIDOPHILUS CAP (BACID) PO SCH ×2 (10:02→17:32)
[2023-05-19] MEDS ORDERED: ACETAMINOPHEN 1000MG 100ML IV BAG As Ordered ONE (10:02)
[2023-05-19] MEDS ORDERED: ceFAZolin 1GM VIAL As Ordered ONE (10:04)
[2023-05-19] MEDS ORDERED: ceFAZolin 1GM VIAL ONE (10:04)
[2023-05-19] MEDS ORDERED: HYDROMORPHONE HCL 0.5 MG/ 0.5 ML SYRINGE IV PRN (10:25)
[2023-05-19] MEDS ORDERED: ONDANSETRON 4MG 2ML VIAL IV PRN (10:25)
[2023-05-19] MEDS ORDERED: fentaNYL 100 MCG/2 ML INJECTION IV PRN (10:25)
[2023-05-19] MEDS ORDERED: oxyCODONE 5MG TAB PO PRN (10:25)
[2023-05-19] MEDS ORDERED: LR 1,000 ML IV SCH (10:25)
[2023-05-19] MEDS: SENOKOT S TAB PO SCH ×2 (11:39→22:02)
[2023-05-19] MEDS: MAGNESIUM OXIDE 400MG TAB (MAG-OX) PO SCH ×2 (11:39→22:02)
[2023-05-19] MEDS: PERCOCET 5MG/325MG TAB PO PRN ×3 (11:40→22:56)
[2023-05-19] MEDS: SIMVASTATIN 20 MG TAB PO SCH (22:02)
[2023-05-19] MEDS: AMITRIPTYLINE 25MG TABLET PO SCH (22:02)
[2023-05-20 02:00] VITALS: BP 145/64; TEMP 97.7; O2SAT 98
[2023-05-20] MEDS: SODIUM CHLORIDE 0.9% INJ 10 ML SYR IV SCH ×2 (05:14→17:32)
[2023-05-20 05:55] LABS: HEMOGLOBIN 8.5 g/dl (12.0-15.5); MEAN CORPUSCULAR HEMOGLOBIN 29.1 pg (27.0-33.0); MEAN CORPUSCULAR HGB CONC 31.5 g/dl (32.0-36.5); MEAN CORPUSCULAR VOLUME 92.5 fl (80.0-96.0); PLATELET COUNT, AUTOMATED 243 10^3/uL (150-450); RED BLOOD COUNT 2.92 10^6/uL (4.00-5.40); WHITE BLOOD COUNT 6.8 10^3/uL (4.0-10.0)
[2023-05-20 06:00] VITALS: BP 136/63; TEMP 97.7; O2SAT 99
[2023-05-20 06:22] LABS: CALCIUM LEVEL 8.2 MG/DL (8.3-10.6); CREATININE FOR GFR 1.04 MG/DL (0.55-1.30); GLOMERULAR FILTRATION RATE 55.3 (>39); MAGNESIUM LEVEL 1.9 MG/DL (1.8-2.4); POTASSIUM SERUM 5.3 MMOL/L (3.5-5.1)
[2023-05-20 07:15] LABS: ATYPICAL LYMPH 2 % (0-5); EOSINOPHILS 1 % (0-3); HYPOCHROMASIA 1+; LYMPHOCYTES 24 % (16-44); MONOCYTES 5 % (0-5); NEUTROPHILS 68 % (28-66); PLATELET ESTIMATE NORMAL (NORMAL)
[2023-05-20] MEDS: LEVEMIR (INSULIN DETEMIR) 1 UNITS/0.01ML SC SCH ×2 (09:44→20:38)
[2023-05-20] MEDS: LACTOBACILLUS ACIDOPHILUS CAP (BACID) PO SCH ×2 (09:44→17:32)
[2023-05-20] MEDS: INSULIN LISPRO (NovoLOG) PER UNIT SC SCH ×4 (09:44→20:23)
[2023-05-20] MEDS: MAGNESIUM OXIDE 400MG TAB (MAG-OX) PO SCH ×2 (09:45→20:37)
[2023-05-20] MEDS: PERCOCET 5MG/325MG TAB PO PRN ×2 (09:45→16:39)
[2023-05-20] MEDS: SENOKOT S TAB PO SCH ×2 (09:45→20:36)
[2023-05-20] MEDS: HEPARIN SOD (PORCINE) 5000UNITS/ML 1ML VIAL/SYRINGE SQ SCH ×2 (09:46→20:37)
[2023-05-20] MEDS: CARVedilol 6.25 MG TAB PO SCH ×2 (09:46→20:36)
[2023-05-20 10:00] VITALS: BP 117/47; TEMP 97.5; O2SAT 97
[2023-05-20] MEDS ORDERED: PATIROMER SORBITEX CALCIUM 8.4 GM POWDER PACKET (VELTASSA) PO ONE (10:00)
[2023-05-20] MEDS: MORPHINE 2 MG/ML 1ML VIAL IV PRN (12:23)
[2023-05-20 14:00] VITALS: BP 114/47; TEMP 97.5; O2SAT 95
[2023-05-20 18:00] VITALS: BP 121/58; TEMP 96.9; O2SAT 97
[2023-05-20] MEDS: SIMVASTATIN 20 MG TAB PO SCH (20:36)
[2023-05-20] MEDS: AMITRIPTYLINE 25MG TABLET PO SCH (20:36)
[2023-05-20 22:00] VITALS: BP 120/52; TEMP 97.9; O2SAT 96
[2023-05-21 01:49] VITALS: BP 136/63; TEMP 97.6; O2SAT 96
[2023-05-21 06:00] VITALS: BP 154/72; TEMP 97.7; O2SAT 96
[2023-05-21] MEDS: LevoFLOXacin 750 MG TABLET PO SCH (06:02)
[2023-05-21] MEDS: SODIUM CHLORIDE 0.9% INJ 10 ML SYR IV SCH ×2 (06:03→17:20)
[2023-05-21] MEDS: PERCOCET 5MG/325MG TAB PO PRN ×5 (06:03→22:10)
[2023-05-21 06:06] LABS: BASO % 0.4 % (0.0-1.0); EOS # 0.1 10^3/uL (0.0-0.5); EOS % 1.6 % (0.0-3.0); HEMOGLOBIN 8.7 g/dl (12.0-15.5); LYMPH # 1.5 10^3/uL (1.5-5.0); LYMPH % 17.8 % (24.0-44.0); MEAN CORPUSCULAR HEMOGLOBIN 29.1 pg (27.0-33.0); MEAN CORPUSCULAR HGB CONC 31.1 g/dl (32.0-36.5); MEAN CORPUSCULAR VOLUME 93.6 fl (80.0-96.0); MONO # 0.7 10^3/uL (0.0-0.8); MONO % 8.5 % (2.0-8.0); NEUTROPHILS # 5.8 10^3/uL (1.5-8.5); NEUTROPHILS % 70.7 % (36.0-66.0); PLATELET COUNT, AUTOMATED 267 10^3/uL (150-450); RED BLOOD COUNT 2.99 10^6/uL (4.00-5.40); WHITE BLOOD COUNT 8.2 10^3/uL (4.0-10.0)
[2023-05-21 06:22] LABS: CALCIUM LEVEL 8.4 MG/DL (8.3-10.6); CREATININE FOR GFR 1.04 MG/DL (0.55-1.30); GLOMERULAR FILTRATION RATE 55.3 (>39); MAGNESIUM LEVEL 1.7 MG/DL (1.8-2.4)
[2023-05-21] MEDS: LEVEMIR (INSULIN DETEMIR) 1 UNITS/0.01ML SC SCH ×2 (09:00→22:15)
[2023-05-21 09:48] VITALS: BP 119/49; TEMP 97.5; O2SAT 97
[2023-05-21] MEDS: HEPARIN SOD (PORCINE) 5000UNITS/ML 1ML VIAL/SYRINGE SQ SCH ×2 (10:01→22:15)
[2023-05-21] MEDS: SENOKOT S TAB PO SCH ×2 (10:01→22:14)
[2023-05-21] MEDS: MAGNESIUM OXIDE 400MG TAB (MAG-OX) PO SCH ×2 (10:01→22:10)
[2023-05-21] MEDS: LACTOBACILLUS ACIDOPHILUS CAP (BACID) PO SCH ×2 (10:01→17:20)
[2023-05-21] MEDS: CARVedilol 6.25 MG TAB PO SCH ×2 (10:02→22:14)
[2023-05-21] MEDS: INSULIN LISPRO (NovoLOG) PER UNIT SC SCH ×4 (10:03→20:35)
[2023-05-21] MEDS: MORPHINE 2 MG/ML 1ML VIAL IV PRN (18:50)
[2023-05-21 19:47] VITALS: BP 116/49; TEMP 97.5; O2SAT 95
[2023-05-21] MEDS: AMITRIPTYLINE 25MG TABLET PO SCH (22:09)
[2023-05-21] MEDS: SIMVASTATIN 20 MG TAB PO SCH (22:11)
[2023-05-22 02:00] VITALS: BP 92/59; TEMP 97.5; O2SAT 97
[2023-05-22 05:20] VITALS: BP 133/66; TEMP 98.1; O2SAT 98
[2023-05-22 06:03] LABS: BASO % 0.3 % (0.0-1.0); EOS # 0.1 10^3/uL (0.0-0.5); EOS % 1.7 % (0.0-3.0); HEMATOCRIT 28.5 % (36.0-47.0); HEMOGLOBIN 8.7 g/dl (12.0-15.5); LYMPH # 1.2 10^3/uL (1.5-5.0); LYMPH % 16.9 % (24.0-44.0); MEAN CORPUSCULAR HEMOGLOBIN 28.7 pg (27.0-33.0); MEAN CORPUSCULAR HGB CONC 30.5 g/dl (32.0-36.5); MEAN CORPUSCULAR VOLUME 94.1 fl (80.0-96.0); MONO # 0.6 10^3/uL (0.0-0.8); MONO % 8.5 % (2.0-8.0); NEUTROPHILS # 5.1 10^3/uL (1.5-8.5); NEUTROPHILS % 71.7 % (36.0-66.0); PLATELET COUNT, AUTOMATED 256 10^3/uL (150-450); RED BLOOD COUNT 3.03 10^6/uL (4.00-5.40); WHITE BLOOD COUNT 7.1 10^3/uL (4.0-10.0)
[2023-05-22] MEDS: SODIUM CHLORIDE 0.9% INJ 10 ML SYR IV SCH ×2 (06:24→17:07)
[2023-05-22 06:27] LABS: CALCIUM LEVEL 8.5 MG/DL (8.3-10.6); CREATININE FOR GFR 1.06 MG/DL (0.55-1.30); GLOMERULAR FILTRATION RATE 54.1 (>39); MAGNESIUM LEVEL 1.6 MG/DL (1.8-2.4); POTASSIUM SERUM 5.1 MMOL/L (3.5-5.1)
[2023-05-22] MEDS: PERCOCET 5MG/325MG TAB PO PRN ×3 (06:33→16:37)
[2023-05-22] MEDS: INSULIN LISPRO (NovoLOG) PER UNIT SC SCH ×4 (09:14→20:46)
[2023-05-22] MEDS: LACTOBACILLUS ACIDOPHILUS CAP (BACID) PO SCH ×2 (09:14→17:07)
[2023-05-22] MEDS: LEVEMIR (INSULIN DETEMIR) 1 UNITS/0.01ML SC SCH ×2 (09:14→20:46)
[2023-05-22] MEDS: CARVedilol 6.25 MG TAB PO SCH ×2 (09:15→20:44)
[2023-05-22] MEDS: MAGNESIUM OXIDE 400MG TAB (MAG-OX) PO SCH ×2 (09:15→20:44)
[2023-05-22] MEDS: HEPARIN SOD (PORCINE) 5000UNITS/ML 1ML VIAL/SYRINGE SQ SCH ×2 (09:15→20:46)
[2023-05-22] MEDS: SENOKOT S TAB PO SCH ×2 (09:15→20:45)
[2023-05-22 10:00] VITALS: BP 119/49; TEMP 97.5; O2SAT 97
[2023-05-22] MEDS: MAG SULF 1GM/100ML (MAG RUN) 1 GM in IV 1 EA IV SCH ×4 (11:42→14:01)
[2023-05-22] MEDS: MORPHINE 2 MG/ML 1ML VIAL IV PRN (11:44)
[2023-05-22 14:00] VITALS: BP 123/55; TEMP 97.5; O2SAT 97
[2023-05-22] MEDS: SODIUM CHLORIDE 0.9% INJ 10 ML SYR IV PRN (15:41)
[2023-05-22 18:00] VITALS: BP 120/54; TEMP 97.9; O2SAT 94
[2023-05-22 20:39] VITALS: BP 131/57; TEMP 97.5; O2SAT 96
[2023-05-22] MEDS: SIMVASTATIN 20 MG TAB PO SCH (20:44)
[2023-05-22] MEDS: AMITRIPTYLINE 25MG TABLET PO SCH (20:45)
[2023-05-23 02:00] VITALS: BP 135/61; TEMP 98.1; O2SAT 98
[2023-05-23 04:00] VITALS: BP 145/56; TEMP 97.9; O2SAT 97
[2023-05-23] MEDS: LevoFLOXacin 750 MG TABLET PO SCH (05:33)
[2023-05-23] MEDS: SODIUM CHLORIDE 0.9% INJ 10 ML SYR IV SCH ×2 (05:33→17:58)
[2023-05-23 06:31] LABS: BASO % 0.3 % (0.0-1.0); EOS # 0.2 10^3/uL (0.0-0.5); EOS % 2.3 % (0.0-3.0); HEMATOCRIT 30.3 % (36.0-47.0); HEMOGLOBIN 9.1 g/dl (12.0-15.5); LYMPH # 1.1 10^3/uL (1.5-5.0); LYMPH % 17.5 % (24.0-44.0); MEAN CORPUSCULAR HEMOGLOBIN 28.3 pg (27.0-33.0); MEAN CORPUSCULAR VOLUME 94.1 fl (80.0-96.0); MONO # 0.5 10^3/uL (0.0-0.8); MONO % 7.5 % (2.0-8.0); NEUTROPHILS # 4.7 10^3/uL (1.5-8.5); NEUTROPHILS % 71.5 % (36.0-66.0); PLATELET COUNT, AUTOMATED 274 10^3/uL (150-450); RED BLOOD COUNT 3.22 10^6/uL (4.00-5.40); WHITE BLOOD COUNT 6.5 10^3/uL (4.0-10.0)
[2023-05-23 06:50] LABS: CALCIUM LEVEL 8.5 MG/DL (8.3-10.6); CREATININE FOR GFR 1.13 MG/DL (0.55-1.30); GLOMERULAR FILTRATION RATE 50.2 (>39); MAGNESIUM LEVEL 1.9 MG/DL (1.8-2.4)
[2023-05-23] MEDS: LACTOBACILLUS ACIDOPHILUS CAP (BACID) PO SCH ×2 (08:08→17:57)
[2023-05-23] MEDS: SENOKOT S TAB PO SCH ×2 (08:09→20:17)
[2023-05-23] MEDS: MAGNESIUM OXIDE 400MG TAB (MAG-OX) PO SCH ×2 (08:09→20:18)
[2023-05-23] MEDS: CARVedilol 6.25 MG TAB PO SCH ×2 (08:09→20:16)
[2023-05-23] MEDS: PERCOCET 5MG/325MG TAB PO PRN ×4 (08:09→20:18)
[2023-05-23] MEDS: HEPARIN SOD (PORCINE) 5000UNITS/ML 1ML VIAL/SYRINGE SQ SCH ×2 (08:10→20:17)
[2023-05-23] MEDS: INSULIN LISPRO (NovoLOG) PER UNIT SC SCH ×4 (08:10→21:00)
[2023-05-23] MEDS: LEVEMIR (INSULIN DETEMIR) 1 UNITS/0.01ML SC SCH ×2 (08:10→20:15)
[2023-05-23 10:00] VITALS: BP 109/48; TEMP 97.5; O2SAT 96
[2023-05-23 14:00] VITALS: BP 145/60; TEMP 97.7; O2SAT 96
[2023-05-23] MEDS: AMITRIPTYLINE 25MG TABLET PO SCH (20:15)
[2023-05-23] MEDS: SIMVASTATIN 20 MG TAB PO SCH (20:17)
[2023-05-23 20:50] VITALS: BP 108/55; TEMP 97.2; O2SAT 98
[2023-05-23] MEDS: MORPHINE 2 MG/ML 1ML VIAL IV PRN (22:33)
[2023-05-24] VITALS (7 sets, daily range): BP systolic 117–147; BP diastolic 52–70; TEMP 97.3–97.9; O2SAT 96–99
[2023-05-24] MEDS: PERCOCET 5MG/325MG TAB PO PRN ×4 (03:14→17:57)
[2023-05-24] MEDS: SODIUM CHLORIDE 0.9% INJ 10 ML SYR IV SCH ×2 (05:44→17:56)
[2023-05-24 05:52] LABS: BASO % 0.5 % (0.0-1.0); EOS # 0.1 10^3/uL (0.0-0.5); EOS % 2.1 % (0.0-3.0); HEMATOCRIT 28.8 % (36.0-47.0); HEMOGLOBIN 8.9 g/dl (12.0-15.5); LYMPH # 1.2 10^3/uL (1.5-5.0); LYMPH % 18.3 % (24.0-44.0); MEAN CORPUSCULAR HEMOGLOBIN 29.2 pg (27.0-33.0); MEAN CORPUSCULAR HGB CONC 30.9 g/dl (32.0-36.5); MEAN CORPUSCULAR VOLUME 94.4 fl (80.0-96.0); MONO # 0.5 10^3/uL (0.0-0.8); MONO % 7.7 % (2.0-8.0); NEUTROPHILS # 4.4 10^3/uL (1.5-8.5); NEUTROPHILS % 70.4 % (36.0-66.0); PLATELET COUNT, AUTOMATED 241 10^3/uL (150-450); RED BLOOD COUNT 3.05 10^6/uL (4.00-5.40); WHITE BLOOD COUNT 6.3 10^3/uL (4.0-10.0)
[2023-05-24 06:28] LABS: CALCIUM LEVEL 8.4 MG/DL (8.3-10.6); CREATININE FOR GFR 1.12 MG/DL (0.55-1.30); GLOMERULAR FILTRATION RATE 50.8 (>39); MAGNESIUM LEVEL 1.8 MG/DL (1.8-2.4); POTASSIUM SERUM 5.1 MMOL/L (3.5-5.1)
[2023-05-24] MEDS: LEVEMIR (INSULIN DETEMIR) 1 UNITS/0.01ML SC SCH ×2 (09:00→21:15)
[2023-05-24] MEDS: HEPARIN SOD (PORCINE) 5000UNITS/ML 1ML VIAL/SYRINGE SQ SCH ×2 (09:39→21:15)
[2023-05-24] MEDS: LACTOBACILLUS ACIDOPHILUS CAP (BACID) PO SCH ×2 (09:41→17:55)
[2023-05-24] MEDS: INSULIN LISPRO (NovoLOG) PER UNIT SC SCH ×4 (09:41→21:00)
[2023-05-24] MEDS: SENOKOT S TAB PO SCH ×2 (09:41→21:12)
[2023-05-24] MEDS: MAGNESIUM OXIDE 400MG TAB (MAG-OX) PO SCH ×2 (09:42→21:12)
[2023-05-24] MEDS: CARVedilol 6.25 MG TAB PO SCH ×2 (09:42→21:11)
[2023-05-24] MEDS ORDERED: LACTULOSE 20GM/30ML SYRUP UDC PO ONE (10:30)
[2023-05-24] MEDS ORDERED: ALCOPAD25 TOP (10:43)
[2023-05-24] MEDS ORDERED: BLOOKIT21 XX (10:43)
[2023-05-24] MEDS ORDERED: GLUC1TES2 XX (10:43)
[2023-05-24] MEDS ORDERED: INSU100I48 SQ (10:43)
[2023-05-24] MEDS ORDERED: LANC30MI XX (10:43)
[2023-05-24] MEDS ORDERED: PEN1MIS21 SC (10:43)
[2023-05-24] MEDS ORDERED: PROBCAP14 PO (10:45)
[2023-05-24] MEDS ORDERED: LEVO1TAB40 PO (10:45)
[2023-05-24] MEDS ORDERED: SENN-52 PO (10:47)
[2023-05-24] MEDS ORDERED: BISACODYL 10MG SUPP PR ONE (12:30)
[2023-05-24] MEDS ORDERED: MAGN400T2 PO (15:43)
[2023-05-24] MEDS: SIMVASTATIN 20 MG TAB PO SCH (21:11)
[2023-05-24] MEDS: AMITRIPTYLINE 25MG TABLET PO SCH (21:12)
[2023-05-25 01:55] VITALS: BP 123/54; TEMP 97.9; O2SAT 99
[2023-05-25 05:30] VITALS: BP 124/56; TEMP 98.1; O2SAT 95
[2023-05-25] MEDS: LevoFLOXacin 750 MG TABLET PO SCH (05:50)
[2023-05-25] MEDS: SODIUM CHLORIDE 0.9% INJ 10 ML SYR IV SCH (05:51)
[2023-05-25] MEDS: MORPHINE 2 MG/ML 1ML VIAL IV PRN (06:09)
[2023-05-25] MEDS: SODIUM CHLORIDE 0.9% INJ 10 ML SYR IV PRN (06:09)
[2023-05-25 07:08] LABS: BASO % 0.3 % (0.0-1.0); EOS # 0.1 10^3/uL (0.0-0.5); EOS % 2.4 % (0.0-3.0); HEMATOCRIT 30.4 % (36.0-47.0); HEMOGLOBIN 9.5 g/dl (12.0-15.5); LYMPH # 1.2 10^3/uL (1.5-5.0); MEAN CORPUSCULAR HEMOGLOBIN 29.1 pg (27.0-33.0); MEAN CORPUSCULAR HGB CONC 31.3 g/dl (32.0-36.5); MONO # 0.4 10^3/uL (0.0-0.8); NEUTROPHILS % 69.3 % (36.0-66.0); PLATELET COUNT, AUTOMATED 251 10^3/uL (150-450); RED BLOOD COUNT 3.27 10^6/uL (4.00-5.40); WHITE BLOOD COUNT 5.8 10^3/uL (4.0-10.0)
[2023-05-25] MEDS: PERCOCET 5MG/325MG TAB PO PRN (07:08)
[2023-05-25 07:46] LABS: CALCIUM LEVEL 8.6 MG/DL (8.3-10.6); CREATININE FOR GFR 1.09 MG/DL (0.55-1.30); GLOMERULAR FILTRATION RATE 52.4 (>39); MAGNESIUM LEVEL 1.8 MG/DL (1.8-2.4); POTASSIUM SERUM 5.1 MMOL/L (3.5-5.1)
[2023-05-25] MEDS: LEVEMIR (INSULIN DETEMIR) 1 UNITS/0.01ML SC SCH (09:00)
[2023-05-25 09:04] VITALS: BP 118/49
[2023-05-25] MEDS: LACTOBACILLUS ACIDOPHILUS CAP (BACID) PO SCH (09:17)
[2023-05-25] MEDS: CARVedilol 6.25 MG TAB PO SCH (09:17)
[2023-05-25] MEDS: SENOKOT S TAB PO SCH (09:17)
[2023-05-25] MEDS: MAGNESIUM OXIDE 400MG TAB (MAG-OX) PO SCH (09:17)
[2023-05-25] MEDS: INSULIN LISPRO (NovoLOG) PER UNIT SC SCH ×2 (09:18→11:57)
[2023-05-25] MEDS: HEPARIN SOD (PORCINE) 5000UNITS/ML 1ML VIAL/SYRINGE SQ SCH (09:18)
[2023-05-25 10:00] VITALS: BP 118/50; TEMP 97.7; O2SAT 94
[2023-05-25] MEDS ORDERED: NEOSPORIN OINT 0.9 GM PKT TOP STA (11:35)
== END 2023-05-25 12:22 | disposition home health service (06) | DRG 654 ==
LOC: M OR 08:03 → M PCU 16:53 → M MSPAV 05-13 22:20
PROVIDERS: ADMIT Urology; ATTEND Internal Medicine
PROC: 0UBG0ZZ Excision of Vagina, Open Approach (ICD-10-PCS; 2023-05-02)
PROC: 0UBC0ZZ Excision of Cervix, Open Approach (ICD-10-PCS; 2023-05-02)
PROC: 0DBB0ZZ Excision of Ileum, Open Approach (ICD-10-PCS; 2023-05-02)
PROC: 0TB60ZX Excision of Right Ureter, Open Approach, Diagnostic (ICD-10-PCS; 2023-05-02)
PROC: 0TB70ZX Excision of Left Ureter, Open Approach, Diagnostic (ICD-10-PCS; 2023-05-02)
PROC: 0T1807C Bypass Bilateral Ureters to Ileocutaneous with Autologous Tissue Substitute, Open Approach (ICD-10-PCS; 2023-05-02)
PROC: 0TTD0ZZ Resection of Urethra, Open Approach (ICD-10-PCS; 2023-05-02)
PROC: 0TTB0ZZ Resection of Bladder, Open Approach (ICD-10-PCS; principal; 2023-05-02 09:45)
PROC: 30233N1 Transfusion of Nonautologous Red Blood Cells into Peripheral Vein, Percutaneous Approach (ICD-10-PCS; 2023-05-04)
PROC: 02HV33Z Insertion of Infusion Device into Superior Vena Cava, Percutaneous Approach (ICD-10-PCS; 2023-05-05)
PROC: 3E0436Z Introduction of Nutritional Substance into Central Vein, Percutaneous Approach (ICD-10-PCS; 2023-05-05)
PROC: 3E10X8Z Irrigation of Skin and Mucous Membranes using Irrigating Substance (ICD-10-PCS; 2023-05-19)
DX: C67.2 Malignant neoplasm of lateral wall of bladder (principal); K91.30 Postprocedural intestinal obstruction, unspecified as to partial versus complete; N13.30 Unspecified hydronephrosis; E87.1 Hypo-osmolality and hyponatremia; D62 Acute posthemorrhagic anemia; T81.41XA Infection following a procedure, superficial incisional surgical site, initial encounter; E11.65 Type 2 diabetes mellitus with hyperglycemia; D47.2 Monoclonal gammopathy; E78.5 Hyperlipidemia, unspecified; F39 Unspecified mood [affective] disorder; E83.42 Hypomagnesemia; I12.9 Hypertensive chronic kidney disease with stage 1 through stage 4 chronic kidney disease, or unspecified chronic kidney disease; E11.42 Type 2 diabetes mellitus with diabetic polyneuropathy; K52.9 Noninfective gastroenteritis and colitis, unspecified; B96.20 Unspecified Escherichia coli [E. coli] as the cause of diseases classified elsewhere; E87.5 Hyperkalemia; E87.6 Hypokalemia; E11.22 Type 2 diabetes mellitus with diabetic chronic kidney disease; N18.30 Chronic kidney disease, stage 3 unspecified; N89.8 Other specified noninflammatory disorders of vagina; N93.9 Abnormal uterine and vaginal bleeding, unspecified; Z79.84 Long term (current) use of oral hypoglycemic drugs; Z79.899 Other long term (current) drug therapy; Y83.6 Removal of other organ (partial) (total) as the cause of abnormal reaction of the patient, or of later complication, without mention of misadventure at the time of the procedure

== ENCOUNTER → 2023-07-15 | Outpatient (REF) | payer MEDICARE, OTHER ==
[~2023-07-15] MED LIST changes: +ALCOPAD25 TOP; +BLOOKIT21 XX; +DOCU100C16 PO; +GLIP5TAB17 PO; -GLIP5TAB8 PO; +GLUC1TES2 XX; +INSU100I48 SQ; +LANC30MI XX; +LEVO1TAB40 PO; +MAGN400T2 PO; -OXYB5TAB10 PO; +OXYB5TAB11 PO; +PEN-308 SC; +PERCOCET PO; +PROBCAP14 PO; +SENN-52 PO; -ceFAZolin SOD 2 GM in IV 1 EA IV ONE
[2023-07-15 18:24] LABS: PERCENT SATURATION 15.4 % (13.2-45.0)
[2023-07-15 18:28] LABS: FERRITIN 140.7 NG/ML (7.3-270.7)
== END ==
LOC: M LAB REF 17:30
PROVIDERS: ATTEND Nurse Practitioner Family
DX: D64.9 Anemia, unspecified (principal)

== ENCOUNTER → 2023-07-19 | Outpatient (CLI) | payer MEDICARE, OTHER | LOC: M WHC 10:05 | PROVIDERS: ATTEND Nurse Practitioner Family | DX: Z12.31 Encounter for screening mammogram for malignant neoplasm of breast (principal) ==

== ENCOUNTER → 2023-08-15 | Outpatient (CLI) | payer MEDICARE, OTHER ==
[~2023-08-15] MED LIST changes: +ISOVUE-370 76% 100ML VIAL As Ordered ONE
== END ==
LOC: M RAD 09:09
PROVIDERS: ATTEND Urology
DX: C67.9 Malignant neoplasm of bladder, unspecified (principal)
CPT/HCPCS: 71260; 74177; Q9967

== ENCOUNTER 2023-12-15 17:54 | Inpatient (IN) | payer MEDICARE, OTHER ==
[~2023-12-15] VITALS: Ht 149.9 cm; Wt 72.4 kg
[~2023-12-15 17:54] MED LIST changes: -ASPI-161 PO; +ASPI-615 PO; +GLIP10TA6; -ISOVUE-370 76% 100ML VIAL As Ordered ONE; -OXYB5TAB11 PO; +OXYB5TAB14 PO
[2023-12-15] MEDS ORDERED: SODIUM CHLORIDE 0.9% INJ 10 ML SYR IV PRN (18:30)
[2023-12-15 19:03] LABS: BASO % 0.1 % (0.0-1.0); EOS # 0.1 10^3/uL (0.0-0.5); EOS % 0.7 % (0.0-3.0); HEMATOCRIT 28.8 % (36.0-47.0); HEMOGLOBIN 8.9 g/dl (12.0-15.5); LYMPH # 1.1 10^3/uL (1.5-5.0); LYMPH % 7.2 % (24.0-44.0); MEAN CORPUSCULAR HEMOGLOBIN 25.7 pg (27.0-33.0); MEAN CORPUSCULAR HGB CONC 30.9 g/dl (32.0-36.5); MEAN CORPUSCULAR VOLUME 83.2 fl (80.0-96.0); MONO # 0.8 10^3/uL (0.0-0.8); MONO % 5.3 % (2.0-8.0); NEUTROPHILS % 86.2 % (36.0-66.0); PLATELET COUNT, AUTOMATED 394 10^3/uL (150-450); RED BLOOD COUNT 3.46 10^6/uL (4.00-5.40); WHITE BLOOD COUNT 15.1 10^3/uL (4.0-10.0)
[2023-12-15] MEDS: NS 1,000 ML IV ONE (19:12)
[2023-12-15] MEDS: ONDANSETRON 4MG 2ML VIAL IV ONE (19:12)
[2023-12-15 19:17] LABS: INR 1.22
[2023-12-15 19:22] LABS: CK-MB VALUE MASS 1.3 NG/ML (<3.6)
[2023-12-15 19:23] LABS: LIPASE 35 U/L (12-53)
[2023-12-15 19:24] LABS: AMYLASE 29 U/L (30-118); CPK CREATINE PHOSPHOKINASE 38 U/L (34-145); MB/CK RELATIVE INDEX 3.42 (< OR =4)
[2023-12-15 19:25] LABS: ALBUMIN 2.6 G/DL (3.2-5.2); ALKALINE PHOSPHATASE 157 U/L (46-116); ALT/SGPT 13 U/L (7.0-40); AST/SGOT < 8 U/L (<34); BILIRUBIN,DIRECT < 0.1 MG/DL (<0.4); BILIRUBIN,TOTAL < 0.2 MG/DL (0.3-1.2); BLOOD UREA NITROGEN 32 MG/DL (9-23); CALCIUM LEVEL 8.8 MG/DL (8.3-10.6); CARBON DIOXIDE LEVEL 30 MMOL/L (20-31); CHLORIDE LEVEL 103 MMOL/L (98-107); CREATININE FOR GFR 1.32 MG/DL (0.55-1.30); GLUCOSE, FASTING 158 MG/DL (74-106); POTASSIUM SERUM 3.8 MMOL/L (3.5-5.1); SODIUM LEVEL 140 MMOL/L (136-145); TOTAL PROTEIN 5.9 G/DL (5.7-8.2)
[2023-12-15] MEDS: GASTROGRAFIN SOLUTION 30ML PO SCH (19:39)
[2023-12-15] MEDS: PROMETHAZINE 25MG/ML 1ML VIAL IM ONE (21:48)
[2023-12-15] MEDS: FLEET ENEMA PR PRN (21:52)
[2023-12-15] MEDS: metroNIDAZOLE 500 MG in IV 1 EA IV ONE (22:40)
[2023-12-15] MEDS: cefTRIAXone SOD 1 GM in D5W MINI-BAG PLUS 50 ML IV ONE (22:40)
[2023-12-15] MEDS ORDERED: ACET-683 PO (23:26)
[2023-12-15] MEDS ORDERED: DOCU8.6T PO (23:26)
[2023-12-15] MEDS ORDERED: INSU100I48 SQ (23:26)
[2023-12-15] MEDS ORDERED: HOME MED LIST COMPLETE! XX SCH (23:30)
[2023-12-16] VITALS (26 sets, daily range): BP systolic 148–160; BP diastolic 67–79; TEMP 97.3–98; O2SAT 91–99
[2023-12-16] MEDS ORDERED: DEXTROSE 50% 50ML SYRINGE IV PRN (01:05)
[2023-12-16] MEDS ORDERED: GLUCOSE 4GM CHEW TABLET PO PRN (01:05)
[2023-12-16] MEDS ORDERED: MORPHINE 2 MG/ML 1ML VIAL IV PRN (01:05)
[2023-12-16] MEDS ORDERED: GLUCAGON INJ 1MG VIAL SC PRN (01:05)
[2023-12-16] MEDS: NS 1,000 ML IV SCH (01:14)
[2023-12-16] MEDS: CEFEPIME HCL 1 GM in D5W MINI-BAG PLUS 50 ML IV SCH (03:06)
[2023-12-16] MEDS: MORPHINE 2 MG/ML 1ML VIAL IV PRN (04:10)
[2023-12-16] MEDS: HEPARIN SOD (PORCINE) 5000UNITS/ML 1ML VIAL/SYRINGE SC SCH (06:00)
[2023-12-16] MEDS: INSULIN LISPRO (NovoLOG) PER UNIT SC SCH (06:00)
[2023-12-16 06:06] LABS: BASO % 0.1 % (0.0-1.0); EOS % 0.1 % (0.0-3.0); HEMATOCRIT 26.7 % (36.0-47.0); HEMOGLOBIN 8.3 g/dl (12.0-15.5); LYMPH # 1.2 10^3/uL (1.5-5.0); LYMPH % 7.4 % (24.0-44.0); MEAN CORPUSCULAR HEMOGLOBIN 25.9 pg (27.0-33.0); MEAN CORPUSCULAR HGB CONC 31.1 g/dl (32.0-36.5); MEAN CORPUSCULAR VOLUME 83.2 fl (80.0-96.0); MONO % 6.5 % (2.0-8.0); NEUTROPHILS # 13.5 10^3/uL (1.5-8.5); NEUTROPHILS % 85.2 % (36.0-66.0); PLATELET COUNT, AUTOMATED 351 10^3/uL (150-450); RED BLOOD COUNT 3.21 10^6/uL (4.00-5.40); WHITE BLOOD COUNT 15.9 10^3/uL (4.0-10.0)
[2023-12-16 08:13] LABS: ALBUMIN 2.2 G/DL (3.2-5.2); ALKALINE PHOSPHATASE 149 U/L (46-116); ALT/SGPT 13 U/L (7.0-40); AST/SGOT 14 U/L (<34); BILIRUBIN,TOTAL < 0.2 MG/DL (0.3-1.2); BLOOD UREA NITROGEN 30 MG/DL (9-23); CALCIUM LEVEL 8.6 MG/DL (8.3-10.6); CARBON DIOXIDE LEVEL 29 MMOL/L (20-31); CHLORIDE LEVEL 104 MMOL/L (98-107); CREATININE FOR GFR 1.29 MG/DL (0.55-1.30); GLOMERULAR FILTRATION RATE 43.1 (>39); GLUCOSE, FASTING 155 MG/DL (74-106); MAGNESIUM LEVEL 1.5 MG/DL (1.8-2.4); POTASSIUM SERUM 3.9 MMOL/L (3.5-5.1); SODIUM LEVEL 139 MMOL/L (136-145); TOTAL PROTEIN 5.3 G/DL (5.7-8.2)
[2023-12-16] MEDS ORDERED: SODIUM CHLORIDE 0.9% INJ 10 ML SYR IV SCH (09:00)
[2023-12-16] MEDS: PANTOPRAZOLE 40MG VIAL IV SCH (09:09)
[2023-12-16] MEDS ORDERED: hydrALAZINE 20MG/ML 1ML VIAL IV PRN (09:50)
[2023-12-17] VITALS (17 sets, daily range): BP systolic 140–160; BP diastolic 63–78; TEMP 97–98.3; O2SAT 94–99
[2023-12-17 06:43] LABS: ALBUMIN 1.9 G/DL (3.2-5.2); ALKALINE PHOSPHATASE 141 U/L (46-116); ALT/SGPT 14 U/L (7.0-40); AST/SGOT 32 U/L (<34); BILIRUBIN,TOTAL < 0.2 MG/DL (0.3-1.2); BLOOD UREA NITROGEN 24 MG/DL (9-23); CALCIUM LEVEL 8.2 MG/DL (8.3-10.6); CARBON DIOXIDE LEVEL 26 MMOL/L (20-31); CHLORIDE LEVEL 109 MMOL/L (98-107); CREATININE FOR GFR 1.25 MG/DL (0.55-1.30); GLOMERULAR FILTRATION RATE 44.7 (>39); GLUCOSE, FASTING 123 MG/DL (74-106); MAGNESIUM LEVEL 1.5 MG/DL (1.8-2.4); POTASSIUM SERUM 4.3 MMOL/L (3.5-5.1); SODIUM LEVEL 140 MMOL/L (136-145); TOTAL PROTEIN 4.9 G/DL (5.7-8.2)
[2023-12-17 08:10] LABS: BASO % 0.2 % (0.0-1.0); EOS # 0.2 10^3/uL (0.0-0.5); EOS % 1.5 % (0.0-3.0); HEMATOCRIT 24.9 % (36.0-47.0); HEMOGLOBIN 7.4 g/dl (12.0-15.5); LYMPH # 0.9 10^3/uL (1.5-5.0); LYMPH % 9.5 % (24.0-44.0); MEAN CORPUSCULAR HEMOGLOBIN 25.8 pg (27.0-33.0); MEAN CORPUSCULAR HGB CONC 29.7 g/dl (32.0-36.5); MEAN CORPUSCULAR VOLUME 86.8 fl (80.0-96.0); MONO # 0.6 10^3/uL (0.0-0.8); MONO % 6.4 % (2.0-8.0); NEUTROPHILS # 8.1 10^3/uL (1.5-8.5); PLATELET COUNT, AUTOMATED 307 10^3/uL (150-450); RED BLOOD COUNT 2.87 10^6/uL (4.00-5.40); WHITE BLOOD COUNT 9.9 10^3/uL (4.0-10.0)
[2023-12-17] MEDS: MAG SULF 1GM/100ML (MAG RUN) 1 GM in IV 1 EA IV SCH (08:43)
[2023-12-17] MEDS ORDERED: LOSARTAN 25 MG TAB PO SCH (09:00)
[2023-12-17 12:17] LABS: HEMATOCRIT 24.9 % (36.0-47.0); HEMOGLOBIN 7.3 g/dl (12.0-15.5)
[2023-12-17] MEDS: CARVedilol 12.5 MG TAB PO SCH (13:23)
[2023-12-17] MEDS: LEVEMIR (INSULIN DETEMIR) 1 UNITS/0.01ML SC SCH (13:23)
[2023-12-17] MEDS: SENOKOT S TAB PO SCH (13:23)
[2023-12-17] MEDS: VITAMIN D 1,000 INTERNATIONAL UNITS TABLET PO SCH (14:20)
[2023-12-17] MEDS: ASPIRIN 81MG ENTERIC TABLET PO SCH (14:20)
[2023-12-17] MEDS: ACETAMINOPHEN TAB 650MG DOSE (2X325MG) PO PRN (17:13)
[2023-12-17 19:05] LABS: ALKALINE PHOSPHATASE 144 U/L (46-116); ALT/SGPT < 9 U/L (7.0-40); AST/SGOT 13 U/L (<34); BILIRUBIN,TOTAL 0.6 MG/DL (0.3-1.2); BLOOD UREA NITROGEN 22 MG/DL (9-23); CALCIUM LEVEL 8.5 MG/DL (8.3-10.6); CARBON DIOXIDE LEVEL 27 MMOL/L (20-31); CHLORIDE LEVEL 105 MMOL/L (98-107); CREATININE FOR GFR 1.24 MG/DL (0.55-1.30); GLOMERULAR FILTRATION RATE 45.1 (>39); GLUCOSE, FASTING 147 MG/DL (74-106); POTASSIUM SERUM 3.9 MMOL/L (3.5-5.1); SODIUM LEVEL 137 MMOL/L (136-145); TOTAL PROTEIN 5.1 G/DL (5.7-8.2)
[2023-12-17] MEDS: AMITRIPTYLINE 50 MG TAB PO SCH (20:52)
[2023-12-17] MEDS: SIMVASTATIN 20 MG TAB PO SCH (20:53)
[2023-12-17] MEDS: INSULIN LISPRO (NovoLOG) PER UNIT SC SCH (21:00)
[2023-12-18 03:33] VITALS: BP 151/70; TEMP 97.4; O2SAT 97
[2023-12-18 05:58] LABS: BASO % 0.3 % (0.0-1.0); EOS # 0.2 10^3/uL (0.0-0.5); HEMATOCRIT 27.8 % (36.0-47.0); HEMOGLOBIN 8.5 g/dl (12.0-15.5); LYMPH # 1.1 10^3/uL (1.5-5.0); LYMPH % 11.5 % (24.0-44.0); MEAN CORPUSCULAR HEMOGLOBIN 26.3 pg (27.0-33.0); MEAN CORPUSCULAR HGB CONC 30.6 g/dl (32.0-36.5); MEAN CORPUSCULAR VOLUME 86.1 fl (80.0-96.0); MONO # 0.8 10^3/uL (0.0-0.8); MONO % 8.4 % (2.0-8.0); NEUTROPHILS # 7.6 10^3/uL (1.5-8.5); NEUTROPHILS % 77.5 % (36.0-66.0); PLATELET COUNT, AUTOMATED 261 10^3/uL (150-450); RED BLOOD COUNT 3.23 10^6/uL (4.00-5.40); WHITE BLOOD COUNT 9.8 10^3/uL (4.0-10.0)
[2023-12-18 06:29] LABS: ALBUMIN 1.9 G/DL (3.2-5.2); BILIRUBIN,TOTAL 0.2 MG/DL (0.3-1.2); CALCIUM LEVEL 8.3 MG/DL (8.3-10.6); CREATININE FOR GFR 1.29 MG/DL (0.55-1.30); GLOMERULAR FILTRATION RATE 43.1 (>39); MAGNESIUM LEVEL 1.9 MG/DL (1.8-2.4); TOTAL PROTEIN 4.7 G/DL (5.7-8.2)
[2023-12-18] MEDS: INSULIN LISPRO (NovoLOG) PER UNIT SC SCH (07:30)
[2023-12-18 09:35] VITALS: BP 158/88; TEMP 97.6; O2SAT 95
[2023-12-18] MEDS ORDERED: PANT40TA29 PO (09:46)
[2023-12-18] MEDS ORDERED: AMLO1TAB24 PO (09:46)
[2023-12-18 10:02] VITALS: BP 158/88
[2023-12-18] MEDS: amLODIPine 5 MG TAB PO ONE (10:02)
[2023-12-18] MEDS ORDERED: CEFD1CAP9 PO (11:08)
[2023-12-18 11:10] VITALS: BP 139/66
[2023-12-18] MEDS: SODIUM CHLORIDE 0.9% INJ 10 ML SYR IV PRN (12:42)
== END 2023-12-18 13:03 | disposition home or self-care (01) | DRG 389 ==
LOC: M ED 17:54 → M ED INP 23:02 → M PCU 12-16 02:23
PROVIDERS: ADMIT Internal Medicine; ATTEND Internal Medicine
PROC: 30233N1 Transfusion of Nonautologous Red Blood Cells into Peripheral Vein, Percutaneous Approach (ICD-10-PCS; principal; 2023-12-17)
DX: K56.609 Unspecified intestinal obstruction, unspecified as to partial versus complete obstruction (principal); C68.0 Malignant neoplasm of urethra; N13.4 Hydroureter; C79.89 Secondary malignant neoplasm of other specified sites; N18.30 Chronic kidney disease, stage 3 unspecified; I12.9 Hypertensive chronic kidney disease with stage 1 through stage 4 chronic kidney disease, or unspecified chronic kidney disease; E78.5 Hyperlipidemia, unspecified; E11.22 Type 2 diabetes mellitus with diabetic chronic kidney disease; E11.42 Type 2 diabetes mellitus with diabetic polyneuropathy; K21.9 Gastro-esophageal reflux disease without esophagitis; E86.0 Dehydration; R00.0 Tachycardia, unspecified; D64.9 Anemia, unspecified; E55.9 Vitamin D deficiency, unspecified; F39 Unspecified mood [affective] disorder; Z79.4 Long term (current) use of insulin; Z92.21 Personal history of antineoplastic chemotherapy; Z87.891 Personal history of nicotine dependence; Z79.82 Long term (current) use of aspirin; Z79.899 Other long term (current) drug therapy

== ENCOUNTER → 2023-12-20 | Outpatient (CLI) | payer MEDICARE, OTHER ==
[~2023-12-20] MED LIST changes: +ACET-683 PO; +AMLO1TAB24 PO; +CEFD1CAP9 PO; +DOCU8.6T PO; +PANT40TA29 PO
[2023-12-20 13:42] LABS: CHOLESTEROL RISK RATIO 1.91 (<5); HDL CHOLESTEROL 66.8 MG/DL (>40); LDL CHOLESTEROL 35.4 MG/DL (<100); NON-HDL-C 61.2 MG/DL
[2023-12-20 13:43] LABS: FREE T4 1.03 NG/DL (0.89-1.76); THYROID STIMULATING HORMONE 3.492 uIU/ML (0.55-4.78); TOTAL 25(OH) VITAMIN D 57.6 NG/ML (20.0-100.0)
[2023-12-20 13:44] LABS: HEMOGLOBIN A1c 6.3 % (4.0-6.0)
== END ==
LOC: M PLALAB 11:26
PROVIDERS: ATTEND Nurse Practitioner Family
DX: E78.2 Mixed hyperlipidemia (principal); E11.9 Type 2 diabetes mellitus without complications; E55.9 Vitamin D deficiency, unspecified

== ENCOUNTER → 2024-01-04 | Outpatient (CLI) | payer MEDICARE, OTHER | LOC: M RAD 11:20 | PROVIDERS: ATTEND Urology | DX: C67.9 Malignant neoplasm of bladder, unspecified (principal) | CPT/HCPCS: 78306; A9503 ==

== ENCOUNTER → 2024-01-16 | Outpatient (CLI) | payer MEDICARE, OTHER ==
[~2024-01-16] MED LIST changes: +CRAN500C11 PO; -CVS500CA5 PO
== END ==
LOC: M PLARAD 07:32
PROVIDERS: ATTEND Urology
DX: C67.8 Malignant neoplasm of overlapping sites of bladder (principal)
CPT/HCPCS: 78815; A9552

== ENCOUNTER → 2024-01-17 | Outpatient (REF) | payer MEDICARE, OTHER ==
[2024-01-17 19:38] LABS: PERCENT SATURATION 3.1 % (13.2-45.0)
== END ==
LOC: M LAB REF 17:07
PROVIDERS: ATTEND Nurse Practitioner Family
DX: D50.9 Iron deficiency anemia, unspecified (principal)

== ENCOUNTER → 2024-01-18 | Outpatient (CLI) | payer MEDICARE, OTHER ==
[2024-01-18 13:22] LABS: HEMATOCRIT 26.6 % (36.0-47.0); HEMOGLOBIN 8.2 g/dl (12.0-15.5); MEAN CORPUSCULAR HEMOGLOBIN 25.4 pg (27.0-33.0); MEAN CORPUSCULAR HGB CONC 30.8 g/dl (32.0-36.5); MEAN CORPUSCULAR VOLUME 82.4 fl (80.0-96.0); PLATELET COUNT, AUTOMATED 471 10^3/uL (150-450); RED BLOOD COUNT 3.23 10^6/uL (4.00-5.40); WHITE BLOOD COUNT 18.9 10^3/uL (4.0-10.0)
[2024-01-18 13:47] LABS: ALBUMIN 1.9 G/DL (3.2-5.2); BILIRUBIN,TOTAL 0.2 MG/DL (0.3-1.2); CALCIUM LEVEL 8.6 MG/DL (8.3-10.6); CREATININE FOR GFR 1.32 MG/DL (0.55-1.30); POTASSIUM SERUM 4.7 MMOL/L (3.5-5.1)
== END ==
LOC: M LAB 12:12
PROVIDERS: ATTEND Urology
DX: Z85.51 Personal history of malignant neoplasm of bladder (principal)

== ENCOUNTER → 2024-01-19 | Outpatient (CLI) | payer MEDICARE, OTHER | LOC: M LAB 16:31 | PROVIDERS: ATTEND Internal Medicine Hematology & Oncology | DX: Z01.83 Encounter for blood typing (principal) ==

== ENCOUNTER 2024-01-20 07:55 | Outpatient (CLI) | payer MEDICARE, OTHER ==
[~2024-01-20] VITALS: Ht 149.9 cm; Wt 65.0 kg
[2024-01-20] MEDS ORDERED: NS 250 ML IV ONE (08:00)
[2024-01-20 08:40] VITALS: BP 112/58; TEMP 98.2; O2SAT 97
[2024-01-20 08:55] VITALS: BP 122/61; TEMP 98.6; O2SAT 97
[2024-01-20 09:59] VITALS: BP 133/63; TEMP 97.6; O2SAT 98
[2024-01-20 10:49] VITALS: BP 152/78; TEMP 97.7; O2SAT 97
[2024-01-20 11:26] VITALS: BP 139/66; TEMP 97.2; O2SAT 98
[2024-01-20] MEDS: SODIUM CHLORIDE 0.9% INJ 10 ML SYR IV PRN (12:53)
[2024-01-20 13:05] VITALS: BP 130/66; TEMP 98; O2SAT 98
== END 2024-01-20 13:05 ==
LOC: M INFU 07:55
PROVIDERS: ATTEND Nurse Practitioner Family
DX: D50.9 Iron deficiency anemia, unspecified (principal)
CPT/HCPCS: 36430; 96523; P9016

== ENCOUNTER 2024-01-25 10:48 | Inpatient (IN) | payer MEDICARE, OTHER ==
[~2024-01-25] VITALS: Ht 149.9 cm; Wt 65.5 kg
[~2024-01-25 10:48] MED LIST changes: +ONDA-284 PO; -ONDA8TAB8 PO
[2024-01-25] MEDS: MORPHINE 2 MG/ML 1ML VIAL IV ONE (12:36)
[2024-01-25] MEDS: ONDANSETRON 4MG 2ML VIAL IV ONE (12:36)
[2024-01-25 12:41] LABS: HEMATOCRIT 31.1 % (36.0-47.0); HEMOGLOBIN 9.8 g/dl (12.0-15.5); MEAN CORPUSCULAR HEMOGLOBIN 25.8 pg (27.0-33.0); MEAN CORPUSCULAR HGB CONC 31.5 g/dl (32.0-36.5); MEAN CORPUSCULAR VOLUME 81.8 fl (80.0-96.0); PLATELET COUNT, AUTOMATED 336 10^3/uL (150-450); WHITE BLOOD COUNT 14.8 10^3/uL (4.0-10.0)
[2024-01-25 13:09] LABS: ALBUMIN 1.6 G/DL (3.2-5.2); BILIRUBIN,DIRECT 0.1 MG/DL (<0.4); BILIRUBIN,TOTAL 0.3 MG/DL (0.3-1.2); TOTAL PROTEIN 5.3 G/DL (5.7-8.2)
[2024-01-25] MEDS ORDERED: ISOVUE-370 76% 100ML VIAL As Ordered ONE (13:20)
[2024-01-25 13:29] LABS: ATYPICAL LYMPH 3 % (0-5); LYMPHOCYTES 2 % (16-44); MONOCYTES 1 % (0-5); NEUTROPHILS 87 % (28-66)
[2024-01-25 13:30] LABS: ANISOCYTOSIS 1+
[2024-01-25 13:31] LABS: HYPOCHROMASIA 1+; PLATELET ESTIMATE NORMAL (NORMAL)
[2024-01-25] MEDS: NS 1,000 ML IV ONE (13:35)
[2024-01-25] MEDS: MORPHINE 2 MG/ML 1ML VIAL IV PRN ×2 (15:02→21:20)
[2024-01-25] MEDS: cefTRIAXone SOD 1 GM in D5W MINI-BAG PLUS 50 ML IV ONE (15:02)
[2024-01-25] MEDS ORDERED: SERT50TA29 PO (15:15)
[2024-01-25] MEDS ORDERED: PANT40TA29 PO (15:15)
[2024-01-25] MEDS ORDERED: AMLO1TAB24 PO (15:15)
[2024-01-25] MEDS ORDERED: HOME MED LIST COMPLETE! XX SCH (15:20)
[2024-01-25] MEDS ORDERED: SCOPOLAMINE 1MG TRANSDERMAL PATCH TOP PRN (17:05)
[2024-01-25] MEDS ORDERED: ACETAMINOPHEN TAB 650MG DOSE (2X325MG) PO PRN (17:05)
[2024-01-25] MEDS: NS 1,000 ML IV SCH (18:38)
[2024-01-25] MEDS: DOCUSATE SODIUM 100MG CAPSULE PO SCH (19:58)
[2024-01-25 20:19] VITALS: BP 140/61; TEMP 98
[2024-01-26] MEDS: PIPERACILLIN/TAZOBACTAM SOD 4.5 GM in D5W MINI-BAG PLUS 50 ML IV SCH (10:05)
[2024-01-26] MEDS: LORazepam 2 MG/ML 1ML VIAL IV PRN (22:45)
[2024-01-27] MEDS: cefTRIAXone SOD 1 GM in D5W MINI-BAG PLUS 50 ML IV SCH (17:09)
[2024-01-27] MEDS: MORPHINE 4 MG/ML 1ML VIAL IV PRN (22:10)
[2024-01-28] MEDS: KETOROLAC 30 MG/ML 1ML VIAL IV ONE (12:06)
[2024-01-28] MEDS: MORPHINE 4 MG/ML 1ML VIAL IV PRN (20:03)
[2024-01-29] MEDS: ONDANSETRON 4MG 2ML VIAL IV PRN (05:26)
[2024-01-29 05:27] VITALS: O2SAT 95
[2024-01-30] MEDS: SODIUM CHLORIDE 0.9% INJ 10 ML SYR IV PRN (10:20)
[2024-01-30] MEDS: MORPHINE 10MG/0.5ML ORAL CONCENTRATE SOLUTION U/D SL PRN (13:44)
[2024-01-30] MEDS: LORazepam 1 MG TAB PO PRN (18:51)
[2024-01-31] MEDS: MORPHINE 10MG/0.5ML ORAL CONCENTRATE SOLUTION U/D SL PRN (08:55)
[2024-01-31] MEDS ORDERED: TRAN1DIS4 TOP (11:05)
[2024-01-31] MEDS ORDERED: ATIV1TAB7 PO (11:05)
[2024-01-31] MEDS ORDERED: MORP1SOL SL (11:05)
== END 2024-01-31 12:34 | DRG 389 ==
LOC: M ED 10:48 → M ED INP 18:06 → M MSPAV 21:06
PROVIDERS: ADMIT Preventive Medicine Undersea and Hyperbaric Medicine; ATTEND Hospitalist
DX: K56.699 Other intestinal obstruction unspecified as to partial versus complete obstruction (principal); C78.7 Secondary malignant neoplasm of liver and intrahepatic bile duct; C79.51 Secondary malignant neoplasm of bone; C78.6 Secondary malignant neoplasm of retroperitoneum and peritoneum; R78.81 Bacteremia; Z66 Do not resuscitate; C67.9 Malignant neoplasm of bladder, unspecified; G89.3 Neoplasm related pain (acute) (chronic); E11.9 Type 2 diabetes mellitus without complications; B96.4 Proteus (mirabilis) (morganii) as the cause of diseases classified elsewhere; I10 Essential (primary) hypertension; E78.5 Hyperlipidemia, unspecified; Z79.82 Long term (current) use of aspirin; Z79.4 Long term (current) use of insulin; Z79.899 Other long term (current) drug therapy; Z51.5 Encounter for palliative care